=== PATIENT | male | born 1935 | race Caucasian/White ===

== ENCOUNTER → 2016-09-12 | Outpatient (CLI) | payer BC ==
[~2016-09-12] MED LIST: ASPEC81 PO; PRN10125 PO
[2016-09-12 12:47] LABS: ALT/SGPT 26 U/L (12-78); BLOOD UREA NITROGEN 17 mg/dl (7-18); BUN/CREATININE RATIO 19.3 (10-20); CALCIUM 8.7 mg/dl (8.5-10.1); CARBON DIOXIDE 26 mmol/L (21-32); CHLORIDE 109 mmol/L (98-107); CHOLESTEROL 186 mg/dl (0-200); CREATININE 0.87 mg/dl (0.60-1.40); GLUCOSE 101 mg/dl (70-99); POTASSIUM 4.3 mmol/L (3.5-5.1); SODIUM 141 mmol/L (136-145); TRIGLYCERIDES 91 mg/dl (0-150); VERY LOW DENSITY LIPOPROT CALC 18 mg/dl
[2016-09-12 12:50] LABS: ALB/GLOB RATIO 1.1 (0.9-2); ALKALINE PHOSPHATASE 63 U/L (45-117); AST/SGOT 21 U/L (15-37); CHOLESTEROL/HDL RATIO 5.3; HDL CHOLESTEROL 35 mg/dl; LDL CHOLESTEROL CALCULATED 133 mg/dl
== END | disposition home or self-care (01) ==
LOC: C.LABPVFM 07:20
PROVIDERS: ATTEND Family Medicine
DX: R73.9 Hyperglycemia, unspecified (principal)

== ENCOUNTER 2020-08-20 20:19 | Observation (INO) ==
[2020-08-20] MEDS ORDERED: SODIUM CHLORIDE 0.9% 1000ML 1,000 ML IV SCH (21:45)
[2020-08-20 22:13] LABS: INR 1.1 (0.9-1.1); Partial Thromboplastin Ratio 1.1; Partial Thromboplastin Time 29.1 Seconds (21.0-31.0); Prothrombin Time 11.1 Seconds (9.0-12.0)
[2020-08-20 22:16] LABS: Alanine Aminotransferase 44 U/L (12-78); Albumin Level 3.5 gm/dl (3.4-5.0); Aspartate Aminotransferase 55 U/L (15-37); BUN Creatinine Ratio 16.1 (10-20); Blood Urea Nitrogen 14 mg/dl (7-18); Calcium 8.5 mg/dl (8.5-10.1); Carbon Dioxide 26 mmol/L (21-32); Chloride 93 mmol/L (98-107); Creatinine Clr Calc Pharmacy 74.9 ml/min; Est GFR (African American) 92.5 ml/min; Est GFR (Non-African American) 79.8 ml/min; Glucose 111 mg/dl (70-99); Potassium 3.3 mmol/L (3.5-5.1); Sodium 127 mmol/L (136-145)
[2020-08-20 22:20] LABS: Albumin Globulin Ratio 0.9 (0.9-2); Alkaline Phosphatase 65 U/L (45-117); Bilirubin,Total 1.4 mg/dl (0.2-1); Globulin 3.9 gm/dl (2.5-4.0); Total Protein 7.4 gm/dl (6.4-8.2); Troponin I < 0.015 ng/ml (0-0.045)
[2020-08-20 22:39] LABS: Hematocrit (blood only) 44.4 % (42-52); Immature Granulocytes # (auto) 0.01 K/uL (0.00-0.02); Immature Granulocytes % (auto) 0.4 %; Lymphocytes # (auto) 0.39 K/uL (1.2-3.4); Lymphocytes % (auto) 15.3 %; Mean Corpuscular Hemoglobin 31.4 pg (25-34); Mean Corpuscular Volume 87.1 fL (80-100); Mean Platelet Volume 10.5 fL (7.4-10.4); Monocytes # (auto) 0.27 K/uL (0.11-0.59); Monocytes % (auto) 10.6 %; Neutrophils # (auto) 1.88 K/uL (1.4-6.5); Neutrophils % (auto) 73.7 %; Platelet Count 63 K/uL (130-400); Platelet Estimate Decreased (Normal); RDW Coefficient of Variation 13.6 % (11.5-14.5); RDW Standard Deviation 43.3 fL (36.4-46.3); White Blood Count 2.55 K/uL (4.8-10.8)
[2020-08-20 22:41] LABS: Procalcitonin 0.12 ng/ml (0-0.5)
[2020-08-20 22:53] LABS: Lyme Ab IgG w/WB Rflx Negative (Negative); Lyme Ab IgM w/WB Rflx Negative (Negative)
--- NOTE | 2020-08-20 23:01 | Emergency Department Note ---
History of Present Illness General Chief complaint: Illness Stated complaint: SICK SINCE THURSDAY, NAUSEA, HEADACHES, TICK BITE Time Seen by Provider: 08/20/20 21:19 Source: patient Mode of arrival: ambulatory Limitations: no limitations History of Present Illness Provider complaint: Weakness, poor appetite, fevers and chills Onset (ago): day(s) 4 Associated symptoms: + fever/chills, + headaches, + loss of appetite, + malaise and + nausea/vomiting Treatments prior to arrival: none This is an 84-year-old male presents emergency department with multiple complaints that began on Thursday. Patient states he began having subjective fevers and chills, loss of appetite, nausea, and fatigue. Patient states to alleviate the nausea he self-induced vomiting on several occasions. Patient states secondary to that he did have some mild upper abdominal pain however that has since resolved. Patient states he was mildly constipated, denies any diarrhea. He denies any blood in his emesis or stool. Patient did not check his temperature at home. Patient states he feels increasingly weak and has no appetite. Patient denies any prior similar events. Son at bedside states he noticed that his father appeared slightly short of breath and much weaker than usual. [place] Son is concerned for possible tickborne illness. Patient denies any prior history of Lyme. No recent change in medications and no known sick contact. Pt seen during a time of high acuity and national emergency pandemic while wearing PPE. Home Medications Medication Instructions Recorded Confirmed Type aspirin 325 mg PO QAM 08/20/20 08/20/20 History cholecalciferol (vitamin D3) 1,000 units PO QAM 08/20/20 08/20/20 History naproxen sodium [Aleve] 220 mg PO Q12H PRN 08/20/20 08/20/20 History tamsulosin 0.4 mg PO QAM 08/20/20 08/20/20 History Allergies Allergy/AdvReac Type Severity Reaction Status Date / Time meperidine Allergy Verified 08/20/20 22:03 Past Med/Surg History Medical History (Updated 08/22/20 @ 02:16 by aMrely Epstein DO) Cerumen impaction Urine incontinence Surgical History History of back surgery History of hernia surgery Family History Other Cancer Denies family history of Ovarian cancer Prostate cancer Diabetes Coronary heart disease Dyslipidemia Myocardial infarction Breast cancer Colorectal cancer Social History Smoking Status: Never smoker Second Hand Exposure: No; Hx Alcohol Use: No Hx Substance Use: No Preferred Language: Malawian Communication Ability: Effective 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 and A total of 10 systems reviewed and were otherwise negative Physical Exam Vital Signs Vital Signs - 24 hr 08/21/20 03:00 Pulse Rate 74 Respiratory Rate 22 Blood Pressure 149/90 H Blood Pressure Mean 109 Pulse Oximetry 96 GENERAL: alert, well appearing, well nourished, no distress, non-toxic EYE EXAM: normal conjunctiva, PERRL and EOM's grossly intact OROPHARYNX: no exudate, no erythema, lips, buccal mucosa, and tongue normal and mucous membranes are moist NECK: supple, no nuchal rigidity, no adenopathy, non-tender LUNGS: Clear to auscultation. Normal chest wall mechanics, no w/r/r HEART: no murmurs, S1 normal and S2 normal ABDOMEN: abdomen soft, non-tender, normo-active bowel sounds, no masses, no rebound or guarding. BACK: Back is symmetrical on inspection and there is no deformity, no midline tenderness, no CVA tenderness. SKIN: no rashes and no bruising UPPER EXTREMITIES: upper extremities are grossly normal. FROM, nml pulses b/l. LOWER EXTREMITIES: No pitting edema. FROM, nml pulses b/l. NEURO EXAM: Normal sensorium, cranial nerves II-XII grossly intact, normal speech, no gross weakness of arms, no gross weakness of legs. Gross sensation intact. Course Administered Medications Aspirin (Aspirin 325 Mg Ectab) [facility] Stop: 09/20/20 08:59 Last Admin: 08/21/20 08:11 Dose: 325 mg Documented by: [id number] Enoxaparin Sodium (Enoxaparin Inj 40 Mg/0.4 Ml Syr) 40 [facility]Q [facility] Stop: 09/20/20 08:59 Last Admin: 08/21/20 08:12 Dose: 40 mg Documented by: [id number] Guaifenesin (Guaifenesin 600 Mg Tabcr) 600 mg PO Q12 [facility] Stop: 09/20/20 11:14 Last Admin: 08/21/20 20:06 Dose: 600 mg Documented by: [id number] Admin: 08/21/20 12:34 Dose: 600 mg Documented by: [id number] Sodium Chloride (Nss 1000ml) 1,000 mls @ 80 mls/hr IV .[id number] [facility] Stop: 09/20/20 08:59 Last Admin: 08/21/20 20:18 Dose: 80 mls/hr Documented by: [id number] Infusion: 08/21/20 20:18 Dose: 80 mls/hr Documented by: [id number] Admin: 08/21/20 10:00 Dose: 80 mls/hr Documented by: [id number] Tamsulosin HCl (Tamsulosin Hcl 0.4 Mg Cap) 0.4 mg PO [facility] Stop: 09/20/20 08:59 Last Admin: 08/21/20 08:11 Dose: 0.4 mg Documented by: [id number] Discontinued Medications Doxycycline Hyclate (Doxycycline Hyclate 100 Mg Cap) 100 mg PO NOW [facility] Stop: 08/21/20 13:26 Last Admin: 08/21/20 13:53 Dose: 100 mg Documented by: [id number] Sodium Chloride (Nss 1000ml) 1,000 mls @ 999 mls/hr IV .[id number] [facility] Stop: 08/20/20 22:45 Last Infusion: 08/20/20 23:02 Dose: 0 mls/hr Documented by: [id number] Admin: 08/20/20 21:57 Dose: 999 mls/hr Documented by: [id number] Sodium Chloride (Nss 1000ml) 1,000 mls @ 250 mls/hr IV .Q4H [facility] Stop: 09/19/20 23:14 Last Infusion: 08/21/20 05:53 Dose: 0 mls/hr Documented by: [id number] Infusion: 08/21/20 05:44 Dose: 0 mls/hr Documented by: [id number] Admin: 08/21/20 05:30 Dose: 250 mls/hr Documented by: [id number] Infusion: 08/21/20 03:33 Dose: 0 mls/hr Documented by: [id number] Admin: 08/20/20 23:31 Dose: 250 mls/hr Documented by: [id number] Famotidine 20 mg/ Syringe 5 mls @ 2.5 mls/min IV ONE STA Stop: 08/21/20 04:54 Last Admin: 08/21/20 05:26 Dose: 2.5 mls/min Documented by: [id number] Ioversol (Optiray 320 100ml) 100 ml IV ONCE ONE Stop: 08/21/20 01:05 Last Admin: 08/21/20 01:04 Dose: 92 ml Documented by: [id number] Ioversol (Optiray 320 100ml) 55 ml IV ONCE ONE Stop: 08/21/20 09:45 Last Admin: 08/21/20 09:44 Dose: 55 ml Documented by: [id number] Metoclopramide HCl (Metoclopramide Hcl Inj 5 Mg/Ml 2 Ml Vial) 5 mg IV ONE ONE Stop: 08/21/20 06:57 Last Admin: 08/21/20 08:26 Dose: 5 mg Documented by: [id number] Ondansetron HCl (Ondansetron Inj 2 Mg/Ml 2 Ml Vial) 4 mg IV NOW STA Stop: 08/20/20 23:21 Last Admin: 08/20/20 23:31 Dose: 4 mg Documented by: [id number] Pneumococcal Polyvalent Vaccine (Pneumococcal Polysaccharide Vaccine 25mcg/0.5ml Vial/Syr) 25 mcg IM .ONCE ONE Stop: 08/21/20 18:01 Last Admin: 08/21/20 20:11 Dose: 25 mcg Documented by: [id number] Medical Decision Making Differential Diagnosis Differential diagnosis: Etiologies such as viral syndrome, otitis, pharyngitis, pneumonia, influenza, meningitis, urinary tract infection, sepsis, bacteremia, as well as others were entertained. Medical Records Attestation: I reviewed the patient's medical records. Home Medications Current Medication List: was personally reviewed by me Laboratory Data Attestation: I reviewed the patient's lab results. Result diagrams: 08/21/20 12:10 08/21/20 12:10 Lab Results 08/20/20 08/20/20 08/20/20 Range/Units 21:41 21:41 21:41 WBC 2.55 L (4.8-10.8) K/uL RBC 5.10 (4.7-6.1) M/uL Hgb 16.0 (14.0-18.0) g/dL Hct 44.4 (42-52) % MCV 87.1 (80-100) fL MCH 31.4 (25-34) pg MCHC 36.0 (32-36) g/dL RDW Std Deviation 43.3 (36.4-46.3) fL RDW Coeff of Dolly 13.6 (11.5-14.5) % Plt Count 63 L (130-400) K/uL MPV 10.5 H (7.4-10.4) fL Immature Gran % (Auto) 0.4 % Neut % (Auto) 73.7 % Lymph % (Auto) 15.3 % [place] % (Auto) 10.6 % Eos % (Auto) 0.0 % Baso % (Auto) 0.0 % Neut # (Auto) 1.88 (1.4-6.5) K/uL Lymph # (Auto) 0.39 L (1.2-3.4) K/uL [place] # (Auto) 0.27 (0.11-0.59) K/uL Eos # (Auto) 0.00 (0-0.5) K/uL Baso # (Auto) 0.00 (0-0.2) K/uL Immature Gran # (Auto) 0.01 (0.00-0.02) K/uL Platelet Estimate Decreased L (Normal) PT 11.1 (9.0-12.0) Seconds INR 1.1 (0.9-1.1) APTT 29.1 (21.0-31.0) Seconds PTT Ratio 1.1 Sodium 127 L (136-145) mmol/L Potassium 3.3 L (3.5-5.1) mmol/L Chloride 93 L (98-107) mmol/L Carbon Dioxide 26 (21-32) mmol/L Anion Gap 8.0 (3-11) BUN 14 (7-18) mg/dl Creatinine 0.84 (0.6-1.4) mg/dl Est Cr Clr Drug Dosing 74.9 ml/min Est GFR ( Amer) 92.5 ml/min Est GFR (Non-Af Amer) 79.8 ml/min BUN/Creatinine Ratio 16.1 (10-20) Glucose 111 H (70-99) mg/dl Osmolality (280-300) mOsm/kg Lactate (0.4-2.0) mmol/L Calcium 8.5 (8.5-10.1) mg/dl Magnesium 2.0 (1.8-2.4) mg/dl Total Bilirubin 1.4 H (0.2-1) mg/dl AST 55 H (15-37) U/L ALT 44 (12-78) U/L Alkaline Phosphatase 65 (45-117) U/L Troponin I < 0.015 (0-0.045) ng/ml Total Protein 7.4 (6.4-8.2) gm/dl Albumin 3.5 (3.4-5.0) gm/dl Globulin 3.9 (2.5-4.0) gm/dl Albumin/Globulin Ratio 0.9 (0.9-2) Procalcitonin (0-0.5) ng/ml Anaplasma Smear See Comment Lyme Disease IgG Ab (Negative) Lyme Disease IgM Ab (Negative) COVID-19 Eval Order SARS-CoV-2 (PCR) (Negative) 08/20/20 08/20/20 08/20/20 Range/Units 21:41 21:41 21:41 WBC (4.8-10.8) K/uL RBC (4.7-6.1) M/uL Hgb (14.0-18.0) g/dL Hct (42-52) % MCV (80-100) fL MCH (25-34) pg MCHC (32-36) g/dL RDW Std Deviation (36.4-46.3) fL RDW Coeff of Dolly (11.5-14.5) % Plt Count (130-400) K/uL MPV (7.4-10.4) fL Immature Gran % (Auto) % Neut % (Auto) % Lymph % (Auto) % [place] % (Auto) % Eos % (Auto) % Baso % (Auto) % Neut # (Auto) (1.4-6.5) K/uL Lymph # (Auto) (1.2-3.4) K/uL [place] # (Auto) (0.11-0.59) K/uL Eos # (Auto) (0-0.5) K/uL Baso # (Auto) (0-0.2) K/uL Immature Gran # (Auto) (0.00-0.02) K/uL Platelet Estimate (Normal) PT (9.0-12.0) Seconds INR (0.9-1.1) APTT (21.0-31.0) Seconds PTT Ratio Sodium (136-145) mmol/L Potassium (3.5-5.1) mmol/L Chloride (98-107) mmol/L Carbon Dioxide (21-32) mmol/L Anion Gap (3-11) BUN (7-18) mg/dl Creatinine (0.6-1.4) mg/dl Est Cr Clr Drug Dosing ml/min Est GFR ( Amer) ml/min Est GFR (Non-Af Amer) ml/min BUN/Creatinine Ratio (10-20) Glucose (70-99) mg/dl Osmolality 265 L (280-300) mOsm/kg Lactate 1.3 (0.4-2.0) mmol/L Calcium (8.5-10.1) mg/dl Magnesium (1.8-2.4) mg/dl Total Bilirubin (0.2-1) mg/dl AST (15-37) U/L ALT (12-78) U/L Alkaline Phosphatase (45-117) U/L Troponin I (0-0.045) ng/ml Total Protein (6.4-8.2) gm/dl Albumin (3.4-5.0) gm/dl Globulin (2.5-4.0) gm/dl Albumin/Globulin Ratio (0.9-2) Procalcitonin 0.12 (0-0.5) ng/ml Anaplasma Smear Lyme Disease IgG Ab Negative (Negative) Lyme Disease IgM Ab Negative (Negative) COVID-19 Eval Order SARS-CoV-2 (PCR) (Negative) 08/20/20 08/20/20 Range/Units 21:52 21:52 WBC (4.8-10.8) K/uL RBC (4.7-6.1) M/uL Hgb (14.0-18.0) g/dL Hct (42-52) % MCV (80-100) fL MCH (25-34) pg MCHC (32-36) g/dL RDW Std Deviation (36.4-46.3) fL RDW Coeff of Dolly (11.5-14.5) % Plt Count (130-400) K/uL MPV (7.4-10.4) fL Immature Gran % (Auto) % Neut % (Auto) % Lymph % (Auto) % [place] % (Auto) % Eos % (Auto) % Baso % (Auto) % Neut # (Auto) (1.4-6.5) K/uL Lymph # (Auto) (1.2-3.4) K/uL [place] # (Auto) (0.11-0.59) K/uL Eos # (Auto) (0-0.5) K/uL Baso # (Auto) (0-0.2) K/uL Immature Gran # (Auto) (0.00-0.02) K/uL Platelet Estimate (Normal) PT (9.0-12.0) Seconds INR (0.9-1.1) APTT (21.0-31.0) Seconds PTT Ratio Sodium (136-145) mmol/L Potassium (3.5-5.1) mmol/L Chloride (98-107) mmol/L Carbon Dioxide (21-32) mmol/L Anion Gap (3-11) BUN (7-18) mg/dl Creatinine (0.6-1.4) mg/dl Est Cr Clr Drug Dosing ml/min Est GFR ( Amer) ml/min Est GFR (Non-Af Amer) ml/min BUN/Creatinine Ratio (10-20) Glucose (70-99) mg/dl Osmolality (280-300) mOsm/kg Lactate (0.4-2.0) mmol/L Calcium (8.5-10.1) mg/dl Magnesium (1.8-2.4) mg/dl Total Bilirubin (0.2-1) mg/dl AST (15-37) U/L ALT (12-78) U/L Alkaline Phosphatase (45-117) U/L Troponin I (0-0.045) ng/ml Total Protein (6.4-8.2) gm/dl Albumin (3.4-5.0) gm/dl Globulin (2.5-4.0) gm/dl Albumin/Globulin Ratio (0.9-2) Procalcitonin (0-0.5) ng/ml Anaplasma Smear Lyme Disease IgG Ab (Negative) Lyme Disease IgM Ab (Negative) COVID-19 Eval Order Covid19 at [facility] SARS-CoV-2 (PCR) NEGATIVE (Negative) Imaging Data My Impression: X-ray: I interpreted the following studies. Chest: A single view study of the chest was reviewed and was negative for cardiomegaly, focal infiltrate, effusion, pulmonary edema, or wide mediastinum. Radiologist's Impression: CT HEAD: No acute intracranial hemorrhage, edema or mass. Mild periventricular white matter chronic microvascular ischemic changes. No extra-axial fluid collection. No calvarial fracture. Orbits, paranasal sinuses and mastoids are unremarkable. Radiologist: Gary Lema MD CT abdomen and pelvis with contrast: Haziness and small nodes in the mesentery that may be from mesenteric panniculitis. There is a broader differential including neoplastic entities. Cholelithiasis. Nonobstructing left renal stone. Large heterogenous prostate. Colonic diverticula without diverticulitis. Small hiatal hernia. Abdominal mesh. Mild pelvic adenopathy. Small amount of fluid in the peritoneal cavity. Trace pleural effusions. Radiologist: Carie Khan MD ECG Data Attestation: I personally reviewed and interpreted this ECG as follows: Rate (beats per minute): 81 Rhythm: + normal sinus ECG Intervals/blocks: + Normal QRS and + Normal QT ECG [place]: + Left axis deviation ECG ST segments: + Nonspecific ST abnormalities ECG Findings: + PACs and + PVCs MDM Narrative This is an 84-year-old male who presents with the son at bedside due to multiple worsening symptoms over the last 4 days. Patient with concern for myalgias, weakness, fevers, and poor p.o. intake. Son concern for dehydration as well as unclear etiology of other symptoms as patient lives by himself. A sepsis work- up was initiated on the patient, IV fluids were started. Patient found to have leukopenia and thrombocytopenia and given [place], additional tickborne labs were sent. Patient's Lyme was negative and anaplasmosis smear negative also. PCR was added as was ehrlichiosis. On initia l recheck patient was subsequent nausea and vomiting, CT of the abdomen pelvis was added as a precaution. Patient was rechecked multiple times and had remained hemodynamically stable. Patient found to have mild hyponatremia and hypokalemia, possibly from poor p.o. intake and dehydration over the last several days. No other obvious source of infection was noted. Due to poor appearance, concern for persistent symptoms, and unclear etiology, case discussed with hospitalist for additional evaluation and management. Patient and son were made aware of all results, verbalized understanding were in agreement with plan. Patient was given IV fluids cautiously due to prior cardiac history as relayed by son. No recent follow-up with cardiology, no echo for comparison. Patient remained hemodynamically stable while in the emergency room. An order was placed for continuous cardiac monitoring. The monitor shows a rate of _60_ with _normal sinus_ rhythm. Impression & Plan Generalized weakness, Hyponatremia, Fever, Myalgia, Leukopenia, Thrombocytopenia, Hypokalemia, Dehydration Discharge Plan Visit Data Chief Complaint: Illness Stated Complaint: SICK SINCE THURSDAY, NAUSEA, HEADACHES, TICK BITE ED Provider: Marely Epstein Discharge Problem: Generalized weakness, Hyponatremia, Fever, Myalgia, Leukopenia, Thrombocytopenia, Hypokalemia, Dehydration Patient Disposition: Admitted As Inpatient Discharge Instructions Interventions: ED Discharge Assessment Last Done: 08/21/20 04:05 Discharge Problem: Fever Qualifiers: Fever type: unspecified Qualified Code(s): R50.9 - Fever, unspecified Leukopenia Qualifiers: Leukopenia type: unspecified Qualified Code(s): D72.819 - Decreased white blood cell count, unspecified
[2020-08-20] MEDS ORDERED: ONDANSETRON INJ 2 MG/ML 2 ML VIAL IV STA (23:20)
[2020-08-20] MEDS: SODIUM CHLORIDE 0.9% 1000ML 1,000 ML IV SCH (23:31)
[2020-08-21] MEDS ORDERED: OPTIRAY 320 100ml IV ONE ×2 (01:04→09:44)
[2020-08-21 01:34] LABS: Appearance Urine Clear (Clear); Bacteria Urine Automated Negative (Negative); Bilirubin Urine Negative (Negative); Blood Urine Negative (Negative); Cast Urine Automated 0 /lpf (0-5); Color Urine Yellow; Epithelial Cell Urine Auto 0-5 /lpf (0-5); Glucose Urine UA Negative (Negative); Ketones Urine Trace (Negative); Leukocyte Esterase Urine Negative (Negative); Nitrite Urine Negative (Negative); Protein Urine 1+ (Negative); RBC Urine Automated 0-4 /hpf (0-4); Specific Gravity Urine 1.019 (1.000-1.030); Urobilinogen Urine Negative (Negative)
--- NOTE | 2020-08-21 04:12 | History & Physical Report ---
Date of Service August 21, 2020 Assessment & Plan (1) Malaise: Mr. Carrillo is an 84 yo male who presented after 3 days of progressive fevers/chills, weakness, nausea and headache. 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 Anaplasma DNA and ehrlichia DNA pending. Consideration could be given to starting doxycycline empirically, as patient endorsed a recent tick bite (within last 10 days) and is experiencing constitutional symptoms prior to the generation of antibodies (2) Hyponatremia: - Na level low at 127, serum osms 265 - hypotonic hyponatremia - urine osms ordered - clinical volume status appears to be hyper - will await CXR before ordering lasix; trace pleural effusions noted on abdominal CT - echo ordered to assess ventricular function - trend BMP (3) Flatulence: - abdomen distended on exam - cause for this is uncertain: possibility secondary to viral process? - famotidine ordered (4) CAD (coronary artery disease): - continue home high dose aspirin (5) BPH (benign prostatic hyperplasia): - continue home flomax DVT ppx: Lovenox Dispo: Med/Surg w tele Diet: Heart healthy Code: DNR/DNI History of Present Illness Primary Care Provider: Aram Rivas DO Mr. Carrillo is an 84 yo gentleman with a PMHx of CAD who presented for evaluation of a constellation of symptoms which have progressed since onset. Three days ago, he developed subjective fevers/chills, general malaise, headache, nausea and loss of appetite. He has not been coughing, no sore throat, runny nose, ear ache; no diarrhea, has not noticed any rashes. What has become most bothersome is a phenomenon of gaseous distention of his belly, accompanied by belching and vomiting/coughing up clear liquid. He does not follow with a doctor on a routine basis. [place] area - he has had several tick bites so far this spring. Most recent was ~ 1 week or 10 days ago. No etoh or tobacco use. In the ED, he was afebrile, with a normal HR and BP. He was saturating 94% on RA. CBC was remarkable for low WBC and platelets. Procal not elevated. UA benign. Lyme negative, Anaplasma smear negative. Anaplasma and Erlichia DNA ordered. Blood cultures drawn. Na low at 127, K low at 3.3. Cr normal at 0.84. AST elevated to 55. Tbili elevated to 1.4. Trop undetectable. EKG showing NSR with PVCs and PACs. CXR ordered. Head CT showing no acute process. 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 He was given 1 liter of NSS and a dose of zofran. Allergies Allergy/AdvReac Type Severity Reaction Status Date / Time meperidine Allergy Verified 08/20/20 22:03 Home Medications Medication Instructions Recorded Confirmed Type aspirin 325 mg PO QAM 08/20/20 08/20/20 History cholecalciferol (vitamin D3) 1,000 units PO QAM 08/20/20 08/20/20 History naproxen sodium [Aleve] 220 mg PO Q12H PRN 08/20/20 08/20/20 History tamsulosin 0.4 mg PO QAM 08/20/20 08/20/20 History Past Med/Surg History Medical History (Updated 08/21/20 @ 05:01 by Mikayla Coffman MD) Cerumen impaction Urine incontinence Surgical History History of back surgery History of hernia surgery Family History Other Cancer Denies family history of Ovarian cancer Prostate cancer Diabetes Coronary heart disease Dyslipidemia Myocardial infarction Breast cancer Colorectal cancer Social History Smoking Status: Never smoker Second Hand Exposure: No; Hx Alcohol Use: No Hx Substance Use: No Preferred Language: Martiniquais Communication Ability: Effective 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 Beliefs That Will Affect Care: None marital status: / Current Living Situation: Alone Current Living Situation Comment: Lives with dog current occupational status: retired Other Information That Helps Us Care for You: No Feels Safe at Home: Yes Safety Concerns: Feels Safe At This Time caffeine: Yes (coffee) Dental Care, Regularly: Yes Physical Activity Frequency: Daily Seatbelt Use: never Sunscreen Use: No Assistive Devices: None Review of Systems Constitutional: + fever, + chills, + weakness and + anorexia Gastrointestinal: + bloating and + nausea Physical Exam Constitutional: WD/WN, vitals as above + ill appearing and cooperative Eyes: + anicteric sclerae ENMT: external ear and nose normal, oropharynx normal Neck: normal visual inspection and trachea midline Respiratory: normal respiratory effort, lungs clear to auscultation Cardiovascular: Rate/Rhythm: regular rate; + abnormal rhythm Heart Sounds: normal S1 and normal S2 Extremities: + pedal edema (trace ) Gastrointestinal (Abdomen): Inspection/Auscultation: + abdomen distended and normal bowel sounds Percussion/Palpation: abdomen soft and + tympanic to percussion; abdomen nontender Skin: no rashes, warm and dry Neurologic: moves all extremities Results & Data Results & Data ([facility]) Vital Signs (Past 12 Hours) Vital Signs Temp Pulse Pulse Resp BP Pulse Ox 08/21/20 03:46 69 20 147/78 H 93 08/21/20 03:30 69 20 148/86 H 92 08/21/20 03:00 74 22 149/90 H 96 08/21/20 01:00 19 94 08/21/20 00:30 95 08/21/20 00:00 73 22 151/77 H 96 08/20/20 23:45 86 20 140/74 96 08/20/20 23:31 78 24 151/105 H 92 08/20/20 23:30 95 H 22 93 08/20/20 23:15 81 24 93 08/20/20 23:00 87 22 95 08/20/20 22:45 80 20 141/76 H 96 08/20/20 22:30 76 19 138/72 94 08/20/20 22:19 80 21 96 08/20/20 22:00 78 19 97 08/20/20 21:58 93 H 95 H 20 96 08/20/20 21:49 76 19 94 08/20/20 21:30 78 23 145/69 H 95 08/20/20 20:22 37 C 84 18 147/88 H 94 Supervising Physician Co-Signing Physician Notes Attending addendum: I have physically seen this patient, have supervised the medical residents activities, and agree with the H&P unless as otherwise noted. Assessment and Plan: Mesenteric panniculitis/viral syndrome- Work-up negative for tickborne disease, Lyme test and anaplasmosis smear both negative, with Anaplasma DNA and ehrlichiosis DNA pending Hyponatremia- Sodium level 127 upon admission, serum osmolality 265, urine osmolality pending Further management pending results of urine osmolality Complete echocardiogram to assess ejection fraction Serial BMP and magnesium levels CAD- Continue high-dose aspirin BPH- Continue tamsulosin Would have to consider subclinical prostatitis as cause of fevers, chills and generalized weakness no other source determined Remaining orders and notations as noted Resident Activity Tracking Resident Involvement: Resident Care Provided Care Provided: Adult Hospital Medicine
[2020-08-21] MEDS ORDERED: ONDANSETRON INJ 2 MG/ML 2 ML VIAL IV PRN (04:48)
[2020-08-21] MEDS ORDERED: ACETAMINOPHEN 325 MG TAB PO PRN (04:48)
[2020-08-21] MEDS ORDERED: FAMOTIDINE 20 MG in SYRINGE 3 ML IV STA (04:53)
[2020-08-21] MEDS: SODIUM CHLORIDE 0.9% 1000ML 1,000 ML IV SCH ×3 (05:30→20:18)
[2020-08-21] MEDS ORDERED: METOCLOPRAMIDE HCL INJ 5 MG/ML 2 ML VIAL IV ONE (06:56)
--- NOTE | 2020-08-21 06:56 | CT Scan Report ---
CT head/brain wo con CLINICAL HISTORY: Acute change in mental status COMPARISON STUDY: No previous studies for comparison. TECHNIQUE: Axial CT of the brain is performed from the vertex to the skull base. IV contrast was not administered for this examination. A dose lowering technique was utilized adhering to the principles of ALARA. CT DOSE: 786.26 mGy.cm FINDINGS: No intra or extra-axial mass lesions are visualized. There is no CT evidence of acute cortical infarc tion. There is no evidence of midline shift. There is no acute hemorrhage. No calvarial fractures ar e visualized. There are patchy white matter hypodensities likely on a small vessel basis. There is no evidence of pathologic ventricular dilatation. There is no evidence of acute sinusitis IMPRESSION: No acute intracranial findings ACT 112: Negative or not required by law. Electronically signed by: Stiven Mckeon M.D. 08/21/2020 6:55 AM
--- NOTE | 2020-08-21 08:04 | CT Scan Report ---
CT abd pelvis IV con only CLINICAL HISTORY: Nausea, vomiting. PAIN COMPARISON STUDY: July 2006 TECHNIQUE: The patient was scanned in a dynamic helical fashion during intravenous administration of 92 cc of Optiray 320 A dose lowering technique was utilized adhering to the principles of ALARA. CT DOSE: 909.83 mGy.cm FINDINGS: Lower chest: There is respiratory motion artifact. There are trace bilateral pleural effusions. The h eart is enlarged. Liver: There are tiny hepatic hypodensities. These are too small to characterize but likely represent tiny hepatic cysts or biliary hamartomas. There is an elongated right lobe of the liver. There is tr anna perihepatic fluid. Gallbladder: Cholelithiasis. No gallbladder wall thickening or pericholecystic infiltration Spleen: Mildly enlarged measuring 13.7 cm Pancreas: Unremarkable. Adrenal glands: There is minor nodular thickening of the adrenal glands similar to the prior study Kidneys: There is slight enlargement in an indeterminate 10 mm exophytic right renal mass, complex cy st versus solid renal neoplasm. There is a 2.5 mm left renal calculus. There is interval decrease in the size of a right renal cyst which currently measures 12 mm and appears minimally complex. Bowel: There are no transition zones indicate bowel obstruction. There is colonic diverticulosis. The re is no evidence of acute diverticulitis. The appendix is not visualized with certainty. There are n o findings to indicate acute appendicitis. Peritoneum: There is infiltration of the central mesentery with a nonspecific 34 x 16 mm nodular focu s within the right central mesentery. This could be inflammatory or neoplastic. There is no free air. There is trace perihepatic fluid. 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 Adenopathy: There are borderline enlarged pelvic lymph nodes. Pelvic viscera: There is marked prostatomegaly. The prostate measures 9 cm. Skeletal structures: There is a T12 vertebral body hemangioma. There is an anterior abdominal wall so ft tissue nodule with partial rim calcification. This is of doubtful acute clinical significance. Thi s measures 26 mm. IMPRESSION: 1. No evidence of bowel obstruction. No evidence of free air 2. Diverticulosis. No evidence of acute diverticulitis. No evidence of acute appendicitis. 3. Marked prostatomegaly 4. Borderline enlarged pelvic lymph nodes 5. Eugenia mesentery with a 34 x 16 mm mesenteric nodular focus. Diagnostic considerations include mese nteric radiculitis versus neoplasm. 6. Cholelithiasis 7. Small bilateral pleural effusions 8. Trace perihepatic fluid 9. Left-sided fat-containing spigelian hernia 10. Splenomegaly 11. Nonobstructing left renal calculus ACT 112: Negative or not required by law. Electronically signed by: Stiven Mckeon M.D. 08/21/2020 8:02 AM
[2020-08-21] MEDS: TAMSULOSIN HCL 0.4 MG CAP PO SCH (08:11)
[2020-08-21] MEDS: ASPIRIN 325 MG ECTAB PO SCH (08:11)
[2020-08-21] MEDS: ENOXAPARIN INJ 40 MG/0.4 ML SYR SQ SCH (08:12)
--- NOTE | 2020-08-21 08:16 | XRay Report ---
SINGLE VIEW CHEST CLINICAL HISTORY: Sepsis. FINDINGS: An AP, portable, upright chest radiograph is compared to study dated 08/25/2006. The heart i s enlarged noting atherosclerotic calcification of the thoracic aorta. The pulmonary vasculature is n oncongested. There is significant fullness of the zamzam bilaterally. Chronic interstitial thickening i s similar to previous. Scarring/atelectasis is noted at the lung bases. No airspace consolidation or large pleural effusion is identified. No pneumothorax is seen. The skeletal structures are osteopenic . The bony thorax is grossly intact. IMPRESSION: 1. Cardiomegaly without radiographic evidence of congestive failure. 2. No airspace consolidation or large pleural effusion is identified. 3. There is significant fullness of the zamzam bilaterally. This is indeterminant and may represent lym phadenopathy. Correlation with a contrast-enhanced chest CT is recommended for further assessment. ACT 112: Negative or not required by law. Electronically signed by: Benjie Robertson M.D. 08/21/2020 8:14 AM
--- NOTE | 2020-08-21 09:59 | CT Scan Report ---
CT OF THE CHEST WITH IV CONTRAST CLINICAL HISTORY: Fatigue, malaise, abnormal chest x-ray with hilar enlargement COMPARISON STUDY: Chest x-ray dated 08/20/2020 TECHNIQUE: Following the IV administration of 55 mL of Optiray, CT of the thorax was performed from the thoracic inlet to the lung bases. Images are reviewed in the axial, sagittal, and coronal planes. IV contrast was administered without complication. A dose lowering technique was utilized adhering to the principles of ALARA. CT DOSE: 415.90 mGy.cm FINDINGS: Thyroid: Imaged portions of the thyroid gland are normal in appearance. Thoracic aorta: The thoracic aorta is normal in course and caliber, noting standard 3-vessel arch eleanor timo. No aneurysm or dissection is seen. Pulmonary vasculature: There is enlargement of the central pulmonary arteries suggestive of pulmonary nodule hypertension HEART: The heart is mildly enlarged. There are coronary artery calcifications. There is no significan t pericardial effusion. Lungs and pleural spaces: There are small bilateral pleural effusions. There is moderate respiratory motion artifact. There is no lobar consolidation. There are no suspicious pulmonary masses. Mediastinum: There is a minimally enlarged 12 mm right paratracheal lymph node. Bisi: There is no evidence of pathologic hilar adenopathy Axilla: There is known to pathologic axillary lymphadenopathy Upper abdomen: Partially visualized upper abdominal viscera is within normal limits. Skeletal structures: There is a T11 vertebral body hemangioma IMPRESSION: 1. Enlargement of the pulmonary arteries suggestive of pulmonary arterial hypertension 2. Minimally enlarged 12 mm right paratracheal lymph node 3. No suspicious pulmonary masses 4. Small bilateral pleural effusions 5. Motion compromised study. ACT 112: Negative or not required by law. Electronically signed by: Stiven Mckeon M.D. 08/21/2020 9:58 AM
[2020-08-21 12:34] LABS: Hematocrit (blood only) 39.2 % (42-52); Hemoglobin 13.8 g/dL (14.0-18.0); Mean Corpuscular Hemoglobin 31.2 pg (25-34); Mean Corpuscular Hgb Conc 35.2 g/dL (32-36); Mean Corpuscular Volume 88.5 fL (80-100); RDW Coefficient of Variation 13.7 % (11.5-14.5); RDW Standard Deviation 45.1 fL (36.4-46.3); Red Blood Count 4.43 M/uL (4.7-6.1)
[2020-08-21] MEDS: guaiFENesin 600 MG TABCR PO SCH ×2 (12:34→20:06)
[2020-08-21 12:54] LABS: Albumin Level 2.8 gm/dl (3.4-5.0); BUN Creatinine Ratio 19.1 (10-20); Calcium 7.7 mg/dl (8.5-10.1); Est GFR (African American) 105.5 ml/min; Est GFR (Non-African American) 91.1 ml/min; Potassium 3.5 mmol/L (3.5-5.1)
[2020-08-21 12:56] LABS: Mean Platelet Volume 11.1 fL (7.4-10.4); Platelet Count 60 K/uL (130-400)
[2020-08-21 13:07] LABS: Albumin Globulin Ratio 0.9 (0.9-2); Globulin 3.1 gm/dl (2.5-4.0); Total Protein 5.9 gm/dl (6.4-8.2)
[2020-08-21 13:16] LABS: ALC (manual) 0.71 K/uL (1.2-3.4); Lymphocytes # (manual) 0.35 K/uL (1.2-3.4); Lymphocytes % (manual) 16.8 %; Monocytes # (manual) 0.09 K/uL (0.11-0.59); Monocytes % (manual) 4.4 %; Reactive Lymphocytes # (manual) 0.35 K/uL; Reactive Lymphocytes % (manual) 16.8 %
[2020-08-21] MEDS ORDERED: DOXYCYCLINE HYCLATE 100 MG CAP PO STA (13:25)
--- NOTE | 2020-08-21 14:20 | XCELERA ---
[id number]
--- NOTE | 2020-08-21 15:15 | Electrocardiogram Report ---
Test Reason : Blood Pressure : / mmHG Vent. Rate : 081 BPM Atrial Rate : 081 BPM P-R Int : 168 ms QRS Dur : 096 ms QT Int : 386 ms P-R-T Axes : 000 -45 010 degrees QTc Int : 448 ms Sinus rhythm with occasional Premature ventricular complexes and Premature atrial complexes Left axis deviation Abnormal ECG When compared with ECG of 25-AUG-2006 22:43, Premature ventricular complexes are now Present Premature atrial complexes are now Present Confirmed by Miguel Ulloa ([id number]) on 08/21/2020 3:15:30 PM Referred By: REFERRED SELF Confirmed By:Miguel Ulloa
[2020-08-21] MEDS ORDERED: PNEUMOCOCCAL Polysaccharide Vaccine 25mcg/0.5mL vial/Syr IM ONE (18:00)
--- NOTE | 2020-08-21 20:56 | Billing Data ---
Date of Service August 21, 2020 Coding Level of Care Code 80262 Initial Inpt Care Lvl 2
--- NOTE | 2020-08-21 22:11 | History & Physical Bridge Note ---
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
[2020-08-22] MEDS: guaiFENesin 600 MG TABCR PO SCH (07:51)
[2020-08-22] MEDS: ASPIRIN 325 MG ECTAB PO SCH (07:51)
[2020-08-22] MEDS: TAMSULOSIN HCL 0.4 MG CAP PO SCH (07:51)
[2020-08-22] MEDS: ENOXAPARIN INJ 40 MG/0.4 ML SYR SQ SCH (07:52)
[2020-08-22 08:29] LABS: Hematocrit (blood only) 39.7 % (42-52); Hemoglobin 13.8 g/dL (14.0-18.0); Mean Corpuscular Hemoglobin 30.9 pg (25-34); Mean Corpuscular Hgb Conc 34.8 g/dL (32-36); Mean Corpuscular Volume 88.8 fL (80-100); RDW Coefficient of Variation 14.1 % (11.5-14.5); RDW Standard Deviation 45.7 fL (36.4-46.3); Red Blood Count 4.47 M/uL (4.7-6.1); White Blood Count 2.86 K/uL (4.8-10.8)
[2020-08-22 08:35] LABS: Mean Platelet Volume 10.4 fL (7.4-10.4); Platelet Count 58 K/uL (130-400)
[2020-08-22 09:05] LABS: BUN Creatinine Ratio 20.4 (10-20); Calcium 7.9 mg/dl (8.5-10.1); Creatinine Clr Calc Pharmacy 94.2 ml/min; Est GFR (African American) 100.9 ml/min; Est GFR (Non-African American) 87.1 ml/min; Potassium 3.2 mmol/L (3.5-5.1)
[2020-08-22] MEDS ORDERED: DOXYCYCLINE HYCLATE 100 MG CAP PO STA (09:15)
[2020-08-22 09:21] LABS: ALC (manual) 0.84 K/uL (1.2-3.4); ANC (manual) 1.79 K/uL (1.4-6.5); Anisocytosis Present; Lymphocytes % (manual) 10.4 %; Myelocytes # (manual) 0.03 K/uL (0-0); Myelocytes % (manual) 0.9 %; Neutrophils # (manual) 1.79 K/uL (1.4-6.5); Neutrophils % (manual) 62.6 %; Reactive Lymphocytes # (manual) 0.55 K/uL; Reactive Lymphocytes % (manual) 19.1 %
--- NOTE | 2020-08-22 09:23 | Discharge Summary ---
Date of Service August 22, 2020 Admission HPI Per Admitting Provider Mr. Carrillo is an 84 yo gentleman with a PMHx of CAD who presented for evaluation of a constellation of symptoms which have progressed since onset. Three days ago, he developed subjective fevers/chills, general malaise, headache, nausea and loss of appetite. He has not been coughing, no sore throat, runny nose, ear ache; no diarrhea, has not noticed any rashes. What has become most bothersome is a phenomenon of gaseous distention of his belly, accompanied by belching and vomiting/coughing up clear liquid. He does not follow with a doctor on a routine basis. [place] - he has had several tick bites so far this spring. Most recent was ~ 1 week or 10 days ago. No etoh or tobacco use. In the ED, he was afebrile, with a normal HR and BP. He was saturating 94% on RA. CBC was remarkable for low WBC and platelets. Procal not elevated. UA benign. Lyme negative, Anaplasma smear negative. Anaplasma and Erlichia DNA ordered. Blood cultures drawn. Na low at 127, K low at 3.3. Cr normal at 0.84. AST elevated to 55. Tbili elevated to 1.4. Trop undetectable. EKG showing NSR with PVCs and PACs. CXR ordered. Head CT showing no acute process. 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 He was given 1 liter of NSS and a dose of zofran. 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 Discharge Exam Constitutional WD/WN, vitals as above Respiratory normal respiratory effort, lungs clear to auscultation Cardiovascular RRR, no murmur, no edema Gastrointestinal (Abdomen) normal bowel sounds, soft, nontender, no hepatosplenomegaly Musculoskeletal no cyanosis or clubbing, extremities motor strength 5/5 Skin no rashes, warm and dry Neurologic patellar DTR's 2+ bilat, sensation intact and PERRL, EOMI, accommodation nl, no face palsy, no dysarthria Psychiatric A+Ox3, euthymic affect Lymphatic no cervical or axillary lymphadenopathy Discharge Data Allergies Allergy/AdvReac Type Severity Reaction Status Date / Time meperidine Allergy Verified 08/20/20 22:03 Consultations 08/21/20 02:26 ED Decision to Admit Stat Ordered Studies 08/20/20 21:38 CT head/brain wo con Stat 08/20/20 23:42 CT abd pelvis IV con only Urgent 08/21/20 08:49 CT chest diagnostic w con Urgent Hospital Course (1) Fever: suspect possible anaplasmosis lots of tick exposure, [place] Lyme was negative smear was negative for anaplasmosis but the PCR was sent out constellation of fever, myalgia, leukopenia, thrombocytopenia would be suspicious for anaplasmosis started on Doxycycline, will continue for 7 days on discharge if anaplasmosis PCR is negative then can call him and stop, could be due to non- specific viral infection check labs on Thursday, follow up with PCP next week (2) Thrombocytopenia: low at 58k but relatively stable, was 60k yesterday check CBC on Thursday suspect either anaplasmosis or viral infection, thrombocytopenia should be self limiting (3) Leukopenia: see above WBC is 2k today repeat CBC on Thursday (4) Myalgia: resolved, suspect due to anaplasmosis or viral infection (5) Malaise: resolved, eating and drinking well, ambulating well (6) Hyponatremia: due to poor oral intake, resolved with NSS eating and drinking much better (7) Flatulence: (8) CAD (coronary artery disease): (9) BPH (benign prostatic hyperplasia): Total Time Total Time Spent Total Time Spent (In Minutes): 32 Total Time Includes: Examination of the Patient, Discharge Planning and Medication Reconciliation Discharge Plan Discharge Items Patient Disposition: Home - Self-Care Reason For Visit: ILLNESS Discharge Diagnosis: Possible anaplasmosis Thrombocytopenia (low platelets) Condition on Discharge: Good Goals: check labs on Thursday follow up with PCP next we Activity: Resume your previous activity Driving/Machine Use: No limitations Weightbearing: Full weightbearing Non-emergency contact: Primary Care Provider Call non-emergency contact if: you have any medication questions and your symptoms worsen Follow-up/Referrals: Aram Rivas DO [Primary Care Provider] - (one week) Diet: Regular Ambulatory Orders: Complete Blood Count no Diff (Routine) Timeframe: 2 Days Location: Determined by Patient Ordered By: Smith Day Attending Provider Instructions: Medications: - DOXYCYCLINE: 100mg twice a day, next dose is this evening, take for 7 days for possible anaplasmosis Fever, muscle aches coupled with low platelets, low white blood cells and tick exposure makes me suspicious for anaplasmosis Lyme screen was negative sent out for anaplasmosis PCR, will take a few days to come back treatment is simple, Doxycycline 100mg twice a day for 7 days please get labs on Thursday please follow up with PCP next week Pending Studies at Discharge: Yes Studies:: anaplasmosis PCR erlichiosis PCR Stand-Alone Forms: My [facility], Smoking Cessation Medications and DC Order Prescriptions: New doxycycline hyclate 100 mg capsule 100 mg PO BID 7 Days Qty: 14 RF: 0 Continued aspirin 325 mg Tablet 325 mg PO QAM RF: 0 naproxen sodium [Aleve] 220 mg Tablet 220 mg PO Q12H PRN (Reason: Pain) RF: 0 tamsulosin 0.4 mg capsule 0.4 mg PO QAM RF: 0 cholecalciferol (vitamin D3) 1,000 unit capsule 1,000 units PO QAM RF: 0 Discharge Orders: Discharge Order (Routine); Ordered 08/22/20 Ordered By: Smith Bethea Admission Data Admit Date/Time: 08/21/20 03:20 Attending Provider: Smith Bethea Admit Provider: Mikayla Coffman Primary Care Provider: Aram Rivas Other Providers: Vicente Solis Coding Level of Care Code D/C Day Management >30 mins Diagnoses Fever R50.9 Fever type: unspecified Thrombocytopenia D69.6 Leukopenia D72.819 Leukopenia type: unspecified Myalgia M79.10 Malaise R53.81 Hyponatremia E87.1 Flatulence R14.3 CAD (coronary artery disease) I25.10 BPH (benign prostatic hyperplasia) N40.0
[2020-08-24 14:06] LABS: Ehrlichia chaff DNA Bld Not Detected (Not Detected)
== END 2020-08-22 10:29 | disposition home or self-care (01) ==
LOC: ED 20:19 → 2E 08-21 03:20 → INTOOBSV 08-21 03:20 → SUATTDRO 08-21 03:20 → 2E 08-21 04:05

== ENCOUNTER 2022-10-01 22:15 | Inpatient (IN) ==
[2022-10-01] MEDS ORDERED: ALBUT/IPRATROP 3MG/0.5MG NEB 3 ML VIAL NEB STA ×2 (22:53→23:08)
[2022-10-01 22:59] LABS: Base Excess VBG 2.2 mEq/L; HCO3 VBG 27 mmol/L; Oxygen Saturation VBG 90.6 %; PCO2 VBG 43 mmHg (38-50); PO2 VBG 58 mmHg; pH VBG 7.41 (7.36-7.41)
[2022-10-01 23:05] LABS: Basophils # (auto) 0.04 K/uL (0-0.2); Basophils % (auto) 0.5 %; Eosinophils # (auto) 0.16 K/uL (0-0.50); Eosinophils % (auto) 2.2 %; Hematocrit (blood only) 45.6 % (42.0-52.0); Hemoglobin 15.3 g/dl (14.0-18.0); Immature Granulocytes # (auto) 0.02 K/uL (0.01-0.20); Immature Granulocytes % (auto) 0.3 %; Lymphocytes # (auto) 1.14 K/uL (1.2-3.4); Lymphocytes % (auto) 15.6 %; Mean Corpuscular Hemoglobin 29.9 pg (25.0-34.0); Mean Corpuscular Hgb Conc 33.6 g/dL (32.0-36.0); Mean Corpuscular Volume 89.1 fL (80.0-100.0); Mean Platelet Volume 10.2 fL (9.4-12.4); Monocytes # (auto) 0.63 K/uL (0.11-0.59); Monocytes % (auto) 8.6 %; Neutrophils # (auto) 5.33 K/uL (1.40-6.50); Neutrophils % (auto) 72.8 %; Platelet Count 168 K/uL (130-400); RDW Coefficient of Variation 14.2 % (11.5-14.5); RDW Standard Deviation 46.3 fL (36.4-46.3); Red Blood Count 5.12 M/uL (4.70-6.10); White Blood Count 7.32 K/ul (4.8-10.8)
[2022-10-01] MEDS ORDERED: dilTIAZem HCl 5 MG/ML 5 ML VIAL IV STA (23:07)
[2022-10-01] MEDS ORDERED: methylPREDNISolone 125 MG/2 ML VIAL IV STA (23:09)
--- NOTE | 2022-10-01 23:19 | Emergency Department Note ---
Impression & Plan Acute exacerbation of chronic obstructive pulmonary disease, Mediastinal mass, Bilateral pleural effusion ED Provider Note CHIEF COMPLAINT: Shortness of breath, abdominal distention HISTORY OF PRESENT ILLNESS: This 86-year-old male patient with past medical history of CAD status post [place], elevated glucose, BPH, hypertension hypokalemia, thrombocytopenia presents to the emergency department with complaints of shortness of breath over the last 2 days. He states over the last several days he has noticed some increased abdominal distention. He has been taking Gas-X which allows him to belch. He has had a bowel movement, but it was small. He has not had any vomiting. His son states he has been trying to get him to seek medical attention for the last several days but he refused. He has had no chest pain, fevers, productive cough, pain in the abdomen or blood in the stools. REVIEW OF SYSTEMS: A review of systems was performed with positives and pertinent negatives listed in the history of present illness. 10 systems were reviewed and are otherwise negative. ALLERGIES: see below MEDICATIONS: see below PMH: see below SOCIAL HISTORY: see below DDx: Cardiac ischemia, pulmonary embolism, pneumothorax, pneumonia, cardiac arrhythmia, metabolic abnormality, electrolyte abnormality, bowel obstruction, aspiration, biliary etiology as well as other pathologies. PHYSICAL EXAM: Vital signs reviewed. General: Chronically ill-appearing 86-year-old male, increased work of breathing HEENT: No scleral icterus, PERRLA, neck supple. Atraumatic. Cardiovascular: Tachycardic, irregular Pulmonary: Coarse breath sounds bilaterally, increased work of breathing, tachypneic. Abdomen: Soft, distended, positive tympany, nontender positive bowel sounds. Musculoskeletal: Atraumatic, no peripheral edema. Neurologic: Patient awake alert and oriented x 3, speech is clear Skin: Warm, dry, no rash EMERGENCY DEPARTMENT COURSE/MDM: This patient was evaluated and appeared to be in no significant distress. External medical records were reviewed. Patient had an increased work of breathing and was on a DuoNeb treatment at the time of my evaluation. He was given 60 mg of IV Solu-Medrol. Chest x-ray reveals bilateral pleural effusions and a right mediastinal consolidation. CT scan was ordered and reveals no evidence of PE however there is a right mediastinal mass. Please see final read below. Patient was given 40 mg of IV Lasix for the bilateral pleural effusions. He was feeling improved from a respiratory standpoint after the DuoNeb treatment and steroids. He was on a nasal cannula oxygen resting comfortably. Patient also received IV Cardizem 20 mg for rapid atrial fibrillation. This did improve his heart rate significantly. A second dose was administered for better rate control. Patient was informed of the findings of both the rapid atrial fibrillation and the likely malignant mass in the chest. He agreed with the plan for admission. The hospitalist service was contacted and agreed to evaluate the patient for definitive care. MONITORING: An order for cardiac monitoring was placed and the patient is noted to be in an atrial fibrillation at 110 beats per minute. RADIOLOGY: Chest x-ray to my interpretation reveals consolidation in the right mediastinum. Bilateral pleural effusions. Otherwise defer to radiology. KUB to my interpretation reveals no evidence of obstruction or free air. Otherwise defer to radiology Chest CT to my review reveals a large right consolidation/density. No obvious large central PE. Otherwise defer to radiology's read below. EKG: To my interpretation reveals an atrial fibrillation with RVR at 118 bpm. QTc is 456. Normal ST segments, when compared to previous dated August 20, 2020, atrial fibrillation is new. DISPOSITION: Admission I have personally spent 40 minutes of critical care time in the direct management of this patient. This was a life/limb threatening event. This 40 minutes is in excess of all separately billable procedures. Past Med/Surg History Medical History (Updated 10/02/22 @ 07:19 by Hayde Pittman MD) Anaplasmosis Cerumen impaction Dehydration Fever Flatulence Generalized weakness Hyponatremia Malaise Myalgia Urine incontinence Surgical History History of back surgery History of hernia surgery Family History Other Cancer Denies family history of Ovarian cancer Prostate cancer Diabetes Coronary heart disease Dyslipidemia Myocardial infarction Breast cancer Colorectal cancer Social History (Updated 10/28/21 @ 10:34 by Violette Sherman LPN) Smoking Status: Former smoker Second Hand Exposure: No; Do You Dip or Chew Tobacco: No; Tobacco Cessation Education Requested by Patient: No Hx Alcohol Use: No Hx Substance Use: No Preferred Language: Estonian Communication Ability: Effective Visual Impairment: No Limitations Hearing Ability: Hard of Hearing 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 Beliefs That Will Affect Care: None marital status: / Current Living Situation: Alone Current Living Situation Comment: Lives with dog current occupational status: retired How many Children do You have: 2 Other Information That Helps Us Care for You: No Feels Safe at Home: Yes Safety Concerns: Feels Safe At This Time Childhood Exposure to Second-Hand Smoke: No Diet: regular caffeine: Yes (coffee) during the past year weight has: remained stable Dental Care, Regularly: Yes Physical Activity Frequency: Daily Seatbelt Use: always Sunscreen Use: No Do you think of yourself as: straight/heterosexual Gender Identity: Male Assistive Devices: Glasses Allergies Allergies Allergy/AdvReac Type Severity Reaction Status Date / Time meperidine Allergy Unknown CAN'T Verified 10/01/22 23:09 REMEMBER Home Meds Home Medications Medication Instructions Recorded Confirmed aspirin 325 mg tablet 325 mg PO DIRECTED PRN Pain 08/20/20 10/01/22 cholecalciferol (vitamin D3) 25 1,000 units PO QAM 08/20/20 10/01/22 mcg (1,000 unit) capsule naproxen sodium 220 mg tablet 220 mg PO Q12H PRN Pain 08/20/20 10/01/22 (Aleve) saw palmetto 500 mg capsule 0 mg PO DAILY 10/01/22 10/01/22 Previous Rx's Medication Instructions Recorded tamsulosin 0.4 mg capsule 0.4 mg PO QAM #90 caps 08/18/22 Results & Data (ED) Vital Signs Vital Signs - 24 hr 10/01/22 22:20 10/01/22 22:30 10/01/22 22:55 Temperature 37 C Temperature Source Temporal Artery Scan Pulse Rate 103 H 116 H Pulse Rate [Apical] 110 H Pulse Rate from SpO2 Sensor Pulse Rhythm Regular Pulse Strength Normal Respiratory Rate 20 27 H Respiratory Effort / Characteristics Non-Labored Spontaneous Labored Respiratory Depth Normal Respiratory Pattern Regular Blood Pressure Blood Pressure [Right Arm] 141/96 H Blood Pressure Mean Blood Pressure Mean [Right Arm] 111 Blood Pressure Position Sitting Blood Pressure Position [Right Arm] Sitting Pulse Oximetry 93 94 Oxygen Delivery Method Room Air Room Air Oxygen Flow Rate Sepsis Recent Fever Within 48 Hours No Sepsis New/Unexplained Change in Mental Status N/A Sepsis Action Taken by Nursing No Action Required 10/01/22 22:55 10/01/22 23:09 10/02/22 00:16 Temperature Temperature Source Pulse Rate 110 H Pulse Rate [Apical] Pulse Rate from SpO2 Sensor Pulse Rhythm Pulse Strength Respiratory Rate 27 H Respiratory Effort / Characteristics Respiratory Depth Respiratory Pattern Blood Pressure Blood Pressure [Right Arm] Blood Pressure Mean Blood Pressure Mean [Right Arm] Blood Pressure Position Blood Pressure Position [Right Arm] Pulse Oximetry 94 93 90 Oxygen Delivery Method Room Air Room Air Nasal Cannula Oxygen Flow Rate 0 1 Sepsis Recent Fever Within 48 Hours Sepsis New/Unexplained Change in Mental Status Sepsis Action Taken by Nursing 10/01/22 23:24 10/01/22 23:30 10/01/22 23:30 Temperature Temperature Source Pulse Rate 119 H 107 H Pulse Rate [Apical] Pulse Rate from SpO2 Sensor 109 H 110 H Pulse Rhythm Pulse Strength Respiratory Rate 33 H 25 H Respiratory Effort / Characteristics Respiratory Depth Respiratory Pattern Blood Pressure 147/107 H 141/106 H Blood Pressure [Right Arm] Blood Pressure Mean 113 109 Blood Pressure Mean [Right Arm] Blood Pressure Position Blood Pressure Position [Right Arm] Pulse Oximetry 96 91 Oxygen Delivery Method Room Air Oxygen Flow Rate Sepsis Recent Fever Within 48 Hours Sepsis New/Unexplained Change in Mental Status Sepsis Action Taken by Nursing 10/01/22 23:45 10/02/22 00:00 10/02/22 00:16 Temperature Temperature Source Pulse Rate 80 95 H 96 H Pulse Rate [Apical] Pulse Rate from SpO2 Sensor 83 87 93 H Pulse Rhythm Pulse Strength Respiratory Rate 23 17 23 Respiratory Effort / Characteristics Respiratory Depth Respiratory Pattern Blood Pressure 114/83 115/84 123/88 Blood Pressure [Right Arm] Blood Pressure Mean 92 88 102 Blood Pressure Mean [Right Arm] Blood Pressure Position Blood Pressure Position [Right Arm] Pulse Oximetry 91 91 Oxygen Delivery Method Room Air Nasal Cannula Oxygen Flow Rate 1 Sepsis Recent Fever Within 48 Hours Sepsis New/Unexplained Change in Mental Status Sepsis Action Taken by Nursing 10/02/22 00:30 10/01/22 23:30 10/02/22 02:24 Temperature Temperature Source Pulse Rate 105 H Pulse Rate [Apical] Pulse Rate from SpO2 Sensor 111 H Pulse Rhythm Pulse Strength Respiratory Rate 26 H Respiratory Effort / Characteristics Labored Respiratory Depth Respiratory Pattern Tachypnea Blood Pressure 119/83 Blood Pressure [Right Arm] Blood Pressure Mean 104 Blood Pressure Mean [Right Arm] Blood Pressure Position Blood Pressure Position [Right Arm] Pulse Oximetry 93 94 Oxygen Delivery Method Nasal Cannula Room Air Nasal Cannula Oxygen Flow Rate 1 1 Sepsis Recent Fever Within 48 Hours Sepsis New/Unexplained Change in Mental Status Sepsis Action Taken by Nursing 10/02/22 01:00 10/02/22 01:06 10/02/22 01:30 Temperature Temperature Source Pulse Rate 117 H 103 H 95 H Pulse Rate [Apical] Pulse Rate from SpO2 Sensor 118 H 95 H 83 Pulse Rhythm Pulse Strength Respiratory Rate 22 29 H 21 Respiratory Effort / Characteristics Respiratory Depth Respiratory Pattern Blood Pressure 158/128 H 133/93 138/88 Blood Pressure [Right Arm] Blood Pressure Mean 129 106 97 Blood Pressure Mean [Right Arm] Blood Pressure Position Blood Pressure Position [Right Arm] Pulse Oximetry 92 Oxygen Delivery Method Nasal Cannula Oxygen Flow Rate 1 Sepsis Recent Fever Within 48 Hours Sepsis New/Unexplained Change in Mental Status Sepsis Action Taken by Nursing 10/02/22 02:01 10/02/22 02:15 10/02/22 01:17 Temperature Temperature Source Pulse Rate 76 84 Pulse Rate [Apical] Pulse Rate from SpO2 Sensor 74 Pulse Rhythm Pulse Strength Respiratory Rate 18 Respiratory Effort / Characteristics Respiratory Depth Respiratory Pattern Blood Pressure 103/66 102/68 Blood Pressure [Right Arm] Blood Pressure Mean 83 83 Blood Pressure Mean [Right Arm] Blood Pressure Position Blood Pressure Position [Right Arm] Pulse Oximetry 92 Oxygen Delivery Method Nasal Cannula Oxygen Flow Rate 1 Sepsis Recent Fever Within 48 Hours Sepsis New/Unexplained Change in Mental Status Sepsis Action Taken by Nursing 10/02/22 02:30 10/02/22 03:02 10/02/22 03:30 Temperature Temperature Source Pulse Rate 69 Pulse Rate [Apical] Pulse Rate from SpO2 Sensor 71 105 H Pulse Rhythm Pulse Strength Respiratory Rate 18 Respiratory Effort / Characteristics Respiratory Depth Respiratory Pattern Blood Pressure 113/72 153/92 H 128/90 Blood Pressure [Right Arm] Blood Pressure Mean 87 97 107 Blood Pressure Mean [Right Arm] Blood Pressure Position Blood Pressure Position [Right Arm] Pulse Oximetry 92 92 Oxygen Delivery Method Nasal Cannula Nasal Cannula Oxygen Flow Rate 1 1 Sepsis Recent Fever Within 48 Hours Sepsis New/Unexplained Change in Mental Status Sepsis Action Taken by Long Term Medications Current Medication List: was personally reviewed by me Laboratory Data Attestation: I reviewed the patient's lab results. 10/01/22 22:35 10/01/22 22:35 Lab Results 10/01/22 10/01/22 10/01/22 Range/Units 22:35 22:35 22:35 WBC 7.32 (4.8-10.8) K/ul RBC 5.12 (4.70-6.10) M/uL Hgb 15.3 (14.0-18.0) g/dl Hct 45.6 (42.0-52.0) % MCV 89.1 (80.0-100.0) fL MCH 29.9 (25.0-34.0) pg MCHC 33.6 (32.0-36.0) g/dL RDW Std Deviation 46.3 (36.4-46.3) fL RDW Coeff of Dolly 14.2 (11.5-14.5) % Plt Count 168 (130-400) K/uL MPV 10.2 (9.4-12.4) fL Immature Gran % (Auto) 0.3 % Neut % (Auto) 72.8 % Lymph % (Auto) 15.6 % Cass % (Auto) 8.6 % Eos % (Auto) 2.2 % Baso % (Auto) 0.5 % Neut # (Auto) 5.33 (1.40-6.50) K/uL Lymph # (Auto) 1.14 L (1.2-3.4) K/uL Cass # (Auto) 0.63 H (0.11-0.59) K/uL Eos # (Auto) 0.16 (0-0.50) K/uL Baso # (Auto) 0.04 (0-0.2) K/uL Immature Gran # (Auto) 0.02 (0.01-0.20) K/uL PT 11.9 (9.0-12.0) Seconds INR 1.1 (0.9-1.1) APTT 28.3 (21.0-31.0) Seconds PTT Ratio 1.0 D-Dimer 1280 H* (0-500) ug/L FEU VBG pH (7.36-7.41) VBG pCO2 (38-50) mmHg VBG pO2 mmHg VBG HCO3 mmol/L VBG O2 Saturation % VBG Base Excess mEq/L Sodium 132 L (136-145) mmol/L Potassium 4.4 (3.5-5.1) mmol/L Chloride 100 (98-107) mmol/L Carbon Dioxide 26 (21-32) mmol/L Anion Gap 6 (3-11) BUN 15 (6-23) mg/dl Creatinine 0.76 (0.6-1.4) mg/dl Est Cr Clr Drug Dosing Not Reportable Est GFR ( Amer) 95.1 ml/min Est GFR (Non-Af Amer) 82.0 ml/min BUN/Creatinine Ratio 19.7 (10-20) Glucose 109 H (70-99(Fasting)) mg/dl Calcium 9.2 (8.6-10.3) mg/dl Magnesium 2.0 (1.7-2.4) mg/dl Total Bilirubin 0.6 (0.2-1.0) mg/dl AST 30 (13-39) U/L ALT 20 (7-52) U/L Alkaline Phosphatase 69 (34-104) U/L Troponin I High Sens 12.6 (0-20) pg/ml B-Natriuretic Peptide (0-100) pg/ml Total Protein 7.6 (6.0-8.3) gm/dl Albumin 4.1 (3.4-5.0) gm/dl Globulin 3.5 (2.5-4.0) gm/dl Albumin/Globulin Ratio 1.2 (0.9-2) Lipase 34 (11-82) U/L Adenovirus (PCR) (NotDetected) B. pertussis DNA (PCR) (NotDetected) B.parapertussis DNA PCR (NotDetected) C. pneumoniae DNA (PCR) (NotDetected) Coronavirus OC43 (PCR) (NotDetected) Coronavirus HKU1 (PCR) (NotDetected) Coronavirus 229E (PCR) (NotDetected) SARS-CoV-2 (PCR) (NotDetected) Coronavirus NL63 (PCR) (NotDetected) Human Metapneumovir PCR (NotDetected) Influenza Type A (PCR) (NotDetected) Influenza Type B (PCR) (NotDetected) M. pneumoniae (PCR) (NotDetected) Parainfluenza 1 (PCR) (NotDetected) Parainfluenza 2 (PCR) (NotDetected) Parainfluenza 3 (PCR) (NotDetected) Parainfluenza 4 (PCR) (NotDetected) RSV (PCR) (NotDetected) Entero/Rhino (PCR) (NotDetected) 10/01/22 10/01/22 10/01/22 Range/Units 22:35 22:35 23:34 WBC (4.8-10.8) K/ul RBC (4.70-6.10) M/uL Hgb (14.0-18.0) g/dl Hct (42.0-52.0) % MCV (80.0-100.0) fL MCH (25.0-34.0) pg MCHC (32.0-36.0) g/dL RDW Std Deviation (36.4-46.3) fL RDW Coeff of Dolly (11.5-14.5) % Plt Count (130-400) K/uL MPV (9.4-12.4) fL Immature Gran % (Auto) % Neut % (Auto) % Lymph % (Auto) % Cass % (Auto) % Eos % (Auto) % Baso % (Auto) % Neut # (Auto) (1.40-6.50) K/uL Lymph # (Auto) (1.2-3.4) K/uL Cass # (Auto) (0.11-0.59) K/uL Eos # (Auto) (0-0.50) K/uL Baso # (Auto) (0-0.2) K/uL Immature Gran # (Auto) (0.01-0.20) K/uL PT (9.0-12.0) Seconds INR (0.9-1.1) APTT (21.0-31.0) Seconds PTT Ratio D-Dimer (0-500) ug/L FEU VBG pH 7.41 (7.36-7.41) VBG pCO2 43 (38-50) mmHg VBG pO2 58 mmHg VBG HCO3 27 mmol/L VBG O2 Saturation 90.6 % VBG Base Excess 2.2 mEq/L Sodium (136-145) mmol/L Potassium (3.5-5.1) mmol/L Chloride (98-107) mmol/L Carbon Dioxide (21-32) mmol/L Anion Gap (3-11) BUN (6-23) mg/dl Creatinine (0.6-1.4) mg/dl Est Cr Clr Drug Dosing Est GFR ( Amer) ml/min Est GFR (Non-Af Amer) ml/min BUN/Creatinine Ratio (10-20) Glucose (70-99(Fasting)) mg/dl Calcium (8.6-10.3) mg/dl Magnesium (1.7-2.4) mg/dl Total Bilirubin (0.2-1.0) mg/dl AST (13-39) U/L ALT (7-52) U/L Alkaline Phosphatase (34-104) U/L Troponin I High Sens (0-20) pg/ml B-Natriuretic Peptide 288 H (0-100) pg/ml Total Protein (6.0-8.3) gm/dl Albumin (3.4-5.0) gm/dl Globulin (2.5-4.0) gm/dl Albumin/Globulin Ratio (0.9-2) Lipase (11-82) U/L Adenovirus (PCR) Not Detected (NotDetected) B. pertussis DNA (PCR) Not Detected (NotDetected) B.parapertussis DNA PCR Not Detected (NotDetected) C. pneumoniae DNA (PCR) Not Detected (NotDetected) Coronavirus OC43 (PCR) Not Detected (NotDetected) Coronavirus HKU1 (PCR) Not Detected (NotDetected) Coronavirus 229E (PCR) Not Detected (NotDetected) SARS-CoV-2 (PCR) Not Detected (NotDetected) Coronavirus NL63 (PCR) Not Detected (NotDetected) Human Metapneumovir PCR Not Detected (NotDetected) Influenza Type A (PCR) Not Detected (NotDetected) Influenza Type B (PCR) Not Detected (NotDetected) M. pneumoniae (PCR) Not Detected (NotDetected) Parainfluenza 1 (PCR) Not Detected (NotDetected) Parainfluenza 2 (PCR) Not Detected (NotDetected) Parainfluenza 3 (PCR) Not Detected (NotDetected) Parainfluenza 4 (PCR) Not Detected (NotDetected) RSV (PCR) Not Detected (NotDetected) Entero/Rhino (PCR) Not Detected (NotDetected) Administered Medications Albuterol (Albut/Ipratrop 3mg/0.5mg Neb 3 Ml Vial) 3 ml NEB Q4R NEETU; Protocol Stop: 11/01/22 06:59 Last Admin: 10/02/22 07:05 Dose: 3 ml Documented By: [id number] Discontinued Medications Albuterol (Albut/Ipratrop 3mg/0.5mg Neb 3 Ml Vial) 3 ml NEB NOW STA; Protocol Stop: 10/01/22 22:54 Last Admin: 10/01/22 22:58 Dose: 3 ml Documented By: ERNESTINE Albuterol (Albut/Ipratrop 3mg/0.5mg Neb 3 Ml Vial) 3 ml NEB NOW STA; Protocol Stop: 10/01/22 23:09 Last Admin: 10/01/22 23:28 Dose: Not Given Documented By: KADIE Diltiazem HCl (Diltiazem Hcl 5 Mg/Ml 5 Ml Vial) 20 mg IV NOW STA Stop: 10/01/22 23:08 Last Admin: 10/01/22 23:26 Dose: 20 mg Documented By: KADIE Co-signed By: ERNESTINE Diltiazem HCl (Diltiazem Hcl 5 Mg/Ml 5 Ml Vial) 20 mg IV NOW STA Stop: 10/02/22 01:42 Last Admin: 10/02/22 01:51 Dose: 20 mg Documented By: KADIE Co-signed By: CLAUDIA Furosemide (Furosemide 40 Mg/4 Ml Vial) 40 mg IV ONE STA Stop: 10/01/22 23:44 Last Admin: 10/02/22 00:16 Dose: 40 mg Documented By: KADIE Sodium Chloride (Nss 1000ml) 1,000 mls @ 125 mls/hr IV .Q8H NEETU Stop: 11/01/22 05:29 Last Admin: 10/02/22 06:43 Dose: Not Given Documented By: DANICA Ioversol (Ioversol 350 Mg 125ml Prefilled Syringe) 118 ml IV ONCE ONE Stop: 10/02/22 00:44 Last Admin: 10/02/22 00:44 Dose: 118 ml Documented By: ADA Methylprednisolone (Methylprednisolone 125 Mg/2 Ml Vial) 60 mg IV NOW STA Stop: 10/01/22 23:10 Last Admin: 10/01/22 23:25 Dose: 60 mg Documented By: KADIE Imaging Data Radiologist's Impression: Chest CTA 10/01/22 23:42 Exam(s): CTA CHEST IV Amt: 118ML OPTIRAY 350 EXAM: CT Angiography Chest With Intravenous Contrast CLINICAL HISTORY: Reason for exam: PE. TECHNIQUE: Axial computed tomographic angiography images of the chest with intravenous contrast. CTDI is 26.19 mGy and DLP is 937.23 mGy-cm. Automated exposure control was utilized for the study. A dose lowering technique was utilized adhering to the principles of ALARA. MIP reconstructed images were created and reviewed. COMPARISON: No relevant prior studies available. FINDINGS: Pulmonary arteries: Unremarkable. No CT evidence of pulmonary embolism. Aorta: No acute findings. No thoracic aortic aneurysm. Lungs: Unremarkable. No mass. No consolidation. Pleural space: Moderate right and small left pleural effusions. No pneumothorax. Heart: Unremarkable. No cardiomegaly. No significant pericardial effusion. No evidence of RV dysfunction. Mediastinum: Infiltrative subcarinal mass extending into the right infrahilar region measuring at least 9 cm x 5.5 cm consistent with malignancy until proven otherwise. The mass attenuates the right lower lobe bronchi. There is mediastinal lymphadenopathy present but it is difficult to separate from the underlying middle mediastinal mass. Bones/joints: No acute fracture. No dislocation. Soft tissues: Unremarkable. Lymph nodes: Unremarkable. No enlarged lymph nodes. Gallbladder and bile ducts: Small layering gallstones. Kidneys and ureters: 1.1 cm hemorrhagic cyst arising off the upper pole of the right kidney. IMPRESSION: 1. No CT evidence of pulmonary embolism. 2. Infiltrative subcarinal mass extending into the right infrahilar region measuring at least 9 cm x 5.5 cm consistent with malignancy until proven otherwise. The mass attenuates the right lower lobe bronchi. 3. Moderate right and small left pleural effusions. 4. Mediastinal lymphadenopathy difficult to separate from the middle mediastinal mass. 5. Cholelithiasis. Electronically signed by: Andrzej Vazquez M.D. 10/02/22 01:31 AM Discharge Plan Visit Data Chief Complaint: Respiratory Problems Stated Complaint: TROUBLE BREATHING,HEAD PAIN,EYE AIN ED Provider: Hayde Pittman Discharge Problem: Acute exacerbation of chronic obstructive pulmonary disease, Mediastinal mass, Bilateral pleural effusion Patient Disposition: Admitted As Inpatient Discharge Instructions Interventions: ED Discharge Assessment Last Done: 10/02/22 05:15
[2022-10-01 23:24] LABS: Alanine Aminotransferase 20 U/L (7-52); Albumin Globulin Ratio 1.2 (0.9-2); Albumin Level 4.1 gm/dl (3.4-5.0); Alkaline Phosphatase 69 U/L (34-104); Anion Gap 6 (3-11); Aspartate Aminotransferase 30 U/L (13-39); BUN Creatinine Ratio 19.7 (10-20); Bilirubin,Total 0.6 mg/dl (0.2-1.0); Blood Urea Nitrogen 15 mg/dl (6-23); Calcium 9.2 mg/dl (8.6-10.3); Carbon Dioxide 26 mmol/L (21-32); Chloride 100 mmol/L (98-107); Est GFR (African American) 95.1 ml/min; Globulin 3.5 gm/dl (2.5-4.0); Glucose 109 mg/dl (70-99(Fasting)); Lipase 34 U/L (11-82); Potassium 4.4 mmol/L (3.5-5.1); Sodium 132 mmol/L (136-145); Total Protein 7.6 gm/dl (6.0-8.3)
[2022-10-01 23:28] LABS: Troponin I High Sensitivity 12.6 pg/ml (0-20)
[2022-10-01 23:36] LABS: INR 1.1 (0.9-1.1); Partial Thromboplastin Time 28.3 Seconds (21.0-31.0); Prothrombin Time 11.9 Seconds (9.0-12.0)
[2022-10-01] MEDS ORDERED: FUROSEMIDE 40 MG/4 ML VIAL IV STA (23:43)
[2022-10-01 23:48] LABS: D Dimer 1280 ug/L FEU (0-500)
[2022-10-02 00:27] LABS: Adenovirus PCR Not Detected (NotDetected); Bordetella parapertussis PCR Not Detected (NotDetected); Bordetella pertussis PCR Not Detected (NotDetected); Chlamydia pneumoniae PCR Not Detected (NotDetected); Coronavirus 229E PCR Not Detected (NotDetected); Coronavirus CoV-2 (COVID19)PCR Not Detected (NotDetected); Coronavirus HKU1 PCR Not Detected (NotDetected); Coronavirus NL63 PCR Not Detected (NotDetected); Coronavirus OC43PCR Not Detected (NotDetected); Human Metapneumovirus PCR Not Detected (NotDetected); Influenza A PCR Not Detected (NotDetected); Influenza B PCR Not Detected (NotDetected); Mycoplasma pneumoniae PCR Not Detected (NotDetected); Parainfluenza Virus 1 PCR Not Detected (NotDetected); Parainfluenza Virus 2 PCR Not Detected (NotDetected); Parainfluenza Virus 3 PCR Not Detected (NotDetected); Parainfluenza Virus 4 PCR Not Detected (NotDetected); Respiratory Syncytial VirusPCR Not Detected (NotDetected); Rhinovirus/Enterovirus PCR Not Detected (NotDetected)
[2022-10-02] MEDS ORDERED: IOVERSOL 350 MG 125mL Prefilled Syringe IV ONE (00:43)
--- NOTE | 2022-10-02 01:32 | CT Scan Report ---
Exam(s): CTA CHEST IV Amt: 118ML OPTIRAY 350 EXAM: CT Angiography Chest With Intravenous Contrast CLINICAL HISTORY: Reason for exam: PE. TECHNIQUE: Axial computed tomographic angiography images of the chest with intravenous contrast. CTDI is 26.19 mGy and DLP is 937.23 mGy-cm. Automated exposure control was utilized for the study. A dose lowering technique was utilized adhering to the principles of ALARA. MIP reconstructed images were created and reviewed. COMPARISON: No relevant prior studies available. FINDINGS: Pulmonary arteries: Unremarkable. No CT evidence of pulmonary embolism. Aorta: No acute findings. No thoracic aortic aneurysm. Lungs: Unremarkable. No mass. No consolidation. Pleural space: Moderate right and small left pleural effusions. No pneumothorax. Heart: Unremarkable. No cardiomegaly. No significant pericardial effusion. No evidence of RV dysfunction. Mediastinum: Infiltrative subcarinal mass extending into the right infrahilar region measuring at least 9 cm x 5.5 cm consistent with malignancy until proven otherwise. The mass attenuates the right lower lobe bronchi. There is mediastinal lymphadenopathy present but it is difficult to separate from the underlying middle mediastinal mass. Bones/joints: No acute fracture. No dislocation. Soft tissues: Unremarkable. Lymph nodes: Unremarkable. No enlarged lymph nodes. Gallbladder and bile ducts: Small layering gallstones. Kidneys and ureters: 1.1 cm hemorrhagic cyst arising off the upper pole of the right kidney. IMPRESSION: 1. No CT evidence of pulmonary embolism. 2. Infiltrative subcarinal mass extending into the right infrahilar region measuring at least 9 cm x 5.5 cm consistent with malignancy until proven otherwise. The mass attenuates the right lower lobe bronchi. 3. Moderate right and small left pleural effusions. 4. Mediastinal lymphadenopathy difficult to separate from the middle mediastinal mass. 5. Cholelithiasis. Electronically signed by: Andrzej Vazquez M.D. 10/02/22 01:31 AM
[2022-10-02] MEDS ORDERED: dilTIAZem HCl 5 MG/ML 5 ML VIAL IV STA (01:41)
--- NOTE | 2022-10-02 02:09 | History & Physical Report ---
Date of Service October 02, 2022 Assessment & Plan (1) New onset a-fib: Plan: 86 yo male with PMHx CAD, s/p LA, and BPH presents with shortness of breath. #Shortness of breath -presented with 2 weeks worsening sob. Ddx afib, CHF, lung mass, COPD. Did meet SIRS criteria (HR, RR) however does not appear septic. UA neg. CXR without consolidation. No leukocytosis. -blood cx pending -otherwise plan as below #Abdominal distention -past 2 weeks alongside the sob. Unclear etiology. ?constipation. He does have a h/o massive hernia repair, question failure of mesh. Previous CT A/P in 2020 also with questionable mesenteric nodular focus which was never evaluated for malignancy. -CT A/P ordered; will retrieve in the afternoon since pt recently had contrast from CTA chest #New onset afib #Acute CHF -on arrival patient found to be in afib on EKG with HR in 110s. He does endorse episodes of elevated HR over the past few years so unclear when this started. Possible causing sob and acute CHF. Trop wnl. BNP 200s. -CTA chest with bilateral pleural effusions -Received diltiazem 20mg IV x2 and lasix in ED. -Upon being seen at bedside, HR <90. Rate appears controlled. 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 -will defer anticoagulation for now in anticipation of possible lung biopsy. -echo ordered #?COPD in exacerbation -former cigar smoker. His shortness of breath appears acute. -CXR per my read with hyperinflation and some flattening of diaphragm. Suspicious for COPD however never diagnosed. -received duoneb and methylprednisone 60mg IV in ED. -ordered duoneb q4h -defer to day team for continued steroids #Lung Mass -incidental finding -CTA chest: infiltrative subcarinal mass extending into the right infrahilar region measuring at least 9 cm x 5.5 cm consistent with malignancy until proven otherwise. This is new compared to CT chest in 2020. -pulmonology consulted for possible bronchoscopy w/ biopsy. Deferred anticoagulation as above for now. NPO. -of note, CT A/P in 2020 with a mesenteric nodular focus and enlarged pelvic lymph nodes. Unclear if this was ever evaluated for malignancy. Question possible mets to lung. Repeat CT A/P pending. #CAD #s/p LA -per PCP note, pt refuses to follow with cardiology. -he only takes ASA prn when he feels chest tightness which has been occurring over the past couple of weeks. -unclear if DIANELYS/ARB, statin, BB have been discussed in the past. #BPH -cont. tamsulosin DVT ppx: SCDs; no chemical d/t possible bronchoscopy for lung biopsy FEN/GI: NPO Code Status: DNR/DNI Dispo: med tele (2) BPH (benign prostatic hyperplasia): (3) CAD (coronary artery disease): (4) History of LA (myocardial infarction): (5) Abdominal distention: (6) Shortness of breath: (7) Mass of lung: History of Present Illness Chief Complaint: shortness of breath Primary Care Provider: Aram Rivas, DO 86 yo male with PMHx CAD, s/p LA, and BPH presents with shortness of breath. 2 weeks ago patient started experiencing progressively worsening nonexertional sob and abdominal distention. Last night he also had a sharp migrating headache wh ich prompted him to come to the ED. Denies fever, chest pain, fatigue, vision changes, N/V/D, constipation, dysuria, extremity numbness/weakness. The headache did resolve with tylenol at home. The sob is exacerbated when laying flat. He has tried Gas-x for his bloating which did help a bit. Patient is very active in the herr at home. He is a former cigar smoker ~40-50 years ago. He does not the over the past years he has felt moments of a fast HR but this occurs typically when he is active. Allergies Allergy/AdvReac Type Severity Reaction Status Date / Time meperidine Allergy Unknown CAN'T Verified 10/01/22 23:09 REMEMBER Home Medications Medication Instructions Recorded Confirmed Type aspirin 325 mg tablet 325 mg PO DIRECTED PRN Pain 08/20/20 10/01/22 History cholecalciferol (vitamin D3) 25 1,000 units PO QAM 08/20/20 10/01/22 History mcg (1,000 unit) capsule naproxen sodium 220 mg tablet 220 mg PO Q12H PRN Pain 08/20/20 10/01/22 History (Aleve) tamsulosin 0.4 mg capsule 0.4 mg PO QAM #90 caps 08/18/22 10/01/22 Rx saw palmetto 500 mg capsule 0 mg PO DAILY 10/01/22 10/01/22 History Past Med/Surg History Medical History (Updated 10/02/22 @ 07:19 by Hayde Pittman MD) Anaplasmosis Cerumen impaction Dehydration Fever Flatulence Generalized weakness Hyponatremia Malaise Myalgia Urine incontinence Surgical History History of back surgery History of hernia surgery Family History Other Cancer Denies family history of Ovarian cancer Prostate cancer Diabetes Coronary heart disease Dyslipidemia Myocardial infarction Breast cancer Colorectal cancer Social History (Updated 10/28/21 @ 10:34 by Violette Sherman LPN) Smoking Status: Former smoker Second Hand Exposure: No; Do You Dip or Chew Tobacco: No; Tobacco Cessation Education Requested by Patient: No Hx Alcohol Use: No Hx Substance Use: No Preferred Language: Divehi Communication Ability: Effective Visual Impairment: No Limitations Hearing Ability: Hard of Hearing Tip Bander Required: No Beliefs That Will Affect Care: None marital status: / Current Living Situation: Alone Current Living Situation Comment: Lives with dog current occupational status: retired How many Children do You have: 2 Other Information That Helps Us Care for You: No Feels Safe at Home: Yes Safety Concerns: Feels Safe At This Time Childhood Exposure to Second-Hand Smoke: No Diet: regular caffeine: Yes (coffee) during the past year weight has: remained stable Dental Care, Regularly: Yes Physical Activity Frequency: Daily Seatbelt Use: always Sunscreen Use: No Do you think of yourself as: straight/heterosexual Gender Identity: Male Assistive Devices: Glasses Review of Systems Review of Systems: All systems reviewed & are unremarkable except as noted in HPI & below Physical Exam Physical Exam: Constitutional: in no acute distress, pleasant and normal affect, intact memory. AOX3. Vitals as above. HEENT: No scleral injection or discharge.Moist mucous membranes. Neck: Supple without lymphadenopathy or thyromegaly. Trachea midline. Lungs: +wheezes and rales R>L. Cardiac: Irregularly irregular rhythm. Normal HR. +systolic murmur on tricuspid valve. 1+ lower extremity edema bilaterally. 1+ distal peripheral pulses. Abdomen: Bowel sounds present. Soft. Distended. Tender LLQ.No guarding. Difficult to asses for hepatosplenomegaly given distention. MSK: No cyanosis or clubbing. Extremities motor strength 5/5. Skin: No abnormal rashes, warm, dry. Neurologic: no focal deficits Results & Data Results & Data Vital Signs (Past 12 Hours) Vital Signs Temp Pulse Pulse Resp BP BP Pulse Ox 10/01/22 23:30 10/02/22 00:30 105 H 26 H 119/83 93 10/02/22 00:16 96 H 23 123/88 91 10/02/22 00:00 95 H 17 115/84 10/01/22 23:45 80 23 114/83 91 10/01/22 23:30 107 H 25 H 91 10/01/22 23:30 141/106 H 10/01/22 23:24 119 H 33 H 147/107 H 96 10/02/22 00:16 90 10/01/22 23:09 93 10/01/22 22:55 110 H 27 H 94 10/01/22 22:55 110 H 27 H 141/96 H 94 10/01/22 22:30 116 H 10/01/22 22:20 37 C 103 H 20 93 O2 Del Method O2 Flow Rate 10/01/22 23:30 Room Air 10/02/22 00:30 Nasal Cannula 1 10/02/22 00:16 Nasal Cannula 1 10/02/22 00:00 10/01/22 23:45 Room Air 10/01/22 23:30 10/01/22 23:30 10/01/22 23:24 Room Air 10/02/22 00:16 Nasal Cannula 1 10/01/22 23:09 Room Air 0 10/01/22 22:55 Room Air 10/01/22 22:55 Room Air 10/01/22 22:30 10/01/22 22:20 Room Air Laboratory Results Laboratory Results WBC 7.32 K/ul (4.8-10.8) 10/01/22 22:35 RBC 5.12 M/uL (4.70-6.10) 10/01/22 22:35 Hgb 15.3 g/dl (14.0-18.0) 10/01/22 22:35 Hct 45.6 % (42.0-52.0) 10/01/22 22: MCV 89.1 fL (80.0-100.0) 10/01/22 22: MCH 29.9 pg (25.0-34.0) 10/01/22: MCHC 33.6 g/dL (32.0-36.0) 10/01/22: RDW Std Deviation 46.3 fL (36.4-46.3) 10/01/22: RDW Coeff of Dolly 14.2 % (11.5-14.5) 10/01/22: Plt Count 168 K/uL (130-400) 10/01/22: MPV 10.2 fL (9.4-12.4) 10/01/22: Immature Gran % (Auto) 0.3 % 10/01/22: Neut % (Auto) 72.8 % 10/01/22 22: Lymph % (Auto) 15.6 % 10/01/22 22:35 [place] % (Auto) 8.6 % 10/01/22 22:35 Eos % (Auto) 2.2 % 10/01/22 22: Baso % (Auto) 0.5 % 10/01/22: Neut # (Auto) 5.33 K/uL (1.40-6.50) 10/01/22 22: Lymph # (Auto) 1.14 K/uL (1.2-3.4) L 10/01/22: [place] # (Auto) 0.63 K/uL (0.11-0.59) H 10/01/22 22:35 Eos # (Auto) 0.16 K/uL (0-0.50) 10/01/22 22: Baso # (Auto) 0.04 K/uL (0-0.2) 10/01/22: Immature Gran # (Auto) 0.02 K/uL (0.01-0.20) 10/01/22 22: PT 11.9 Seconds (9.0-12.0) 10/01/22 22: INR 1.1 (0.9-1.1) 10/01/22 22: APTT 28.3 Seconds (21.0-31.0) 10/01/22 22:35 PTT Ratio 1.0 10/01/22 22:35 D-Dimer 1280 ug/L FEU (0-500) H* 10/01/22 22:35 VBG pH 7.41 (7.36-7.41) 10/01/22 22:35 VBG pCO2 43 mmHg (38-50) 10/01/22 22:35 VBG pO2 58 mmHg 10/01/22 22:35 VBG HCO3 27 mmol/L 10/01/22 22:35 VBG O2 Saturation 90.6 % 10/01/22 22:35 VBG Base Excess 2.2 mEq/L 10/01/22 22:35 Sodium 132 mmol/L (136-145) L 10/01/22 22:35 Potassium 4.4 mmol/L (3.5-5.1) 10/01/22 22:35 Chloride 100 mmol/L (98-107) 10/01/22 22:35 Carbon Dioxide 26 mmol/L (21-32) 10/01/22 22:35 Anion Gap 6 (3-11) 10/01/22 22:35 BUN 15 mg/dl (6-23) 10/01/22 22:35 Creatinine 0.76 mg/dl (0.6-1.4) 10/01/22 22:35 Est Cr Clr Drug Dosing Not Reportable 10/01/22 22:35 Est GFR ( Amer) 95.1 ml/min 10/01/22 22:35 Est GFR (Non-Af Amer) 82.0 ml/min 10/01/22 22:35 BUN/Creatinine Ratio 19.7 (10-20) 10/01/22 22:35 Glucose 109 mg/dl (70-99(Fasting)) H 10/01/22 22:35 Calcium 9.2 mg/dl (8.6-10.3) 10/01/22 22:35 Magnesium 2.0 mg/dl (1.7-2.4) 10/01/22 22:35 Total Bilirubin 0.6 mg/dl (0.2-1.0) 10/01/22 22:35 AST 30 U/L (13-39) 10/01/22 22:35 ALT 20 U/L (7-52) 10/01/22 22:35 Alkaline Phosphatase 69 U/L (34-104) 10/01/22 22:35 Troponin I High Sens 12.6 pg/ml (0-20) 10/01/22 22:35 B-Natriuretic Peptide 288 pg/ml (0-100) H 10/01/22 22:35 Total Protein 7.6 gm/dl (6.0-8.3) 10/01/22 22:35 Albumin 4.1 gm/dl (3.4-5.0) 10/01/22 22:35 Globulin 3.5 gm/dl (2.5-4.0) 10/01/22 22:35 Albumin/Globulin Ratio 1.2 (0.9-2) 10/01/22 22:35 Lipase 34 U/L (11-82) 10/01/22 22:35 Adenovirus (PCR) Not Detected (NotDetected) 10/01/22 23:34 B. pertussis DNA (PCR) Not Detected (NotDetected) 10/01/22 23:34 B.parapertussis DNA PCR Not Detected (NotDetected) 10/01/22 23:34 C. pneumoniae DNA (PCR) Not Detected (NotDetected) 10/01/22 23:34 Coronavirus OC43 (PCR) Not Detected (NotDetected) 10/01/22 23:34 Coronavirus HKU1 (PCR) Not Detected (NotDetected) 10/01/22 23:34 Coronavirus 229E (PCR) Not Detected (NotDetected) 10/01/22 23:34 SARS-CoV-2 (PCR) Not Detected (NotDetected) 10/01/22 23:34 Coronavirus NL63 (PCR) Not Detected (NotDetected) 10/01/22 23:34 Human Metapneumovir PCR Not Detected (NotDetected) 10/01/22 23:34 Influenza Type A (PCR) Not Detected (NotDetected) 10/01/22 23:34 Influenza Type B (PCR) Not Detected (NotDetected) 10/01/22 23:34 M. pneumoniae (PCR) Not Detected (NotDetected) 10/01/22 23:34 Parainfluenza 1 (PCR) Not Detected (NotDetected) 10/01/22 23:34 Parainfluenza 2 (PCR) Not Detected (NotDetected) 10/01/22 23:34 Parainfluenza 3 (PCR) Not Detected (NotDetected) 10/01/22 23:34 Parainfluenza 4 (PCR) Not Detected (NotDetected) 10/01/22 23:34 RSV (PCR) Not Detected (NotDetected) 10/01/22 23:34 Entero/Rhino (PCR) Not Detected (NotDetected) 10/01/22 23:34 Impressions Chest CTA 10/01/22 23:42 Exam(s): CTA CHEST IV Amt: 118ML OPTIRAY 350 EXAM: CT Angiography Chest With Intravenous Contrast CLINICAL HISTORY: Reason for exam: PE. TECHNIQUE: Axial computed tomographic angiography images of the chest with intravenous contrast. CTDI is 26.19 mGy and DLP is 937.23 mGy-cm. Automated exposure control was utilized for the study. A dose lowering technique was utilized adhering to the principles of ALARA. MIP reconstructed images were created and reviewed. COMPARISON: No relevant prior studies available. FINDINGS: Pulmonary arteries: Unremarkable. No CT evidence of pulmonary embolism. Aorta: No acute findings. No thoracic aortic aneurysm. Lungs: Unremarkable. No mass. No consolidation. Pleural space: Moderate right and small left pleural effusions. No pneumothorax. Heart: Unremarkable. No cardiomegaly. No significant pericardial effusion. No evidence of RV dysfunction. Mediastinum: Infiltrative subcarinal mass extending into the right infrahilar region measuring at least 9 cm x 5.5 cm consistent with malignancy until proven otherwise. The mass attenuates the right lower lobe bronchi. There is mediastinal lymphadenopathy present but it is difficult to separate from the underlying middle mediastinal mass. Bones/joints: No acute fracture. No dislocation. Soft tissues: Unremarkable. Lymph nodes: Unremarkable. No enlarged lymph nodes. Gallbladder and bile ducts: Small layering gallstones. Kidneys and ureters: 1.1 cm hemorrhagic cyst arising off the upper pole of the right kidney. IMPRESSION: 1. No CT evidence of pulmonary embolism. 2. Infiltrative subcarinal mass extending into the right infrahilar region measuring at least 9 cm x 5.5 cm consistent with malignancy until proven otherwise. The mass attenuates the right lower lobe bronchi. 3. Moderate right and small left pleural effusions. 4. Mediastinal lymphadenopathy difficult to separate from the middle mediastinal mass. 5. Cholelithiasis. Electronically signed by: Andrzej Vazquez M.D. 10/02/22 01:31 AM Supervising Physician Co-Signing Physician Notes Attending addendum: I have physically seen this patient, have supervised the medical residents activities, and agree with the H&P unless as otherwise noted. Assessment and Plan: New onset atrial fibrillation/CH/CAD F/hypertension/history of LA/pleural effusions bilaterally- Received diltiazem 20 mg IV x2 from the ED, with heart rate improved in the 80s- 90s and improved blood pressure control Has had institution of beta-blockers discussed with cardiology in the past, and will leave that decision up to cardiology. He is presently rate controlled Holding anticoagulation until determination of possible biopsy for lung mass Follow response to furosemide 40 mg IV given in ED to determine if further needed Lung mass/COPD exacerbation/bilateral pleural effusions- Received Solu-Medrol 60 mg IV and DuoNeb while in ED. Duonebs every 4 hours while awake and every 2 hours when necessary. Methylprednisolone 40 mg IV every 8 hours Lung mass noted is 9 cm x 5.5 cm. Holding anticoagulation for atrial fibrillation until determine if biopsy will be done this admission Abdominal distention- History of questionable manic mesenteric nodule on previous imaging Order CT abdomen pelvis Remaining orders and notations as noted Resident Activity Tracking Resident Involvement: Resident Care Provided Care Provided: Adult Hospital Medicine
[2022-10-02] MEDS ORDERED: SODIUM CHLORIDE 0.9% 1000ML 1,000 ML IV SCH (05:30)
[2022-10-02] MEDS ORDERED: ONDANSETRON 4 MG OD TAB PO PRN (05:30)
[2022-10-02] MEDS ORDERED: ACETAMINOPHEN 325 MG TAB PO PRN (05:30)
[2022-10-02] MEDS: ALBUT/IPRATROP 3MG/0.5MG NEB 3 ML VIAL NEB SCH ×5 (07:05→23:12)
--- NOTE | 2022-10-02 07:26 | XRay Report ---
KUB HISTORY: Acute generalized abdominal pain with distention distended, belching COMPARISON: CT 08/21/2020 FINDINGS: Nonobstructive bowel gas pattern. Ventral abdominal wall herniorrhaphy. Gaseous distention of the stomach. Mild to moderate colonic fecal retention. Limited study secondary to artifact overlyi ng the film. No renal calculi. No ureteral calculi. No pneumoperitoneum or pneumatosis. Lumbar levos coliosis. No fracture. IMPRESSION: 1. Limited exam as above with nonobstructive bowel gas pattern. 2. Mild gaseous distention of the stomach. ACT 112: Negative or not required by law. The above report was generated using voice recognition software. It may contain grammatical, syntax o r spelling errors. Electronically signed by: Santhosh Loya M.D. 10/02/2022 7:24 AM
--- NOTE | 2022-10-02 07:28 | XRay Report ---
XR chest 1V portable CLINICAL HISTORY: Chest pain, nonspecific COMPARISON STUDY: Chest radiograph August 20, 2020. Chest CT August 21, 2020. FINDINGS: Moderate cardiomegaly is noted. There is no pneumothorax. There are suspected small bilater al pleural effusions. Interstitial thickening is present suggestive of pulmonary edema. There are bib asilar opacities. Patient is rotated. IMPRESSION: 1. Cardiomegaly with interstitial pulmonary edema. 2. Small bilateral pleural effusions with associated bibasilar opacities. ACT 112: Negative or not required by law. Electronically signed by: Dakota Krause M.D. 10/02/2022 7:26 AM
--- NOTE | 2022-10-02 08:02 | Hospitalist Progress Note ---
Date of Service October 02, 2022 Assessment & Plan (1) New onset a-fib: Plan: 86 yo male with PMHx CAD, s/p TX, and BPH presents with shortness of breath. 1) Shortness of breath: Presented with 2 weeks worsening sob. Ddx afib, CHF, lung mass, COPD. Did meet SIRS criteria (HR, RR) however does not appear septic. UA neg. CXR without consolidation. No leukocytosis. CTA chest with bilateral pleural effusions and large middle mediastinal mass. Shortness of breath and inspiratory wheeze most likely due to bronchial compression from mass. * RIGHT-sided lung mass - Large 9 x 5.5 cm infiltrative subcarinal mass extend ing into the infrahilar region. This mass is new compared to CT chest in 2020. of note, CT A/P in 2020 with a mesenteric nodular focus and enlarged pelvic lymph nodes. Unclear if this was ever evaluated for malignancy. Question possible mets to lung. -Repeat CT A/P pending. -Pulmonary consulted. Per pulm, SOB and effusions are most likely due to mass - Endobronchial ultrasound with tissue biopsy performed today 10/02: Primary diagnosis of malignancy. Patient was in A-fib RVR prior to the start of the procedure with heart rate in the 120s to 130s. At the end of the procedure his heart rate was in the 140s. His systolic blood pressure was in the 120s. Patient given 5 mg of metoprolol. -Do not start any blood thinner for at least 6 hours post-procedure (plan to initiate 40mg Lovenox tomorrow AM). Per pulm, given the narrowing of the RBI there is a possibility that the right lower lobe will collapse with even little bit of clot. - Recommend patient follow with pulm outpatient clinic -- appointment 1pm , 10/09 - Brain MRI scheduled for tomorrow morning to evaluate for possible metastatic spread. - Recommend outpatient PET scan - Consider inpatient medical oncology and radiation oncology consultations. * ?COPD in exacerbation: Patient has remote (40-50 years) history of cigar smoking. His shortness of breath appears acute. Has never been diagnosed with COPD. -received duoneb and methylprednisone 60mg IV in ED. -Per pulm, inhalers may provide some benefit, worth trialing post-biopsy * ?CHF: patient has not been diagnosed with CHF before, but given recent chest tightness + pulmonary edema consider echo * Pneumonia: On admission patient met 2/4 SIRS criteria. However clinical concern for infection is low at this time given normal white count, normal temperature, and strong likelihood of other cause of pulmonary edema. - Blood cx pending 2) Abdominal distention: Past 2 weeks alongside the sob. Unclear etiology. ?constipation. He does have a h/o massive hernia repair, question failure of mesh. Previous CT A/P in 2020 also with questionable mesenteric nodular focus which was never evaluated for malignancy. Patient reports normal bowel movements but large amounts of gas. Took gas-X at home with little relief. -CT A/P ordered, showed no mets, an unobstructed small hernia, a known kidney lesion that has not grown significantly since last CT, and moderate gas and stool burden -Miralax PRN 3) New onset afib: n arrival patient found to be in afib on EKG with HR in 110s. He does endorse episodes of elevated HR/feeling "missed beats" over the past few years so unclear when this started. Possible causing sob and acute CHF. Trop wnl. BNP 200s. -Received diltiazem 20mg IV x2 and lasix in ED. -Defer anticoagulation until after lung biopsy -- see above -Titrate up metoprolol for rate control -TSH pending -echo pending 4) Lung Mass: see above 5) CAD s/p TX: per PCP note, pt refuses to follow with cardiology. He only takes ASA prn when he feels chest tightness which has been occurring over the past couple of weeks. Unclear if DIANELYS/ARB, statin, BB have been discussed in the past. -Plan to discuss options for management in more detail with patient. BPH -cont. tamsulosin DVT ppx: SCDs; no chemical d/t possible bronchoscopy for lung biopsy FEN/GI: NPO Code Status: DNR/DNI Dispo: med tele (2) BPH (benign prostatic hyperplasia): (3) CAD (coronary artery disease): (4) History of [place] (myocardial infarction): (5) Abdominal distention: (6) Shortness of breath: (7) Mass of lung: Admission and Anticipated Discharge Date Admission Date: October 02, 2022 Supervising Physician Co-Signing Physician Notes I personally examined the patient and verified all ceballos points of history and exam, discussed case, and agree with decision making with Dr Murrieta feeling okay. Still bloated abdomen, breathing not bad. Discussed with pulmonary PA, input appreciated. Vitals noted, in general he is awake and alert pleasant no distress. HEENT normocephalic atraumatic mucous membranes moist. Breathing unlabored no accessory muscle use, abdomen distended. CT chest abdomen pelvis reports as well as films reviewed, labs noted as well. Mediastinal masspending biopsy new A-fib, echo/TSH, rate control, anticoagulation once its clear he will need no further procedures constipationMiraLAX DVT prophylaxis if unable to start full anticoagulation tomorrow, will at least start DVT prophylaxis dose Lovenox Subjective Patient sitting in bed, in no acute distress. Patient expresses having very little interest in medical interventions in general, however he is amenable to the planned bronchoscopy/biopsy and feels comfortable with it. Review of Systems Review of Systems: All systems reviewed & are unremarkable except as noted in HPI & below Physical Exam Physical Exam: GENERAL -Sitting on edge of bed, in no acute distress. SKIN - No obvious rashes or lesions. LUNGS - Chest wall rise equal. Slight inspiratory wheeze on auscultation CARDIAC - RRR with S1/S2. No murmur, rubs, or gallops. ABDOMEN - Protuberant abdomen, unclear if distension vs body habitus. BS normoactive all four quadrants. No tenderness, palpable masses, or ascites noted. EXTREMITIES - Nail clubbing not present. No peripheral cyanosis. Moderate edema present ankles and below. +3/5 radial palpated throughout. PSYCH - A&Ox3 Results & Data Results & Data Vital Signs (Past 12 Hours) Vital Signs Temp Pulse Pulse Pulse Resp BP BP 10/02/22 07:34 36.4 C L 87 16 132/78 10/02/22 07:05 99 H 20 10/02/22 05:30 10/02/22 05:30 36.7 C 84 24 129/67 10/02/22 04:30 126/96 10/02/22 03:30 128/90 10/02/22 03:02 153/92 H 10/02/22 02:30 69 18 113/72 10/02/22 04:44 89 20 126/96 10/02/22 01:17 84 10/02/22 02:15 102/68 10/02/22 02:01 76 18 103/66 08/03/23 01:30 95 H 21 138/88 10/02/22 01:06 103 H 29 H 133/93 10/02/22 01:00 117 H 22 158/128 H 10/02/22 02:24 10/01/22 23:30 10/02/22 00:30 105 H 26 H 119/83 10/02/22 00:16 96 H 23 123/88 10/02/22 00:00 95 H 17 115/84 10/01/22 23:45 80 23 114/83 10/01/22 23:30 107 H 25 H 10/01/22 23:30 141/106 H 10/01/22 23:24 119 H 33 H 147/107 H 10/02/22 00:16 10/01/22 23:09 10/01/22 22:55 110 H 27 H 10/01/22 22:55 110 H 27 H 141/96 H 10/01/22 22:30 116 H 10/01/22 22:20 37 C 103 H 20 Pulse Ox O2 Del Method O2 Flow Rate FiO2 10/02/22 07:34 92 Room Air 10/02/22 07:05 90 Room Air 21 10/02/22 05:30 Room Air 10/02/22 05:30 92 Room Air 10/02/22 04:30 93 Nasal Cannula 1 10/02/22 03:30 10/02/22 03:02 92 Nasal Cannula 1 10/02/22 02:30 92 Nasal Cannula 1 10/02/22 04:44 94 Nasal Cannula 1 10/02/22 01:17 10/02/22 02:15 10/02/22 02:01 92 Nasal Cannula 1 10/02/22 01:30 92 Nasal Cannula 1 10/02/22 01:06 10/02/22 01:00 10/02/22 02:24 94 Nasal Cannula 1 10/01/22 23:30 Room Air 10/02/22 00:30 93 Nasal Cannula 1 10/02/22 00:16 91 Nasal Cannula 1 10/02/22 00:00 10/01/22 23:45 91 Room Air 10/01/22 23:30 91 10/01/22 23:30 10/01/22 23:24 96 Room Air 10/02/22 00:16 90 Nasal Cannula 1 10/01/22 23:09 93 Room Air 0 10/01/22 22:55 94 Room Air 10/01/22 22:55 94 Room Air 10/01/22 22:30 10/01/22 22:20 93 Room Air Resident Activity Tracking Resident Involvement: Resident Care Provided Care Provided: Adult Hospital Medicine
[2022-10-02] MEDS: TAMSULOSIN HCL 0.4 MG CAP PO SCH (08:24)
--- NOTE | 2022-10-02 08:53 | Pulmonary Consultation ---
Date of Consultation October 02, 2022 Assessment & Plan (1) Mass of lung: (2) Bilateral pleural effusion: (3) Shortness of breath: Plan IMPRESSION: 86-year-old male who was admitted with new findings of large RIGHT- sided 9 x 5.5 cm infiltrative subcarinal mass and associated shortness of breath. RECOMMENDATIONS: 1. RIGHT-sided lung mass - Concerning findings of large 9 x 5.5 cm infiltrative subcarinal mass extending into the infrahilar region. Had extensive conversation with the patient at bedside. While he is uncertain if he would wish to undergo aggressive treatment measures if this were to represent a malignancy, he would be interested in tissue diagnosis and treatment options moving forward. We did discuss the cost, risk, benefits, and alternatives of performing endobronchial ultrasound with tissue biopsy. He agrees with moving forward sooner rather than later. I do feel that this is in the patient's best interest. He remains n.p.o. at this time. He has had no anticoagulation to this point. This was communicated with pulmonary team and the patient will be scheduled for bronchoscopy at noon today with interrogation of the chest for diagnosis and hopeful staging. Moving forward, the patient can certainly follow with our outpatient clinic. Would recommend MRI of the patient's brain with and without contrast while inpatient to evaluate for possible metastatic spread. Additionally, patient will wear an outpatient PET scan as well. Consideration for medical oncology and radiation oncology consultations while inpatient as well. Otherwise, after tissue diagnosis, we will be happy to follow with the patient in the outpatient setting moving forward. 2. Bilateral pleural effusion - Likely secondary to #1. Thankfully, the patient is without respiratory distress or hypoxia. Would defer thoracentesis at this time, but would continue to monitor signs of effusion moving forward if the patient's symptoms were to worsen and require thoracentesis versus Pleurx placement in the future, however there is question of whether the patient will be interested in aggressive management moving forward. Again, these are decisions that could be made in the outpatient setting. 3. Shortness of breath - Multifactorial in the 86-year-old male with poor f unctional status at baseline and general deconditioning, new chest mass, and likely degree of subdiaphragmatic compression from abdominal bloating. Agree with CT of the abdomen pelvis to evaluate for other possible locations of lesions as well as any other abdominal pathology. Thankfully, patient not requiring supplemental oxygen at this time. 4. Inspiratory wheeze - Patient without significant smoking history. Patient is not significantly bronchospastic, but does note a small inspiratory wheeze. Question if this is more related to the patient's bronchial narrowing in the setting of chest mass. Certainly a trial of LABA/LAMA may be adventitious moving forward. Will consider after patient undergoes bronchoscopic evaluation. Thank you for allowing us to participate in the care of this patient. We will continue to follow along while patient remains inpatient. Supervising Physician Co-Signing Physician Notes Patient seen and examined. 86 year old male with multiple medical issues admitted on 10/01/2022 with complaints of dyspnea and generalized weakness. Intake CT significant for large subcarinal mass with bilateral pleural effusions / significant medistinal lymphadenopathy, pulmonology consulted for possible biopsy. Patient denies known hx of malignancy but is willing to undergo diagnostic workup for malignancy. Planning for EBUS today in OR. Plan: [place] biipsy results, currently on room air, may benefit from nocturnal CPAP given extrinsic compressions of his distal airways by the large subcarinal mass. History of Present Illness Reason for Consultation: Pulmonary Mass Requesting Physician: Dr. Brown Attending Physician: Harry Kim DO History of Present Illness Patient is an 86-year-old male with significant past medical history of coronary artery disease, hyperlipidemia, BPH, neuropathy, lower extremity varicosities, and prior [place] who presented to the emergency department with complaints of shortness of breath. The patient reports that he was experiencing some dyspepsia and abdominal bloating which was limiting his breathing and resulting in worsening shortness of breath. He was taking Gas-X [id number] which did seem to help alleviate some of the symptoms with belching, but his symptoms of shortness of breath persisted which prompted visit to the emergency department. During evaluation, the patient was noted to have a positive D-dimer and underwent CTA of the chest which demonstrated a large, 9 x 5.5 cm subcarinal mass with bilateral pleural effusions and mediastinal lymphadenopathy which is obscured secondary to size of mass. Patient reports a remote smoking history for a few years while in the in the 60s. Otherwise, he is a lifelong non-smoker. He denies any prior history of malignancies or family history of lung cancers. No prior history of diseases otherwise. Patient reports no unintentional weight loss. He denies any night sweats or other beta symptoms. Allergies Allergy/AdvReac Type Severity Reaction Status Date / Time meperidine Allergy Unknown CAN'T Verified 10/01/22 23:09 REMEMBER Home Medications Medication Instructions Recorded Confirmed Type aspirin 325 mg tablet 325 mg PO DIRECTED PRN Pain 08/20/20 10/01/22 History cholecalciferol (vitamin D3) 25 1,000 units PO QAM 08/20/20 10/01/22 History mcg (1,000 unit) capsule naproxen sodium 220 mg tablet 220 mg PO Q12H PRN Pain 08/20/20 10/01/22 History (Aleve) tamsulosin 0.4 mg capsule 0.4 mg PO QAM #90 caps 08/18/22 10/01/22 Rx saw palmetto 500 mg capsule 0 mg PO DAILY 10/01/22 10/01/22 History Patient History Medical History (Updated 10/02/22 @ 07:19 by Hayde Pittman MD) Anaplasmosis Cerumen impaction Dehydration Fever Flatulence Generalized weakness Hyponatremia Malaise Myalgia Urine incontinence Surgical History History of back surgery History of hernia surgery Family History Other Cancer Denies family history of Ovarian cancer Prostate cancer Diabetes Coronary heart disease Dyslipidemia Myocardial infarction Breast cancer Colorectal cancer Social History (Updated 10/28/21 @ 10:34 by Violette Sherman LPN) Smoking Status: Former smoker Second Hand Exposure: No; Do You Dip or Chew Tobacco: No; Tobacco Cessation Education Requested by Patient: No Hx Alcohol Use: No Hx Substance Use: No Preferred Language: Swazi Communication Ability: Effective Visual Impairment: No Limitations Hearing Ability: Hard of Hearing Crystalizer Required: No Beliefs That Will Affect Care: None marital status: / Current Living Situation: Alone Current Living Situation Comment: Lives with dog current occupational status: retired How many Children do You have: 2 Other Information That Helps Us Care for You: No Feels Safe at Home: Yes Safety Concerns: Feels Safe At This Time Childhood Exposure to Second-Hand Smoke: No Diet: regular caffeine: Yes (coffee) during the past year weight has: remained stable Dental Care, Regularly: Yes Physical Activity Frequency: Daily Seatbelt Use: always Sunscreen Use: No Do you think of yourself as: straight/heterosexual Gender Identity: Male Assistive Devices: Glasses Review of Systems Review of Systems: A complete 10 point review of systems was reviewed with the patient with p ertinent positives and negatives as per history of present illness. All else were negative. Physical Exam Physical Exam: VITAL SIGNS - Vital signs and nursing notes were reviewed. GENERAL - 86-year-old male appearing his stated age who is in no acute distress. Communicates well with provider and answers questions appropriately. SKIN - Without rashes or lesions. NOSE - Midline and without cyanosis. MOUTH/OROPHARYNX - Without perioral cyanosis. NECK - Neck with FROM. LUNGS - Chest wall evaluation demonstrates normal chest wall A:P diameter. Auscultation reveals slight inspiratory wheeze to the RIGHT sided lung field. CARDIAC - RRR with S1/S2. No murmur, rubs, or gallops appreciated. ABDOMEN - Abdominal inspection demonstrates a protuberant abdomen. BS normoactive all four quadrants. No tenderness, palpable masses, or ascites noted. EXTREMITIES - Nail clubbing not present. No peripheral cyanosis. No pretibial edema present. +3/5 radial palpated throughout. PSYCH - A&Ox3 and cooperates fully with examiner. Pt is very pleasant and interacts well with examiner. Results & Data Results & Data Vital Signs (Past 12 Hours) Vital Signs Temp Pulse Pulse Pulse Resp BP BP 10/02/22 07:34 36.4 C L 87 16 132/78 10/02/22 07:05 99 H 20 10/02/22 05:30 10/02/22 05:30 36.7 C 84 24 129/67 10/02/22 04:30 126/96 10/02/22 03:30 128/90 10/02/22 03:02 153/92 H 10/02/22 02:30 69 18 113/72 10/02/22 04:44 89 20 126/96 10/02/22 01:17 84 10/02/22 02:15 102/68 10/02/22 02:01 76 18 103/66 10/02/22 01:30 95 H 21 138/88 10/02/22 01:06 103 H 29 H 133/93 10/02/22 01:00 117 H 22 158/128 H 10/02/22 02:24 10/01/22 23:30 10/02/22 00:30 105 H 26 H 119/83 10/02/22 00:16 96 H 23 123/88 10/02/22 00:00 95 H 17 115/84 10/01/22 23:45 80 23 114/83 10/01/22 23:30 107 H 25 H 10/01/22 23:30 141/106 H 10/01/22 23:24 119 H 33 H 147/107 H 10/02/22 00:16 10/01/22 23:09 10/01/22 22:55 110 H 27 H 10/01/22 22:55 110 H 27 H 141/96 H 10/01/22 22:30 116 H 10/01/22 22:20 37 C 103 H 20 Pulse Ox O2 Del Method O2 Flow Rate FiO2 10/02/22 07:34 92 Room Air 10/02/22 07:05 90 Room Air 21 10/02/22 05:30 Room Air 10/02/22 05:30 92 Room Air 10/02/22 04:30 93 Nasal Cannula 1 10/02/22 03:30 10/02/22 03:02 92 Nasal Cannula 1 10/02/22 02:30 92 Nasal Cannula 1 10/02/22 04:44 94 Nasal Cannula 1 10/02/22 01:17 10/02/22 02:15 10/02/22 02:01 92 Nasal Cannula 1 10/02/22 01:30 92 Nasal Cannula 1 10/02/22 01:06 10/02/22 01:00 10/02/22 02:24 94 Nasal Cannula 1 10/01/22 23:30 Room Air 10/02/22 00:30 93 Nasal Cannula 1 10/02/22 00:16 91 Nasal Cannula 1 10/02/22 00:00 10/01/22 23:45 91 Room Air 10/01/22 23:30 91 10/01/22 23:30 10/01/22 23:24 96 Room Air 10/02/22 00:16 90 Nasal Cannula 1 10/01/22 23:09 93 Room Air 0 10/01/22 22:55 94 Room Air 10/01/22 22:55 94 Room Air 10/01/22 22:30 10/01/22 22:20 93 Room Air PG Care Time/CCT Total # of Minutes Spent Total Time Spent with Patient: Total time spent is greater than 50% in coordination of care (as documented) at patient's floor/unit and/or counseling patient: Coding Level of Care Code 93527 INT INP/OBS CARE 3/75MIN Diagnoses Mass of lung R91.8 Bilateral pleural effusion J90 Shortness of breath R06.02
[2022-10-02] MEDS ORDERED: MIDAZOLAM HCL 5 MG/ML 1 ML VIAL ONE (11:32)
[2022-10-02] MEDS ORDERED: fentaNYL citrate PF 100 MCG/2 ML VIAL ONE (11:32)
--- NOTE | 2022-10-02 12:13 | History & Physical Bridge Note ---
Date of Service October 02, 2022 History & Physical Bridge Note I have examined the patient, reviewed the History & Physical and in the interval since the performance of the History & Physical I have noted the following changes of clinical significance: no changes noted Patient with significant mediastinal LAD and RBI narrowing. For EBUS now. Risk and benefit of the procedure explained to the patient. Consent signed, witnessed and put in the chart.
--- NOTE | 2022-10-02 12:13 | Pre Anesthesia Assessment ---
Date of Service October 02, 2022 Pre Sedation Assessment Vital Signs Temp Pulse Pulse Pulse Resp BP BP 10/02/22 11:32 113 H 18 109/78 10/02/22 11:21 36.6 C 120 H 20 148/81 H 10/02/22 07:34 36.4 C L 87 16 132/78 10/02/22 07:05 99 H 20 10/02/22 05:30 10/02/22 05:30 36.7 C 84 24 129/67 10/02/22 04:30 126/96 10/02/22 03:30 128/90 10/02/22 03:02 153/92 H 10/02/22 02:30 69 18 113/72 10/02/22 04:44 89 20 126/96 10/02/22 01:17 84 10/02/22 02:15 102/68 10/02/22 02:01 76 18 103/66 10/02/22 01:30 95 H 21 138/88 10/02/22 01:06 103 H 29 H 133/93 10/02/22 01:00 117 H 22 158/128 H 10/02/22 02:24 10/01/22 23:30 10/02/22 00:30 105 H 26 H 119/83 10/02/22 00:16 96 H 23 123/88 10/02/22 00:00 95 H 17 115/84 10/01/22 23:45 80 23 114/83 10/01/22 23:30 107 H 25 H 10/01/22 23:30 141/106 H 10/01/22 23:24 119 H 33 H 147/107 H 10/02/22 00:16 10/01/22 23:09 10/01/22 22:55 110 H 27 H 10/01/22 22:55 110 H 27 H 141/96 H 10/01/22 22:30 116 H 10/01/22 22:20 37 C 103 H 20 Pulse Ox O2 Del Method O2 Flow Rate FiO2 10/02/22 11:32 97 Room Air 10/02/22 11:21 92 Room Air 10/02/22 07:34 92 Room Air 10/02/22 07:05 90 Room Air 21 10/02/22 05:30 Room Air 10/02/22 05:30 92 Room Air 10/02/22 04:30 93 Nasal Cannula 1 10/02/22 03:30 10/02/22 03:02 92 Nasal Cannula 1 10/02/22 02:30 92 Nasal Cannula 1 10/02/22 04:44 94 Nasal Cannula 1 10/02/22 01:17 10/02/22 02:15 10/02/22 02:01 92 Nasal Cannula 1 10/02/22 01:30 92 Nasal Cannula 1 10/02/22 01:06 10/02/22 01:00 10/02/22 02:24 94 Nasal Cannula 1 10/01/22 23:30 Room Air 10/02/22 00:30 93 Nasal Cannula 1 10/02/22 00:16 91 Nasal Cannula 1 10/02/22 00:00 10/01/22 23:45 91 Room Air 10/01/22 23:30 91 10/01/22 23:30 10/01/22 23:24 96 Room Air 10/02/22 00:16 90 Nasal Cannula 1 10/01/22 23:09 93 Room Air 0 10/01/22 22:55 94 Room Air 10/01/22 22:55 94 Room Air 10/01/22 22:30 10/01/22 22:20 93 Room Air Pre-Sedation Airway Assessment Smoking Status: Former smoker Hx Sleep Apnea: No Short, Thick Neck: No Thyromental Distance: > or= 3.5 Finger Breadths Oral Cavity: + Chipped Teeth Mallampati Class: II ASA: ASA2 NPO Status Date of Last Intake of Fluids: 10/01/22 Time of Last Intake of Fluids: 22:00 Date of Last Intake of Solid Food: 10/01/22 Time of Last Intake of Solid Foods: 22:00 Procedure Planning Contraindications for Sedation: none Current Medications Reviewed: Yes Notes The planned sedation has been discussed with the patient. Informed Consent was obtained. I have identified the patient, determined the appropriateness of sedation and have assessed the patient immediately prior to the procedure. All medicine(s) and interventions are by my order.
[2022-10-02] MEDS ORDERED: METOPROLOL TARTRATE 1 MG/ML VIAL IV ONE (12:18)
[2022-10-02] MEDS ORDERED: METOPROLOL TARTRATE 1 MG/ML VIAL IV PRN (12:19)
--- NOTE | 2022-10-02 12:52 | Post Anesthesia Assessment ---
Date of Service October 02, 2022 Post Sedation Assessment Vital Signs Temp Pulse Pulse Pulse Resp BP BP 10/02/22 12:43 124 H 18 111/88 10/02/22 12:40 140 H 16 99/69 L 10/02/22 12:35 138 H 16 115/59 L 10/02/22 12:30 118 H 16 122/79 10/02/22 12:25 124 H 18 126/82 10/02/22 12:20 120 H 18 122/78 10/02/22 11:32 113 H 18 109/78 10/02/22 11:21 36.6 C 120 H 20 148/81 H 10/02/22 07:34 36.4 C L 87 16 132/78 10/02/22 07:05 99 H 20 10/02/22 05:30 10/02/22 05:30 36.7 C 84 24 129/67 10/02/22 04:30 126/96 10/02/22 03:30 128/90 10/02/22 03:02 153/92 H 10/02/22 02:30 69 18 113/72 10/02/22 04:44 89 20 126/96 10/02/22 01:17 84 10/02/22 02:15 102/68 10/02/22 02:01 76 18 103/66 10/02/22 01:30 95 H 21 138/88 10/02/22 01:06 103 H 29 H 133/93 10/02/22 01:00 117 H 22 158/128 H 10/02/22 02:24 10/01/22 23:30 10/02/22 00:30 105 H 26 H 119/83 10/02/22 00:16 96 H 23 123/88 10/02/22 00:00 95 H 17 115/84 10/01/22 23:45 80 23 114/83 10/01/22 23:30 107 H 25 H 10/01/22 23:30 141/106 H 10/01/22 23:24 119 H 33 H 147/107 H 10/02/22 00:16 10/01/22 23:09 10/01/22 22:55 110 H 27 H 10/01/22 22:55 110 H 27 H 141/96 H 10/01/22 22:30 116 H 10/01/22 22:20 37 C 103 H 20 Pulse Ox O2 Del Method O2 Flow Rate FiO2 10/02/22 12:43 94 Nasal Cannula 4 10/02/22 12:40 93 Oxymask 12 10/02/22 12:35 93 Oxymask 12 10/02/22 12:30 93 Oxymask 12 10/02/22 12:25 92 Oxymask 12 10/02/22 12:20 94 Oxymask 12 10/02/22 11:32 97 Room Air 10/02/22 11:21 92 Room Air 10/02/22 07:34 92 Room Air 10/02/22 07:05 90 Room Air 21 10/02/22 05:30 Room Air 10/02/22 05:30 92 Room Air 10/02/22 04:30 93 Nasal Cannula 1 10/02/22 03:30 10/02/22 03:02 92 Nasal Cannula 1 10/02/22 02:30 92 Nasal Cannula 1 10/02/22 04:44 94 Nasal Cannula 1 10/02/22 01:17 10/02/22 02:15 10/02/22 02:01 92 Nasal Cannula 1 10/02/22 01:30 92 Nasal Cannula 1 10/02/22 01:06 10/02/22 01:00 10/02/22 02:24 94 Nasal Cannula 1 10/01/22 23:30 Room Air 10/02/22 00:30 93 Nasal Cannula 1 10/02/22 00:16 91 Nasal Cannula 1 10/02/22 00:00 10/01/22 23:45 91 Room Air 10/01/22 23:30 91 10/01/22 23:30 10/01/22 23:24 96 Room Air 10/02/22 00:16 90 Nasal Cannula 1 10/01/22 23:09 93 Room Air 0 10/01/22 22:55 94 Room Air 10/01/22 22:55 94 Room Air 10/01/22 22:30 10/01/22 22:20 93 Room Air Recovery Score Activity: Moves 4 extremities Respiration: Deep Breath/Cough Circulation: +/-20% PreAnes Value Consciousness: Arouseable (by name) Oxygen Saturation: O2 needed for >90% Post Anesthesia Score: 8 Discharge Sedation Level of Care: Fast Track Phase II Post Sedation Plan On clinical assessment, the patient appears to have tolerated the sedation without complications. Patient is recovering as anticipated. Patient will continue to be monitored by nursing and may be discharged when sedation discharge criteria are met per below protocol. Upon Completions of procedure up to 15 minutes continue every 5 minute vital signs and the P.A.R. score; then discharge to a Phase I or Fast Track to Phase II per the following guidelines: * Discharge Patient to appropriate Phase II area if PAR is 8 or greater or return to pre- procedure baseline. The post - procedure orders will be as directed. * If PAR score is less than 8 or not return to pre-procedure baseline then patient will follow Phase I monitoring till PAR is reached for Phase II. The Phase I may be done in procedure room or may call to secure a Phase I area. * If naloxone or flumazenil are used for reversal, hold in Phase I for continued monitoring from when last reversal dose was given for a minimum of 60 minutes or longer pending the nurse and/or physician discretion of patient condition before discharge to Phase II. Please call the Sedation Physician to re-evaluate and complete post-note for discharge to Phase II area. Do NOT discharge from procedure sedation or Phase 1 until post- sedation evaluation note is complete by procedure /sedation MD Sedation Discharge Instructions to be given to the patient at discharge to home.
--- NOTE | 2022-10-02 13:02 | Procedure Note ---
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 INDICATION: Rule out malignancy PROCEDURE: After obtaining an informed consent, the patient was brought to the Bronchoscopy Suite. The patient had appropriate oxygen, blood pressure, heart rate, and respiratory rate monitoring applied and monitored continuously throughout the procedure. Supplemental oxygen via nasal cannula as per nursing records was applied to the nasopharynx with adequate saturations achieved. Topical anesthesia with nebulized 1% lidocaine was achieved. Subsequent to this, the patient was premedicated with 4 mg of midazolam and 100 mcg of fentanyl. Sedation start 12:15 PM, procedure and 12:40 PM Upper Airway: The oropharynx and larynx were well visualized and showed normal mucosa. There was normal vocal cord motion without masses or lesions. Additional topical anesthesia with 1% lidocaine was applied to the trachea and amari. The trachea appeared tortuous.The bronchoscope was then advanced through the amari, which was widened. The scope was then advanced into the right main stem and each segment, subsegement in the right upper lobe, right middle lobe and right lower lobe were visualized. The secondary amari on the right side was widened. There was narrowing of the RBI going into the right lower lobe. There was minimal amount of clear secretion which was suctioned out. The bronchoscope was subsequently withdrawn and advanced into the left mainstem. Again, each segment and subsegment was well visualized. Secondary amari on the left side was also widened, there was also narrowing of the left lower lobe. There was minimal amount of clear secretion which was suctioned out. Flexible bronchoscope was withdrawn and EBUS was introduced. Station 7:- 8 passes with limited was seeps were made. All adequate. Primary diagnosis of malignancy EBUS was withdrawn and flexible bronchoscope was reintroduced Minimal bleeding was appreciated which stopped on its own. The bronchoscope was then withdrawn to the mainstem. The area was suctioned clear. The bronchoscope was then withdrawn. The patient tolerated the procedure well without evidence of desaturation or complications. TBNA will be sent for micro and cytology Recommendations: Follow-up micro, cytology Follow-up chest x-ray Please make note patient was in A-fib RVR prior to the start of the procedure w ith heart rate in the 120s to 130s. At the end of the procedure his heart rate was in the 140s. His systolic blood pressure was in the 120s. I gave him 5 mg of metoprolol. Patient will likely need IV diltiazem to control his heart rate. Would recommend not to start any blood thinner for at least 6 hours. Given the narrowing of the RBI there is a possibility that the right lower lobe will colla pse with even little bit of clot. Please note the above document was generated using voice recognition software. It may contain grammatical, syntax or spelling errors.Any formal questions or concerns about the content, text or information contained within the body of this dictation should be directly addressed to the provider for clarification. [facility] [place] Codes (Charges) Pulmonary/Thoracic Procedure 1: Pulmonary and Thoracic: 22363 Dx bronchoscopy/wash Procedure 2: Pulmonary and Thoracic: 24572 Bronchoscopy, w/EBUS 1 or 2 mediastinal Sedation/Anesthesia Procedure 1: Sedation/Anesthesia: 05303 Mod Sedation by the same physician;Init15 Min Child Age 5 & Up Procedure 2: Sedation/Anesthesia: 69670 Mod Sedation by the same physician; Ea [id number] Minutes
--- NOTE | 2022-10-02 13:21 | XRay Report ---
SINGLE VIEW CHEST CLINICAL HISTORY: Status post bronchoscopy. FINDINGS: An AP, portable, upright chest radiograph is compared to study dated 10/01/2022 and correlate d with chest CT performed earlier the same day 10/02/2022. The heart is enlarged noting atherosclerotic calcification of the thoracic aorta. There is pulmonary vascular congestion. Mediastinal widening is consistent with bulky confluent adenopathy/soft tissue when correlated with today's chest CT. There are small pleural effusions with dependent consolidation. No pneumothorax is seen. The skeletal struc tures are osteopenic. The bony thorax is grossly intact. IMPRESSION: 1. No pneumothorax is identified post procedure. 2. Cardiomegaly with evidence of congestive failure. 3. Small pleural effusions with dependent consolidation. 4. Mediastinal widening is consistent with abnormal soft tissue/lymphadenopathy when correlated with the earlier chest CT. ACT 112: Negative or not required by law. Electronically signed by: Benjie Robertson M.D. 10/02/2022 1:18 PM
[2022-10-02] MEDS ORDERED: OPTIRAY 320 100ml IV ONE (13:32)
--- NOTE | 2022-10-02 14:08 | CT Scan Report ---
CT SCAN OF THE ABDOMEN AND PELVIS WITH IV CONTRAST CLINICAL HISTORY: Abdominal distention. COMPARISON STUDY: Abdominal CT dated 08/21/2020 and 08/26/2006. Chest CT dated 10/02/2022. TECHNIQUE: Following the IV administration of 94 cc of Optiray 320, CT scan of the abdomen and pelvi s is performed from the lung bases to the proximal femora. Images are reviewed in the axial, sagittal , and coronal planes. IV contrast was administered without complication. A dose lowering technique wa s utilized adhering to the principles of ALARA. CT DOSE: 1368.42 mGy.cm FINDINGS: Lung bases: The heart is enlarged and without pericardial effusion. The coronary arteries are densely calcified. There are small pleural effusions and dependent consolidation. Infiltrative mediastinal m ass is partially visualized. There is bilateral hilar extension. Liver: The contrast-enhanced liver is normal in size, contour, and attenuation. There is no intrahepa tic biliary ductal dilatation. The hepatic veins and portal veins are patent. Gallbladder: There are calcified gallstones without CT evidence of acute cholecystitis. Spleen: The spleen is mildly enlarged measuring 13.4 cm in length. Pancreas: Unremarkable. Adrenal glands: Unremarkable. Kidneys: The contrast enhanced kidneys are normal in size and without hydronephrosis. The kidneys enh ance and excrete symmetrically. A 12 mm complex lesion arising from the posterior right kidney is see n image #145. This appears to enhance and has modestly increased in size dating back to 2006 Abdominal vasculature: The abdominal aorta is normal in course and caliber noting moderate atheroscle rotic calcification. Bowel: There is moderate colonic diverticulosis without CT evidence of acute diverticulitis. No bowel obstruction is seen. A hernia in the left lateral abdominal wall on image #225 contains a nonobstruc renée segment of the descending colon. There is mild to moderate colonic fecal retention. The appendix is well-visualized and normal. Peritoneum: No intraperitoneal free air is seen. There is trace perihepatic ascites. Diffuse haziness and nodularity throughout the mesentery has been present dating back to 2006. There is evidence of p revious ventral hernia repair. Lymphadenopathy: A 2.3 x 1.8 cm retroperitoneal node or implant is seen just above the aortic bifurca tion image #203. A mildly enlarged right iliac chain node on image #260 measures 1.6 x 1.1 cm. No add itional pathologically enlarged lymph nodes are identified in the abdomen or pelvis. There is no ingu inal lymphadenopathy. Pelvic viscera: The prostate gland is markedly enlarged and heterogeneous noting median lobe hypertro phy. The prostate measures up to 8.8 cm in transverse diameter. The bladder is distended and filled w ith excreted IV contrast. The bladder wall is thickened/trabeculated indicating chronic outlet obstru ction. There is a fat-containing right groin hernia with evidence of previous right inguinal herniorr haphy. Skeletal structures: The skeletal structures are heterogeneously osteopenic. There is moderate to adv anced lumbosacral spondylosis. Degenerative sclerosis is noted in the pubic symphysis. A large igor ioma seen in the lower thoracic spine. No lytic or blastic lesions are seen. IMPRESSION: 1. A large infiltrative mediastinal mass lesion is partially visualized. This was better assessed on today's chest CT. 2. Diffuse haziness and mild nodularity throughout the mesentery is indeterminant and has been presen t dating back to 2006. This could represent a chronic mesenteritis. An underlying lymphoproliferative process would be impossible to exclude. 3. There are mildly enlarged lower retroperitoneal and right iliac chain lymph nodes. These are patho logically indeterminant. 4. Marked prostatomegaly with evidence of chronic bladder outlet obstruction. 5. A 1.2 cm complex lesion arises from the posterior right kidney. This likely shows postcontrast enh ancement and may represent a small renal neoplasm. This has only modestly increase in size dating ze k to 2006 suggesting a nonaggressive lesion. 6. Cholelithiasis. 7. Cardiomegaly and small pleural effusions. 8. A hernia in the left lateral abdominal wall contains a nonobstructed segment of the descending col on. 9. Additional findings as above. ACT 112: Negative or not required by law. Electronically signed by: Benjie Robertson M.D. 10/02/2022 2:06 PM
--- NOTE | 2022-10-02 15:33 | Communication Note ---
Date of Service: October 02, 2022 Rounded on the patient at 1430. Clinically appears well. Son is at bedside and provided update. Pathology pending at this point. Order placed for MRI of the brain for staging (would like this to be completed prior to discharge). Patient will need an outpatient PET/CT ordered as well. We will be happy to see the patient in the pulmonary clinic next week (10/09 @1300) per discussion with outpatient staff. Case management will need to formally arrange this appointment time and confirm with pulmonary staff. Please contact me directly for any further questions regarding continued care.
--- NOTE | 2022-10-02 17:02 | XCELERA ---
[id number]
[2022-10-02] MEDS ORDERED: METOPROLOL TARTRATE 25 MG TAB PO SCH (17:15)
--- NOTE | 2022-10-02 18:23 | Billing Data ---
Date of Service October 02, 2022 Coding Level of Care Code 84501 SUB INP/OBS CARE
[2022-10-02] MEDS ORDERED: ENOXAPARIN INJ 40 MG/0.4 ML SYR SQ SCH (20:00)
--- NOTE | 2022-10-03 01:03 | Billing Data ---
Date of Service October 03, 2022 Coding Level of Care Code 93819 INT INP/OBS CARE
[2022-10-03] MEDS: ALBUT/IPRATROP 3MG/0.5MG NEB 3 ML VIAL NEB SCH ×3 (02:51→11:19)
[2022-10-03] MEDS ORDERED: GADOBUTROL 65ML VIAL IV ONE (07:38)
--- NOTE | 2022-10-03 08:15 | Magnetic Resonance Report ---
MR brain wo/w con HISTORY: 86 years-old Male eval metastatic disease follow-up study in a patient with history of lung cancer. COMPARISON: Head CT 08/20/2020 TECHNIQUE: Multiplanar multisequence MRI of the brain was obtained both with and without the use of I V contrast. FINDINGS: No restricted diffusion. There is motion degraded. Midline structures appear unremarkable. Degenerati ve changes of the imaged cervical spine. Partially empty sella. No acute intracranial hemorrhage, mid line shift, abnormal extra-axial collection, hydrocephalus or intra-axial mass. Involutional changes with mild T2/FLAIR hyperintense foci throughout the white matter. No abnormal enhancement. Cerebral venous sinuses and major arterial flow voids appear patent. The skull, orbits and soft tissu es are unremarkable. IMPRESSION: 1. Motion degraded exam. No acute intracranial abnormality. 2. No abnormal enhancement to suggest metastatic disease. 3. Involutional changes with chronic microvascular ischemic disease. ACT 112: Negative or not required by law. The above report was generated using voice recognition software. It may contain grammatical, syntax o r spelling errors. Electronically signed by: Santhosh Loya M.D. 10/03/2022 8:14 AM
[2022-10-03 08:38] LABS: BUN Creatinine Ratio 25.2 (10-20); Chol HDL Ratio 4.3 (0-5); Creatinine Clr Calc Pharmacy 58.7 ml/min; Est GFR (African American) 75.3 ml/min; Potassium 4.2 mmol/L (3.5-5.1)
[2022-10-03 08:42] LABS: Estimated Average Glucose 123 mg/dl; Hemoglobin A1C 5.9 % (4.5-5.6)
[2022-10-03] MEDS: TAMSULOSIN HCL 0.4 MG CAP PO SCH (08:42)
[2022-10-03] MEDS ORDERED: ENOXAPARIN INJ 40 MG/0.4 ML SYR SQ SCH (09:00)
[2022-10-03] MEDS ORDERED: METOPROLOL SUCC 25MG EXT REL TAB PO SCH (09:00)
--- NOTE | 2022-10-03 16:38 | Discharge Summary ---
Date of Service October 03, 2022 Admission HPI Per Admitting Provider 86 yo male with PMHx CAD, s/p PA, and BPH presents with shortness of breath. 2 weeks ago patient started experiencing progressively worsening nonexertional sob and abdominal distention. Last night he also had a sharp migrating headache which prompted him to come to the ED. Denies fever, chest pain, fatigue, vision changes, N/V/D, constipation, dysuria, extremity numbness/weakness. The headache did resolve with tylenol at home. The sob is exacerbated when laying flat. He has tried Gas-x for his bloating which did help a bit. Patient is very active in the [employer] at home. He is a former cigar smoker ~40-50 years ago. He does not the over the past years he has felt moments of a fast HR but this occurs typically when he is active. Admission Exam (Per Admitting) Constitutional Constitutional: in no acute distress, pleasant and normal affect, intact memory. AOX3. Vitals as above. HEENT: No scleral injection or discharge.Moist mucous membranes. Neck: Supple without lymphadenopathy or thyromegaly. Trachea midline. Lungs: +wheezes and rales R>L. Cardiac: Irregularly irregular rhythm. Normal HR. +systolic murmur on tricuspid valve. 1+ lower extremity edema bilaterally. 1+ distal peripheral pulses. Abdomen: Bowel sounds present. Soft. Distended. Tender LLQ.No guarding. Difficult to asses for hepatosplenomegaly given distention. MSK: No cyanosis or clubbing. Extremities motor strength 5/5. Skin: No abnormal rashes, warm, dry. Neurologic: no focal deficits Discharge Data Consultations 10/02/22 01:57 ED Decision to Admit Stat 10/02/22 05:30 Consult Pulmonology Routine Procedures Performed Operation Date: 10/02/22 12:00 Actual Procedures p Endobronchial Ultrasound (EBUS)(Not Applicable) - Lashawn Sainz MD, [facility] Hospital Course (1) New onset a-fib: 86 yo male with PMHx CAD, s/p PA, and BPH presented with shortness of breath. 1) Shortness of breath: Presented with 2 weeks worsening sob. Ddx afib, CHF, lung mass, COPD. Did meet SIRS criteria (HR, RR) however does not appear septic. UA neg. CXR without consolidation. No leukocytosis. CTA chest with bilateral p leural effusions and large middle mediastinal mass. Shortness of breath and inspiratory wheeze most likely due to bronchial compression from mass. * RIGHT-sided lung mass - Large 9 x 5.5 cm infiltrative subcarinal mass extending into the infrahilar region. This mass is new compared to CT chest in 2020. of note, CT A/P in 2020 with a mesenteric nodular focus and enlarged pe lvic lymph nodes. Unclear if this was ever evaluated for malignancy. Question possible mets to lung. -Repeat CT A/P -- reassuring for mets, see below for details. - Brain MRI performed 10/03 -- reassuring, no evidence of mets to brain. -Pulmonary was consulted. Per pulm, SOB and effusions present on admission are most likely secondary to mass - Endobronchial ultrasound with tissue biopsy was performed 10/02: Primary diagnosis of malignancy. Patient was in A-fib RVR prior to the start of the procedure with heart rate in the 120s to 130s. At the end of the procedure his heart rate was in the 140s. His systolic blood pressure was in the 120s. Patient given 5 mg of metoprolol. -Per pulm, given the narrowing of the RBI there is a high concern that the right lower lobe will collapse with even a small PE. - Recommend patient follow with pulm outpatient clinic -- appointment scheduled for 1pm , 10/09 - Recommend outpatient PET scan -- patient britney is working to schedule -Biopsy results pending * ?COPD in exacerbation: Clinical suspicion for COPD is high, may be contributing to his SOB. Patient received duoneb and methylprednisone 60mg IV in ED, and was started on inhalers while inpatient. Per pulm, inhalers worth trialing outpatient, as may provide some benefit. -Patient discharged with maintenance anti-muscarinic inhaler & albuterol rescue inhaler -Recommend reassessing patient in approx 1 month to evaluate benefit, can choose to continue, d/c, or perform PFTs at that time * ?CHF: patient has not been diagnosed with CHF before, but given recent chest tightness + pulmonary edema raised concerns -Echo was performed 10/02 -- this was reassuring, showed good cardiac function and no abnormal wall motion. * Pneumonia: On admission patient met 2/4 SIRS criteria. However clinical concern for infection was low given normal white count, normal temperature, and strong likelihood of other cause of pulmonary edema. - Blood cultures showed no growth in 24hrs 2) Abdominal distention, secondary to constipation: Past 2 weeks alongside the sob. Patient reports normal bowel movements but large amounts of gas. Took gas-X at home with little relief. -CT A/P ordered, showed no mets, an unobstructed small hernia, a known kidney lesion that has not grown significantly since last CT, known mesenteric nodularities, and moderate gas and stool burden -Recommended patient continue miralax daily. 3) New onset afib: n arrival patient found to be in afib on EKG with HR in 110s. He does endorse episodes of elevated HR/feeling "missed beats" over the past few years so unclear when this started. Troponin was within normal limits on admission, and BNP was in the 200s. -Received diltiazem 20mg IV x2 and lasix in ED. -TSH was .5 -Echo 10/02, see above -Metoprolol for rate control was titrated up while inpatient, patient responded well. Discharged on 25mg long-acting metoprolol. -Eliquis 5mg BID was started for anticoagulation -Patient counseled about risks of stroke with afib (2) BPH (benign prostatic hyperplasia): (3) CAD (coronary artery disease): (4) History of PA (myocardial infarction): (5) Abdominal distention: (6) Shortness of breath: (7) Mass of lung: Supervising Physician Co-Signing Physician Notes I personally examined the patient and verified all ceballos points of history and exam, discussed case, and agree with decision making with Dr Murrieta feeling ok wants to go home. extensively explained dx's and plans, oil well fishing tool technician present - he was OK w me explaining things in front of oil well fishing tool technician - therefore pt was able to have another set of ears to process things. Vitals noted, in general he is awake and alert pleasant no distress. HEENT normocephalic atraumatic mucous membranes moist. Breathing unlabored no accessory muscle use, abdomen distended. CT chest abdomen pelvis reports as well as films reviewed, labs noted as well. Mediastinal masspending biopsy, pulm f/u next week, PET ordered new A-fib, echo/TSH, rate control w metoprolol (dizziness discussed), anticoagulation with eliquis constipationMiraLAX possible COPD - spiriva, albuterol prn, outpt f/u Resident Activity Tracking Resident Involvement: Resident Care Provided Care Provided: Adult Hospital Medicine
--- NOTE | 2022-10-03 17:56 | Billing Data ---
Date of Service October 03, 2022 Coding Level of Care Code 42140 IN/OBS DISCH 30 MIN/LESS
--- NOTE | 2022-10-03 20:11 | Electrocardiogram Report ---
Test Reason : Blood Pressure : / mmHG Vent. Rate : 118 BPM Atrial Rate : 000 BPM P-R Int : 000 ms QRS Dur : 092 ms QT Int : 326 ms P-R-T Axes : 000 -08 017 degrees QTc Int : 456 ms Atrial fibrillation with rapid ventricular response with premature ventricular or aberrantly conducte d complexes Abnormal ECG When compared with ECG of 20-AUG-2020 21:56, Atrial fibrillation has replaced Sinus rhythm Confirmed by Jimi Blankenship ([id number]) on 10/03/2022 8:11:18 PM Referred By: REFERRED SELF Confirmed By:Jimi Blankenship
--- NOTE | 2022-10-09 07:13 | Coding Query ---
PATHOLOGY To promote full compliance with coding requirements relating to patient care, physician participation is requested in all cases of pharmacognosy teacher uncertainty. Please assist us with the question(s) below: Please review the Pathology report and please document any relevant diagnosis(es) below: Diagnosis(es): 1) high-grade B cell lymphoma Thank you GURDEEP Ornelas [facility]
== END 2022-10-03 14:16 | disposition home or self-care (01) | DRG 824 ==
LOC: ED 22:15 → 2N 10-02 03:40 → SUATTDRO 10-02 03:40 → 2N 10-02 05:15

== ENCOUNTER 2022-10-09 13:48 | Inpatient (IN) ==
[2022-10-09] MEDS ORDERED: ALBUT/IPRATROP 3MG/0.5MG NEB 3 ML VIAL NEB STA (14:39)
--- NOTE | 2022-10-09 14:53 | History & Physical Report ---
Date of Service October 09, 2022 Assessment & Plan (1) High grade B-cell lymphoma: Plan: High Grade B Cell Lymphoma - Audible wheezing likely secondary to airway compression - Plan for admission for initiation of chemotherapy - Started allopurinol 300mg daily for prevention of tumor lysis syndrome - Oncology consulted - supplemental oxygen with an O2 goal >90 - limited improvement with home inhalers; hold further for now. Remote smoking history and no prior PFTs Afib with RVR - continue metoprolol - hold Eliquis; start on heparin drip pending PICC/Port placement - continue to monitor on tele BPH - continue tamsulosin Diet: NPO, speech eval Dispo: PCU Code: Full VTE Prophylaxis; Heparin (2) Mediastinal mass: (3) Bilateral pleural effusion: (4) Abdominal distention: (5) CAD (coronary artery disease): (6) Hyperlipidemia: (7) A-fib: History of Present Illness Primary Care Provider: Aram Rivas, 86 year old male with a past medical history of CAD, HLD, BPH, neuropathy. He was recently admitted on 10/02 abdominal bloating/distension and found to have a large 9 x 5.5 cm subcarinal mass. At that time he underwent bronchoscopy and sampling, reports suggestion of high-grade B cell lymphoma. His son and daughter were both in the room with him. He just found out about the diagnosis today, so has not made any decision in regards to how aggressively he would like to treat this. Initially when he was discharge a week ago, he was feeling pretty good. Was able to get up and was even able to mow the lawn. Over the past couple of days he has gotten progressively more dyspneic, especially with exertion. He has also had increased abdominal distension. He was seen in the OP pulmonology office today and refereed to the ED admission for initiation of chemotherapy. ED Course Significant For: CXR: Small B/L pleural effusions EKG: Afib with RVR Allergies Allergy/AdvReac Type Severity Reaction Status Date / Time meperidine Allergy Unknown CAN'T Verified 10/09/22 14:51 REMEMBER Home Medications Medication Instructions Recorded Confirmed Type aspirin 325 mg tablet 325 mg PO DIRECTED PRN Pain 08/20/20 10/09/22 History cholecalciferol (vitamin D3) 25 1,000 units PO QAM 08/20/20 10/09/22 History mcg (1,000 unit) capsule naproxen sodium 220 mg tablet 220 mg PO Q12H PRN Pain 08/20/20 10/09/22 History (Aleve) tamsulosin 0.4 mg capsule 0.4 mg PO QAM #90 caps 08/18/22 10/09/22 Rx albuterol sulfate 90 mcg/actuation 2 inh inhalation Q6H PRN shortness 10/03/22 10/09/22 Rx aerosol inhaler of breath or wheezing #8.5 grams apixaban 5 mg tablet (Eliquis) 5 mg PO BID #60 tabs 10/03/22 10/09/22 Rx metoprolol succinate 25 mg 25 mg PO QAM 30 days #30 tabs 10/03/22 10/09/22 Rx tablet,extended release 24 hr tiotropium bromide 2.5 2 inh inhalation DAILY #4 grams 10/03/22 10/09/22 Rx mcg/actuation mist for inhalation (Spiriva Respimat) saw palmetto 500 mg capsule 500 mg PO DAILY 10/06/22 10/09/22 History Past Med/Surg History Medical History (Updated 10/09/22 @ 15:31 by Leslie Cornejo DO) Anaplasmosis Cerumen impaction Dehydration Fever Flatulence Generalized weakness Hyponatremia Malaise Myalgia New onset a-fib Urine incontinence Surgical History History of back surgery History of hernia surgery Family History Other Cancer Denies family history of Ovarian cancer Prostate cancer Diabetes Coronary heart disease Dyslipidemia Myocardial infarction Breast cancer Colorectal cancer Social History Smoking Status: Former smoker Tobacco Type: Cigarettes Age Started Using Tobacco: 14; Age Quit Using Tobacco: 24; packs per day: 0.25; Second Hand Exposure: No; Do You Dip or Chew Tobacco: No; Hx Alcohol Use: No Hx Substance Use: No Preferred Language: Northern Irish Communication Ability: Effective Visual Impairment: No Limitations Hearing Ability: Hard of Hearing Forming Roll Operator Required: No Beliefs That Will Affect Care: None marital status: / Current Living Situation: Alone Current Living Situation Comment: Lives with dog current occupational status: retired How many Children do You have: 2 Feels Safe at Home: Yes Childhood Exposure to Second-Hand Smoke: No Diet: regular caffeine: Yes (coffee) during the past year weight has: remained stable Dental Care, Regularly: Yes Physical Activity Frequency: Daily Seatbelt Use: always Sunscreen Use: No Do you think of yourself as: straight/heterosexual Gender Identity: Male Assistive Devices: None Review of Systems Review of Systems: As per above Physical Exam Physical Exam: Constitutional: well-appearing, no acute distress HEENT: NCAT, no conjunctival injection CV: regular rhythm, no murmur appreciated, extremities well-perfused, no LE edema Resp: increased work of breathing, audible wheezing, diffuse wheezing in all lung harris GI: soft, nondistended, nontender, BS normoactive MSK: no gross deformities appreciated Skin: warm, dry, no rash appreciated Neuro: alert, oriented, no focal neurologic deficit appreciated Results & Data Results & Data Vital Signs (Past 12 Hours) Vital Signs Temp Pulse Resp BP Pulse Ox O2 Del Method 10/09/22 14:23 104 H 24 140/78 94 10/09/22 14:22 101 H 10/09/22 14:24 94 Room Air 10/09/22 14:04 36.5 C 105 H 26 H 130/72 95 Room Air Supervising Physician Co-Signing Physician Notes Patient seen and examined, chart reviewed, case discussed with Leslie Cornejo, and I agree with the assessment and plan as above except as otherwise noted Labs and images reviewed 83yo M PMHx CAD, HLD, BPH, B-cell lymphoma recently diagnosed with BCL and large RIGHT subcarinal mass biopsied with pathology this morning positive for high- grade B cell lymphoma. He is referred by Pulm and Oncology for initiation of chemotherapy at high risk of tumor lysis syndrome. Pt endorses easy exertional dyspnea. CXR whows R subcarinal mass/medistinal mass with airway compression. Bilateral pleural effusions are present. In room patient is with diffuse expiratory wheezing improved after nebulizer, still has expiratory wheezes with upper midline slight inspiratory wheeze. Stomach is distended, nontender High Grade B-Cell Lymphoma: Per Heme/Onc anticipate chemo initiation as inpatient following PICC vs Port pending onc evaluation. Allopurinol 300mg daily. high TLS risk. Onc following. BMP/Ca/Ph/Mg/Uric Acid trended Dyspnea: Pt with wheezing and no hx of COPD does have remote tobacco use and wheezing was improved slightly with albuterol but not spiriva. Mass w/ airway compression as noted. Does have a fixed midline wheeze on expiration, slight on inspiration. discussed with heme-onc, will start steroids early for swelling/airway protection. This can start tumor lysis syndrome, will make sure allopurinol is given 300 mg in advance. Methylpred 125mg x1, then can transition to prednisone tomorrow Afib: Will transition to heparin gtt temporarily while pending eval for port placement. Start low dose no bolus @ next dosing time (9pm). Continue MTP. Resident Activity Tracking Resident Involvement: Resident Care Provided Care Provided: Adult Hospital Medicine
[2022-10-09 14:54] LABS: Basophils # (auto) 0.04 K/uL (0-0.2); Basophils % (auto) 0.5 %; Eosinophils # (auto) 0.12 K/uL (0-0.50); Eosinophils % (auto) 1.6 %; Hematocrit (blood only) 44.7 % (42.0-52.0); Hemoglobin 14.6 g/dl (14.0-18.0); Immature Granulocytes # (auto) 0.03 K/uL (0.01-0.20); Immature Granulocytes % (auto) 0.4 %; Lymphocytes # (auto) 1.01 K/uL (1.2-3.4); Lymphocytes % (auto) 13.5 %; Mean Corpuscular Hemoglobin 29.8 pg (25.0-34.0); Mean Corpuscular Hgb Conc 32.7 g/dL (32.0-36.0); Mean Corpuscular Volume 91.2 fL (80.0-100.0); Mean Platelet Volume 10.4 fL (9.4-12.4); Monocytes # (auto) 0.64 K/uL (0.11-0.59); Monocytes % (auto) 8.5 %; Neutrophils # (auto) 5.66 K/uL (1.40-6.50); Neutrophils % (auto) 75.5 %; Platelet Count 167 K/uL (130-400); RDW Coefficient of Variation 14.4 % (11.5-14.5); RDW Standard Deviation 48.3 fL (36.4-46.3)
--- NOTE | 2022-10-09 14:57 | Emergency Department Note ---
History of Present Illness General Chief complaint: Shortness of Breath/Dyspnea Stated complaint: DOC REF,SOB, Time Seen by Provider: 10/09/22 14:16 History of Present Illness Provider complaint: Shortness of breath referred by physician 86-year-old male presents emergency department for difficulty breathing. Patient was referred here by his pulmonology team Ugo and the [facility] pulmonology team. Patient has a history of advanced B-cell lymphoma and has been having increased difficulty breathing. Patient is on Eliquis. Patient has been having wheezing has airway narrowing. Ugo spoke with oncology Dr. Love who stated to admit the patient to begin chemotherapy. Home Medications Medication Instructions Recorded Confirmed Type aspirin 325 mg tablet 325 mg PO DIRECTED PRN Pain 08/20/20 10/09/22 History cholecalciferol (vitamin D3) 25 1,000 units PO QAM 08/20/20 10/09/22 History mcg (1,000 unit) capsule naproxen sodium 220 mg tablet 220 mg PO Q12H PRN Pain 08/20/20 10/09/22 History (Aleve) tamsulosin 0.4 mg capsule 0.4 mg PO QAM #90 caps 08/18/22 10/09/22 Rx albuterol sulfate 90 mcg/actuation 2 inh inhalation Q6H PRN shortness 10/03/22 10/09/22 Rx aerosol inhaler of breath or wheezing #8.5 grams apixaban 5 mg tablet (Eliquis) 5 mg PO BID #60 tabs 10/03/22 10/09/22 Rx metoprolol succinate 25 mg 25 mg PO QAM 30 days #30 tabs 10/03/22 10/09/22 Rx tablet,extended release 24 hr tiotropium bromide 2.5 2 inh inhalation DAILY #4 grams 10/03/22 10/09/22 Rx mcg/actuation mist for inhalation (Spiriva Respimat) saw palmetto 500 mg capsule 500 mg PO DAILY 10/06/22 10/09/22 History Allergies Allergy/AdvReac Type Severity Reaction Status Date / Time meperidine Allergy Unknown CAN'T Verified 10/09/22 14:51 REMEMBER Past Med/Surg History Medical History (Updated 10/09/22 @ 20:59 by Mariano Robert MD) Anaplasmosis Cerumen impaction Dehydration Fever Flatulence Generalized weakness Hyponatremia Malaise Myalgia New onset a-fib Urine incontinence Surgical History History of back surgery History of hernia surgery Family History Other Cancer Denies family history of Ovarian cancer Prostate cancer Diabetes Coronary heart disease Dyslipidemia Myocardial infarction Breast cancer Colorectal cancer Social History Smoking Status: Former smoker Tobacco Type: Cigarettes Age Started Using Tobacco: 14; Age Quit Using Tobacco: 24; packs per day: 0.25; Second Hand Exposure: No; Do You Dip or Chew Tobacco: No; Hx Alcohol Use: No Hx Substance Use: No Preferred Language: Estonian Communication Ability: Effective Visual Impairment: No Limitations Hearing Ability: Hard of Hearing Coal Shooter Required: No Beliefs That Will Affect Care: None marital status: / Current Living Situation: Alone Current Living Situation Comment: Lives with dog current occupational status: retired How many Children do You have: 2 Feels Safe at Home: Yes Childhood Exposure to Second-Hand Smoke: No Diet: regular caffeine: Yes (coffee) during the past year weight has: remained stable Dental Care, Regularly: Yes Physical Activity Frequency: Daily Seatbelt Use: always Sunscreen Use: No Do you think of yourself as: straight/heterosexual Gender Identity: Male Assistive Devices: None Physical Exam Vital Signs Vital Signs - 24 hr 10/09/22 14:04 10/09/22 14:04 10/09/22 14:24 Temperature 36.5 C Temperature Source Temporal Artery Scan Pulse Rate 105 H Pulse Rate from SpO2 Sensor Respiratory Rate 26 H Respiratory Effort / Characteristics Spontaneous Non-Labored Spontaneous Respiratory Depth Normal Blood Pressure 130/72 Blood Pressure Mean 91 Pulse Oximetry 95 94 Oxygen Delivery Method Room Air Room Air Sepsis Recent Fever Within 48 Hours No Sepsis New/Unexplained Change in Mental Status No Sepsis Action Taken by Nursing No Action Required 10/09/22 14:22 10/09/22 14:23 10/09/22 15:05 Temperature Temperature Source Pulse Rate 101 H 104 H 114 H Pulse Rate from SpO2 Sensor 93 H Respiratory Rate 24 25 H Respiratory Effort / Characteristics Respiratory Depth Blood Pressure 140/78 136/91 Blood Pressure Mean 98 106 Pulse Oximetry 94 93 Oxygen Delivery Method Room Air Sepsis Recent Fever Within 48 Hours Sepsis New/Unexplained Change in Mental Status Sepsis Action Taken by Nursing 10/09/22 15:32 Temperature Temperature Source Pulse Rate 105 H Pulse Rate from SpO2 Sensor Respiratory Rate 27 H Respiratory Effort / Characteristics Respiratory Depth Blood Pressure 109/69 Blood Pressure Mean 82 Pulse Oximetry 91 Oxygen Delivery Method Room Air Sepsis Recent Fever Within 48 Hours Sepsis New/Unexplained Change in Mental Status Sepsis Action Taken by Nursing Physical Exam CV: Normal rate, regular rhythm, normal heart sounds and intact distal pulses. There is no peripheral edema. Palpable radial pulses bue. PULM/CHEST: Expiratory wheezes bilaterally Course Course 1416: The patient was evaluated in room C3. A complete history and physical exam was performed Administered Medications Discontinued Medications Albuterol (Albut/Ipratrop 3mg/0.5mg Neb 3 Ml Vial) 3 ml NEB NOW STA; Protocol Stop: 10/09/22 14:40 Last Admin: 10/09/22 15:02 Dose: 3 ml Documented By: CLEOPATRA Allopurinol (Allopurinol 300 Mg Tab) 300 mg PO ONE STA Stop: 10/09/22 17:17 Last Admin: 10/09/22 17:36 Dose: 300 mg Documented By: CLEOPATRA Allopurinol (Allopurinol 300 Mg Tab) 300 mg PO Q24H [facility] Stop: 11/08/22 19:14 Last Admin: 10/09/22 19:52 Dose: Not Given Documented By: Parenteral Electrolytes (Plasma-Lyte A Ph 7.4) 500 mls @ 999 mls/hr IV .Q31M STA Stop: 10/09/22 17:46 Last Infusion: 10/09/22 18:15 Dose: 0 mls/hr Documented By: Admin: 10/09/22 17:36 Dose: 999 mls/hr Documented By: CLEOPATRA Methylprednisolone (Methylprednisolone 125 Mg/2 Ml Vial) 125 mg IV TODAY@1830 S Stop: 10/09/22 20:00 Last Admin: 10/09/22 18:36 Dose: 125 mg Documented By: CLEOPATRA Medical Decision Making Laboratory Data Attestation: I reviewed the patient's lab results. 10/09/22 14:28 10/09/22 14:28 Lab Results 10/09/22 10/09/22 10/09/22 Range/Units 14:28 14:28 14:28 WBC 7.50 (4.8-10.8) K/ul RBC 4.90 (4.70-6.10) M/uL Hgb 14.6 (14.0-18.0) g/dl Hct 44.7 (42.0-52.0) % MCV 91.2 (80.0-100.0) fL MCH 29.8 (25.0-34.0) pg MCHC 32.7 (32.0-36.0) g/dL RDW Std Deviation 48.3 H (36.4-46.3) fL RDW Coeff of Dolly 14.4 (11.5-14.5) % Plt Count 167 (130-400) K/uL MPV 10.4 (9.4-12.4) fL Immature Gran % (Auto) 0.4 % Neut % (Auto) 75.5 % Lymph % (Auto) 13.5 % Vermilion % (Auto) 8.5 % Eos % (Auto) 1.6 % Baso % (Auto) 0.5 % Neut # (Auto) 5.66 (1.40-6.50) K/uL Lymph # (Auto) 1.01 L (1.2-3.4) K/uL Vermilion # (Auto) 0.64 H (0.11-0.59) K/uL Eos # (Auto) 0.12 (0-0.50) K/uL Baso # (Auto) 0.04 (0-0.2) K/uL Immature Gran # (Auto) 0.03 (0.01-0.20) K/uL PT 11.8 (9.0-12.0) Seconds INR 1.1 (0.9-1.1) APTT 26.2 (21.0-31.0) Seconds PTT Ratio 0.9 Sodium 131 L (136-145) mmol/L Potassium 4.5 (3.5-5.1) mmol/L Chloride 98 (98-107) mmol/L Carbon Dioxide 28 (21-32) mmol/L Anion Gap 5 (3-11) BUN 16 (6-23) mg/dl Creatinine 0.70 (0.6-1.4) mg/dl Est Cr Clr Drug Dosing 86.7 ml/min Est GFR ( Amer) 98.3 ml/min Est GFR (Non-Af Amer) 84.9 ml/min BUN/Creatinine Ratio 22.9 H (10-20) Glucose 93 (70-99(Fasting)) mg/dl Uric Acid 3.6 (2.6-7.2) mg/dl Calcium 9.0 (8.6-10.3) mg/dl Phosphorus 3.4 (2.5-4.9) mg/dl Magnesium 1.9 (1.7-2.4) mg/dl Total Bilirubin 0.7 (0.2-1.0) mg/dl AST 30 (13-39) U/L ALT 23 (7-52) U/L Alkaline Phosphatase 63 (34-104) U/L Lactate Dehydrogenase 275 H (86-244) U/L Troponin I High Sens 10.8 (0-20) pg/ml Total Protein 7.1 (6.0-8.3) gm/dl Albumin 3.8 (3.4-5.0) gm/dl Globulin 3.3 (2.5-4.0) gm/dl Albumin/Globulin Ratio 1.2 (0.9-2) Imaging Data Attestation: I personally reviewed and interpreted this imaging study as follows: My Impression: No significant change from the chest x-ray done on October 02, 2022. Radiologist's Impression: Chest X-Ray 10/09/22 14:04 XR chest 1V portable HISTORY: Shortness of breath. Chest pain, nonspecific COMPARISON: Chest 10/02/2022. FINDINGS: No pneumothorax. The cardiac silhouette remains enlarged. Stable left midlung zone linear densities favoring subsegmental atelectasis or scarring. Small bilateral pleural effusions and bibasilar opacities persist. There are old, healed bilateral anterior rib fractures again noted. There is mild central pulmonary vascular congestion without overt edema. No new focal lung consolidations identified. IMPRESSION: 1. Cardiomegaly with mild congestive change. This has slightly improved. 2. Small bilateral pleural effusions and bibasilar densities persist. ACT 112: Negative or not required by law. Electronically signed by: Km Villanueva M.D. 10/09/2022 3:34 PM ECG Data Attestation: I personally reviewed and interpreted this ECG as follows: Indication: + SOB/dyspnea Rate (beats per minute): 109 Rhythm: + atrial fibrillation ECG Intervals/blocks: + Normal QRS and + Normal QT-c ECG ST segments: + Normal ST segments MDM Narrative Cardiac monitoring: An order was placed for continuous cardiac monitoring. The monitor shows a rate of 100 with atrial fibrilation rhythm interpreted by me Patient to be admitted to the [facility] medical team for initiation of chemotherapy. Dr. Modi team aware Impression & Plan Dyspnea Discharge Plan Visit Data Chief Complaint: Shortness of Breath/Dyspnea Stated Complaint: DOC REF,SOB, ED Provider: Mariano Robert Discharge Problem: Dyspnea Patient Disposition: Admitted As Inpatient Discharge Instructions Interventions: ED Discharge Assessment Last Done: 10/09/22 18:48
[2022-10-09 15:14] LABS: Albumin Globulin Ratio 1.2 (0.9-2); Albumin Level 3.8 gm/dl (3.4-5.0); BUN Creatinine Ratio 22.9 (10-20); Bilirubin,Total 0.7 mg/dl (0.2-1.0); Creatinine Clr Calc Pharmacy 86.7 ml/min; Est GFR (African American) 98.3 ml/min; Est GFR (Non-African American) 84.9 ml/min; Globulin 3.3 gm/dl (2.5-4.0); Potassium 4.5 mmol/L (3.5-5.1); Total Protein 7.1 gm/dl (6.0-8.3)
[2022-10-09 15:19] LABS: Troponin I High Sensitivity 10.8 pg/ml (0-20)
--- NOTE | 2022-10-09 15:36 | XRay Report ---
XR chest 1V portable HISTORY: Shortness of breath. Chest pain, nonspecific COMPARISON: Chest 10/02/2022. FINDINGS: No pneumothorax. The cardiac silhouette remains enlarged. Stable left midlung zone linear d ensities favoring subsegmental atelectasis or scarring. Small bilateral pleural effusions and bibasil ar opacities persist. There are old, healed bilateral anterior rib fractures again noted. There is mi ld central pulmonary vascular congestion without overt edema. No new focal lung consolidations identi fied. IMPRESSION: 1. Cardiomegaly with mild congestive change. This has slightly improved. 2. Small bilateral pleural effusions and bibasilar densities persist. ACT 112: Negative or not required by law. Electronically signed by: Km Villanueva M.D. 10/09/2022 3:34 PM
[2022-10-09 15:54] LABS: Magnesium 1.9 mg/dl (1.7-2.4); Phosphorus 3.4 mg/dl (2.5-4.9); Uric Acid 3.6 mg/dl (2.6-7.2)
[2022-10-09 16:01] LABS: INR 1.1 (0.9-1.1); Partial Thromboplastin Ratio 0.9; Partial Thromboplastin Time 26.2 Seconds (21.0-31.0); Prothrombin Time 11.8 Seconds (9.0-12.0)
[2022-10-09] MEDS ORDERED: HEPARIN SODIUM/DEXTROSE 25,000 UNITS/500 ML BAG IV SCH ×3 (16:45→21:00)
--- NOTE | 2022-10-09 17:06 | Electrocardiogram Report ---
Test Reason : Blood Pressure : / mmHG Vent. Rate : 109 BPM Atrial Rate : 000 BPM P-R Int : 000 ms QRS Dur : 086 ms QT Int : 334 ms P-R-T Axes : 000 014 032 degrees QTc Int : 449 ms Atrial fibrillation with rapid ventricular response with premature ventricular or aberrantly conducte d complexes Abnormal ECG When compared with ECG of 01-OCT-2022 22:29, No significant change was found Confirmed by Kushal Ott ([id number]) on 10/09/2022 5:06:05 PM Referred By: Donnie Arizmendi Confirmed By:Joey Ott
[2022-10-09] MEDS ORDERED: PLASMA-LYTE A 500 ML IV STA (17:16)
[2022-10-09] MEDS ORDERED: allopurinoL 300 MG TAB PO STA (17:16)
--- NOTE | 2022-10-09 17:32 | Oncology Consultation ---
Date of Consultation October 09, 2022 Assessment & Plan (1) High grade B-cell lymphoma: (2) Mediastinal mass: Plan Patient recently diagnosed with high-grade B cell lymphoma either secondary to diffuse large B cell or follicular lymphoma. Although would ideally like to wait for molecular/FISH studies as well as staging studies with PET/CT and bone marrow biopsy before starting treatment, he presents with significant symptoms for which he requires inpatient chemotherapy as soon as possible. I discussed treatment options with patient and his kids today including chemotherapy with mini CHOP given advanced age. Discussed potential side effects of treatment with them including but not limited to nausea, vomiting, myelosuppression, increased risk of infection, potential need for PRBC/platelet transfusion, diarrhea, constipation, worsening neuropathy. Following our discussion, indicated that he would like to go ahead with treatment and informed consent was obtained. -Recommend starting mini CHOP which will consist of cyclophosphamide for 100 mg/m IV day 1, doxorubicin 25 mg/m IV day 1, vincristine 1 mg IV on day 1, prednisone 100 mg p.o. daily on days 1-5. Plan to treat every 3 weeks for total of 6 cycles of Treatment. Will give G-CSF with filgrastim 480 mcg daily x 3 days about 24 hours after chemotherapy administration -He will need PICC line prior to chemotherapy administration. Plan to obtain Mediport after cycle 1 of treatment -Recommend checking baseline labs including CBC, CMP, uric acid level, magnesium, phosphorus. Also obtain hepatitis panel in anticipation of starting rituximab with cycle 2 of treatment outpatient -Start allopurinol 300 mg p.o. daily for TLS prophylaxis -Arrange for bone marrow biopsy on Thursday -Plan to obtain outpatient PET/CT on discharge from hospital Thank you for this consult. Hematology continue following patient while in the hospital. Feel free to call if you have any further questions History of Present Illness Reason for Consultation: High-grade B-cell lymphoma History of Present Illness Pleasant 86-year-old gentleman recently diagnosed with high-grade B-cell lymphoma, germinal center type, double expresser likely diffuse large B cell versus high-grade follicular lymphoma B-cell origin with FISH/molecular studies pending. Had presented to [facility] earlier this month with complaints of abdominal distention for which CT chest, abdomen and pelvis was obtained on 10/02/2022 which revealed large infiltrative mediastinal mass measuring at least 9 x 5.5 cm, diffuse haziness and mild nodularity throughout the mesentery possibly related to chronic mesenteritis, mildly enlarged lower retroperitoneal and right iliac chain lymph nodes, marked prostatomegaly, 1.2 cm complex lesion within the posterior right kidney. FNA performed on 10/02/[address] Linton revealed high- grade B-cell lymphoma, germinal center type, double expresser with differential diagnosis being diffuse large B-cell lymphoma or high-grade follicular lymphoma B-cell origin. He presented to the ED today on advice of pulmonology due to worsening dyspnea and abdominal distention Allergies Allergy/AdvReac Type Severity Reaction Status Date / Time meperidine Allergy Unknown CAN'T Verified 10/09/22 14:51 REMEMBER Home Medications Medication Instructions Recorded Confirmed Type aspirin 325 mg tablet 325 mg PO DIRECTED PRN Pain 08/20/20 10/09/22 History cholecalciferol (vitamin D3) 25 1,000 units PO QAM 08/20/20 10/09/22 History mcg (1,000 unit) capsule naproxen sodium 220 mg tablet 220 mg PO Q12H PRN Pain 08/20/20 10/09/22 History (Aleve) tamsulosin 0.4 mg capsule 0.4 mg PO QAM #90 caps 08/18/22 10/09/22 Rx albuterol sulfate 90 mcg/actuation 2 inh inhalation Q6H PRN shortness 10/03/22 10/09/22 Rx aerosol inhaler of breath or wheezing #8.5 grams apixaban 5 mg tablet (Eliquis) 5 mg PO BID #60 tabs 10/03/22 10/09/22 Rx metoprolol succinate 25 mg 25 mg PO QAM 30 days #30 tabs 10/03/22 10/09/22 Rx tablet,extended release 24 hr tiotropium bromide 2.5 2 inh inhalation DAILY #4 grams 10/03/22 10/09/22 Rx mcg/actuation mist for inhalation (Spiriva Respimat) saw palmetto 500 mg capsule 500 mg PO DAILY 10/06/22 10/09/22 History Patient History Medical History (Updated 10/09/22 @ 15:31 by Leslie Cornejo DO) Anaplasmosis Cerumen impaction Dehydration Fever Flatulence Generalized weakness Hyponatremia Malaise Myalgia New onset a-fib Urine incontinence Surgical History History of back surgery History of hernia surgery Family History Other Cancer Denies family history of Ovarian cancer Prostate cancer Diabetes Coronary heart disease Dyslipidemia Myocardial infarction Breast cancer Colorectal cancer Social History Smoking Status: Former smoker Tobacco Type: Cigarettes Age Started Using Tobacco: 14; Age Quit Using Tobacco: 24; packs per day: 0.25; Second Hand Exposure: No; Do You Dip or Chew Tobacco: No; Hx Alcohol Use: No Hx Substance Use: No Preferred Language: Mongolian Communication Ability: Effective Visual Impairment: No Limitations Hearing Ability: Hard of Hearing 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 Beliefs That Will Affect Care: None marital status: / Current Living Situation: Alone Current Living Situation Comment: Lives with dog current occupational status: retired How many Children do You have: 2 Feels Safe at Home: Yes Childhood Exposure to Second-Hand Smoke: No Diet: regular caffeine: Yes (coffee) during the past year weight has: remained stable Dental Care, Regularly: Yes Physical Activity Frequency: Daily Seatbelt Use: always Sunscreen Use: No Do you think of yourself as: straight/heterosexual Gender Identity: Male Assistive Devices: None Results & Data Vital Signs (Past 12 Hours) Vital Signs Temp Pulse Resp BP Pulse Ox O2 Del Method 10/09/22 17:00 106 H 20 136/97 91 Room Air 10/09/22 16:31 127 H 21 116/78 90 Room Air 10/09/22 16:00 103 H 21 117/95 90 Room Air 10/09/22 15:32 105 H 27 H 109/69 91 Room Air 10/09/22 15:05 114 H 25 H 136/91 93 Room Air 10/09/22 14:23 104 H 24 140/78 94 10/09/22 14:22 101 H 10/09/22 14:24 94 Room Air 10/09/22 14:04 36.5 C 105 H 26 H 130/72 95 Room Air
[2022-10-09] MEDS ORDERED: methylPREDNISolone 125 MG/2 ML VIAL IV SCH (18:30)
[2022-10-09] MEDS ORDERED: methylPREDNISolone 125 MG in SYRINGE 0 ML IV SCH (18:30)
[2022-10-09] MEDS ORDERED: allopurinoL 300 MG TAB PO SCH (19:15)
[2022-10-09] MEDS ORDERED: Heparin IV Adult Wt-Based Low-Dose *NO* Bolus Protocol IV ONE (21:00)
[2022-10-10 03:55] LABS: Basophils # (auto) 0.01 K/uL (0-0.2); Basophils % (auto) 0.2 %; Eosinophils # (auto) 0.01 K/uL (0-0.50); Eosinophils % (auto) 0.2 %; Hemoglobin 14.7 g/dl (14.0-18.0); Immature Granulocytes # (auto) 0.03 K/uL (0.01-0.20); Immature Granulocytes % (auto) 0.6 %; Lymphocytes # (auto) 0.46 K/uL (1.2-3.4); Lymphocytes % (auto) 9.9 %; Mean Corpuscular Hemoglobin 30.1 pg (25.0-34.0); Mean Corpuscular Hgb Conc 32.7 g/dL (32.0-36.0); Mean Platelet Volume 10.2 fL (9.4-12.4); Monocytes # (auto) 0.07 K/uL (0.11-0.59); Monocytes % (auto) 1.5 %; Neutrophils # (auto) 4.08 K/uL (1.40-6.50); Neutrophils % (auto) 87.6 %; Platelet Count 162 K/uL (130-400); RDW Coefficient of Variation 14.5 % (11.5-14.5); RDW Standard Deviation 49.2 fL (36.4-46.3); Red Blood Count 4.89 M/uL (4.70-6.10); White Blood Count 4.66 K/ul (4.8-10.8)
[2022-10-10 03:57] LABS: Albumin Globulin Ratio 1.3 (0.9-2); Albumin Level 3.8 gm/dl (3.4-5.0); BUN Creatinine Ratio 22.5 (10-20); Bilirubin,Total 0.7 mg/dl (0.2-1.0); Calcium 8.8 mg/dl (8.6-10.3); Creatinine Clr Calc Pharmacy 86.7 ml/min; Est GFR (African American) 97.8 ml/min; Est GFR (Non-African American) 84.4 ml/min; Phosphorus 3.5 mg/dl (2.5-4.9); Potassium 4.6 mmol/L (3.5-5.1); Total Protein 6.8 gm/dl (6.0-8.3); Uric Acid 3.4 mg/dl (2.6-7.2)
[2022-10-10 04:23] LABS: Partial Thromboplastin Ratio 1.3; Partial Thromboplastin Time 36.5 Seconds (21.0-31.0)
--- NOTE | 2022-10-10 07:35 | Hospitalist Progress Note ---
Date of Service October 10, 2022 Assessment & Plan (1) High grade B-cell lymphoma: Plan: - Admitted for induction chemotherapy: Cyclophosphamide 100mg/m IV day 1, doxorubicin 25mg/m IV day 1, vincristine 1mg IV day 1, prednisone 100mg p.o. daily days 1-5. Plan to treat q3 weeks for total of 6 cycles. G-CSF with filgrastim 480mcg daily x 3 days 24 hours after chemo administration - Allopurinol 300mg daily for TLS ppx, follow TLS labs with daily uric acid, CBC, CMP - Oncology to follow while admitted, case discussed with Dr. Fuentes (2) Mediastinal mass: Plan: - Audible wheezing likely secondary to airway compression - Supplemental oxygen with an O2 goal >90, two step if needed on discharge to determine oxygen needs for home - Continue home inhalers (3) Bilateral pleural effusion: Plan: Small, bilateral, present on admission Supplemental O2 as above (4) A-fib: Plan: - Continue metoprolol, BP 120s systolic, HRs in low 100s continue to monitor - Resume Eliquis post-PICC - Tele for cardiac monitoring (5) CAD (coronary artery disease): Plan: - Continue metoprolol (6) BPH (benign prostatic hyperplasia): Plan: - Continue tamsulosin Plan Diet: Heart Healthy diet Dispo: PCU Code: Full VTE Prophylaxis: Eliquis Admission and Anticipated Discharge Date Admission Date: October 09, 2022 Subjective No acute events overnight. Patient reports some increase in bloating in the recent past, denies diarrhea, denies abdominal pain. Also denies chest pain and trouble breathing. Currently is on 2 L nasal cannula maintaining oxygen levels in the 90s. Physical Exam Constitutional: WD/WN, vitals as above Respiratory: intermittent wheeze noted, from upper airway Cardiovascular: RRR, no murmur, no edema Gastrointestinal (Abdomen): normal bowel sounds, soft, nontender, no hepatosplenomegaly Skin: no rashes, warm and dry Psychiatric: A+Ox3, euthymic affect Results & Data Results & Data Vital Signs (Past 12 Hours) Vital Signs Temp Pulse Pulse Resp BP Pulse Ox O2 Del Method 10/10/22 07:15 106 H 10/10/22 07:15 Nasal Cannula 10/10/22 03:15 36.4 C L 94 H 22 107/73 93 Nasal Cannula 10/09/22 23:47 103 H 22 108/71 92 Nasal Cannula 10/09/22 21:27 36.4 C L 120 H 16 134/97 91 Room Air O2 Flow Rate 10/10/22 07:15 10/10/22 07:15 2 10/10/22 03:15 2 10/09/22 23:47 2 10/09/22 21:27 PG Care Time/CCT Total # of Minutes Spent Total Time Spent with Patient: Total time spent is greater than 50% in coordination of care (as documented) at patient's floor/unit and/or counseling patient: Coding Level of Care Code 27895 SUB INP/OBS CARE 3/50MIN Diagnoses High grade B-cell lymphoma C85.10 Mediastinal mass J98.59 Bilateral pleural effusion J90 A-fib I48.91 CAD (coronary artery disease) I25.10 BPH (benign prostatic hyperplasia) N40.0
[2022-10-10] MEDS ORDERED: ALBUTEROL HFA 8 GM INHALER INH PRN (07:40)
[2022-10-10] MEDS ORDERED: ONDANSETRON INJ 2 MG/ML 2 ML VIAL IV PRN (07:41)
[2022-10-10] MEDS ORDERED: ACETAMINOPHEN 325 MG TAB PO PRN (07:41)
[2022-10-10] MEDS ORDERED: POLYETHYLENE (MIRALAX) 17 GM PACK PO PRN (07:41)
[2022-10-10] MEDS: CHOLECALCIFEROL 1,000 UNITS 25 MCG TAB PO SCH (09:31)
[2022-10-10] MEDS: TAMSULOSIN HCL 0.4 MG CAP PO SCH (09:32)
[2022-10-10] MEDS: METOPROLOL SUCC 25MG EXT REL TAB PO SCH (09:32)
[2022-10-10] MEDS: allopurinoL 300 MG TAB PO SCH (09:32)
[2022-10-10] MEDS: UMECLIDINIUM BROMIDE 62.5MCG/BLISTER 7 PUFFS/INHALER INH SCH (09:32)
--- NOTE | 2022-10-10 10:53 | XRay Report ---
XR chest 1V portable CLINICAL HISTORY: Check PICC line placement TECHNIQUE: Single frontal radiograph of the chest was obtained. Comparison: Comparison is made to chest radiograph 10/09/2021 FINDINGS: PICC catheter is seen with the tip in the distal SVC. Cardiomegaly is noted. Previously noted right b asilar opacities are less evident on today's exam. No evidence of pleural effusion or pneumothorax. IMPRESSION: Satisfactory placement of PICC line. ACT 112: Negative or not required by law. Electronically signed by: Smith Hays M.D. 10/10/2022 10:52 AM
[2022-10-10] MEDS ORDERED: FOSAPREPITANT DIMEGLUMINE 150 MG in SODIUM CHLORIDE 0.9% 145 ML IV SCH (13:00)
[2022-10-10] MEDS ORDERED: PALONOSETRON 0.25 MG in SYRINGE 0 ML IV SCH (13:00)
[2022-10-10] MEDS ORDERED: dexAMETHasone 12 MG in DEXTROSE 5% 25 ML IV SCH (13:00)
[2022-10-10] MEDS: APIXABAN 5 MG TABLET PO SCH ×2 (13:08→23:11)
[2022-10-10] MEDS ORDERED: DOXORUBICIN HCL IV ONE (13:15)
[2022-10-10] MEDS ORDERED: vinCRIStine SULFATE 1 MG in SODIUM CHLORIDE 0.9% 50 ML IV SCH (13:30)
[2022-10-10] MEDS ORDERED: SODIUM CHLORIDE 0.9% IV SCH (13:45)
[2022-10-10] MEDS ORDERED: CYCLOPHOSPHAMIDE IV SCH (13:45)
[2022-10-11 06:52] LABS: Hematocrit (blood only) 39.8 % (42.0-52.0); Hemoglobin 13.2 g/dl (14.0-18.0); Mean Corpuscular Hemoglobin 30.3 pg (25.0-34.0); Mean Corpuscular Hgb Conc 33.2 g/dL (32.0-36.0); Mean Corpuscular Volume 91.3 fL (80.0-100.0); Mean Platelet Volume 10.2 fL (9.4-12.4); Platelet Count 149 K/uL (130-400); RDW Coefficient of Variation 14.4 % (11.5-14.5); RDW Standard Deviation 47.8 fL (36.4-46.3); Red Blood Count 4.36 M/uL (4.70-6.10); White Blood Count 11.36 K/ul (4.8-10.8)
[2022-10-11 07:08] LABS: Albumin Globulin Ratio 1.2 (0.9-2); Albumin Level 3.3 gm/dl (3.4-5.0); BUN Creatinine Ratio 29.9 (10-20); Bilirubin,Total 0.5 mg/dl (0.2-1.0); Calcium 8.5 mg/dl (8.6-10.3); Creatinine Clr Calc Pharmacy 91.8 ml/min; Est GFR (African American) 100.1 ml/min; Est GFR (Non-African American) 86.4 ml/min; Globulin 2.7 gm/dl (2.5-4.0); Magnesium 2.1 mg/dl (1.7-2.4); Phosphorus 3.5 mg/dl (2.5-4.9); Potassium 4.6 mmol/L (3.5-5.1); Uric Acid 3.1 mg/dl (2.6-7.2)
[2022-10-11 07:19] LABS: Basophils # (auto) 0.01 K/uL (0-0.2); Basophils % (auto) 0.1 %; Immature Granulocytes # (auto) 0.07 K/uL (0.01-0.20); Immature Granulocytes % (auto) 0.6 %; Lymphocytes # (auto) 0.57 K/uL (1.2-3.4); Monocytes # (auto) 0.29 K/uL (0.11-0.59); Monocytes % (auto) 2.6 %; Neutrophils # (auto) 10.42 K/uL (1.40-6.50); Neutrophils % (auto) 91.7 %
--- NOTE | 2022-10-11 08:25 | Hospitalist Progress Note ---
Date of Service October 11, 2022 Assessment & Plan (1) High grade B-cell lymphoma: Plan: - Admitted for induction chemotherapy: Cyclophosphamide 100mg/m IV day 1, doxorubicin 25mg/m IV day 1, vincristine 1mg IV day 1, prednisone 100mg p.o. daily days 1-5. Plan to treat q3 weeks for total of 6 cycles. G-CSF with filgrastim 480mcg daily x 3 days 24 hours after chemo administration - Allopurinol 300mg daily for TLS ppx, follow TLS labs with daily uric acid, CBC, CMP; labs reviewed 10/11 and noted to be normal - Oncology to follow while admitted, case discussed with Dr. Fuentes, possibly can go home tomorrow if symptoms and cell lines remain stable (2) Mediastinal mass: Plan: - Audible wheezing likely secondary to airway compression - Supplemental oxygen with an O2 goal >90, two step may be needed on discharge to determine oxygen needs for home - Continue home inhalers (3) Bilateral pleural effusion: Plan: Small, bilateral, present on admission Supplemental O2 as above (4) A-fib: Plan: - Continue metoprolol, BP 100-120s systolic, HRs in 80-100s, continue to monitor - Resume Eliquis post-PICC - Tele for cardiac monitoring (5) CAD (coronary artery disease): Plan: - Continue metoprolol (6) BPH (benign prostatic hyperplasia): Plan: - Continue tamsulosin (7) Bloating: Plan: -Abdominal bloating, ongoing -10/02 CTAP notes possible chronic mesenteritis vs. lymphoproliferative process of mesentery, left lateral abdominal wall non-obstructed hernia, 1.2cm RIGHT kidney lesion (possible small renal neoplasm), mild to moderate colonic fecal retention, trace perihepatic ascites, mildly enlarged spleen -All above findings could be contributory to abdominal bloating -PRN simethicone, Miralax, consider repeat imaging if symptoms worsening but feeling a bit better today and anticipates feeling better with ambulation -Follow up with Gastroenterology outpatient Plan Diet: Heart Healthy diet Dispo: PCU Code: Full VTE Prophylaxis: Eliquis Admission and Anticipated Discharge Date Admission Date: October 09, 2022 Subjective No acute overnight events. Some abdominal bloating in the recent past, walking around and burping helps. Feels his breathing is better today. No chest pain or abdominal pain. Physical Exam Constitutional: WD/WN, vitals as above Respiratory: intermittent wheeze noted Cardiovascular: RRR, no murmur, no edema Gastrointestinal (Abdomen): normal bowel sounds, soft, nontender, no hepatosplenomegaly Skin: no rashes, warm and dry Psychiatric: A+Ox3, euthymic affect Results & Data Results & Data Vital Signs (Past 12 Hours) Vital Signs Temp Pulse Pulse Resp BP Pulse Ox O2 Del Method 10/11/22 07:18 36.5 C 91 H 24 104/78 91 Nasal Cannula 10/11/22 07:00 90 10/10/22 23:54 90 10/11/22 03:37 36.4 C L 101 H 18 124/83 91 Room Air, Nasal Cannula 10/10/22 23:13 36.3 C L 87 18 93/57 L 94 Room Air O2 Flow Rate 10/11/22 07:18 2.0 10/11/22 07:00 10/10/22 23:54 10/11/22 03:37 2 10/10/22 23:13 PG Care Time/CCT Total # of Minutes Spent Total Time Spent with Patient: Total time spent is greater than 50% in coordination of care (as documented) at patient's floor/unit and/or counseling patient: Coding Level of Care Code 82587 SUB INP/OBS CARE 3/50MIN Diagnoses High grade B-cell lymphoma C85.10 Mediastinal mass J98.59 Bilateral pleural effusion J90 A-fib I48.91 CAD (coronary artery disease) I25.10 BPH (benign prostatic hyperplasia) N40.0 Bloating R14.0
[2022-10-11] MEDS: CHOLECALCIFEROL 1,000 UNITS 25 MCG TAB PO SCH (08:26)
[2022-10-11] MEDS: TAMSULOSIN HCL 0.4 MG CAP PO SCH (08:27)
[2022-10-11] MEDS: METOPROLOL SUCC 25MG EXT REL TAB PO SCH (08:27)
[2022-10-11] MEDS: allopurinoL 300 MG TAB PO SCH (08:27)
[2022-10-11] MEDS: UMECLIDINIUM BROMIDE 62.5MCG/BLISTER 7 PUFFS/INHALER INH SCH (08:32)
--- NOTE | 2022-10-11 08:39 | Hematology/Oncology Prog Note ---
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 He will continue with prednisone 100 mg p.o. daily x total of 5 days as part of lymphoma treatment. -He has mild leukocytosis today likely due to prednisone. He will receive Neupogen 480 mcg today and continue for total of 3 days (may discontinue after day 2 if he has persistent leukocytosis) -Continue with allopurinol 300 mg p.o. daily Admission and Anticipated Discharge Date Admission Date: October 09, 2022 Subjective Received mini CHOP chemotherapy yesterday. Treatment has so far been well- tolerated. Remains on 2 L/min supplemental O2. States that abdominal distention seems to be improving. Results & Data Vital Signs (Past 12 Hours) Vital Signs Temp Pulse Pulse Resp BP Pulse Ox O2 Del Method 10/11/22 08:00 Nasal Cannula 10/11/22 07:18 36.5 C 91 H 24 104/78 91 Nasal Cannula 10/11/22 07:00 90 10/10/22 23:54 90 10/11/22 03:37 36.4 C L 101 H 18 124/83 91 Room Air, Nasal Cannula 10/10/22 23:13 36.3 C L 87 18 93/57 L 94 Room Air O2 Flow Rate 10/11/22 08:00 2 10/11/22 07:18 2.0 10/11/22 07:00 10/10/22 23:54 10/11/22 03:37 2 10/10/22 23:13
[2022-10-11 11:12] LABS: HBSAG NON-REACTIVE (NON-REACTIVE); Hepatitis A Antibody IgM NON-REACTIVE (NON-REACTIVE); Hepatitis B Core Antibody IgM NON-REACTIVE (NON-REACTIVE)
[2022-10-11] MEDS: APIXABAN 5 MG TABLET PO SCH ×2 (11:28→23:40)
[2022-10-11] MEDS ORDERED: FILGRASTIM 480 MCG/1.6 ML VIAL SQ SCH (15:00)
[2022-10-12 07:46] LABS: Hematocrit (blood only) 45.4 % (42.0-52.0); Hemoglobin 14.8 g/dl (14.0-18.0); Mean Corpuscular Hemoglobin 30.3 pg (25.0-34.0); Mean Corpuscular Hgb Conc 32.6 g/dL (32.0-36.0); Mean Platelet Volume 10.2 fL (9.4-12.4); Platelet Count 166 K/uL (130-400); RDW Coefficient of Variation 14.6 % (11.5-14.5); RDW Standard Deviation 49.3 fL (36.4-46.3); Red Blood Count 4.88 M/uL (4.70-6.10); White Blood Count 38.14 K/ul (4.8-10.8)
[2022-10-12 08:02] LABS: Albumin Globulin Ratio 1.2 (0.9-2); Albumin Level 3.7 gm/dl (3.4-5.0); BUN Creatinine Ratio 30.8 (10-20); Bilirubin,Total 0.9 mg/dl (0.2-1.0); Calcium 9.1 mg/dl (8.6-10.3); Creatinine Clr Calc Pharmacy 78.8 ml/min; Est GFR (African American) 94.1 ml/min; Est GFR (Non-African American) 81.2 ml/min; Globulin 3.1 gm/dl (2.5-4.0); Magnesium 2.1 mg/dl (1.7-2.4); Phosphorus 3.2 mg/dl (2.5-4.9); Potassium 4.3 mmol/L (3.5-5.1); Total Protein 6.8 gm/dl (6.0-8.3); Uric Acid 3.4 mg/dl (2.6-7.2)
[2022-10-12 08:04] LABS: Basophils % (auto) 0.3 %; Eosinophils # (auto) 0.01 K/uL (0-0.50); Immature Granulocytes # (auto) 1.94 K/uL (0.01-0.20); Immature Granulocytes % (auto) 5.1 %; Lymphocytes # (auto) 0.81 K/uL (1.2-3.4); Lymphocytes % (auto) 2.1 %; Monocytes # (auto) 1.71 K/uL (0.11-0.59); Monocytes % (auto) 4.5 %; Neutrophils # (auto) 33.57 K/uL (1.40-6.50)
[2022-10-12] MEDS: SIMETHICONE 80 MG CHEW PO PRN ×2 (08:06→13:28)
[2022-10-12] MEDS: UMECLIDINIUM BROMIDE 62.5MCG/BLISTER 7 PUFFS/INHALER INH SCH (08:08)
[2022-10-12] MEDS: METOPROLOL SUCC 25MG EXT REL TAB PO SCH (08:09)
[2022-10-12] MEDS: TAMSULOSIN HCL 0.4 MG CAP PO SCH (08:09)
[2022-10-12] MEDS: allopurinoL 300 MG TAB PO SCH (08:09)
[2022-10-12] MEDS: CHOLECALCIFEROL 1,000 UNITS 25 MCG TAB PO SCH (08:09)
--- NOTE | 2022-10-12 11:26 | Hospitalist Progress Note ---
Date of Service October 12, 2022 Assessment & Plan (1) High grade B-cell lymphoma: Plan: - Admitted for induction chemotherapy: Cyclophosphamide 100mg/m IV day 1, doxorubicin 25mg/m IV day 1, vincristine 1mg IV day 1, prednisone 100mg p.o. daily days 1-5. Plan to treat q3 weeks for total of 6 cycles. - Filgastim discontinued today at Heme recommendation - Allopurinol 300mg daily for TLS ppx, follow TLS labs with daily uric acid, CBC, CMP; labs reviewed 10/12 and noted to be normal/expected for chemo treatment, no evidence of TLS - Oncology to follow while admitted, case discussed with Dr. Fuentes, can possibly arrange for bone marrow biopsy by IR tomorrow, can go home after that (2) Mediastinal mass: Plan: - Audible wheezing has improved greatly - Supplemental oxygen with an O2 goal >90, two step did not indicate need for home supplemental O2 - Continue home inhalers (3) Bilateral pleural effusion: Plan: Small, bilateral, present on admission Supplemental O2 as above (4) A-fib: Plan: - Continue metoprolol, BP 100-120s systolic, HRs in 80-100s, continue to monitor - Hold Eliquis for possible bone marrow biopsy tomorrow - Tele for cardiac monitoring (5) CAD (coronary artery disease): Plan: - Continue metoprolol (6) BPH (benign prostatic hyperplasia): Plan: - Continue tamsulosin (7) Bloating: Plan: -Abdominal bloating, ongoing -10/02 CTAP notes possible chronic mesenteritis vs. lymphoproliferative process of mesentery, left lateral abdominal wall non-obstructed hernia, 1.2cm RIGHT kidney lesion (possible small renal neoplasm), mild to moderate colonic fecal retention, trace perihepatic ascites, mildly enlarged spleen -All above findings could be contributory to abdominal bloating -PRN simethicone, Miralax, walking all helping with symptoms -Follow up with Gastroenterology outpatient Plan Diet: Heart Healthy diet Dispo: PCU Code: Full VTE Prophylaxis: holding for suspected procedure tomorrow Admission and Anticipated Discharge Date Admission Date: October 09, 2022 Subjective No acute events overnight, some complaints of bloating, relieved with simethico ne and walking around the unit. Feels that his breathing and wheezing are better than when he came to the hospital. Physical Exam Constitutional: WD/WN, vitals as above Respiratory: normal respiratory effort, lungs clear to auscultation Cardiovascular: RRR, no murmur, no edema Gastrointestinal (Abdomen): normal bowel sounds, soft, nontender, no hepatosplenomegaly Skin: no rashes, warm and dry Psychiatric: A+Ox3, euthymic affect Results & Data Results & Data Vital Signs (Past 12 Hours) Vital Signs Temp Pulse Pulse Pulse Pulse Resp Resp 10/12/22 08:00 10/12/22 08:36 121 H 98 H 92 H 20 10/12/22 07:15 36.4 C L 97 H 22 10/12/22 03:29 36.3 C L 78 18 10/11/22 23:40 36.5 C 86 18 Resp Resp BP Pulse Ox Pulse Ox Pulse Ox Pulse Ox 10/12/22 08:00 10/12/22 08:36 18 16 93 91 92 10/12/22 07:15 131/88 91 10/12/22 03:29 97/64 L 93 10/11/22 23:40 121/86 95 O2 Del Method 10/12/22 08:00 Room Air 10/12/22 08:36 10/12/22 07:15 Room Air 10/12/22 03:29 Room Air 10/11/22 23:40 Room Air PG Care Time/CCT Total # of Minutes Spent Total Time Spent with Patient: Total time spent is greater than 50% in coordination of care (as documented) at patient's floor/unit and/or counseling patient: Coding Level of Care Code 71139 SUB INP/OBS CARE 3/50MIN Diagnoses High grade B-cell lymphoma C85.10 Mediastinal mass J98.59 Bilateral pleural effusion J90 A-fib I48.91 CAD (coronary artery disease) I25.10 BPH (benign prostatic hyperplasia) N40.0 Bloating R14.0
[2022-10-12] MEDS: predniSONE 50 MG TAB PO SCH (13:28)
[2022-10-13 07:22] LABS: Hematocrit (blood only) 43.1 % (42.0-52.0); Hemoglobin 14.1 g/dl (14.0-18.0); Mean Corpuscular Hemoglobin 30.2 pg (25.0-34.0); Mean Corpuscular Hgb Conc 32.7 g/dL (32.0-36.0); Mean Corpuscular Volume 92.3 fL (80.0-100.0); Platelet Count 167 K/uL (130-400); RDW Coefficient of Variation 14.5 % (11.5-14.5); RDW Standard Deviation 48.4 fL (36.4-46.3); Red Blood Count 4.67 M/uL (4.70-6.10); White Blood Count 28.71 K/ul (4.8-10.8)
[2022-10-13 07:41] LABS: Albumin Globulin Ratio 1.3 (0.9-2); Albumin Level 3.6 gm/dl (3.4-5.0); Bilirubin,Total 0.9 mg/dl (0.2-1.0); Calcium 9.1 mg/dl (8.6-10.3); Creatinine Clr Calc Pharmacy 103.1 ml/min; Est GFR (African American) 104.8 ml/min; Est GFR (Non-African American) 90.4 ml/min; Globulin 2.8 gm/dl (2.5-4.0); Magnesium 2.2 mg/dl (1.7-2.4); Phosphorus 3.2 mg/dl (2.5-4.9); Potassium 4.6 mmol/L (3.5-5.1); Total Protein 6.4 gm/dl (6.0-8.3)
[2022-10-13 07:43] LABS: Basophils # (auto) 0.06 K/uL (0-0.2); Basophils % (auto) 0.2 %; Immature Granulocytes # (auto) 1.43 K/uL (0.01-0.20); Lymphocytes # (auto) 0.89 K/uL (1.2-3.4); Lymphocytes % (auto) 3.1 %; Monocytes # (auto) 0.82 K/uL (0.11-0.59); Monocytes % (auto) 2.9 %; Neutrophils # (auto) 25.51 K/uL (1.40-6.50); Neutrophils % (auto) 88.8 %
[2022-10-13] MEDS ORDERED: fentaNYL citrate PF 100 MCG/2 ML VIAL ONE (08:11)
[2022-10-13] MEDS ORDERED: ACETAMINOPHEN 1000 MG/100 ML IV IV ONE (08:11)
--- NOTE | 2022-10-13 08:28 | Discharge Summary ---
Discharge Summary Date of Service October 13, 2022 Admission HPI Per Admitting Provider 86 year old male with a past medical history of CAD, HLD, BPH, neuropathy. He was recently admitted on 10/02 abdominal bloating/distension and found to have a large 9 x 5.5 cm subcarinal mass. At that time he underwent bronchoscopy and sampling, reports suggestion of high-grade B cell lymphoma. His son and daughter were both in the room with him. He just found out about the diagnosis today, so has not made any decision in regards to how aggressively he would like to treat this. Initially when he was discharge a week ago, he was feeling pretty good. Was able to get up and was even able to mow the lawn. Over the past couple of days he has gotten progressively more dyspneic, especially with exertion. He has also had increased abdominal distension. He was seen in the OP pulmonology office today and refereed to the ED admission for initiation of chemotherapy. ED Course Significant For: CXR: Small B/L pleural effusions EKG: Afib with RVR Admission Exam Per Admitting Provider Constitutional: well-appearing, no acute distress HEENT: NCAT, no conjunctival injection CV: regular rhythm, no murmur appreciated, extremities well-perfused, no LE edema Resp: increased work of breathing, audible wheezing, diffuse wheezing in all lung harris GI: soft, nondistended, nontender, BS normoactive MSK: no gross deformities appreciated Skin: warm, dry, no rash appreciated Neuro: alert, oriented, no focal neurologic deficit appreciated Principal Dx & Hospital Course #1 = Principal Diagnosis (1) High grade B-cell lymphoma: - Admitted for induction chemotherapy: Cyclophosphamide 100mg/m IV day 1, doxorubicin 25mg/m IV day 1, vincristine 1mg IV day 1, prednisone 100mg p.o. daily days 1-5. Plan to treat q3 weeks for total of 6 cycles. - Allopurinol 300mg daily for TLS ppx while admitted; TLS labs reviewed 10/13 and noted to be normal/expected for chemo treatment, no evidence of TLS - S/p bone marrow biopsy 10/13, follow up with Dr. Fuentes (2) Mediastinal mass: - Audible wheezing has improved greatly - Supplemental oxygen with an O2 goal >90, two step did not indicate need for home supplemental O2 - Continue home inhalers (3) Bilateral pleural effusion: - Small, bilateral, present on admission - Supplemental O2 as above (4) A-fib: - Continue metoprolol, BP 100-120s systolic, HRs in 80-100s, continue to monitor - Hold Eliquis for possible bone marrow biopsy tomorrow - Tele for cardiac monitoring (5) CAD (coronary artery disease): - Continue metoprolol (6) BPH (benign prostatic hyperplasia): - Continue tamsulosin (7) Bloating: -Abdominal bloating, ongoing -10/02 CTAP notes possible chronic mesenteritis vs. lymphoproliferative process of mesentery, left lateral abdominal wall non-obstructed hernia, 1.2cm RIGHT kidney lesion (possible small renal neoplasm), mild to moderate colonic fecal retention, trace perihepatic ascites, mildly enlarged spleen -All above findings could be contributory to abdominal bloating -PRN simethicone, Miralax, walking all helping with symptoms -Follow up with Gastroenterology outpatient Plan Discharge home today Discharge Exam Constitutional WD/WN, vitals as above Respiratory no increased WOB or wheezing Gastrointestinal (Abdomen) belly soft, mild distention Psychiatric A+Ox3, euthymic affect Updated Medication List Medication Instructions Recorded Confirmed Type aspirin 325 mg tablet 325 mg PO DIRECTED PRN Pain 08/20/20 10/09/22 History cholecalciferol (vitamin D3) 25 1,000 units PO QAM 08/20/20 10/09/22 History mcg (1,000 unit) capsule naproxen sodium 220 mg tablet 220 mg PO Q12H PRN Pain 08/20/20 10/09/22 History (Aleve) tamsulosin 0.4 mg capsule 0.4 mg PO QAM #90 caps 08/18/22 10/09/22 Rx albuterol sulfate 90 mcg/actuation 2 inh inhalation Q6H PRN shortness 10/03/22 10/09/22 Rx aerosol inhaler of breath or wheezing #8.5 grams apixaban 5 mg tablet (Eliquis) 5 mg PO BID #60 tabs 10/03/22 10/09/22 Rx metoprolol succinate 25 mg 25 mg PO QAM 30 days #30 tabs 10/03/22 10/09/22 Rx tablet,extended release 24 hr tiotropium bromide 2.5 2 inh inhalation DAILY #4 grams 10/03/22 10/09/22 Rx mcg/actuation mist for inhalation (Spiriva Respimat) saw bam 500 mg capsule 500 mg PO DAILY 10/06/22 10/09/22 History prednisone 50 mg tablet 100 mg PO DAILY 2 days #4 tabs 10/13/22 Rx simethicone 80 mg chewable tablet 80 mg PO Q6H PRN #0 tabs 10/13/22 Rx (Gas Relief (simethicone)) Hospital Stay Data Consultations 10/09/22 14:39 ED Decision to Admit Stat 10/09/22 19:15 Consult Oncology Routine Diagnostic Imagining Performed 10/12/22 11:26 IR bone marrow bx & asp Routine Discharge Instructions Given to Patient (Per Discharging Provider) You are admitted to the hospital for induction chemotherapy, as well as laboratory and heart monitoring while receiving this treatment. You tolerated this treatment well, your breathing improved, and your lab work remained stable. Before you were discharged, you had a bone marrow biopsy in order to further evaluate the cancer cells, which will be evaluated by your oncologist once the results come back. You should maintain close contact and follow-up with Dr. Fuentes, to keep a close eye on your blood counts and any other laboratory markers she may choose to check. For your abdominal bloating, we suspect that this is likely due to your cancer, as you have some residual inflammation of your liver, spleen, and gut on imaging. You can take Gas-X and medications for constipation or diarrhea as necessary for your symptoms. It is also important that you walk around as you have been in order to get the gas out. I have attached to your discharge paperwork the information for a local [facility]el padder, you can call their office for a follow-up appointment regarding your gas and bloating. If you have any concerns with regard to your medications or symptoms, please contact your family doctor or your oncologist. If you are urgently concerned for your medical safety, seek urgent evaluation at the emergency room. A prescription for prednisone 100 mg daily for 2 days, starting 10/14/2022, was sent to [facility]. This is a postchemotherapy treatment recommended by your oncologist. Total Time Total Time Spent Total Time Spent (In Minutes): 35 min Coding Level of Care Code 06475 INP/OBS DISCH >30 MIN Diagnoses High grade B-cell lymphoma C85.10 Mediastinal mass J98.59 Bilateral pleural effusion J90 A-fib I48.91 CAD (coronary artery disease) I25.10 BPH (benign prostatic hyperplasia) N40.0 Bloating R14.0
[2022-10-13] MEDS ORDERED: HEPARIN 100 UNIT/ML 5ML FLUSH ONE (08:49)
[2022-10-13] MEDS: predniSONE 50 MG TAB PO SCH (09:22)
[2022-10-13] MEDS: TAMSULOSIN HCL 0.4 MG CAP PO SCH (09:22)
[2022-10-13] MEDS: METOPROLOL SUCC 25MG EXT REL TAB PO SCH (09:22)
[2022-10-13] MEDS: CHOLECALCIFEROL 1,000 UNITS 25 MCG TAB PO SCH (09:22)
[2022-10-13] MEDS: UMECLIDINIUM BROMIDE 62.5MCG/BLISTER 7 PUFFS/INHALER INH SCH (09:22)
[2022-10-13] MEDS: allopurinoL 300 MG TAB PO SCH (09:22)
[2022-10-13 11:03] LABS: Bone Marrow Smear SLHOLD
--- NOTE | 2022-10-13 16:07 | CT Scan Report ---
CT-guided bone marrow biopsy INDICATION: Lymphoma PROCEDURE: Procedure and risks were explained. Informed consent was obtained. A final timeout was com pleted. The patient was placed prone on the CT exam table. The left gluteal region was prepped and dr aped in sterile fashion. 1% buffered lidocaine was utilized for skin anesthesia. The patient received 1 g Tylenol IV. Utilizing CT guidance, an 11-gauge bone biopsy needle was advanced into the left iliac bone. Multiple aspirates and one bone core was obtained and given to the lab. The needle was removed and band aid a pplied. The patient tolerated the procedure well. Vital signs will be monitored postprocedure. IMPRESSION: Bone marrow biopsy as above. Performed, dictated, and signed by Kvng Gongora PA-C; to be co-signed by Dr. Smith Hays. Electronically signed by: Smith Hays M.D. 10/14/2022 10:27 AM
== END 2022-10-13 13:00 | disposition home or self-care (01) | DRG 846 ==
LOC: ED 13:48 → 2E 15:37 → SUATTDRO 15:37 → 2E 18:48

== ENCOUNTER 2023-01-26 10:30 | Inpatient (IN) ==
--- NOTE | 2023-01-26 11:26 | Emergency Department Note ---
History of Present Illness General Chief Complaint: Shortness of Breath/Dyspnea Stated Complaint: SOB Time Seen by Provider: 01/26/23 11:05 History of Present Illness Provider Complaint: shortness of breath Onset (ago): week(s) (1) Consistency/Duration: + progressively worsening Exacerbated By: + exertion Known history of: congestive heart failure Associated symptoms: + chest congestion; no chest pain, no fever, no cough, no wheezing, no sputum production, no orthopnea, no hemoptysis or no abdominal pain HPI Narrative: Patient also reports he feels like his abdomen is filled with fluid, he reports no abdominal pain. No fevers no nausea or vomiting. Related Data Home oxygen amount: none Home Medications Medication Instructions Recorded Confirmed Type aspirin 325 mg tablet 325 mg PO UD PRN Pain 08/20/20 01/26/23 History cholecalciferol (vitamin D3) 25 1,000 units PO QAM 08/20/20 01/26/23 History mcg (1,000 unit) capsule naproxen sodium 220 mg tablet 220 mg PO Q12H PRN Pain 08/20/20 01/26/23 History (Aleve) tamsulosin 0.4 mg capsule 0.4 mg PO QAM #90 caps 08/18/22 01/26/23 Rx albuterol sulfate 90 mcg/actuation 2 inh inhalation Q6H PRN shortness 10/03/22 01/26/23 Rx aerosol inhaler of breath or wheezing #8.5 grams apixaban 5 mg tablet (Eliquis) 5 mg PO BID #60 tabs 10/03/22 01/26/23 Rx tiotropium bromide 2.5 2 inh inhalation DAILY #4 grams 10/03/22 01/26/23 Rx mcg/actuation mist for inhalation (Spiriva Respimat) saw palmetto 500 mg capsule 500 mg PO DAILY 10/06/22 01/26/23 History simethicone 80 mg chewable tablet 80 mg PO Q6H PRN gas/bloating 10/17/2201/26 History (Gas Relief (simethicone)) allopurinol 300 mg tablet 300 mg PO DAILY 11/06/22 01/26/23 History ondansetron 8 mg disintegrating 8 mg PO Q8H 11/06/22 01/26/23 History tablet prednisone 20 mg tablet See Rx Instructions .Route .COMPLEX 11/06/22 01/26/23 History prochlorperazine maleate 10 mg 10 mg PO Q6H PRN Nausea 11/06/22 01/26/23 History tablet furosemide 40 mg tablet 40 mg PO BID PRN edema #60 tabs 11/14/22 01/26/23 Rx finasteride 5 mg tablet 5 mg PO DAILY #90 tabs 11/26/22 01/26/23 Rx Allergies Allergy/AdvReac Type Severity Reaction Status Date / Time meperidine Allergy Unknown CAN'T Verified 01/05/23 12:46 REMEMBER Past Med/Surg History Medical History Poor historian Non compliance w medication regimen "doesn't use his inhalers" Bilateral pleural effusion 09/2022-per record Mediastinal mass 09/2022-per record Coronary artery disease per record Hyperlipidemia High grade B-cell lymphoma per record-"pt was unsure what type he has"; recent admit to [facility] 10/09/22 for start of chemo Hx of myocardial infarction "many years ago">had stress test but "doesn't know many other details" Dyspnea has inhalers-"but doesn't use them often">mainly early in the morning he has difficulty until he gets up and around Shortness of breath History of HI (myocardial infarction) New onset a-fib currently on eliquis; f/u [facility] cardio? Myalgia Generalized weakness Flatulence occasionally Malaise BPH (benign prostatic hyperplasia) Urine incontinence Surgical History Port-A-Cath in place (10/21/22) Port Placement with Fluoroscopy(Right) - Donte Paredes DO History of back surgery History of hernia surgery Family History Other Cancer Denies family history of Ovarian cancer Prostate cancer Diabetes Coronary heart disease Dyslipidemia Myocardial infarction Breast cancer Colorectal cancer Social History Smoking Status: Former smoker Tobacco Type: Cigarettes Age Started Using Tobacco: 14; Age Quit Using Tobacco: 24; packs per day: 0.25; Second Hand Exposure: No; Do You Dip or Chew Tobacco: No; Hx Alcohol Use: No (hx-only when I was in the [employer]) Hx Substance Use: No Preferred Language: Ghanaian Communication Ability: Effective Visual Impairment: No Limitations Hearing Ability: Hard of Hearing 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 Beliefs That Will Affect Care: None marital status: / Current Living Situation: Alone Current Living Situation Comment: Lives with dog current occupational status: retired How many Children do You have: 2 Feels Safe at Home: Yes Childhood Exposure to Second-Hand Smoke: No Diet: regular caffeine: Yes (coffee) during the past year weight has: remained stable Dental Care, Regularly: Yes Physical Activity Frequency: Daily Seatbelt Use: always Sunscreen Use: No Do you think of yourself as: straight/heterosexual Gender Identity: Male Assistive Devices: Cane and Glasses Physical Exam Vital Signs: Vital Signs - 24 hr 01/26/23 10:57 01/26/23 11:00 01/26/23 11:14 Temperature 36.6 C Temperature Source Oral Pulse Rate 108 H 119 H Pulse Rate from Sp O2 Sensor 119 H Pulse Rhythm Respiratory Rate 20 19 Respiratory Effort / Characteristics Non-Labored Non-Labored Sponta neous Respiratory Depth Normal Normal Respiratory Patter n Regular Blood Pressure 123/85 Blood Pressure Rhonda n 97 Pulse Oximetry 92 94 Oxygen Delivery Me thod Room Air Oxygen Flow Rate Sepsis Recent Feve r Within 48 Hours No Sepsis New/Unexpla ined Change in Men alicia Status N/A Sepsis Action Take n by Nursing No Action Required 01/26/23 11:16 01/26/23 11:16 01/26/23 11:17 Temperature Temperature Source Pulse Rate 112 H 112 H Pulse Rate from Sp O2 Sensor 116 H Pulse Rhythm Respiratory Rate 18 Respiratory Effort / Characteristics Respiratory Depth Respiratory Patter n Blood Pressure 127/103 H Blood Pressure Rhonda n 109 Pulse Oximetry 93 Oxygen Delivery Me thod Oxygen Flow Rate Sepsis Recent Feve r Within 48 Hours Sepsis New/Unexpla ined Change in Men alicia Status Sepsis Action Take n by Nursing 01/26/23 11:20 01/26/23 11:22 01/26/23 11:30 Temperature Temperature Source Pulse Rate 104 H 106 H Pulse Rate from Sp O2 Sensor 98 H 114 H Pulse Rhythm Respiratory Rate 20 40 H Respiratory Effort / Characteristics Respiratory Depth Respiratory Patter n Blood Pressure Blood Pressure Rhonda n Pulse Oximetry 92 92 93 Oxygen Delivery Me thod Room Air Oxygen Flow Rate 0 Sepsis Recent Feve r Within 48 Hours Sepsis New/Unexpla ined Change in Men alicia Status Sepsis Action Take n by Nursing 01/26/23 11:30 01/26/23 11:40 01/26/23 11:43 Temperature Temperature Source Pulse Rate 108 H 122 H Pulse Rate from Sp O2 Sensor 104 H Pulse Rhythm Irregular Respiratory Rate 22 24 Respiratory Effort / Characteristics Respiratory Depth Respiratory Patter n Blood Pressure 136/99 Blood Pressure Rhonda n 104 Pulse Oximetry 92 91 Oxygen Delivery Me thod Room Air Oxygen Flow Rate Sepsis Recent Feve r Within 48 Hours Sepsis New/Unexpla ined Change in Men alicia Status Sepsis Action Take n by Nursing 01/26/23 11:45 01/26/23 11:45 01/26/23 11:50 Temperature Temperature Source Pulse Rate 110 H 118 H Pulse Rate from Sp O2 Sensor 104 H 99 H Pulse Rhythm Respiratory Rate 24 21 Respiratory Effort / Characteristics Respiratory Depth Respiratory Patter n Blood Pressure 140/107 H Blood Pressure Rhonda n 117 Pulse Oximetry 93 91 Oxygen Delivery Me thod Room Air Oxygen Flow Rate Sepsis Recent Feve r Within 48 Hours Sepsis New/Unexpla ined Change in Men alicia Status Sepsis Action Take n by Nursing 01/26/23 12:10 01/26/23 12:15 01/26/23 12:15 Temperature Temperature Source Pulse Rate 134 H 135 H Pulse Rate from Sp O2 Sensor 118 H Pulse Rhythm Respiratory Rate 39 H 31 H Respiratory Effort / Characteristics Respiratory Depth Respiratory Patter n Blood Pressure 140/87 Blood Pressure Rhonda n 110 Pulse Oximetry 88 L Oxygen Delivery Me thod Room Air Oxygen Flow Rate Sepsis Recent Feve r Within 48 Hours Sepsis New/Unexpla ined Change in Men alicia Status Sepsis Action Take n by Nursing 01/26/23 12:20 01/26/23 12:30 01/26/23 12:30 Temperature Temperature Source Pulse Rate 113 H 116 H Pulse Rate from Sp O2 Sensor 117 H 105 H Pulse Rhythm Respiratory Rate 29 H 18 Respiratory Effort / Characteristics Respiratory Depth Respiratory Patter n Blood Pressure 131/101 H Blood Pressure Rhonda n 110 Pulse Oximetry 97 98 Oxygen Delivery Me thod Nasal Cannula Oxygen Flow Rate 2 Sepsis Recent Feve r Within 48 Hours Sepsis New/Unexpla ined Change in Men alicia Status Sepsis Action Take n by Nursing 01/26/23 12:40 01/26/23 12:46 01/26/23 12:46 Temperature Temperature Source Pulse Rate 128 H 141 H Pulse Rate from Sp O2 Sensor 152 H 135 H Pulse Rhythm Respiratory Rate 25 H 27 H Respiratory Effort / Characteristics Respiratory Depth Respiratory Patter n Blood Pressure 139/117 H Blood Pressure Rhonda n 132 Pulse Oximetry 93 95 Oxygen Delivery Me thod Oxygen Flow Rate Sepsis Recent Feve r Within 48 Hours Sepsis New/Unexpla ined Change in Men alicia Status Sepsis Action Take n by Nursing 01/26/23 12:50 01/26/23 13:00 01/26/23 13:01 Temperature Temperature Source Pulse Rate 131 H 119 H Pulse Rate from Sp O2 Sensor 131 H 101 H Pulse Rhythm Respiratory Rate 19 16 Respiratory Effort / Characteristics Respiratory Depth Respiratory Patter n Blood Pressure 128/95 Blood Pressure Rhonda n 127 Pulse Oximetry 93 98 Oxygen Delivery Me thod Oxygen Flow Rate Sepsis Recent Feve r Within 48 Hours Sepsis New/Unexpla ined Change in Men alicia Status Sepsis Action Take n by Nursing 01/26/23 13:01 01/26/23 13:10 01/26/23 13:15 Temperature Temperature Source Pulse Rate 116 H 103 H Pulse Rate from Sp O2 Sensor 110 H 95 H Pulse Rhythm Respiratory Rate 24 16 Respiratory Effort / Characteristics Respiratory Depth Respiratory Patter n Blood Pressure 132/109 H Blood Pressure Rhonda n 115 Pulse Oximetry 98 99 Oxygen Delivery Me thod Oxygen Flow Rate Sepsis Recent Feve r Within 48 Hours Sepsis New/Unexpla ined Change in Men alicia Status Sepsis Action Take n by Nursing 01/26/23 13:15 01/26/23 13:20 01/26/23 13:30 Temperature Temperature Source Pulse Rate 119 H Pulse Rate from Sp O2 Sensor 117 H 135 H 129 H Pulse Rhythm Respiratory Rate 18 Respiratory Effort / Characteristics Respiratory Depth Respiratory Patter n Blood Pressure Blood Pressure Rhonda n Pulse Oximetry 99 96 98 Oxygen Delivery Me thod Oxygen Flow Rate Sepsis Recent Feve r Within 48 Hours Sepsis New/Unexpla ined Change in Men alicia Status Sepsis Action Take n by Nursing 01/26/23 13:30 01/26/23 13:40 01/26/23 13:45 Temperature Temperature Source Pulse Rate 117 H 108 H Pulse Rate from Sp O2 Sensor 107 H 101 H Pulse Rhythm Respiratory Rate 23 20 Respiratory Effort / Characteristics Respiratory Depth Respiratory Patter n Blood Pressure 143/99 H Blood Pressure Rhonda n 104 Pulse Oximetry 95 98 Oxygen Delivery Me thod Oxygen Flow Rate Sepsis Recent Feve r Within 48 Hours Sepsis New/Unexpla ined Change in Men alicia Status Sepsis Action Take n by Nursing 01/26/23 13:45 01/26/23 13:50 01/26/23 14:00 Temperature Temperature Source Pulse Rate 103 H 128 H Pulse Rate from Sp O2 Sensor 112 H 125 H Pulse Rhythm Respiratory Rate 15 13 Respiratory Effort / Characteristics Respiratory Depth Respiratory Patter n Blood Pressure 132/96 Blood Pressure Rhonda n 120 Pulse Oximetry 98 99 Oxygen Delivery Me thod Oxygen Flow Rate Sepsis Recent Feve r Within 48 Hours Sepsis New/Unexpla ined Change in Men alicia Status Sepsis Action Take n by Nursing 01/26/23 14:00 01/26/23 14:10 01/26/23 14:16 Temperature Temperature Source Pulse Rate 119 H Pulse Rate from Sp O2 Sensor 109 H Pulse Rhythm Respiratory Rate 14 Respiratory Effort / Characteristics Respiratory Depth Respiratory Patter n Blood Pressure 139/99 139/110 H Blood Pressure Rhonda n 104 129 Pulse Oximetry 99 Oxygen Delivery Me thod Oxygen Flow Rate Sepsis Recent Feve r Within 48 Hours Sepsis New/Unexpla ined Change in Men alicia Status Sepsis Action Take n by Nursing 01/26/23 14:16 01/26/23 14:20 01/26/23 14:30 Temperature Temperature Source Pulse Rate 110 H 118 H 123 H Pulse Rate from Sp O2 Sensor 121 H 153 H 105 H Pulse Rhythm Respiratory Rate 20 16 15 Respiratory Effort / Characteristics Respiratory Depth Respiratory Patter n Blood Pressure Blood Pressure Rhonda n Pulse Oximetry 99 96 98 Oxygen Delivery Me thod Oxygen Flow Rate Sepsis Recent Feve r Within 48 Hours Sepsis New/Unexpla ined Change in Men alicia Status Sepsis Action Take n by Nursing 01/26/23 14:31 01/26/23 14:31 01/26/23 14:40 Temperature Temperature Source Pulse Rate 109 H 115 H Pulse Rate from Sp O2 Sensor 129 H 98 H Pulse Rhythm Respiratory Rate 26 H 17 Respiratory Effort / Characteristics Respiratory Depth Respiratory Patter n Blood Pressure 127/91 Blood Pressure Rhonda n 93 Pulse Oximetry 98 99 Oxygen Delivery Me thod Oxygen Flow Rate Sepsis Recent Feve r Within 48 Hours Sepsis New/Unexpla ined Change in Men alicia Status Sepsis Action Take n by Nursing 01/26/23 14:45 01/26/23 14:45 01/26/23 14:50 Temperature Temperature Source Pulse Rate 117 H 115 H Pulse Rate from Sp O2 Sensor 114 H 106 H Pulse Rhythm Respiratory Rate 19 15 Respiratory Effort / Characteristics Respiratory Depth Respiratory Patter n Blood Pressure 123/94 Blood Pressure Rhonda n 113 Pulse Oximetry 98 98 Oxygen Delivery Me thod Oxygen Flow Rate Sepsis Recent Feve r Within 48 Hours Sepsis New/Unexpla ined Change in Men alicia Status Sepsis Action Take n by Nursing 01/26/23 15:00 01/26/23 15:01 01/26/23 15:01 Temperature Temperature Source Pulse Rate 121 H Pulse Rate from Sp O2 Sensor 116 H Pulse Rhythm Respiratory Rate 24 Respiratory Effort / Characteristics Respiratory Depth Respiratory Patter n Blood Pressure 136/91 136/91 Blood Pressure Rhonda n 113 113 Pulse Oximetry 96 Oxygen Delivery Me thod Oxygen Flow Rate Sepsis Recent Feve r Within 48 Hours Sepsis New/Unexpla ined Change in Men alicia Status Sepsis Action Take n by Nursing 01/26/23 15:01 01/26/23 15:09 01/26/23 15:10 Temperature Temperature Source Pulse Rate 121 H 125 H 126 H Pulse Rate from Sp O2 Sensor 108 H 118 H Pulse Rhythm Respiratory Rate 21 29 H Respiratory Effort / Characteristics Respiratory Depth Respiratory Patter n Blood Pressure Blood Pressure Rhonda n Pulse Oximetry 93 96 Oxygen Delivery Me thod Oxygen Flow Rate Sepsis Recent Feve r Within 48 Hours Sepsis New/Unexpla ined Change in Men alicia Status Sepsis Action Take n by Nursing 01/26/23 15:15 01/26/23 15:15 01/26/23 15:20 Temperature Temperature Source Pulse Rate 134 H 113 H Pulse Rate from Sp O2 Sensor 156 H 123 H Pulse Rhythm Respiratory Rate 16 25 H Respiratory Effort / Characteristics Respiratory Depth Respiratory Patter n Blood Pressure 127/102 H Blood Pressure Rhonda n 119 Pulse Oximetry 90 94 Oxygen Delivery Me thod Oxygen Flow Rate Sepsis Recent Feve r Within 48 Hours Sepsis New/Unexpla ined Change in Men alicia Status Sepsis Action Take n by Nursing Physical Exam: Physical Exam GENERAL: He is oriented to person, place, and time. He appears well-developed and well-nourished. HENT: Exam performed. - Head: Normocephalic and atraumatic. - Right Ear: External ear normal. No mastoid erythema - Left Ear: External ear normal. No mastoid erythema - Mouth/Throat: The oropharynx is clear and moist. No trismus in the jaw. No dental abscesses or uvula swelling. No oropharyngeal exudate or tonsillar abscesses. EYES: Conjunctivae and EOM are normal. Pupils are equal, round, and reactive to light. Right eye exhibits no discharge. Left eye exhibits no discharge. No scleral icterus. NECK: Normal range of motion. Neck supple. No JVD present. CV: Normal rate, irregular rhythm, normal heart sounds and intact distal pulses. 3+ pitting edema of the bilateral lower extremities. Palpable radial pulses bue. PULM/CHEST: Effort normal and breath sounds normal. No respiratory distress. No stridor. He has no wheezes. He has no rales. ABD: The abdomen is soft. No fluid wave. There is no tenderness. There is no rebound, no guarding MUSC/SKEL: Normal range of motion. There is no tenderness or deformity. LYMPH: No cervical adenopathy. NEURO: He is alert and oriented to person, place, and time. He has normal strength. No cranial nerve deficit or sensory deficit. Coordination and gait normal. GCS eye subscore is 4. GCS verbal subscore is 5. GCS motor subscore is 6. Cerebellar tests wnl. Course Course 1105: The patient was evaluated in room B7. A complete history and physical exam was performed Cardiac monitoring: An order was placed for continuous cardiac monitoring. The monitor shows a rate of 90-110 with atrial fibrilation rhythm interpreted by me External medical records reviewed. Patient had blood work done today which showed a sodium of 125. Creatinine was within normal limits. Will obtain CTA of the chest rule out PE. Bedside ultrasound was performed which showed a scant amount of ascites with no drainable fluid collections. There is no fluid wave. 1240: Nursing informed me that the patient's oxygen saturations dipped down to 87% on room air after CT scan with ambulation. Supplemental oxygen via nasal cannula was placed on the patient which improved the patient's oxygen saturation. 1400: Vital signs stable on supplemental oxygen via nasal cannula. Labs showed a BNP of 603 troponin 44.4. VBG within normal limits. Imaging shows a large right-sided pleural effusion no pulmonary embolus. [facility]. Administered Medications Discontinued Medications Furosemide (Furosemide 40 Mg/4 Ml Vial) 40 mg IV ONE ONE Stop: 01/26/23 15:30 Last Admin: 01/26/23 15:40 Dose: 40 mg Documented By: TIERNEY Ceftriaxone Sodium 2,000 mg/ (Dextrose) 50 mls @ 100 mls/hr IV ONE ONE; Protocol Stop: 01/26/23 16:29 Last Admin: 01/26/23 16:34 Dose: 100 mls/hr Documented By: TIERNEY Ioversol (Optiray 320 500ml) 116 ml IV ONCE ONE Stop: 01/26/23 12:10 Last Admin: 01/26/23 12:10 Dose: 116 ml Documented By: JAMAL Medical Decision Making Laboratory Data Attestation: I reviewed the patient's lab results. Lab Results 01/26/23 01/26/23 01/26/23 Range/Units 11:44 12:17 13:39 PT 12.7 H (9.0-12.0) Seconds INR 1.2 H (0.9-1.1) APTT 29.9 (21.0-31.0) Seconds PTT Ratio 1.1 VBG pH 7.38 (7.36-7.41) VBG pCO2 53 H (38-50) mmHg VBG pO2 39 mmHg VBG HCO3 31 mmol/L VBG O2 Saturation 61.7 % VBG Base Excess 4.9 mEq/L Magnesium 1.7 (1.7-2.4) mg/dl Troponin I High Sens 44.4 H (0-20) pg/ml B-Natriuretic Peptide 603 H (0-100) pg/ml Urine Color Dark Yellow Urine Appearance Turbid A (Clear) Urine pH 6.0 (4.5-7.5) Ur Specific [place] > 1.045 H (1.000-1.030) Urine Protein 2+ H (Negative) Urine Glucose (UA) Negative (Negative) Urine Ketones Negative (Negative) Urine Blood 3+ H (Negative) Urine Nitrite Positive A (Negative) Urine Bilirubin Negative (Negative) Urine Urobilinogen Negative (Negative) Ur Leukocyte Esterase 3+ H (Negative) Urine WBC (Auto) >30 H (0-5) /hpf Urine RBC (Auto) 0-4 (0-4) /hpf U Hyaline Cast (Auto) 0 (0-5) /lpf U Epithel Cells (Auto) 0-5 (0-5) /lpf Urine Bacteria (Auto) 2+ H (Negative) Urine Yeast Not Reportable Urine Osmolality (500-800) mOsm/kg Ur Random Sodium mmol/L Ur Random Potassium mmol/L Adenovirus (PCR) Not Detected (NotDetected) B. pertussis DNA (PCR) Not Detected (NotDetected) B.parapertussis DNA PCR Not Detected (NotDetected) C. pneumoniae DNA (PCR) Not Detected (NotDetected) Coronavirus OC43 (PCR) Not Detected (NotDetected) Coronavirus HKU1 (PCR) Not Detected (NotDetected) Coronavirus 229E (PCR) Not Detected (NotDetected) SARS-CoV-2 (PCR) Not Detected (NotDetected) Coronavirus NL63 (PCR) Not Detected (NotDetected) Human Metapneumovir PCR Not Detected (NotDetected) Influenza Type A (PCR) Not Detected (NotDetected) Influenza Type B (PCR) Not Detected (NotDetected) M. pneumoniae (PCR) Not Detected (NotDetected) Parainfluenza 1 (PCR) Not Detected (NotDetected) Parainfluenza 2 (PCR) Not Detected (NotDetected) Parainfluenza 3 (PCR) Not Detected (NotDetected) Parainfluenza 4 (PCR) Not Detected (NotDetected) RSV (PCR) Not Detected (NotDetected) Entero/Rhino (PCR) Not Detected (NotDetected) 01/26/23 Range/Units 14:52 PT (9.0-12.0) Seconds INR (0.9-1.1) APTT (21.0-31.0) Seconds PTT Ratio VBG pH (7.36-7.41) VBG pCO2 (38-50) mmHg VBG pO2 mmHg VBG HCO3 mmol/L VBG O2 Saturation % VBG Base Excess mEq/L Magnesium (1.7-2.4) mg/dl Troponin I High Sens (0-20) pg/ml B-Natriuretic Peptide (0-100) pg/ml Urine Color Urine Appearance (Clear) Urine pH (4.5-7.5) Ur Specific [place] (1.000-1.030) Urine Protein (Negative) Urine Glucose (UA) (Negative) Urine Ketones (Negative) Urine Blood (Negative) Urine Nitrite (Negative) Urine Bilirubin (Negative) Urine Urobilinogen (Negative) Ur Leukocyte Esterase (Negative) Urine WBC (Auto) (0-5) /hpf Urine RBC (Auto) (0-4) /hpf U Hyaline Cast (Auto) (0-5) /lpf U Epithel Cells (Auto) (0-5) /lpf Urine Bacteria (Auto) (Negative) Urine Yeast Urine Osmolality 567 (500-800) mOsm/kg Ur Random Sodium 17 mmol/L Ur Random Potassium 35.9 mmol/L Adenovirus (PCR) (NotDetected) B. pertussis DNA (PCR) (NotDetected) B.parapertussis DNA PCR (NotDetected) C. pneumoniae DNA (PCR) (NotDetected) Coronavirus OC43 (PCR) (NotDetected) Coronavirus HKU1 (PCR) (NotDetected) Coronavirus 229E (PCR) (NotDetected) SARS-CoV-2 (PCR) (NotDetected) Coronavirus NL63 (PCR) (NotDetected) Human Metapneumovir PCR (NotDetected) Influenza Type A (PCR) (NotDetected) Influenza Type B (PCR) (NotDetected) M. pneumoniae (PCR) (NotDetected) Parainfluenza 1 (PCR) (NotDetected) Parainfluenza 2 (PCR) (NotDetected) Parainfluenza 3 (PCR) (NotDetected) Parainfluenza 4 (PCR) (NotDetected) RSV (PCR) (NotDetected) Entero/Rhino (PCR) (NotDetected) Imaging Data Attestation: I personally reviewed and interpreted this imaging study as follows: My Impression: Chest x-ray: Large right-sided pleural effusion Radiologist's Impression: Chest CTA 01/26/23 11:21 CT ANGIOGRAPHY OF THE CHEST, PULMONARY EMBOLUS PROTOCOL CLINICAL HISTORY: Shortness of breath. Evaluate for pulmonary embolus. B-cell lymphoma. COMPARISON STUDY: Chest CT October 02, 2022. Chest radiograph performed earlier today. TECHNIQUE: Following IV administration of 116 mL of Optiray, helical axial images of the chest were obtained utilizing the pulmonary embolus protocol. Maximal intensity projections and sagittal and coronal reformats were viewed on an independent 3D workstation. IV contrast was administered without complication. Automated exposure control was utilized for the study. A dose lowering technique was utilized adhering to the principles of ALARA. CT DOSE: 749.48 mGy.cm FINDINGS: No pulmonary emboli are identified however the segmental and subsegmental pulmonary arteries are suboptimally assessed due to suboptimal vascular opacification, particularly within the lower lobes. There is no central pulmonary embolus. Mild cardiomegaly is noted. No pericardial effusion. There is no pneumothorax. A large right pleural effusion has significantly increased in size since CT of October 02, 2022. Multiple pleural implants within the right hemithorax have developed since prior CT. These measure up to 4.6 x 2.4 cm. Mediastinal and right hilar lymphadenopathy has improved since CT of October 02, 2022. A subcarinal lymph node measures 5.8 x 4.4 cm. It previously measured approximately 7 x 6.9 cm. There is a small left pleural effusion. No suspicious lesions within the bony thorax are noted. Small amount of upper abdominal ascites is incidentally noted. IMPRESSION: 1. No pulmonary emboli identified although exam significantly compromised by suboptimal vascular opacification, as described above. 2. Significant increase in size of a large right pleural effusion with interval development of numerous right pleural implants since prior chest CT. This suggests lymphomatous pleural involvement. Small left pleural effusion. 3. Improvement in mediastinal and right hilar lymphadenopathy since prior CT. 4. Small amount of upper abdominal ascites. ACT 112: Negative or not required by law. Electronically signed by: Dakota Krause M.D. 01/26/2023 1:52 PM Chest X-Ray 01/26/23 11:21 SINGLE VIEW CHEST CLINICAL HISTORY: Dyspnea. FINDINGS: An AP, portable, upright chest radiograph is compared to study dated 10/21/2022 and correlated with chest CT dated 10/02/2022. A right internal jugular central venous infusion port is unchanged in position. The heart is enlarged noting atherosclerotic calcification of the thoracic aorta. There is pulmonary vascular congestion. There are moderate to large right and small left pleural effusions with bilateral consolidation No pneumothorax is seen. The skeletal structures are osteopenic. The bony thorax is grossly intact. IMPRESSION: 1. Cardiomegaly with pulmonary vascular congestion. 2. Right larger than left pleural effusions with bibasilar consolidation. ACT 112: Negative or not required by law. Electronically signed by: Benjie Robertson M.D. 01/26/2023 1:03 PM ECG Data Attestation: I personally reviewed and interpreted this ECG as follows: Interpretation: Atrial fibrillation with a rate of 119. QRS and QTc intervals within normal limits. No ST elevation or ST depression. PVCs present. MDM Narrative 1105: The patient was evaluated in room B7. A complete history and physical exam was performed Cardiac monitoring: An order was placed for continuous cardiac monitoring. The monitor shows a rate of 90-110 with atrial fibrilation rhythm interpreted by me External medical records reviewed. Patient had blood work done today which showed a sodium of 125. Creatinine was within normal limits. Will obtain CTA of the chest rule out PE. Bedside ultrasound was performed which showed a scant amount of ascites with no drainable fluid collections. There is no fluid wave. 1240: Nursing informed me that the patient's oxygen saturations dipped down to 87% on room air after CT scan with ambulation. Supplemental oxygen via nasal cannula was placed on the patient which improved the patient's oxygen saturation. 1400: Vital signs stable on supplemental oxygen via nasal cannula. Labs showed a BNP of 603 troponin 44.4. VBG within normal limits. Imaging shows a large right-sided pleural effusion no pulmonary embolus. [facility] Impression & Plan Hypoxia, Pleural effusion Critical Care Time Critical Care Time: Yes Total Critical Care Time: 60 I have personally spent greater than 60 minutes of critical care time in the direct management of this patient. This includes bedside care, interpretation of diagnostic studies, and testing, discussion with consultants, patient, and fa sandhya members, and other required patient management activities. This 60 minutes is in excess of all separately billable procedures. Discharge Plan Visit Data Chief Complaint: Shortness of Breath/Dyspnea Stated Complaint: SOB ED Provider: Mariano Robert Discharge Problem: Hypoxia, Pleural effusion Patient Disposition: Admitted As Inpatient Discharge Instructions Interventions: ED Discharge Assessment Last Done: 01/26/23 16:29
[2023-01-26 12:03] LABS: Base Excess VBG 4.9 mEq/L; HCO3 VBG 31 mmol/L; Oxygen Saturation VBG 61.7 %; PCO2 VBG 53 mmHg (38-50); PO2 VBG 39 mmHg; pH VBG 7.38 (7.36-7.41)
[2023-01-26] MEDS ORDERED: OPTIRAY 320 500ml IV ONE (12:09)
[2023-01-26 12:27] LABS: Magnesium 1.7 mg/dl (1.7-2.4)
[2023-01-26 12:33] LABS: Troponin I High Sensitivity 44.4 pg/ml (0-20)
--- NOTE | 2023-01-26 13:05 | XRay Report ---
SINGLE VIEW CHEST CLINICAL HISTORY: Dyspnea. FINDINGS: An AP, portable, upright chest radiograph is compared to study dated 10/21/2022 and correlat ed with chest CT dated 10/02/2022. A right internal jugular central venous infusion port is unchanged i n position. The heart is enlarged noting atherosclerotic calcification of the thoracic aorta. There i s pulmonary vascular congestion. There are moderate to large right and small left pleural effusions w ith bilateral consolidation No pneumothorax is seen. The skeletal structures are osteopenic. The bon y thorax is grossly intact. IMPRESSION: 1. Cardiomegaly with pulmonary vascular congestion. 2. Right larger than left pleural effusions with bibasilar consolidation. ACT 112: Negative or not required by law. Electronically signed by: Benjie Robertson M.D. 01/26/2023 1:03 PM
--- NOTE | 2023-01-26 13:54 | CT Scan Report ---
CT ANGIOGRAPHY OF THE CHEST, PULMONARY EMBOLUS PROTOCOL CLINICAL HISTORY: Shortness of breath. Evaluate for pulmonary embolus. B-cell lymphoma. COMPARISON STUDY: Chest CT October 02, 2022. Chest radiograph performed earlier today. TECHNIQUE: Following IV administration of 116 mL of Optiray, helical axial images of the chest were o btained utilizing the pulmonary embolus protocol. Maximal intensity projections and sagittal and cor onal reformats were viewed on an independent 3D workstation. IV contrast was administered without co mplication. Automated exposure control was utilized for the study. A dose lowering technique was ut ilized adhering to the principles of ALARA. CT DOSE: 749.48 mGy.cm FINDINGS: No pulmonary emboli are identified however the segmental and subsegmental pulmonary arteri es are suboptimally assessed due to suboptimal vascular opacification, particularly within the lower lobes. There is no central pulmonary embolus. Mild cardiomegaly is noted. No pericardial effusion. Th ere is no pneumothorax. A large right pleural effusion has significantly increased in size since CT o f October 02, 2022. 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 These measure up to 4.6 x 2.4 cm. Mediastinal and right hilar lymphadenopathy has improved since CT of October 02, 2022. A subcarinal lymph node measures 5.8 x 4.4 cm. It previously measured approximate ly 7 x 6.9 cm. There is a small left pleural effusion. No suspicious lesions within the bony thorax a re noted. Small amount of upper abdominal ascites is incidentally noted. IMPRESSION: 1. No pulmonary emboli identified although exam significantly compromised by suboptimal vascular opac ification, as described above. 2. Significant increase in size of a large right pleural effusion with interval development of hari us right pleural implants since prior chest CT. This suggests lymphomatous pleural involvement. Small left pleural effusion. 3. Improvement in mediastinal and right hilar lymphadenopathy since prior CT. 4. Small amount of upper abdominal ascites. ACT 112: Negative or not required by law. Electronically signed by: Dakota Krause M.D. 01/26/2023 1:52 PM
[2023-01-26 14:05] LABS: Adenovirus PCR Not Detected (NotDetected); Bordetella parapertussis PCR Not Detected (NotDetected); Bordetella pertussis PCR Not Detected (NotDetected); Chlamydia pneumoniae PCR Not Detected (NotDetected); Coronavirus 229E PCR Not Detected (NotDetected); Coronavirus CoV-2 (COVID19)PCR Not Detected (NotDetected); Coronavirus HKU1 PCR Not Detected (NotDetected); Coronavirus NL63 PCR Not Detected (NotDetected); Coronavirus OC43PCR Not Detected (NotDetected); Human Metapneumovirus PCR Not Detected (NotDetected); Influenza A PCR Not Detected (NotDetected); Influenza B PCR Not Detected (NotDetected); Mycoplasma pneumoniae PCR Not Detected (NotDetected); Parainfluenza Virus 1 PCR Not Detected (NotDetected); Parainfluenza Virus 2 PCR Not Detected (NotDetected); Parainfluenza Virus 3 PCR Not Detected (NotDetected); Parainfluenza Virus 4 PCR Not Detected (NotDetected); Respiratory Syncytial VirusPCR Not Detected (NotDetected); Rhinovirus/Enterovirus PCR Not Detected (NotDetected)
--- NOTE | 2023-01-26 14:43 | History & Physical Report ---
Date of Service January 26, 2023 Assessment & Plan (1) Pleural effusion, right: Plan: -Admit to PCU on tele and cont pulse oximetry -HS is currently in the 110's-140's but is asymptomatic, hemodynamically stable, and stable on 2L NC -At this time the etiology of the patient's large right pleural effusions appears more associated with exudative/malignant source than CHF as it is mainly one sided and the patient shows numerous right pleural implants since prior stewart st CT -He does appear significantly volume overloaded on exam with an elevated BNP in the 600's, only previous BNP was in the 200's. Cannot rule out cardiac involvement at this time -Patient has been off Eliquis for months due to miscommunication, will hold for now with likely thoracentesis in the near future -Pulmonology consult placed, they will see shortly, appreciate their help -Will give 40 mg IV lasix on admission as he is significantly volume overloaded with possible CHF exacerbation contributing to current Afib-RVR -Incentive spirometry, flutter therapy, prn O2 to keep SpO2 at or above 94% -Will use prn Xopenex for wheezing instead of albuterol for now with afib RVR -Hold chemical DVT PPX for now, will start BL JOSE's -NPO until evaluated by Pulmonology -AM CBC, CMP, Mag, PT/INR (2) Acute respiratory failure with hypoxia: Plan: -Currently stable on 2L NC -Likely due to his large right pleural effusion -No leukocytosis, procal negative, no consolidations on CXR or CTA of the chest -CTA of the chest was negative for large PE but study was listed as sub-optimal -Suspicion for PE is lower at this time as he has another cause of his hypoxia at this time, has been hemodynamically stable, and has been without chest discomfort -Will obtain BL venous dopplers of the LE's for evaluation of DVT's as he has not been taking his Eliquis -Will continue to monitor for improvement with treatment of large right pleural effusion (3) Atrial fibrillation with RVR: Plan: -Patient presented with HR in the 130's and in afib -HR has ranged from 110'-140's, patient has been without chest discomfort, light headedness, or dizziness -Likely due to demand from volume overload and hypoxia -Will give 40 mg IV lasix on admission, continue to monitor on tele -Will need to discuss restarting Eliquis later during his admission as he stopped it in September permanently when he misunderstood being told to temporarily held for possible bone marrow biopsy and mediport placement -If no significant improvement after diuresis will add beta blocking agents (4) Hyponatremia: Plan: -Sodium noted to be 126 in the ED -Likely multifactorial including poor oral intake, diuretic use, 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, and possible renal etiology with UTI -Patient is significantly volume overloaded on exam but is without acute confusion/is not symptomatic -Did not receive IV fluids in the ED -Will obtain Serum/Urine Osmolality, urine sodium/potassium, and TSH -Will give 40 mg IV lasix on admission for volume overload -Will monitor q4h BMP for now (5) Elevated troponin: Plan: -Initial high sen trop elevated at 44 -Patient denies chest pain/discomfort and is without acute ST segment or T-wave changes -Likely due to demand with large right pleural effusion, hypoxia, and afib RVR -Will follow 2 hour repeat high sen trop and trend q6h overnight -Continue current treatment of hypoxia, pleural effusion, and afib RVR -Follow TTE ordered on admission (6) CAD (coronary artery disease): Plan: -Patient states that her only takes aspirin "as needed", not taking consistently -Would consider restarting daily on discharge based on decision to continue Eliquis (7) UTI (urinary tract infection): Plan: -Patient did not express urinary symptoms but UA is very consistent with acute UTI and is without significant epithelial cells -No previous hx of resistant organisms -Will start Ceftriaxone (8) Thrombocytopenia: Plan: -Noted to be 100 today, was 103 on 01/23 -Likely due to current chemotherapy as LFT's are WNL -No signs of bleeding -Monitor daily CBC for now, Heme/onc consult placed (9) High grade B-cell lymphoma: Plan: -Follows with Dr. Fuentes, was due for last chemotherapy treatment today but did not receive as he was sent to the ED from the Clinic -Will consult Oncology to follow and help with determination for continued chemotherapy treatment (10) Leg swelling: Plan: -Appears more consistent with venous stasis and volume overload -Follow venous dopplers for DVT's History of Present Illness Chief Complaint: SOB, increased abdominal distention Primary Care Provider: Aram Rivas DO Vivek is an 87 year old male with a past medical history of high grade B- cell lymphoma currently following with aric Cleemnt (On Eliquis), CAD, HFpEF, HLD, BPH, and neuropathy who presented to the [facility] ED on 01/26 with complaints of progressive SOB and abdominal distention. He was initially stable in the ED but did drop to 88% on RA and was noted to be tachycardic with HR in the 130's. Labs were significant for WBC WNL, stable Hgb, platelets of 100, lymphocyte count of 0.69, Neutrophil count of 7.00, VBG pH WNL with pCO2 of 53, corrected sodium of 126, chloride of 89, total bili of 1.8 with other LFT's WNL, LDH of 384, initial high sen trop of 44, BNP of 603 (up from 288 as of 09/2022), and negative full respiratory biofire. Chest xray was read as "1. Cardiomegaly with pulmonary vascular congestion. 2. Right larger than left pleural effusions with bibasilar consolidation.". CTA of the chest was read as "1. No pulmonary emboli identified although exam significantly compromised by suboptimal vascular opacification, as described above. 2. Significant increase in size of a large right pleural effusion with interval development of numerous right pleural implants since prior chest CT. This suggests lymphomatous pleural involvement. Small left pleural effusion. 3. Improvement in mediastinal and right hilar lymphadenopathy since prior CT. 4. Small amount of upper abdominal ascites.". At the time of the exam the patient was lying in bed on his right side in no acute distress; currently stable on 2L NC. History was obtained from the patient and his daughter who was at bedside. He states that he has been experiencing significant SOB over the past week. He states this may over been occurring over a longer period of time but is unsure. he has had very poor oral intake over the past week due to having little to no appetite. When discussing medications he appears to be confused regarding dosing and non-compliant. He states that someone told him to stop taking his Eliquis months ago but could not remember who or why. His previous prescription for lasix was 40 mg PO BID, he was taking it once daily or every other day over the past few months per his daughter. When asked why he states, "I didn't think I needed it". He currently denies fever, chills, chest pain, cough, palpitations, nausea, vomiting, abd pain, dysuria, hematuria, melena, diarrhea, and recent trauma. We discussed code status, the patient made it clear that he wishes to be a DNR/DNI, his daughter was in agreement with his choice. Please refer to Dr. Stephenson's attestation for any changes to the treatment plan Allergies Allergy/AdvReac Type Severity Reaction Status Date / Time meperidine Allergy Unknown CAN'T Verified 01/05/23 12:46 REMEMBER Home Medications Medication Instructions Recorded Confirmed Type aspirin 325 mg tablet 325 mg PO UD PRN Pain 08/20/20 01/26/23 History cholecalciferol (vitamin D3) 25 1,000 units PO QAM 08/20/20 01/26/23 History mcg (1,000 unit) capsule naproxen sodium 220 mg tablet 220 mg PO Q12H PRN Pain 08/20/20 01/26/23 History (Aleve) tamsulosin 0.4 mg capsule 0.4 mg PO QAM #90 caps 08/18/22 01/26/23 Rx albuterol sulfate 90 mcg/actuation 2 inh inhalation Q6H PRN shortness 10/03/22 01/26/23 Rx aerosol inhaler of breath or wheezing #8.5 grams apixaban 5 mg tablet (Eliquis) 5 mg PO BID #60 tabs 10/03/22 01/26/23 Rx tiotropium bromide 2.5 2 inh inhalation DAILY #4 grams 10/03/22 01/26/23 Rx mcg/actuation mist for inhalation (Spiriva Respimat) saw palmetto 500 mg capsule 500 mg PO DAILY 10/06/22 01/26/23 History simethicone 80 mg chewable tablet 80 mg PO Q6H PRN gas/bloating 10/17/22 01/26/23 History (Gas Relief (simethicone)) allopurinol 300 mg tablet 300 mg PO DAILY 11/06/22 01/26/23 History ondansetron 8 mg disintegrating 8 mg PO Q8H 11/06/22 01/26/23 History tablet prednisone 20 mg tablet See Rx Instructions .Route .COMPLEX 11/06/22 01/26/23 History prochlorperazine maleate 10 mg 10 mg PO Q6H PRN Nausea 11/06/22 01/26/23 History tablet furosemide 40 mg tablet 40 mg PO BID PRN edema #60 tabs 11/14/22 01/26/23 Rx finasteride 5 mg tablet 5 mg PO DAILY #90 tabs 11/26/22 01/26/23 Rx Past Med/Surg History Medical History Poor historian Non compliance w medication regimen "doesn't use his inhalers" Bilateral pleural effusion 09/2022-per record Mediastinal mass 09/2022-per record Coronary artery disease per record Hyperlipidemia High grade B-cell lymphoma per record-"pt was unsure what type he has"; recent admit to [facility] 10/09/22 for start of chemo Hx of myocardial infarction "many years ago">had stress test but "doesn't know many other details" Dyspnea has inhalers-"but doesn't use them often">mainly early in the morning he has difficulty until he gets up and around Shortness of breath History of IN (myocardial infarction) New onset a-fib currently on eliquis; f/u [facility] cardio? Myalgia Generalized weakness Flatulence occasionally Malaise BPH (benign prostatic hyperplasia) Urine incontinence Surgical History Port-A-Cath in place (10/21/22) Port Placement with Fluoroscopy(Right) - Donte Paredes DO History of back surgery History of hernia surgery Family History Other Cancer Denies family history of Ovarian cancer Prostate cancer Diabetes Coronary heart disease Dyslipidemia Myocardial infarction Breast cancer Colorectal cancer Social History Smoking Status: Former smoker Tobacco Type: Cigarettes Age Started Using Tobacco: 14; Age Quit Using Tobacco: 24; packs per day: 0.25; Second Hand Exposure: No; Do You Dip or Chew Tobacco: No; Hx Alcohol Use: No (hx-only when I was in the [employer]) Hx Substance Use: No Preferred Language: Japanese Communication Ability: Effective Visual Impairment: No Limitations Hearing Ability: Hard of Hearing Student Life Vice President Required: No Beliefs That Will Affect Care: None marital status: / Current Living Situation: Alone Current Living Situation Comment: Lives with dog current occupational status: retired How many Children do You have: 2 Feels Safe at Home: Yes Childhood Exposure to Second-Hand Smoke: No Diet: regular caffeine: Yes (coffee) during the past year weight has: remained stable Dental Care, Regularly: Yes Physical Activity Frequency: Daily Seatbelt Use: always Sunscreen Use: No Do you think of yourself as: straight/heterosexual Gender Identity: Male Assistive Devices: Cane and Glasses Physical Exam Physical Exam: Physical Exam: General: In no acute distress, stated age, chronically ill-appearing but non- toxic HEENT: Normocephalic, atraumatic, no scleral icterus, pupils around round, symmetrical, and reactive to light, moist mucus membranes, trachea midline, no thyromegaly Chest/Pulm: No respiratory distress, symmetrical chest expansion, decreased breath sounds in the right lower and middle lobes, decreased breath sounds in the LLB, otherwise with mild expiratory wheezing Cardiac: irregular rate and rhythm, no murmurs noted Abdomen: Negative for ascites and bruising, normoactive bowel sounds, soft, non-tender to palpation throughout Musculoskeletal: Symmetrical and without signs of acute trauma, upper and lower extremities with full ROM, no atrophy, spasticity, or flaccidity Extremities: Radial, dorsalis pedis, and posterior tibial pulses are intact and symmetrical, 2+ pitting edema noted in the BL LE's Skin: Warm, dry, no rashes , lesions, or scars noted Neuro: Alert and oriented to person, place, month, year, and president, no focal defects, no tremors noted Psych: No acute distress, calm and cooperative during the exam Results & Data Results & Data Vital Signs (Past 12 Hours) Vital Signs Temp Pulse Resp BP Pulse Ox O2 Del Method O2 Flow Rate 01/26/23 13:50 103 H 15 98 01/26/23 13:45 132/96 01/26/23 13:45 108 H 20 98 01/26/23 13:40 117 H 23 95 01/26/23 13:30 143/99 H 01/26/23 13:30 98 01/26/23 13:20 96 01/26/23 13:15 119 H 18 99 01/26/23 13:15 132/109 H 01/26/23 13:10 103 H 16 99 01/26/23 13:01 116 H 24 98 01/26/23 13:01 128/95 01/26/23 13:00 119 H 16 98 01/26/23 12:50 131 H 19 93 01/26/23 12:46 139/117 H 01/26/23 12:46 141 H 27 H 95 01/26/23 12:40 128 H 25 H 93 01/26/23 12:30 131/101 H 01/26/23 12:30 116 H 18 98 01/26/23 12:20 113 H 29 H 97 Nasal Cannula 2 01/26/23 12:15 135 H 31 H 88 L Room Air 01/26/23 12:15 140/87 01/26/23 12:10 134 H 39 H 01/26/23 11:50 118 H 21 91 Room Air 01/26/23 11:45 140/107 H 01/26/23 11:45 110 H 24 93 01/26/23 11:43 122 H 24 91 Room Air 01/26/23 11:40 108 H 22 92 01/26/23 11:30 136/99 01/26/23 11:30 106 H 40 H 93 01/26/23 11:22 92 Room Air 0 01/26/23 11:20 104 H 20 92 01/26/23 11:17 112 H 01/26/23 11:16 127/103 H 01/26/23 11:16 112 H 18 93 01/26/23 11:14 119 H 19 94 01/26/23 11:00 Room Air 01/26/23 10:57 36.6 C 108 H 20 123/85 92 Laboratory Results Abnormal lab results 01/26/23 01/26/23 Range/Units 11:44 13:39 VBG pCO2 53 H (38-50) mmHg Troponin I High Sens 44.4 H (0-20) pg/ml B-Natriuretic Peptide 603 H (0-100) pg/ml Urine Appearance Turbid A (Clear) Ur Specific Lima > 1.045 H (1.000-1.030) Urine Protein 2+ H (Negative) Urine Blood 3+ H (Negative) Urine Nitrite Positive A (Negative) Ur Leukocyte Esterase 3+ H (Negative) Urine WBC (Auto) >30 H (0-5) /hpf Urine Bacteria (Auto) 2+ H (Negative) Diagnostic Findings Chest CTA 01/26/23 11:21 CT ANGIOGRAPHY OF THE CHEST, PULMONARY EMBOLUS PROTOCOL CLINICAL HISTORY: Shortness of breath. Evaluate for pulmonary embolus. B-cell lymphoma. COMPARISON STUDY: Chest CT October 02, 2022. Chest radiograph performed earlier today. TECHNIQUE: Following IV administration of 116 mL of Optiray, helical axial images of the chest were obtained utilizing the pulmonary embolus protocol. Maximal intensity projections and sagittal and coronal reformats were viewed on an independent 3D workstation. IV contrast was administered without complication. Automated exposure control was utilized for the study. A dose lowering technique was utilized adhering to the principles of ALARA. CT DOSE: 749.48 mGy.cm FINDINGS: No pulmonary emboli are identified however the segmental and subsegmental pulmonary arteries are suboptimally assessed due to suboptimal vascular opacification, particularly within the lower lobes. There is no central pulmonary embolus. Mild cardiomegaly is noted. No pericardial effusion. There is no pneumothorax. A large right pleural effusion has significantly increased in size since CT of October 02, 2022. Multiple pleural implants within the right hemithorax have developed since prior CT. These measure up to 4.6 x 2.4 cm. Mediastinal and right hilar lymphadenopathy has improved since CT of October 02, 2022. A subcarinal lymph node measures 5.8 x 4.4 cm. It previously measured approximately 7 x 6.9 cm. There is a small left pleural effusion. No suspicious lesions within the bony thorax are noted. Small amount of upper abdominal ascites is incidentally noted. IMPRESSION: 1. No pulmonary emboli identified although exam significantly compromised by suboptimal vascular opacification, as described above. 2. Significant increase in size of a large right pleural effusion with interval development of numerous right pleural implants since prior chest CT. This suggests lymphomatous pleural involvement. Small left pleural effusion. 3. Improvement in mediastinal and right hilar lymphadenopathy since prior CT. 4. Small amount of upper abdominal ascites. ACT 112: Negative or not required by law. Electronically signed by: Dakota Krause M.D. 01/26/2023 1:52 PM Chest X-Ray 01/26/23 11:21 SINGLE VIEW CHEST CLINICAL HISTORY: Dyspnea. FINDINGS: An AP, portable, upright chest radiograph is compared to study dated 10/21/2022 and correlated with chest CT dated 10/02/2022. A right internal jugular central venous infusion port is unchanged in position. The heart is enlarged noting atherosclerotic calcification of the thoracic aorta. There is pulmonary vascular congestion. There are moderate to large right and small left pleural effusions with bilateral consolidation No pneumothorax is seen. The skeletal structures are osteopenic. The bony thorax is grossly intact. IMPRESSION: 1. Cardiomegaly with pulmonary vascular congestion. 2. Right larger than left pleural effusions with bibasilar consolidation. ACT 112: Negative or not required by law. Electronically signed by: Benjie Robertson M.D. 01/26/2023 1:03 PM ECG Additional Comments: Atrial fibrillation with rapid ventricular response with premature ventricular or aberrantly conducted complexes Cannot rule out Anterior infarct (cited on or before 26-JAN-2023) Abnormal ECG When compared with ECG of 09-OCT-2022 14:18, Questionable change in initial forces of Anterior leads Code Status & VTE Plan Code Status DNR/DNI VTE Prophylaxis Plan VTE Prophylaxis will be ordered: Yes Supervising Physician Co-Signing Physician Notes Patient seen and examined, chart reviewed, case discussed with Aden Pearson PA-C and I agree with the assessment and plan as above except as otherwise noted Labs and images reviewed 87-year-old male with past medical history of A-fib on Eliquis, CAD, heart failure preserved ejection fraction, BPH, neuropathy who presents with progressive shortness of breath, abdominal distention, and fatigue and is found to be hypoxic and tachycardic in the ER. He is in A-fib while in the ER, patient was previously on Eliquis however had stopped this has not happened. Procedurally. He clinically appears volume overloaded, BNP acutely elevated to 600s and is with large pleural effusions and edema. Patient has history of high-grade B-cell lymphoma and has a significant increase in his large right pleural effusion with pleural implants suggestive of malignant/exudative effusion. Patient has been treated with IV Lasix for suspected CHF and effusion with A-fib and new RVR. Continue lasix BID, follow I&Os. If nearing euvolemic and still remains in RVR then can add beta-esperanza rate control. Currently normotensive and tolerating diuresis. Pulmonology is consulted for suspected malignant effusion. CTA does not show evidence of PEs, Dopplers for DVT since patient has been off of his Eliquis are pending. Anticoagulation is held pending evaluation for Thoro, resume once no procedures anticipated. Suspect hyponatremia is hypervolemic, serum osmolality in addition to urine osmolality and sodium are pending to evaluate for potential underlying SIADH in the setting of malignancy. Agree with assessment and management as above. PG Care Time/CCT Total # of Minutes Spent Total Time Spent with Patient: Total time spent is greater than 50% in coordination of care (as documented) at patient's floor/unit and/or counseling patient: [place] [id number] INT INP/OBS CARE 3/75MIN Patient Type Established Medical Decision Making High Complexity Diagnoses Pleural effusion, right J90 Acute respiratory failure with hypoxia J96.01 Atrial fibrillation with RVR I48.91 Hyponatremia E87.1 Elevated troponin R79.89 CAD (coronary artery disease) I25.10 UTI (urinary tract infection) N39.0 Thrombocytopenia D69.6 High grade B-cell lymphoma C85.10 Leg swelling M79.89
[2023-01-26 14:57] LABS: Appearance Urine Turbid (Clear); Bacteria Urine Automated 2+ (Negative); Bilirubin Urine Negative (Negative); Blood Urine 3+ (Negative); Color Urine Dark Yellow; Glucose Urine UA Negative (Negative); Ketones Urine Negative (Negative); Leukocyte Esterase Urine 3+ (Negative); Nitrite Urine Positive (Negative); Protein Urine 2+ (Negative); RBC Urine Automated 0-4 /hpf (0-4); Specific Gravity Urine > 1.045 (1.000-1.030); Urobilinogen Urine Negative (Negative); WBC Urine Automated >30 /hpf (0-5)
[2023-01-26] MEDS ORDERED: FUROSEMIDE 40 MG/4 ML VIAL IV ONE (15:29)
[2023-01-26 15:34] LABS: Cast Urine Automated 0 /lpf (0-5); Epithelial Cell Urine Auto 0-5 /lpf (0-5)
[2023-01-26] MEDS ORDERED: cefTRIAXone SODIUM 2,000 MG in DEXTROSE 5 % MINI-B 50 ML IV ONE (16:00)
[2023-01-26] MEDS ORDERED: LEVALBUTEROL 1.25 MG/3 ML NEB NEB PRN (16:07)
[2023-01-26 16:13] LABS: Potassium Random Urine 35.9 mmol/L
[2023-01-26 16:28] LABS: INR 1.2 (0.9-1.1); Partial Thromboplastin Ratio 1.1; Partial Thromboplastin Time 29.9 Seconds (21.0-31.0); Prothrombin Time 12.7 Seconds (9.0-12.0)
[2023-01-26 16:30] LABS: Troponin I High Sensitivity 45.3 pg/ml (0-20)
[2023-01-26] MEDS ORDERED: SIMETHICONE 80 MG CHEW PO PRN (16:30)
[2023-01-26 16:39] LABS: Thyroid Stimulating Hormone 1.94 uIu/ml (0.300-4.500)
--- NOTE | 2023-01-26 17:26 | Pulmonary Consultation ---
Date of Consultation January 26, 2023 Assessment & Plan (1) Pleural effusion: (2) Acute respiratory failure with hypoxia: (3) Atrial fibrillation with RVR: (4) High grade B-cell lymphoma: Plan 87-year-old male past medical history of high-grade B-cell lymphoma presented to the hospital with shortness of breath. Pulmonary consulted for pleural effusion CTA chest 01/26/2023 personally reviewed: Patchy alveolar opacities appreciated in the right upper lobe as well as in the perifissural left lower lobe Large right-sided pleural effusion with compressive atelectasis of the right lower lobe, small left-sided pleural effusion Significant mediastinal lymphadenopathy especially station 7 2D echo 10/02/2022: EF 60-65%, mild concentric LVH, indeterminate diastolic dysfunction, mildly dilated RV with normal systolic function -- Acute hypoxic respiratory failure Likely secondary to bilateral pleural effusion,R>L Procalcitonin negative, TSH 1.9 BNP 603 -- Thrombocytopenia Platelet count 100 on 01/26/2023 -- Acute DVT Left lower extremity Plan: Continue with diuresis to keep the patient negative balance BiPAP nightly and as needed shortness of breath For thoracentesis later today Please note the above document was generated using voice recognition software. It may contain grammatical, syntax or spelling errors.Any formal questions or concerns about the content, text or information contained within the body of this dictation should be directly addressed to the provider for clarification. History of Present Illness Attending Physician: Billy Stephenson MD History of Present Illness 87-year-old male presented to the hospital with complaints of shortness of breath Past medical history:High-grade B-cell lymphoma, CD10 positive, HFpEF, coronary artery disease, A-fib, dyslipidemia, BPH Pulmonary consulted for pleural effusion At the time of examination patient daughter was in the room Patient was not in any respiratory distress. He was laying on his right side. Saturation was 96-97% on 3 L nasal cannula He complained of heaviness in the chest but denied any chest pain. No cough. Denies any nausea vomiting No fever or chills. No dizziness, no headache, no blurry vision. Patient is currently going chemotherapy. He was supposed to have his chemo session today but it was deferred because he was short of breath at the cancer center Allergies Allergy/AdvReac Type Severity Reaction Status Date / Time meperidine Allergy Unknown CAN'T Verified 01/05/23 12:46 REMEMBER Home Medications Medication Instructions Recorded Confirmed Type aspirin 325 mg tablet 325 mg PO UD PRN Pain 08/20/20 01/26/23 History cholecalciferol (vitamin D3) 25 1,000 units PO QAM 08/20/20 01/26/23 History mcg (1,000 unit) capsule naproxen sodium 220 mg tablet 220 mg PO Q12H PRN Pain 08/20/20 01/26/23 History (Aleve) tamsulosin 0.4 mg capsule 0.4 mg PO QAM #90 caps 08/18/22 01/26/23 Rx albuterol sulfate 90 mcg/actuation 2 inh inhalation Q6H PRN shortness 10/03/22 01/26/23 Rx aerosol inhaler of breath or wheezing #8.5 grams apixaban 5 mg tablet (Eliquis) 5 mg PO BID #60 tabs 10/03/22 01/26/23 Rx tiotropium bromide 2.5 2 inh inhalation DAILY #4 grams 10/03/22 01/26/23 Rx mcg/actuation mist for inhalation (Spiriva Respimat) saw palmetto 500 mg capsule 500 mg PO DAILY 10/06/22 01/26/23 History simethicone 80 mg chewable tablet 80 mg PO Q6H PRN gas/bloating 10/17/22 01/26/23 History (Gas Relief (simethicone)) allopurinol 300 mg tablet 300 mg PO DAILY 11/06/22 01/26/23 History ondansetron 8 mg disintegrating 8 mg PO Q8H 11/06/22 01/26/23 History tablet prednisone 20 mg tablet See Rx Instructions .Route .COMPLEX 11/06/22 01/26/23 History prochlorperazine maleate 10 mg 10 mg PO Q6H PRN Nausea 11/06/22 01/26/23 History tablet furosemide 40 mg tablet 40 mg PO BID PRN edema #60 tabs 11/14/22 01/26/23 Rx finasteride 5 mg tablet 5 mg PO DAILY #90 tabs 11/26/22 01/26/23 Rx Patient History Medical History Poor historian Non compliance w medication regimen "doesn't use his inhalers" Bilateral pleural effusion 09/2022-per record Mediastinal mass 09/2022-per record Coronary artery disease per record Hyperlipidemia High grade B-cell lymphoma per record-"pt was unsure what type he has"; recent admit to [facility] 10/09/22 for start of chemo Hx of myocardial infarction "many years ago">had stress test but "doesn't know many other details" Dyspnea has inhalers-"but doesn't use them often">mainly early in the morning he has difficulty until he gets up and around Shortness of breath History of MD (myocardial infarction) New onset a-fib currently on eliquis; f/u [facility] cardio? Myalgia Generalized weakness Flatulence occasionally Malaise BPH (benign prostatic hyperplasia) Urine incontinence Surgical History Port-A-Cath in place (10/21/22) Port Placement with Fluoroscopy(Right) - [facility], History of back surgery History of hernia surgery Family History Other Cancer Denies family history of Ovarian cancer Prostate cancer Diabetes Coronary heart disease Dyslipidemia Myocardial infarction Breast cancer Colorectal cancer Social History Smoking Status: Former smoker Tobacco Type: Cigarettes Age Started Using Tobacco: 14; Age Quit Using Tobacco: 24; packs per day: 0.25; Second Hand Exposure: No; Do You Dip or Chew Tobacco: No; Hx Alcohol Use: No Hx Substance Use: No Preferred Language: [place] Communication Ability: Effective Visual Impairment: No Limitations Hearing Ability: Hard of Hearing Cap Maker Required: No Beliefs That Will Affect Care: None marital status: / Current Living Situation: Alone Current Living Situation Comment: Lives with dog current occupational status: retired How many Children do You have: 2 Feels Safe at Home: Yes Childhood Exposure to Second-Hand Smoke: No Diet: regular caffeine: Yes (coffee) during the past year weight has: remained stable Dental Care, Regularly: Yes Physical Activity Frequency: Daily Seatbelt Use: always Sunscreen Use: No Do you think of yourself as: straight/heterosexual Gender Identity: Male Assistive Devices: None Review of Systems Review of Systems: All systems reviewed & are unremarkable except as noted in HPI & below Physical Exam Physical Exam: Constitutional: No acute distress HEENT: EOMI, PERRLA Respiratory system: Decreased air entry on the right side, no wheeze, no rhonchi, mild crackles bilateral lower lobes CVS: S1-S2 positive, no murmurs or gallops Abdomen: Soft, nontender, nondistended, positive bowel sounds x4 Extremities: +2 pulses bilaterally radialis/ dorsalis pedis, no cyanosis, 3 pitting edema bilateral lower extremity Neuro: Awake alert oriented x3 Psych: Normal mood and affect G/U: No Vergara Skin: no rashes, warm and dry Lymphatic: no cervical or axillary lymphadenopathy Results & Data Results & Data Vital Signs (Past 12 Hours) Vital Signs Temp Pulse Resp BP Pulse Ox O2 Del Method O2 Flow Rate 01/26/23 15:40 122 H 18 98 Nasal Cannula 3 01/26/23 15:31 125/84 01/26/23 15:31 157 H 26 H 95 01/26/23 15:30 152 H 18 97 01/26/23 15:20 113 H 25 H 94 01/26/23 15:15 134 H 16 90 01/26/23 15:15 127/102 H 01/26/23 15:10 126 H 29 H 96 01/26/23 15:09 125 H 01/26/23 15:01 121 H 21 93 01/26/23 15:01 136/91 01/26/23 15:01 136/91 01/26/23 15:00 121 H 24 96 01/26/23 14:50 115 H 15 98 01/26/23 14:45 117 H 19 98 01/26/23 14:45 123/94 01/26/23 14:40 115 H 17 99 01/26/23 14:31 109 H 26 H 98 01/26/23 14:31 127/91 01/26/23 14:30 123 H 15 98 01/26/23 14:20 118 H 16 96 01/26/23 14:16 110 H 20 99 01/26/23 14:16 139/110 H 01/26/23 14:10 119 H 14 99 01/26/23 14:00 139/99 01/26/23 14:00 128 H 13 99 01/26/23 13:50 103 H 15 98 01/26/23 13:45 132/96 01/26/23 13:45 108 H 20 98 01/26/23 13:40 117 H 23 95 01/26/23 13:30 143/99 H 01/26/23 13:30 98 01/26/23 13:20 96 01/26/23 13:15 119 H 18 99 01/26/23 13:15 132/109 H 01/26/23 13:10 103 H 16 99 01/26/23 13:01 116 H 24 98 01/26/23 13:01 128/95 01/26/23 13:00 119 H 16 98 01/26/23 12:50 131 H 19 93 01/26/23 12:46 139/117 H 01/26/23 12:46 141 H 27 H 95 01/26/23 12:40 128 H 25 H 93 01/26/23 12:30 131/101 H 01/26/23 12:30 116 H 18 98 01/26/23 12:20 113 H 29 H 97 Nasal Cannula 2 01/26/23 12:15 135 H 31 H 88 L Room Air 01/26/23 12:15 140/87 01/26/23 12:10 134 H 39 H 01/26/23 11:50 118 H 21 91 Room Air 01/26/23 11:45 140/107 H 01/26/23 11:45 110 H 24 93 01/26/23 11:43 122 H 24 91 Room Air 01/26/23 11:40 108 H 22 92 01/26/23 11:30 136/99 01/26/23 11:30 106 H 40 H 93 01/26/23 11:22 92 Room Air 0 01/26/23 11:20 104 H 20 92 01/26/23 11:17 112 H 01/26/23 11:16 127/103 H 01/26/23 11:16 112 H 18 93 01/26/23 11:14 119 H 19 94 01/26/23 11:00 Room Air 01/26/23 10:57 36.6 C 108 H 20 123/85 92 PG Care Time/CCT Total # of Minutes Spent Total Time Spent with Patient: Total time spent is greater than 50% in coordination of care (as documented) at patient's floor/unit and/or counseling patient: Coding Level of Care Code 41704 INT INP/OBS CARE 3/75MIN Diagnoses Pleural effusion J90 Acute respiratory failure with hypoxia J96.01 Atrial fibrillation with RVR I48.91 High grade B-cell lymphoma C85.10
--- NOTE | 2023-01-26 17:42 | Ultrasound Report ---
ULTRASOUND BILATERAL LOWER EXTREMITY VENOUS CLINICAL HISTORY: Lower extremity edema COMPARISON STUDY: No priors. TECHNIQUE: Real-time, grayscale, and color Doppler sonography of the deep veins of the right and left lower extremity was performed from the inguinal crease to the calf. Compression and augmentation wer e utilized. FINDINGS: Right lower extremity: There is no sonographic evidence of deep venous thrombosis in the right lower extremity. The common femoral, superficial femoral, and popliteal veins are patent and normally compr essible. The greater saphenous vein and the profunda femoris vein at the junction with the common fem oral vein are clear. The visualized calf veins are patent. Soft tissue edema is present in the right leg. A complex popliteal cyst measures 4.8 x 2.4 x 4.5 cm. Left lower extremity: There is deep venous thrombosis in the left calf within one of the posterior ti bial veins. The remaining visualized calf vessels are patent. The common femoral, superficial femoral , and popliteal veins are patent and normally compressible. The greater saphenous vein and the profun da femoris vein at the junction with the common femoral vein are clear. Soft tissue edema is present in the left leg. IMPRESSION: 1. There is deep venous thrombosis in the left calf within one of the posterior tibial veins. 2. There is no sonographic evidence of deep venous thrombosis in the right lower extremity. 3. Right-sided Kenny's cyst. ACT 112: Negative or not required by law. Electronically signed by: Benjie Robertson M.D. 01/26/2023 5:41 PM
[2023-01-26 19:09] LABS: BUN Creatinine Ratio 18.6 (10-20); Calcium 8.6 mg/dl (8.6-10.3); Creatinine Clr Calc Pharmacy 108.1 ml/min; Est GFR (African American) 104.8 ml/min; Est GFR (Non-African American) 90.4 ml/min; Potassium 3.7 mmol/L (3.5-5.1)
--- NOTE | 2023-01-26 19:25 | Procedure Note ---
Procedure Note Date of Service January 26, 2023 Note Procedure: Diagnostic therapeutic ultrasound-guided catheter thoracentesis Certified Teacher Assistant: Dr. Lashawn Sainz Indication: Right Pleural effusion Consent: Signed by patient and verified with timeout prior to procedure Anesthesia: 1% lidocaine without epinephrine local. Procedure: Consent was verified and timeout performed. Appropriate imaging studies were reviewed prior to the procedure. Patient was placed in a seated position and limited thoracic ultrasound was performed of the right chest. See separate imaging. Appropriate site above the diaphragm for thoracentesis was selected. The skin was prepped and draped in normal sterile fashion. Lidocaine was used for local analgesia. Fluid was aspirated via the finder needle. A small skin rod was made with the scalpel and the catheter over the needle apparatus was advanced over the rib into the pleural space. Using the syringe one-way valve system, a total of 2150 mL's of serous fluid was removed. Procedure was terminated due to patient's blood pressure trending down. The catheter was removed and observed to be intact. A sterile dressing was applied. Post procedure chest x-ray was ordered. Fluid was sent for labs, culture and cytology. Patient blood pressure at the initiation of the procedure was systolic 113, it went down to systolic 93 while the patient was totally asymptomatic. Patient was started bolus the end of the procedure funded mL NS. He was still not complaining of any issues with chest pain or dizziness. Recommend keeping the patient supine for at least an hour or so. Okay to start heparin without bolus 2 hours after the procedure Complications: None Blood loss: Less than 1 cc Coding CPT Codes Pulmonary/Thoracic - Pulmonary and Thoracic: 68796 Thoracentesis w imaging ([id number]) [facility] [place] Procedure Codes (Charges) Pulmonary/Thoracic Procedure 1: Pulmonary and Thoracic: 96095 Thoracentesis w imaging
--- NOTE | 2023-01-26 19:44 | Electrocardiogram Report ---
Test Reason : Blood Pressure : / mmHG Vent. Rate : 119 BPM Atrial Rate : 000 BPM P-R Int : 000 ms QRS Dur : 080 ms QT Int : 286 ms P-R-T Axes : 000 -18 -09 degrees QTc Int : 402 ms Atrial fibrillation with rapid ventricular response with premature ventricular or aberrantly conducte d complexes Abnormal ECG Confirmed by Kushal Ott ([id number]) on 01/26/2023 7:43:43 PM Referred By: REFERRED SELF Confirmed By:Joey Ott
[2023-01-26 19:51] LABS: Albumin Level 3.6 gm/dl (3.4-5.0); Bilirubin,Total 1.1 mg/dl (0.2-1.0); Total Protein 5.8 gm/dl (6.0-8.3)
[2023-01-26 20:15] LABS: Amylase Pleural Fluid 26 U/L
[2023-01-26] MEDS ORDERED: LIDOCAINE 5% 1 PATCH TD STA (20:15)
[2023-01-26 20:21] LABS: Glucose Pleural Fluid 111 mg/dl; LDH Pleural Fluid 410 U/L; Total Protein Pleural Fluid < 3.0 gm/dl
[2023-01-26 20:44] LABS: Appearance Pleural Fluid Clear; Color Pleural Fluid Yellow; Lymphocytes, Fluid 32 %; Mono,Macrophage,Mesothelial 32 %; Neutrophils, Fluid 36 %; RBC Pleural Fluid Auto 2000 /uL; Source Pleural Fluid Right Lung; WBC Pleural Fluid Auto 522 /uL
[2023-01-26] MEDS: ACETAMINOPHEN 325 MG TAB PO PRN (20:45)
[2023-01-26] MEDS ORDERED: FUROSEMIDE INJ 20 MG/2 ML VIAL IV SCH (21:00)
[2023-01-26] MEDS ORDERED: Heparin IV Adult Wt-Based Standard *NO* INITIAL Bolus Protocol IV SCH (21:00)
[2023-01-26] MEDS ORDERED: FUROSEMIDE INJ 20 MG/2 ML VIAL IV ONE (21:15)
[2023-01-26 21:26] LABS: BUN Creatinine Ratio 20.7 (10-20); Calcium 8.3 mg/dl (8.6-10.3); Est GFR (African American) 105.5 ml/min; Potassium 3.6 mmol/L (3.5-5.1)
[2023-01-26] MEDS: HEPARIN SODIUM/DEXTROSE 25,000 UNITS/500 ML BAG IV SCH (21:31)
[2023-01-26 21:33] LABS: Troponin I High Sensitivity 49.6 pg/ml (0-20)
[2023-01-27 03:55] LABS: Albumin Globulin Ratio 1.7 (0.9-2); Albumin Level 3.2 gm/dl (3.4-5.0); BUN Creatinine Ratio 19.7 (10-20); Calcium 8.3 mg/dl (8.6-10.3); Creatinine Clr Calc Pharmacy 104.6 ml/min; Est GFR (African American) 103.3 ml/min; Est GFR (Non-African American) 89.2 ml/min; Globulin 1.9 gm/dl (2.5-4.0); Magnesium 1.6 mg/dl (1.7-2.4); Potassium 3.4 mmol/L (3.5-5.1); Total Protein 5.1 gm/dl (6.0-8.3)
[2023-01-27 04:08] LABS: Basophils # (auto) 0.02 K/uL (0.00-0.20); Basophils % (auto) 0.2 %; Echinocytes 1+; Eosinophils # (auto) 0.02 K/uL (0.00-0.50); Eosinophils % (auto) 0.2 %; Hematocrit (blood only) 38.6 % (42.0-52.0); Hemoglobin 12.7 g/dl (14.0-18.0); Immature Granulocytes # (auto) 0.07 K/uL (0.01-0.20); Immature Granulocytes % (auto) 0.7 %; Lymphocytes # (auto) 0.52 K/uL (1.20-3.40); Lymphocytes % (auto) 5.3 %; Mean Corpuscular Hemoglobin 30.7 pg (25.0-34.0); Mean Corpuscular Hgb Conc 32.9 g/dL (32.0-36.0); Mean Corpuscular Volume 93.2 fL (80.0-100.0); Mean Platelet Volume 11.5 fL (9.4-12.4); Monocytes # (auto) 0.71 K/uL (0.11-0.59); Monocytes % (auto) 7.2 %; Neutrophils # (auto) 8.48 K/uL (1.40-6.50); Neutrophils % (auto) 86.4 %; Platelet Count 87 K/uL (130-400); Platelet Estimate Decreased (Normal); Polychromasia 1+; RDW Coefficient of Variation 19.5 % (11.5-14.5); RDW Standard Deviation 66.2 fL (36.4-46.3); Red Blood Count 4.14 M/uL (4.70-6.10); White Blood Count 9.82 K/ul (4.8-10.8)
[2023-01-27 04:19] LABS: INR 1.3 (0.9-1.1); Partial Thromboplastin Ratio 3.2; Prothrombin Time 13.7 Seconds (9.0-12.0)
[2023-01-27 04:45] LABS: Partial Thromboplastin Time 91.5 Seconds (21.0-31.0)
--- NOTE | 2023-01-27 07:15 | XRay Report ---
XR chest 1V portable CLINICAL HISTORY: s/p thoracentesis COMPARISON STUDY: Chest radiograph and chest CT performed earlier today. FINDINGS: The right pleural effusion has significantly decreased in size following thoracentesis. Jaun ency within the right lung base probably reflects aerated lung. However, a small right basilar pneumo thorax could appear similar. No right apical pneumothorax is present. Right internal jugular central line remains in place. Cardiomediastinal silhouette is stable. Right perihilar mass-like opacity keith esponds to adenopathy shown on CT. There is a trace left pleural effusion. IMPRESSION: Significant decrease in size of the right pleural effusion following thoracentesis. [place] ncy within the right lung base probably reflects aerated lung however a small right basilar pneumotho rax could appear similar. This can be assessed on follow-up chest radiographs. ACT 112: Negative or not required by law. Electronically signed by: Dakota Krause M.D. 01/27/2023 7:14 AM
[2023-01-27] MEDS: UMECLIDINIUM BROMIDE 62.5MCG/BLISTER 7 PUFFS/INHALER INH SCH (07:33)
[2023-01-27] MEDS: FUROSEMIDE 40 MG/4 ML VIAL IV SCH ×2 (07:34→16:31)
[2023-01-27] MEDS: TAMSULOSIN HCL 0.4 MG CAP PO SCH (07:34)
[2023-01-27] MEDS: allopurinoL 300 MG TAB PO SCH (07:34)
[2023-01-27] MEDS: CHOLECALCIFEROL 1,000 UNITS 25 MCG TAB PO SCH (07:34)
--- NOTE | 2023-01-27 07:38 | Pulmonology Progress Note ---
Date of Service January 27, 2023 Assessment & Plan (1) Pleural effusion: (2) Acute respiratory failure with hypoxia: (3) Atrial fibrillation with RVR: (4) High grade B-cell lymphoma: Plan 87-year-old male past medical history of high-grade B-cell lymphoma presented to the hospital with shortness of breath. Pulmonary consulted for pleural effusion CTA chest 01/26/2023 personally reviewed: Patchy alveolar opacities appreciated in the right upper lobe as well as in the perifissural left lower lobe Large right-sided pleural effusion with compressive atelectasis of the right lower lobe, small left-sided pleural effusion Significant mediastinal lymphadenopathy especially station 7 2D echo 10/02/2022: EF 60-65%, mild concentric LVH, indeterminate diastolic dysfunction, mildly dilated RV with normal systolic function -- Acute hypoxic respiratory failure Likely secondary to bilateral pleural effusion,R>L Procalcitonin negative, TSH 1.9 BNP 603 S/p right-sided thoracentesis 01/26/2023, 2.1 L of serous fluid removed, 32% lymphocytes, exudative as per LDH Pleural fluid: LDH 410, total protein less than 3, glucose 111, pH 7.46 Serum: LDH 421, total protein 5.8 -- Thrombocytopenia Platelet count 100 on 01/26/2023 -- Acute DVT Left lower extremity Plan: Follow-up chest x-ray from today Official reading of chest x-ray from last night says possible pneumo ex-vacuo. I do not see a clear pneumothorax Continue with diuresis Try to titrate off oxygen to keep O2 saturation between 90-92% Okay to resume Eliquis and DC heparin Please note the above document was generated using voice recognition software. It may contain grammatical, syntax or spelling errors.Any formal questions or concerns about the content, text or information contained within the body of this dictation should be directly addressed to the provider for clarification. Admission and Anticipated Discharge Date Admission Date: January 26, 2023 Subjective Patient seen and examined at bedside. No acute distress, overnight patient complained of headache and back pain. He did a pain patch to help with the pain. He was saturating 97% on 3 L nasal cannula. I went down to 1 L. He stated that his shortness of breath is significantly improved compared to yesterday Denies any nausea vomiting. Fair appetite Was asking to go home Review of Systems 2 Review of Systems: All systems reviewed & are unremarkable except as noted in Subjective Physical Exam 2 Physical Exam: Constitutional: No acute distress HEENT: EOMI, PERRLA Respiratory system: Decreased air entry bilaterally, no wheeze, no rhonchi, mild crackles bilateral lower lobes CVS: S1-S2 positive, no murmurs or gallops Abdomen: Soft, nontender, nondistended, positive bowel sounds x4 Extremities: +2 pulses bilaterally radialis/ dorsalis pedis, no cyanosis, +3 pitting edema bilateral lower extremity Neuro: Awake alert oriented x3 Psych: Normal mood and affect G/U: Positive Vergara Skin: no rashes, warm and dry Lymphatic: no cervical or axillary lymphadenopathy Results & Data Results & Data Vital Signs (Past 12 Hours) Vital Signs Pulse Pulse Resp BP BP Pulse Ox O2 Del Method 01/27/23 07:18 100 H 01/27/23 06:26 100 H 18 110/75 97 Nasal Cannula 01/27/23 06:24 Nasal Cannula 01/27/23 06:20 100 H 01/27/23 04:00 100 H 19 96 01/27/23 04:00 122/85 01/27/23 03:30 97 H 24 95 01/27/23 03:30 100/75 01/27/23 03:00 104 H 19 98 01/27/23 03:00 124/82 01/27/23 02:30 100/77 01/27/23 02:30 97 H 14 97 01/27/23 02:00 93 01/27/23 02:00 90/65 L 01/27/23 01:30 91 H 15 98 01/27/23 01:30 99/76 L 01/27/23 01:00 95/67 L 01/27/23 01:00 99 H 21 96 01/27/23 00:46 101 H 22 94 01/27/23 00:46 111/51 L 01/27/23 00:31 103/73 01/27/23 00:31 117 H 19 89 L 01/27/23 00:00 109/69 01/27/23 00:00 108 H 22 95 01/26/23 23:30 98/65 L 01/26/23 23:30 100 H 14 92 01/26/23 23:00 110/74 01/26/23 23:00 110 H 15 96 01/26/23 22:30 97/68 L 01/26/23 22:30 110 H 22 01/26/23 22:00 125/84 01/26/23 22:00 122 H 17 97 Nasal Cannula 01/26/23 21:47 128 H 20 138/98 98 Nasal Cannula 01/26/23 21:12 111 H 01/26/23 21:00 108 H 20 121/90 94 Nasal Cannula 01/26/23 20:47 100 H 20 104/84 95 Nasal Cannula 01/26/23 20:12 102 H 18 124/96 94 Nasal Cannula O2 Flow Rate 01/27/23 07:18 01/27/23 06:26 3 01/27/23 06:24 3 01/27/23 06:20 01/27/23 04:00 01/27/23 04:00 01/27/23 03:30 01/27/23 03:30 01/27/23 03:00 01/27/23 03:00 01/27/23 02:30 01/27/23 02:30 01/27/23 02:00 01/27/23 02:00 01/27/23 01:30 01/27/23 01:30 01/27/23 01:00 01/27/23 01:00 01/27/23 00:46 01/27/23 00:46 01/27/23 00:31 01/27/23 00:31 01/27/23 00:00 01/27/23 00:00 01/26/23 23:30 01/26/23 23:30 01/26/23 23:00 01/26/23 23:00 01/26/23 22:30 01/26/23 22:30 01/26/23 22:00 01/26/23 22:00 3 01/26/23 21:47 3 01/26/23 21:12 01/26/23 21:00 3 01/26/23 20:47 3 01/26/23 20:12 3 Laboratory Results 01/27/23 03:18 PG Care Time/CCT Total # of Minutes Spent Total Time Spent with Patient: Total time spent is greater than 50% in coordination of care (as documented) at patient's floor/unit and/or counseling patient: Coding Level of Care Code 24555 SUB INP/OBS CARE 2/35MIN Diagnoses Pleural effusion J90 Acute respiratory failure with hypoxia J96.01 Atrial fibrillation with RVR I48.91 High grade B-cell lymphoma C85.10
--- NOTE | 2023-01-27 08:19 | Oncology Consultation ---
Date of Consultation January 27, 2023 Assessment & Plan (1) Acute respiratory failure with hypoxia: (2) Pleural effusion: (3) High grade B-cell lymphoma: Plan - Although imaging shows improvement in mediastinal and hilar lymph nodes, he has what appears to be new pleural implants and possible malignant pleural effusion. Await results from cytology. If cytology confirms malignant effusion, would have to discuss supportive care/hospice versus second line of treatment with patient. He has very aggressive disease for which would have ideally referred him for CAR-T cell therapy or stem cell transplant but would unfortunately not be candidate for either of these given advanced age and multiple comorbidities. If cytology is negative for lymphoma, would have to discuss with radiation oncology to see if radiation treatment after 6 cycles of chemo would be a reasonable option in this elderly gentleman. Thank you for this consult. Oncology will follow peripherally while he is in the hospital and schedule him for follow-up with me upon discharge. Please feel free to call if you have any further questions History of Present Illness Reason for Consultation: Large right plureal effusion,failure of treatment? Attending Physician: Benito Foote MD History of Present Illness Very pleasant 87-year-old gentleman with high-grade B-cell lymphoma for which he is s/p 5 cycles of R-CHOP mini. He was scheduled to receive cycle 6 of treatment yesterday but presented to oncology clinic with complaints of shortness of breath for which he was advised to go to the ER. CTA chest on 01/26/2023 revealed no PE, significant increase in size of large right pleural effusion with interval development of numerous right pleural implants suggesting lymphomatous pleural involvement, improvement in mediastinal and right hilar lymphadenopathy and small amounts of upper abdominal ascites. He underwent right-sided thoracentesis yesterday with removal of 2.1 L of fluid. Cytology from effusion was pending at the time of today's visit. He states that he is feeling better with resolution of shortness of breath. Endorses fatigue but denies any other issues. Allergies Allergy/AdvReac Type Severity Reaction Status Date / Time meperidine Allergy Unknown CAN'T Verified 01/05/23 12:46 REMEMBER Home Medications Medication Instructions Recorded Confirmed Type aspirin 325 mg tablet 325 mg PO UD PRN Pain 08/20/20 01/26/23 History cholecalciferol (vitamin D3) 25 1,000 units PO QAM 08/20/20 01/26/23 History mcg (1,000 unit) capsule naproxen sodium 220 mg tablet 220 mg PO Q12H PRN Pain 08/20/20 01/26/23 History (Aleve) tamsulosin 0.4 mg capsule 0.4 mg PO QAM #90 caps 08/18/22 01/26/23 Rx albuterol sulfate 90 mcg/actuation 2 inh inhalation Q6H PRN shortness 10/03/22 01/26/23 Rx aerosol inhaler of breath or wheezing #8.5 grams apixaban 5 mg tablet (Eliquis) 5 mg PO BID #60 tabs 10/03/22 01/26/23 Rx tiotropium bromide 2.5 2 inh inhalation DAILY #4 grams 10/03/22 01/26/23 Rx mcg/actuation mist for inhalation (Spiriva Respimat) saw palmetto 500 mg capsule 500 mg PO DAILY 10/06/22 01/26/23 History simethicone 80 mg chewable tablet 80 mg PO Q6H PRN gas/bloating 10/17/22 01/26/23 History (Gas Relief (simethicone)) allopurinol 300 mg tablet 300 mg PO DAILY 11/06/22 01/26/23 History ondansetron 8 mg disintegrating 8 mg PO Q8H 11/06/22 01/26/23 History tablet prednisone 20 mg tablet See Rx Instructions .Route .COMPLEX 11/06/22 01/26/23 History prochlorperazine maleate 10 mg 10 mg PO Q6H PRN Nausea 11/06/22 01/26/23 History tablet furosemide 40 mg tablet 40 mg PO BID PRN edema #60 tabs 11/14/22 01/26/23 Rx finasteride 5 mg tablet 5 mg PO DAILY #90 tabs 11/26/22 01/26/23 Rx Patient History Medical History Poor historian Non compliance w medication regimen "doesn't use his inhalers" Bilateral pleural effusion 09/2022-per record Mediastinal mass 09/2022-per record Coronary artery disease per record Hyperlipidemia High grade B-cell lymphoma per record-"pt was unsure what type he has"; recent admit to [facility] 10/09/22 for start of chemo Hx of myocardial infarction "many years ago">had stress test but "doesn't know many other details" Dyspnea has inhalers-"but doesn't use them often">mainly early in the morning he has difficulty until he gets up and around Shortness of breath History of OR (myocardial infarction) New onset a-fib currently on eliquis; f/u [facility] cardio? Myalgia Generalized weakness Flatulence occasionally Malaise BPH (benign prostatic hyperplasia) Urine incontinence Surgical History Port-A-Cath in place (10/21/22) Port Placement with Fluoroscopy(Right) - Donte Paredes DO History of back surgery History of hernia surgery Family History Other Cancer Denies family history of Ovarian cancer Prostate cancer Diabetes Coronary heart disease Dyslipidemia Myocardial infarction Breast cancer Colorectal cancer Social History Smoking Status: Former smoker Tobacco Type: Cigarettes Age Started Using Tobacco: 14; Age Quit Using Tobacco: 24; packs per day: 0.25; Second Hand Exposure: No; Do You Dip or Chew Tobacco: No; Hx Alcohol Use: No Hx Substance Use: No Preferred Language: Occitan Communication Ability: Effective Visual Impairment: No Limitations Hearing Ability: Hard of Hearing Classification Clerk Required: No Beliefs That Will Affect Care: None marital status: / Current Living Situation: Alone Current Living Situation Comment: Lives with dog current occupational status: retired How many Children do You have: 2 Feels Safe at Home: Yes Childhood Exposure to Second-Hand Smoke: No Diet: regular caffeine: Yes (coffee) during the past year weight has: remained stable Dental Care, Regularly: Yes Physical Activity Frequency: Daily Seatbelt Use: always Sunscreen Use: No Do you think of yourself as: straight/heterosexual Gender Identity: Male Assistive Devices: Other Results & Data Vital Signs (Past 12 Hours) Vital Signs Pulse Pulse Resp BP BP Pulse Ox O2 Del Method 01/27/23 07:18 100 H 01/27/23 06:26 100 H 18 110/75 97 Nasal Cannula 01/27/23 06:24 Nasal Cannula 01/27/23 06:20 100 H 01/27/23 04:00 100 H 19 96 01/27/23 04:00 122/85 01/27/23 03:30 97 H 24 95 01/27/23 03:30 100/75 01/27/23 03:00 104 H 19 98 01/27/23 03:00 124/82 01/27/23 02:30 100/77 01/27/23 02:30 97 H 14 97 01/27/23 02:00 93 01/27/23 02:00 90/65 L 01/27/23 01:30 91 H 15 98 01/27/23 01:30 99/76 L 01/27/23 01:00 95/67 L 01/27/23 01:00 99 H 21 96 01/27/23 00:46 101 H 22 94 01/27/23 00:46 111/51 L 01/27/23 00:31 103/73 01/27/23 00:31 117 H 19 89 L 01/27/23 00:00 109/69 01/27/23 00:00 108 H 22 95 01/26/23 23:30 98/65 L 01/26/23 23:30 100 H 14 92 01/26/23 23:00 110/74 01/26/23 23:00 110 H 15 96 01/26/23 22:30 97/68 L 01/26/23 22:30 110 H 22 01/26/23 22:00 125/84 01/26/23 22:00 122 H 17 97 Nasal Cannula 01/26/23 21:47 128 H 20 138/98 98 Nasal Cannula 01/26/23 21:12 111 H 01/26/23 21:00 108 H 20 121/90 94 Nasal Cannula 01/26/23 20:47 100 H 20 104/84 95 Nasal Cannula O2 Flow Rate 01/27/23 07:18 01/27/23 06:26 3 01/27/23 06:24 3 01/27/23 06:20 01/27/23 04:00 01/27/23 04:00 01/27/23 03:30 01/27/23 03:30 01/27/23 03:00 01/27/23 03:00 01/27/23 02:30 01/27/23 02:30 01/27/23 02:00 01/27/23 02:00 01/27/23 01:30 01/27/23 01:30 01/27/23 01:00 01/27/23 01:00 01/27/23 00:46 01/27/23 00:46 01/27/23 00:31 01/27/23 00:31 01/27/23 00:00 01/27/23 00:00 01/26/23 23:30 01/26/23 23:30 01/26/23 23:00 01/26/23 23:00 01/26/23 22:30 01/26/23 22:30 01/26/23 22:00 01/26/23 22:00 3 01/26/23 21:47 3 01/26/23 21:12 01/26/23 21:00 3 01/26/23 20:47 3
[2023-01-27 09:17] LABS: BUN Creatinine Ratio 16.7 (10-20); Calcium 8.2 mg/dl (8.6-10.3); Creatinine Clr Calc Pharmacy 98.5 ml/min; Est GFR (Non-African American) 89.8 ml/min; Potassium 3.2 mmol/L (3.5-5.1)
[2023-01-27 09:22] LABS: Troponin I High Sensitivity 39.4 pg/ml (0-20)
--- NOTE | 2023-01-27 09:58 | XCELERA ---
[id number] \\[id number]
--- NOTE | 2023-01-27 10:49 | XRay Report ---
SINGLE VIEW CHEST CLINICAL HISTORY: Right pleural effusion status post thoracentesis. FINDINGS: An AP, portable, upright chest radiograph is compared to chest x-ray and chest CT dated . A right internal jugular central venous infusion port is unchanged in position. The heart is enlarged noting atherosclerotic calcification of the thoracic aorta. Pulmonary vascular congestion h as improved. A residual right pleural effusion with airspace opacities at the right mid to lower lung is similar to yesterday's postprocedural examination. No pneumothorax is clearly seen. Scarring/atel ectasis is noted at the left lung base and there is at least trace left pleural effusion. The skeleta l structures are osteopenic. The bony thorax is grossly intact. IMPRESSION: 1. Residual right pleural effusion with airspace opacities throughout the right mid to lower lung. 2. No definite pneumothorax is seen. 3. A small pleural effusion is seen on the left. ACT 112: Negative or not required by law. Electronically signed by: Benjie Robertson M.D. 01/27/2023 10:46 AM
[2023-01-27] MEDS: POTASSIUM CHLORIDE CRTAB 20 MEQ TABCR PO SCH ×2 (12:44→19:58)
[2023-01-27] MEDS: MAGNESIUM SULFATE / D5W 1 GM/100 ML BAG IV SCH ×2 (12:44→14:14)
[2023-01-27 13:08] LABS: BUN Creatinine Ratio 17.5 (10-20); Calcium 8.3 mg/dl (8.6-10.3); Creatinine Clr Calc Pharmacy 103.7 ml/min; Est GFR (African American) 106.3 ml/min; Est GFR (Non-African American) 91.7 ml/min; Potassium 3.3 mmol/L (3.5-5.1)
[2023-01-27 13:37] LABS: Partial Thromboplastin Ratio 4.2
[2023-01-27 13:45] LABS: Partial Thromboplastin Time 119.8 Seconds (21.0-31.0)
--- NOTE | 2023-01-27 13:55 | Electrocardiogram Report ---
Test Reason : Blood Pressure : / mmHG Vent. Rate : 088 BPM Atrial Rate : 000 BPM P-R Int : 000 ms QRS Dur : 094 ms QT Int : 404 ms P-R-T Axes : 000 000 018 degrees QTc Int : 488 ms Atrial fibrillation with premature ventricular or aberrantly conducted complexes Abnormal ECG When compared with ECG of 26-JAN-2023 11:11, No significant change was found Confirmed by Kushal Ott ([id number]) on 01/27/2023 1:55:22 PM Referred By: REFERRED SELF Confirmed By:Joey Ott
[2023-01-27] MEDS: HEPARIN SODIUM/DEXTROSE 25,000 UNITS/500 ML BAG IV SCH ×2 (14:29→18:14)
--- NOTE | 2023-01-27 15:13 | Hospitalist Progress Note ---
Date of Service January 27, 2023 Assessment & Plan (1) Pleural effusion, right: Plan: Appears to be a combination of acute diastolic CHF and non-Hodgkin's lymphoma. Thoracentesis completed January 26 with 2150 cc removed. Studies are pending. It appears to be exudative however. It does not appear to be an empyema. (2) Acute diastolic CHF (congestive heart failure): Plan: Lasix diuresis. Cardiac echo completed in September of this year reveals mild LVH with normal ejection fraction. Repeat cardiac echo report is pending. Continue parenteral Lasix diuresis. Serial chest x-ray (3) Acute respiratory failure with hypoxia: Plan: Supplemental oxygen via nasal cannula to maintain saturation greater than 90%. Wean off as tolerated. (4) UTI (urinary tract infection): Plan: Gram-negative rods isolated. Currently on Rocephin, day 2 (5) Atrial fibrillation with RVR: Plan: Heart rate control. Currently on heparin drip. He will be switched back to oral Eliquis possibly tomorrow, January 28. Telemetry. (6) Hyponatremia: Plan: Mild. Serial labs. Should improve with diuresis (7) Elevated troponin: Plan: No evidence of acute coronary syndrome. This appears to be supply/demand mismatch due to rapid atrial fibrillation. Cardiac echo report pending (8) UTI (urinary tract infection): Plan: Gram-negative's isolated. Continue Rocephin, day 2. Tailor antibiotics according to final identification and sensitivities (9) Thrombocytopenia: Plan: Mild. No active bleeding. Serial labs (10) High grade B-cell lymphoma: Plan: Oncology consultation with Dr. Fuentes pending. Currently receiving chemotherapy which she had on the day of admission. Right pleural effusion could be malignant (11) CAD (coronary artery disease): Plan: Stable. Continue current medical management (12) Left leg DVT: Plan: Currently on a heparin drip. This occurred while he was off his Eliquis. He will be put back on Eliquis possibly tomorrow, January 28. Plan OT and PT assessments will be obtained when appropriate. To be determined Admission and Anticipated Discharge Date Admission Date: January 26, 2023 Subjective Alert and oriented. Family is at the bedside. He underwent right thoracentesis yesterday, January 26, with 2 L of fluid removed. It has exudative qualities. Cultures pending. He probably has a component of diastolic congestive heart failure. He is also being treated for gram-negative UTI. He is currently on a heparin drip for the left lower extremity DVT. He was off the Eliquis for a while when this occurred so we cannot say this is an Eliquis failure. Parenteral magnesium replacement underway. Cardiac echo report is pending. Previous cardiac echo completed in September of this year reveals normal ejection fraction with mild LVH. Review of Systems 2 Review of Systems: Constitutional-no fever or chills ENT-no blurred vision, no double vision, no epistaxis, no sore throat Respiratory-no cough, no wheezing. Dyspnea on exertion Cardiac-no palpitations, no chest pain, no syncope GI-no nausea, vomiting, diarrhea, melena, hematochezia -no urinary retention, no urinary incontinence, no dysuria, no hematuria Musculoskeletal-no joint pain, no muscle tenderness Skin-no bruising, no rashes, no pruritus Neuro-generalized weakness Psych-no depression, no anxiety Physical Exam 2 Physical Exam: General-alert and oriented x3, no fevers, no chills HEENT-head atraumatic and normocephalic, pupils equal and reactive to light, extraocular muscles intact Neck-no lymphadenopathy or thyromegaly, trachea midline Chest-diminished breath sounds bilaterally with dullness at the right base. No wheezing. Cardiac-tachycardic irregular rate and rhythm. Normal S1 and S2 Abdomen-normal bowel sounds, nontender, no hepatosplenomegaly Extremities-1+ pitting edema bilateral lower extremities below the knees Neuro-cranial nerves II through XII intact, motor and sensory function within normal limits, strength symmetrical with generalized weakness, no focal deficits Psych-normal affect, normal mood Results & Data Results & Data Vital Signs (Past 12 Hours) Vital Signs Pulse Pulse Resp BP BP Pulse Ox O2 Del Method 01/27/23 11:15 102 H 14 100/64 92 Nasal Cannula 01/27/23 11:11 100 H 01/27/23 07:18 100 H 01/27/23 06:26 100 H 18 110/75 97 Nasal Cannula 01/27/23 06:24 Nasal Cannula 01/27/23 06:20 100 H 01/27/23 04:00 100 H 19 96 01/27/23 04:00 122/85 01/27/23 03:30 97 H 24 95 01/27/23 03:30 100/75 O2 Flow Rate 01/27/23 11:15 3 01/27/23 11:11 01/27/23 07:18 01/27/23 06:26 3 01/27/23 06:24 3 01/27/23 06:20 01/27/23 04:00 01/27/23 04:00 01/27/23 03:30 01/27/23 03:30 Laboratory Results 01/27/23 03:18 01/27/23 14:13 PG Care Time/CCT Total # of Minutes Spent Total Time Spent with Patient: Total time spent is greater than 50% in coordination of care (as documented) at patient's floor/unit and/or counseling patient: Coding Level of Care Code 11668 SUB INP/OBS CARE 3/50MIN Diagnoses Pleural effusion, right J90 Acute diastolic CHF (congestive heart failure) I50.31 Acute respiratory failure with hypoxia J96.01 UTI (urinary tract infection) N39.0 Atrial fibrillation with RVR I48.91 Hyponatremia E87.1 Elevated troponin R79.89 Thrombocytopenia D69.6 High grade B-cell lymphoma C85.10 CAD (coronary artery disease) I25.10 Left leg DVT I82.402
[2023-01-27 15:14] LABS: Partial Thromboplastin Ratio 4.2
[2023-01-27] MEDS ORDERED: cefTRIAXone SODIUM 2,000 MG in DEXTROSE 5 % MINI-B 50 ML IV SCH (16:00)
[2023-01-27] MEDS: cefTRIAXone SODIUM 2,000 MG in DEXTROSE 5 % MINI-B 50 ML IV SCH (16:31)
[2023-01-27] MEDS: POTASSIUM CHLORIDE / WTR 10 MEQ/100 ML PLCT IV SCH ×4 (16:43→19:57)
[2023-01-27] MEDS ORDERED: Nursing to Pharmacy Communication SCH (17:15)
[2023-01-27] MEDS ORDERED: HEPARIN SODIUM/DEXTROSE 25,000 UNITS/500 ML BAG IV SCH (18:00)
[2023-01-27] MEDS: APIXABAN 5 MG TABLET PO SCH (19:58)
[2023-01-27] MEDS ORDERED: HEPARIN 100 UNIT/ML 5ML FLUSH FLUSH PRN (23:35)
[2023-01-28 05:30] LABS: Albumin Globulin Ratio 1.5 (0.9-2); Albumin Level 3.1 gm/dl (3.4-5.0); BUN Creatinine Ratio 21.3 (10-20); Calcium 8.3 mg/dl (8.6-10.3); Creatinine Clr Calc Pharmacy 89.2 ml/min; Est GFR (African American) 103.3 ml/min; Est GFR (Non-African American) 89.2 ml/min; Globulin 2.1 gm/dl (2.5-4.0); Magnesium 1.9 mg/dl (1.7-2.4); Potassium 3.8 mmol/L (3.5-5.1); Total Protein 5.2 gm/dl (6.0-8.3)
[2023-01-28 05:50] LABS: INR 1.2 (0.9-1.1); Prothrombin Time 13.4 Seconds (9.0-12.0)
[2023-01-28 05:55] LABS: Hematocrit (blood only) 39.9 % (42.0-52.0); Hemoglobin 12.9 g/dl (14.0-18.0); Mean Corpuscular Hemoglobin 30.5 pg (25.0-34.0); Mean Corpuscular Hgb Conc 32.3 g/dL (32.0-36.0); Mean Corpuscular Volume 94.3 fL (80.0-100.0); Mean Platelet Volume 10.8 fL (9.4-12.4); Platelet Count 85 K/uL (130-400); RDW Coefficient of Variation 20.1 % (11.5-14.5); Red Blood Count 4.23 M/uL (4.70-6.10); White Blood Count 7.59 K/ul (4.8-10.8)
[2023-01-28 06:09] LABS: Anisocytosis Present; Basophils # (auto) 0.02 K/uL (0.00-0.20); Basophils % (auto) 0.3 %; Eosinophils # (auto) 0.02 K/uL (0.00-0.50); Eosinophils % (auto) 0.3 %; Immature Granulocytes # (auto) 0.05 K/uL (0.01-0.20); Immature Granulocytes % (auto) 0.7 %; Lymphocytes # (auto) 0.57 K/uL (1.20-3.40); Lymphocytes % (auto) 7.5 %; Monocytes # (auto) 0.86 K/uL (0.11-0.59); Monocytes % (auto) 11.3 %; Neutrophils # (auto) 6.07 K/uL (1.40-6.50); Neutrophils % (auto) 79.9 %
--- NOTE | 2023-01-28 07:24 | Pulmonology Progress Note ---
Date of Service January 28, 2023 Assessment & Plan (1) Pleural effusion: (2) Acute respiratory failure with hypoxia: (3) Atrial fibrillation with RVR: (4) High grade B-cell lymphoma: Plan 87-year-old male past medical history of high-grade B-cell lymphoma presented to the hospital with shortness of breath. Pulmonary consulted for pleural effusion CTA chest 01/26/2023 personally reviewed: Patchy alveolar opacities appreciated in the right upper lobe as well as in the perifissural left lower lobe Large right-sided pleural effusion with compressive atelectasis of the right lower lobe, small left-sided pleural effusion Significant mediastinal lymphadenopathy especially station 7 2D echo 10/02/2022: EF 60-65%, mild concentric LVH, indeterminate diastolic dysfunction, mildly dilated RV with normal systolic function -- Acute hypoxic respiratory failure Likely secondary to bilateral pleural effusion,R>L Procalcitonin negative, TSH 1.9 BNP 603 S/p right-sided thoracentesis 01/26/2023, 2.1 L of serous fluid removed, 32% lymphocytes, exudative as per LDH Pleural fluid: LDH 410, total protein less than 3, glucose 111, pH 7.46 Serum: LDH 421, total protein 5.8 -- Thrombocytopenia Platelet count 100 on 01/26/2023 -- Acute DVT Left lower extremity Plan: Chest x-ray from today did not show any significant change compared to yesterday. Bilateral small pleural effusion appreciated There is opacities on the right periphery likely pleural mets Continue with diuresis Try to titrate off oxygen to keep O2 saturation between 90-92% No further recommendation from pulmonary perspective, will sign off, please call directly with any questions Please note the above document was generated using voice recognition software. It may contain grammatical, syntax or spelling errors.Any formal questions or concerns about the content, text or information contained within the body of this dictation should be directly addressed to the provider for clarification. Admission and Anticipated Discharge Date Admission Date: January 26, 2023 Subjective Patient seen and examined at bedside. No acute distress, no adverse events overnight He says he is feeling much better. Shortness of breath is significantly improved Denies any chest pain No nausea vomiting Fair appetite Was asking when he can go home Review of Systems 2 Review of Systems: All systems reviewed & are unremarkable except as noted in Subjective Physical Exam 2 Physical Exam: Constitutional: No acute distress HEENT: EOMI, PERRLA Respiratory system: Decreased air entry bilaterally, no wheeze, no rhonchi, mild crackles bilateral lower lobes CVS: S1-S2 positive, no murmurs or gallops Abdomen: Soft, nontender, nondistended, positive bowel sounds x4 Extremities: +2 pulses bilaterally radialis/ dorsalis pedis, no cyanosis, +2 pitting edema bilateral lower extremity Neuro: Awake alert oriented x3 Psych: Normal mood and affect G/U: Positive Vergara Skin: no rashes, warm and dry Lymphatic: no cervical or axillary lymphadenopathy Results & Data Results & Data Vital Signs (Past 12 Hours) Vital Signs Temp Pulse Resp BP Pulse Ox O2 Del Method O2 Flow Rate 01/28/23 03:00 105 H 32 H 91 01/28/23 02:00 111 H 26 H 91 01/28/23 01:00 113 H 17 91 01/28/23 00:14 127 H 31 H 115/66 91 01/28/23 00:00 36.3 C L 01/27/23 22:55 113 H 01/27/23 21:00 121 H 30 H 93 01/27/23 20:00 103 H 91/59 L 95 01/27/23 20:00 Nasal Cannula 2 01/27/23 20:00 36.2 C L Nasal Cannula 2 Laboratory Results 01/28/23 04:48 01/28/23 04:48 PG Care Time/CCT Total # of Minutes Spent Total Time Spent with Patient: Total time spent is greater than 50% in coordination of care (as documented) at patient's floor/unit and/or counseling patient: Coding Level of Care Code 33337 SUB INP/OBS CARE 2/35MIN Diagnoses Pleural effusion J90 Acute respiratory failure with hypoxia J96.01 Atrial fibrillation with RVR I48.91 High grade B-cell lymphoma C85.10
[2023-01-28] MEDS: APIXABAN 5 MG TABLET PO SCH ×2 (07:38→20:23)
[2023-01-28] MEDS: POTASSIUM CHLORIDE CRTAB 20 MEQ TABCR PO SCH ×2 (07:39→20:22)
[2023-01-28] MEDS: allopurinoL 300 MG TAB PO SCH (07:39)
[2023-01-28] MEDS: UMECLIDINIUM BROMIDE 62.5MCG/BLISTER 7 PUFFS/INHALER INH SCH (07:39)
[2023-01-28] MEDS: FUROSEMIDE 40 MG/4 ML VIAL IV SCH ×2 (07:39→17:16)
[2023-01-28] MEDS: TAMSULOSIN HCL 0.4 MG CAP PO SCH (07:39)
[2023-01-28] MEDS: CHOLECALCIFEROL 1,000 UNITS 25 MCG TAB PO SCH (07:39)
--- NOTE | 2023-01-28 07:54 | XRay Report ---
XR chest 1V portable HISTORY: 87 years-old Male CHF acute shortness of breath COMPARISON: Chest radiograph 01/27/2023, CT chest 01/26/2023 TECHNIQUE: AP view of the chest FINDINGS: Right IJ Dkstbo-x-Ztiw catheter is stable. Cardiomegaly. No pneumothorax. Bony vascular congestion wi th interstitial coarsening. Bibasilar and right mid lung airspace opacities are redemonstrated along with layering bilateral pleural effusions. The bones appear grossly intact. IMPRESSION: 1. Cardiomegaly with suggestion of pulmonary edema. 2. Unchanged right greater than left pleural effusions with bilateral airspace opacities. 3. Right-sided pleural implants are again noted, better evaluated on the comparison CTA of the chest. ACT 112: Negative or not required by law. The above report was generated using voice recognition software. It may contain grammatical, syntax o r spelling errors. Electronically signed by: Santhosh Loya M.D. 01/28/2023 7:51 AM
--- NOTE | 2023-01-28 11:31 | Electrocardiogram Report ---
Test Reason : Blood Pressure : / mmHG Vent. Rate : 109 BPM Atrial Rate : 113 BPM P-R Int : 000 ms QRS Dur : 090 ms QT Int : 366 ms P-R-T Axes : 000 -06 039 degrees QTc Int : 492 ms Atrial fibrillation Low voltage QRS Nonspecific T wave abnormality Abnormal ECG Confirmed by Kushal Ott ([id number]) on 01/28/2023 11:31:28 AM Referred By: REFERRED SELF Confirmed By:Joey Ott
--- NOTE | 2023-01-28 16:48 | Hospitalist Progress Note ---
Date of Service January 28, 2023 Assessment & Plan (1) Pleural effusion, right: Plan: Appears to be a combination of acute diastolic CHF and possible malignant effusion from non-Hodgkin's lymphoma. Thoracentesis completed January 26 with 2150 cc removed. Pathology pending. No apparent empyema. (2) Acute diastolic CHF (congestive heart failure): Plan: Much improved with Lasix diuresis. Cardiac echo completed in September of this year reveals mild LVH with normal ejection fraction. Repeat cardiac echo report is similar. Continue parenteral Lasix diuresis. Serial chest x-ray (3) Acute respiratory failure with hypoxia: Plan: Oxygen has been weaned off. He is now on room air. (4) UTI (urinary tract infection): Plan: Serratia isolated. Rocephin has been switched to oral Cipro. (5) Atrial fibrillation with RVR: Plan: Heart rate control. Heparin drip has been switched back to Eliquis. Telemetry. (6) Hyponatremia: Plan: Mild. Serial labs. Should improve with diuresis (7) Elevated troponin: Plan: No evidence of acute coronary syndrome. This appears to be supply/demand mismatch due to rapid atrial fibrillation. Cardiac echo report reveals ejection fraction lower than previously at 40% with global hypokinesis. This may improve with resolution of CHF however. Repeat cardiac echo in 1 month recommended. (8) Thrombocytopenia: Plan: Mild. No active bleeding. Serial labs (9) High grade B-cell lymphoma: Plan: Oncology consultation with Dr. Fuentes pending. Currently receiving chemotherapy which she had on the day of admission. Right pleural effusion could have a malignant component (10) CAD (coronary artery disease): Plan: Stable. Continue current medical management (11) Left leg DVT: Plan: Treated initially with heparin drip. This occurred while he was off his Eliquis. He will be put back on Eliquis yesterday, January 27 Plan Hopeful discharge to home tomorrow, January 29 Admission and Anticipated Discharge Date Admission Date: January 26, 2023 Subjective Alert and oriented. Good spirits. He is anxious to go home. He is now on room air. Urine culture growing Serratia. Rocephin switched to oral Cipro Review of Systems 2 Review of Systems: Constitutional-no fever or chills ENT-no blurred vision, no double vision, no epistaxis, no sore throat Respiratory-no cough, no wheezing. Dyspnea on exertion Cardiac-no palpitations, no chest pain, no syncope GI-no nausea, vomiting, diarrhea, melena, hematochezia -no urinary retention, no urinary incontinence, no dysuria, no hematuria Musculoskeletal-no joint pain, no muscle tenderness Skin-no bruising, no rashes, no pruritus Neuro-generalized weakness Psych-no depression, no anxiety Physical Exam 2 Physical Exam: General-alert and oriented x3, no fevers, no chills HEENT-head atraumatic and normocephalic, pupils equal and reactive to light, extraocular muscles intact Neck-no lymphadenopathy or thyromegaly, trachea midline Chest-diminished breath sounds bilaterally with dullness at the right base. No wheezing. Cardiac-tachycardic irregular rate and rhythm. Normal S1 and S2 Abdomen-normal bowel sounds, nontender, no hepatosplenomegaly Extremities-1+ pitting edema bilateral lower extremities below the knees has nearly resolved Neuro-cranial nerves II through XII intact, motor and sensory function within normal limits, strength symmetrical with generalized weakness, no focal deficits Psych-normal affect, normal mood Results & Data Results & Data Vital Signs (Past 12 Hours) Vital Signs Temp Pulse Pulse Resp BP Pulse Ox O2 Del Method 01/28/23 15:37 36.4 C L 107 H 22 95/63 L 93 Room Air 01/28/23 15:35 Nasal Cannula 01/28/23 11:08 105 H 01/28/23 11:07 110 H 16 101/67 93 Room Air 01/28/23 08:05 Nasal Cannula 01/28/23 08:05 109 H 20 115/81 92 Nasal Cannula 01/28/23 08:00 105 H O2 Flow Rate 01/28/23 15:37 01/28/23 15:35 2 01/28/23 11:08 01/28/23 11:07 01/28/23 08:05 2 01/28/23 08:05 2 01/28/23 08:00 Laboratory Results 01/28/23 04:48 01/28/23 04:48 PG Care Time/CCT Total # of Minutes Spent Total Time Spent with Patient: Total time spent is greater than 50% in coordination of care (as documented) at patient's floor/unit and/or counseling patient: Coding Level of Care Code 44209 SUB INP/OBS CARE 3/50MIN Diagnoses Pleural effusion, right J90 Acute diastolic CHF (congestive heart failure) I50.31 Acute respiratory failure with hypoxia J96.01 UTI (urinary tract infection) N39.0 Atrial fibrillation with RVR I48.91 Hyponatremia E87.1 Elevated troponin R79.89 Thrombocytopenia D69.6 High grade B-cell lymphoma C85.10 CAD (coronary artery disease) I25.10 Left leg DVT I82.402
[2023-01-28] MEDS: cefTRIAXone SODIUM 2,000 MG in DEXTROSE 5 % MINI-B 50 ML IV SCH (19:19)
[2023-01-28] MEDS: CIPROFLOXACIN 500 MG TAB PO SCH (20:23)
[2023-01-28] MEDS: ACETAMINOPHEN 325 MG TAB PO PRN (22:28)
[2023-01-29] MEDS ORDERED: COUGH DROP (SUGAR FREE) LOZ 24 LOZ/1 BOX BUCCAL PRN (00:11)
[2023-01-29 04:14] LABS: Basophils # (auto) 0.05 K/uL (0.00-0.20); Basophils % (auto) 0.7 %; Eosinophils # (auto) 0.07 K/uL (0.00-0.50); Eosinophils % (auto) 0.9 %; Hematocrit (blood only) 36.6 % (42.0-52.0); Hemoglobin 11.8 g/dl (14.0-18.0); Immature Granulocytes # (auto) 0.05 K/uL (0.01-0.20); Immature Granulocytes % (auto) 0.7 %; Lymphocytes # (auto) 0.65 K/uL (1.20-3.40); Lymphocytes % (auto) 8.8 %; Mean Corpuscular Hemoglobin 30.8 pg (25.0-34.0); Mean Corpuscular Hgb Conc 32.2 g/dL (32.0-36.0); Mean Corpuscular Volume 95.6 fL (80.0-100.0); Monocytes # (auto) 0.86 K/uL (0.11-0.59); Monocytes % (auto) 11.6 %; Neutrophils # (auto) 5.73 K/uL (1.40-6.50); Neutrophils % (auto) 77.3 %; Platelet Count 87 K/uL (130-400); RDW Standard Deviation 69.8 fL (36.4-46.3); Red Blood Count 3.83 M/uL (4.70-6.10); White Blood Count 7.41 K/ul (4.8-10.8)
[2023-01-29 04:28] LABS: Calcium 8.2 mg/dl (8.6-10.3); Est GFR (African American) 101.3 ml/min; Est GFR (Non-African American) 87.4 ml/min; Potassium 3.7 mmol/L (3.5-5.1)
--- NOTE | 2023-01-29 07:21 | Pulmonology Progress Note ---
Date of Service January 29, 2023 Assessment & Plan (1) Pleural effusion: (2) Acute respiratory failure with hypoxia: (3) Atrial fibrillation with RVR: (4) High grade B-cell lymphoma: Plan 87-year-old male past medical history of high-grade B-cell lymphoma presented to the hospital with shortness of breath. Pulmonary consulted for pleural effusion CTA chest 01/26/2023 personally reviewed: Patchy alveolar opacities appreciated in the right upper lobe as well as in the perifissural left lower lobe Large right-sided pleural effusion with compressive atelectasis of the right lower lobe, small left-sided pleural effusion Significant mediastinal lymphadenopathy especially station 7 2D echo 10/02/2022: EF 60-65%, mild concentric LVH, indeterminate diastolic dysfunction, mildly dilated RV with normal systolic function -- Acute hypoxic respiratory failure Likely secondary to bilateral pleural effusion,R>L Procalcitonin negative, TSH 1.9 BNP 603 S/p right-sided thoracentesis 01/26/2023, 2.1 L of serous fluid removed, 32% lymphocytes, exudative as per LDH Cytology positive for B-cell lymphoma Pleural fluid: LDH 410, total protein less than 3, glucose 111, pH 7.46 Serum: LDH 421, total protein 5.8 -- Thrombocytopenia Platelet count 100 on 01/26/2023 -- Acute DVT Left lower extremity Plan: Cytology from the pleural fluid is positive for B-cell lymphoma Continue with diuresis Try to titrate off oxygen to keep O2 saturation between 90-92% No further recommendation from pulmonary perspective Will sign off, please call directly with any questions Please note the above document was generated using voice recognition software. It may contain grammatical, syntax or spelling errors.Any formal questions or concerns about the content, text or information contained within the body of this dictation should be directly addressed to the provider for clarification. Admission and Anticipated Discharge Date Admission Date: January 26, 2023 Subjective Patient seen and examined at bedside. No acute distress, no adverse events overnight He was saturating 93% on room air. Heart rate was in the 100s, maps in the high 60s. Denies any nausea vomiting No headache, no blurry vision Asking when he can go home Review of Systems 2 Review of Systems: All systems reviewed & are unremarkable except as noted in Subjective Physical Exam 2 Physical Exam: Constitutional: No acute distress HEENT: EOMI, PERRLA Respiratory system: Decreased air entry bilaterally, no wheeze, no rhonchi, mild crackles bilateral lower lobes CVS: S1-S2 positive, no murmurs or gallops Abdomen: Soft, nontender, nondistended, positive bowel sounds x4 Extremities: +2 pulses bilaterally radialis/ dorsalis pedis, no cyanosis, +2 pitting edema bilateral lower extremity Neuro: Awake alert oriented x3 Psych: Normal mood and affect G/U: Positive Vergara Skin: no rashes, warm and dry Lymphatic: no cervical or axillary lymphadenopathy Results & Data Results & Data Vital Signs (Past 12 Hours) Vital Signs Temp Pulse Pulse Resp BP BP Pulse Ox 01/29/23 04:00 36.6 C 01/29/23 04:00 101 H 24 107/81 90 01/29/23 00:00 36.6 C 98 H 17 95/56 L 93 01/28/23 22:00 01/28/23 20:00 O2 Del Method O2 Flow Rate 01/29/23 04:00 01/29/23 04:00 Room Air 01/29/23 00:00 Room Air 01/28/23 22:00 Room Air 01/28/23 20:00 Nasal Cannula 2 Laboratory Results 01/29/23 03:49 01/29/23 03:49 PG Care Time/CCT Total # of Minutes Spent Total Time Spent with Patient: Total time spent is greater than 50% in coordination of care (as documented) at patient's floor/unit and/or counseling patient: Coding Level of Care Code 71785 SUB INP/OBS CARE 2/35MIN Diagnoses Pleural effusion J90 Acute respiratory failure with hypoxia J96.01 Atrial fibrillation with RVR I48.91 High grade B-cell lymphoma C85.10
[2023-01-29] MEDS: CIPROFLOXACIN 500 MG TAB PO SCH ×2 (07:27→20:27)
[2023-01-29] MEDS: allopurinoL 300 MG TAB PO SCH (07:27)
[2023-01-29] MEDS: CHOLECALCIFEROL 1,000 UNITS 25 MCG TAB PO SCH (07:27)
[2023-01-29] MEDS: APIXABAN 5 MG TABLET PO SCH ×2 (07:27→20:27)
[2023-01-29] MEDS: UMECLIDINIUM BROMIDE 62.5MCG/BLISTER 7 PUFFS/INHALER INH SCH (07:27)
[2023-01-29] MEDS: TAMSULOSIN HCL 0.4 MG CAP PO SCH (07:27)
[2023-01-29] MEDS: POTASSIUM CHLORIDE CRTAB 20 MEQ TABCR PO SCH ×2 (07:27→20:27)
[2023-01-29] MEDS: FUROSEMIDE 40 MG/4 ML VIAL IV SCH ×2 (08:01→16:35)
--- NOTE | 2023-01-29 12:01 | Discharge Summary ---
Date of Service January 29, 2023 Admission HPI Per Admitting Provider Vivek is an 87 year old male with a past medical history of high grade B- cell lymphoma currently following with aric Clement (On Eliquis), CAD, HFpEF, HLD, BPH, and neuropathy who presented to the [facility] ED on 01/26 with complaints of progressive SOB and abdominal distention. He was initially stable in the ED but did drop to 88% on RA and was noted to be tachycardic with HR in the 130's. Labs were significant for WBC WNL, stable Hgb, platelets of 100, lymphocyte count of 0.69, Neutrophil count of 7.00, VBG pH WNL with pCO2 of 53, corrected sodium of 126, chloride of 89, total bili of 1.8 with other LFT's WNL, LDH of 384, initial high sen trop of 44, BNP of 603 (up from 288 as of 09/2022), and negative full respiratory biofire. Chest xray was read as "1. Cardiomegaly with pulmonary vascular congestion. 2. Right larger than left pleural effusions with bibasilar consolidation.". CTA of the chest was read as "1. No pulmonary emboli identified although exam significantly compromised by suboptimal vascular opacification, as described above. 2. Significant increase in size of a large right pleural effusion with interval development of numerous right pleural implants since prior chest CT. This suggests lymphomatous pleural involvement. Small left pleural effusion. 3. Improvement in mediastinal and right hilar lymphadenopathy since prior CT. 4. Small amount of upper abdominal ascites.". At the time of the exam the patient was lying in bed on his right side in no acute distress; currently stable on 2L NC. History was obtained from the patient and his daughter who was at bedside. He states that he has been experiencing significant SOB over the past week. He states this may over been occurring over a longer period of time but is unsure. he has had very poor oral intake over the past week due to having little to no appetite. When discussing medications he appears to be confused regarding dosing and non-compliant. He states that someone told him to stop taking his Eliquis months ago but could not remember who or why. His previous prescription for lasix was 40 mg PO BID, he was taking it once daily or every other day over the past few months per his daughter. When asked why he states, "I didn't think I needed it". He currently denies fever, chills, chest pain, cough, palpitations, nausea, vomiting, abd pain, dysuria, hematuria, melena, diarrhea, and recent trauma. We discussed code status, the patient made it clear that he wishes to be a DNR/DNI, his daughter was in agreement with his choice. Please refer to Dr. Stephenson's attestation for any changes to the treatment plan Principal Diagnosis Acute hypoxic respiratory failure, combined systolic and diastolic congestive heart failure, bilateral pleural effusions, combined malignant and CHF related right pleural effusion, Serratia UTI, left lower extremity DVT which occurred while off Eliquis Discharge Exam General-alert and oriented x3, no fevers, no chills HEENT-head atraumatic and normocephalic, pupils equal and reactive to light, extraocular muscles intact Neck-no lymphadenopathy or thyromegaly, trachea midline Chest-diminished breath sounds bilaterally with dullness at the right base. No wheezing. Cardiac-tachycardic irregular rate and rhythm. Normal S1 and S2 Abdomen-normal bowel sounds, nontender, no hepatosplenomegaly Extremities-1+ pitting edema bilateral lower extremities below the knees has nearly resolved Neuro-cranial nerves II through XII intact, motor and sensory function within n ormal limits, strength symmetrical with generalized weakness, no focal deficits Psych-normal affect, normal mood Discharge Data Allergies Allergy/AdvReac Type Severity Reaction Status Date / Time meperidine Allergy Unknown CAN'T Verified 01/05/23 12:46 REMEMBER Consultations 01/26/23 13:56 ED Decision to Admit Stat 01/26/23 15:25 Consult Pulmonology Routine 01/26/23 15:39 Consult Oncology Routine Ordered Studies 01/26/23 11:21 CT angio chest PE protocol Stat 01/26/23 16:21 US venous doppler LE BI Urgent 01/26/23 18:30 US point of care ultrasound Urgent Hospital Course (1) Pleural effusion, right: Appears to be a combination of acute diastolic CHF and malignant effusion from non-Hodgkin's lymphoma. Thoracentesis completed January 26 with 2150 cc removed. Pathology reveals lymphoma cells present. This will need further outpatient oncology attention. The patient is aware. No apparent empyema. (2) Acute diastolic CHF (congestive heart failure): Much improved with Lasix diuresis. Cardiac echo completed in September of this year reveals mild LVH with normal ejection fraction. Repeat cardiac echo report is similar. Treated while hospitalized with parenteral Lasix diuresis. Serial chest x-ray. He will take Lasix on a regular basis twice daily at the time of discharge (3) Acute respiratory failure with hypoxia: Oxygen has been weaned off. He is now on room air. (4) UTI (urinary tract infection): Serratia isolated. Rocephin has been switched to oral Cipro. (5) Atrial fibrillation with RVR: Heart rate control. Heparin drip has been switched back to Eliquis. Telemetry. (6) Hyponatremia: Mild. Serial labs. Should improve with diuresis (7) Elevated troponin: No evidence of acute coronary syndrome. This appears to be supply/demand mismatch due to rapid atrial fibrillation. Cardiac echo report reveals ejection fraction lower than previously at 40% with global hypokinesis. This may improve with resolution of CHF however. Repeat cardiac echo in 1 month recommended. (8) Thrombocytopenia: Mild. No active bleeding. Serial labs (9) High grade B-cell lymphoma: Oncology consultation with Dr. Fuentes pending. Currently receiving chemotherapy which she had on the day of admission. Right pleural effusion reveals lymphoma cells. This will be addressed by oncology as an outpatient. (10) CAD (coronary artery disease): Stable. Continue current medical management (11) Left leg DVT: Treated initially with heparin drip. This occurred while he was off his Eliquis. He was put back on Eliquis on January 27 Plan Home today, January 29. Follow-up with PCP, cardiology, oncology Total Time Total Time Spent Total Time Spent (In Minutes): 45 minutes Discharge Plan Discharge Items Patient Disposition: Home - Self-Care Reason For Visit: R PLEURAL EFFUSION, HYPOXIA, HYPONATREM, ELEV TROP Discharge Diagnosis: Acute hypoxic respiratory failure, combined systolic and diastolic CHF, bilateral pleural effusions right greater than left due to CHF and malignancy, Serratia UTI, left lower extremity DVT which occurred while off Eliquis Activity: Resume your previous activity Non-emergency contact: Primary Care Provider, [employer] Developer and Oncologist Call non-emergency contact if: you have any medication questions and your symptoms worsen Follow-up/Referrals: Aram Rivas DO [Primary Care Provider] - Diet: Regular and Heart Healthy Addtl Attending Provider Instructions: Take Cipro antibiotic for 5 more days. Take Lasix 40 mg twice daily on a regular basis. There are lymphoma cells in the fluid taken from the chest. Oncology will treat this as an outpatient Pending Studies at Discharge: No Stand-Alone Forms: My [facility], Smoking Cessation Medications and DC Order Prescriptions: New ciprofloxacin HCl 500 mg Tablet 500 mg PO BID Qty: 10 0RF potassium chloride 20 mEq Tablet,Er Particles/Crystals 20 meq PO DAILY Qty: 30 0RF furosemide [Lasix] 40 mg tablet 40 mg PO BID Qty: 60 0RF Continued tamsulosin 0.4 mg capsule 0.4 mg PO QAM Qty: 90 3RF Patient Comments: pt doesn't have this right now? finasteride 5 mg tablet 5 mg PO DAILY Qty: 90 3RF aspirin 325 mg Tablet 325 mg PO UD PRN (Reason: Pain) Patient Comments: none for quite awhile naproxen sodium [Aleve] 220 mg Tablet 220 mg PO Q12H PRN (Reason: Pain) cholecalciferol (vitamin D3) 1,000 unit capsule 1,000 units PO QAM Eliquis 5 mg tablet 5 mg PO BID Qty: 60 0RF Hold Instructions: Resume on 10/23/22. albuterol sulfate 90 mcg/actuation HFA aerosol inhaler 2 inh inhalation Q6H PRN (Reason: shortness of breath or wheezing) Qty: 8.5 0RF Spiriva Respimat 2.5 mcg/actuation mist 2 inh inhalation DAILY Qty: 4 1RF saw palmetto 500 mg capsule 500 mg PO DAILY Rx Instructions: PT UNSURE OF STRENGTH. give with food (meal/snack) simethicone [Gas Relief (simethicone)] 80 mg tablet,chewable 80 mg PO Q6H PRN (Reason: gas/bloating) prednisone 20 mg tablet See Rx Instructions .ROUTE .COMPLEX Rx Instructions: Take as prescribed. Take 80mg by mouth on days 1-5 of each 21 day cycle prochlorperazine maleate 10 mg tablet 10 mg PO Q6H PRN (Reason: Nausea) ondansetron 8 mg tablet,disintegrating 8 mg PO Q8H allopurinol 300 mg tablet 300 mg PO DAILY Changed furosemide 40 mg tablet 40 mg PO BID Qty: 60 5RF Discharge Orders: Discharge Order (Routine); Ordered 01/29/23 Ordered By: Benito Foote Admission Data Admit Date/Time: 01/26/23 15:24 Attending Provider: Benito Foote Admit Provider: Billy Stephenson Primary Care Provider: Aram Rivas Other Providers: Billy Stephenson; Lashawn Sainz; Charity Fuentes; [facility] Coding Level of Care Code 35906 INP/OBS DISCH >30 MIN Diagnoses Pleural effusion, right J90 Acute diastolic CHF (congestive heart failure) I50.31 Acute respiratory failure with hypoxia J96.01 UTI (urinary tract infection) N39.0 Atrial fibrillation with RVR I48.91 Hyponatremia E87.1 Elevated troponin R79.89 Thrombocytopenia D69.6 High grade B-cell lymphoma C85.10 CAD (coronary artery disease) I25.10 Left leg DVT I82.402
--- NOTE | 2023-01-29 12:51 | Hospitalist Progress Note ---
Date of Service January 29, 2023 Assessment & Plan (1) Pleural effusion, right: Plan: Appears to be a combination of acute diastolic CHF and malignant effusion from non-Hodgkin's lymphoma. Thoracentesis completed January 26 with 2150 cc removed. Pathology reveals lymphoma cells present. This will need further outpatient oncology attention. The patient is aware. No apparent empyema. (2) Acute diastolic CHF (congestive heart failure): Plan: Much improved with Lasix diuresis. Cardiac echo completed in September of this year reveals mild LVH with normal ejection fraction. Repeat cardiac echo report is similar. Treated while hospitalized with parenteral Lasix diuresis. Serial chest x-ray. He will take Lasix on a regular basis twice daily at the time of discharge (3) Acute respiratory failure with hypoxia: Plan: Oxygen has been weaned off. He is now on room air. (4) UTI (urinary tract infection): Plan: Serratia isolated. Rocephin will eventually be switched to oral Cipro. (5) Atrial fibrillation with RVR: Plan: Heart rate control. Heparin drip has been switched back to Eliquis. Telemetry. (6) Hyponatremia: Plan: Mild. Serial labs. Should improve with diuresis (7) Elevated troponin: Plan: No evidence of acute coronary syndrome. This appears to be supply/demand mismatch due to rapid atrial fibrillation. Cardiac echo report reveals ejection fraction lower than previously at 40% with global hypokinesis. This may improve with resolution of CHF however. Repeat cardiac echo in 1 month recommended. (8) Thrombocytopenia: Plan: Mild. No active bleeding. Serial labs (9) High grade B-cell lymphoma: Plan: Oncology consultation with Dr. Fuentes pending. Currently receiving chemotherapy which she had on the day of admission. Right pleural effusion reveals lymphoma cells. This will be addressed by oncology as an outpatient. (10) CAD (coronary artery disease): Plan: Stable. Continue current medical management (11) Left leg DVT: Plan: Treated initially with heparin drip. This occurred while he was off his Eliquis. He was put back on Eliquis on January 27 Plan IPR placement when arrangements are finalized. Admission and Anticipated Discharge Date Admission Date: January 26, 2023 Subjective Discharge to home is canceled. Apparently he will be going to inpatient rehab. We discussed the pathology findings on the right thoracentesis fluid. Unfortunately there are lymphoma cells present. This will be addressed by oncology on an outpatient basis. He is now on room air and stable. He is currently on intravenous Rocephin for the Serratia UTI. Review of Systems 2 Review of Systems: Constitutional-no fever or chills ENT-no blurred vision, no double vision, no epistaxis, no sore throat Respiratory-no cough, no wheezing. Dyspnea on exertion Cardiac-no palpitations, no chest pain, no syncope GI-no nausea, vomiting, diarrhea, melena, hematochezia -no urinary retention, no urinary incontinence, no dysuria, no hematuria Musculoskeletal-no joint pain, no muscle tenderness Skin-no bruising, no rashes, no pruritus Neuro-generalized weakness Psych-no depression, no anxiety Physical Exam 2 Physical Exam: General-alert and oriented x3, no fevers, no chills HEENT-head atraumatic and normocephalic, pupils equal and reactive to light, extraocular muscles intact Neck-no lymphadenopathy or thyromegaly, trachea midline Chest-diminished breath sounds bilaterally with dullness at the right base. No wheezing. Cardiac-tachycardic irregular rate and rhythm. Normal S1 and S2 Abdomen-normal bowel sounds, nontender, no hepatosplenomegaly Extremities-1+ pitting edema bilateral lower extremities below the knees has nearly resolved Neuro-cranial nerves II through XII intact, motor and sensory function within normal limits, strength symmetrical with generalized weakness, no focal deficits Psych-normal affect, normal mood Results & Data Results & Data Vital Signs (Past 12 Hours) Vital Signs Temp Pulse Pulse Resp BP BP Pulse Ox 01/29/23 08:39 01/29/23 08:37 98 H 01/29/23 08:03 36.8 C 115 H 20 106/60 93 01/29/23 04:00 36.6 C 01/29/23 04:00 101 H 24 107/81 90 O2 Del Method 01/29/23 08:39 Room Air 01/29/23 08:37 01/29/23 08:03 Room Air 01/29/23 04:00 01/29/23 04:00 Room Air Laboratory Results 01/29/23 03:49 01/29/23 03:49 PG Care Time/CCT Total # of Minutes Spent Total Time Spent with Patient: Total time spent is greater than 50% in coordination of care (as documented) at patient's floor/unit and/or counseling patient: Coding Level of Care Code 10066 SUB INP/OBS CARE 350MIN Diagnoses Pleural effusion, right J90 Acute diastolic CHF (congestive heart failure) I50.31 Acute respiratory failure with hypoxia J96.01 UTI (urinary tract infection) N39.0 Atrial fibrillation with RVR I48.91 Hyponatremia E87.1 Elevated troponin R79.89 Thrombocytopenia D69.6 High grade B-cell lymphoma C85.10 CAD (coronary artery disease) I25.10 Left leg DVT I82.402
--- NOTE | 2023-01-29 16:55 | Hematology/Oncology Prog Note ---
Date of Service January 29, 2023 Assessment & Plan (1) High grade B-cell lymphoma: (2) Bilateral pleural effusion: Plan -Follow-up with co outpatient to discuss second line treatment options for high- grade B-cell lymphoma in this elderly frail gentleman. Options for treatment would include supportive care/hospice or systemic treatment options such as rituximab/Revlimid or cytarabine/rituximab or aydee/toshia/rituxan -Consider outpatient/inpatient palliative care evaluation Admission and Anticipated Discharge Date Admission Date: January 26, 2023 Subjective Cytology from pleural effusion confirmed high-grade B-cell lymphoma Results & Data Vital Signs (Past 12 Hours) Vital Signs Temp Pulse Pulse Resp BP Pulse Ox Pulse Ox 01/29/23 16:36 36.8 C 133 H 20 120/66 93 01/29/23 16:00 129 H 01/29/23 13:00 93 01/29/23 12:00 36.6 C 119 H 18 98/58 L 93 01/29/23 08:39 01/29/23 08:37 98 H 01/29/23 08:03 36.8 C 115 H 20 106/60 93 O2 Del Method O2 Del Method 01/29/23 16:36 Room Air 01/29/23 16:00 01/29/23 13:00 Room Air 01/29/23 12:00 Room Air 01/29/23 08:39 Room Air 01/29/23 08:37 01/29/23 08:03 Room Air
[2023-01-29] MEDS: METOPROLOL TARTRATE 25 MG TAB PO SCH (18:01)
[2023-01-29] MEDS ORDERED: METOPROLOL TARTRATE 1 MG/ML VIAL IV PRN (18:17)
[2023-01-29] MEDS: ACETAMINOPHEN 325 MG TAB PO PRN (20:27)
[2023-01-29] MEDS ORDERED: METOPROLOL SUCC 25MG EXT REL TAB PO SCH (21:00)
[2023-01-30 04:20] LABS: Basophils # (auto) 0.05 K/uL (0.00-0.20); Basophils % (auto) 0.7 %; Eosinophils % (auto) 1.3 %; Hematocrit (blood only) 36.1 % (42.0-52.0); Hemoglobin 11.9 g/dl (14.0-18.0); Immature Granulocytes # (auto) 0.05 K/uL (0.01-0.20); Immature Granulocytes % (auto) 0.7 %; Lymphocytes # (auto) 0.85 K/uL (1.20-3.40); Lymphocytes % (auto) 11.3 %; Mean Corpuscular Hemoglobin 30.9 pg (25.0-34.0); Mean Corpuscular Volume 93.8 fL (80.0-100.0); Mean Platelet Volume 11.4 fL (9.4-12.4); Monocytes # (auto) 1.02 K/uL (0.11-0.59); Monocytes % (auto) 13.6 %; Neutrophils # (auto) 5.45 K/uL (1.40-6.50); Neutrophils % (auto) 72.4 %; Platelet Count 90 K/uL (130-400); RDW Coefficient of Variation 19.9 % (11.5-14.5); Red Blood Count 3.85 M/uL (4.70-6.10); White Blood Count 7.52 K/ul (4.8-10.8)
[2023-01-30 04:37] LABS: BUN Creatinine Ratio 29.7 (10-20); Calcium 8.2 mg/dl (8.6-10.3); Est GFR (African American) 101.3 ml/min; Est GFR (Non-African American) 87.4 ml/min; Potassium 3.7 mmol/L (3.5-5.1)
[2023-01-30] MEDS: allopurinoL 300 MG TAB PO SCH (08:45)
[2023-01-30] MEDS: METOPROLOL TARTRATE 25 MG TAB PO SCH (08:45)
[2023-01-30] MEDS: CHOLECALCIFEROL 1,000 UNITS 25 MCG TAB PO SCH (08:45)
[2023-01-30] MEDS: APIXABAN 5 MG TABLET PO SCH (08:45)
[2023-01-30] MEDS: CIPROFLOXACIN 500 MG TAB PO SCH (08:45)
[2023-01-30] MEDS: POTASSIUM CHLORIDE CRTAB 20 MEQ TABCR PO SCH (08:46)
[2023-01-30] MEDS: UMECLIDINIUM BROMIDE 62.5MCG/BLISTER 7 PUFFS/INHALER INH SCH (08:46)
[2023-01-30] MEDS ORDERED: METOPROLOL TARTRATE 25 MG TAB PO STA (11:17)
--- NOTE | 2023-01-30 15:19 | Discharge Summary ---
Date of Service January 30, 2023 Admission HPI Per Admitting Provider Vivek is an 87 year old male with a past medical history of high grade B- cell lymphoma currently following with aric Clement (On Eliquis), CAD, HFpEF, HLD, BPH, and neuropathy who presented to the [facility] ED on 01/26 with complaints of progressive SOB and abdominal distention. He was initially stable in the ED but did drop to 88% on RA and was noted to be tachycardic with HR in the 130's. Labs were significant for WBC WNL, stable Hgb, platelets of 100, lymphocyte count of 0.69, Neutrophil count of 7.00, VBG pH WNL with pCO2 of 53, corrected sodium of 126, chloride of 89, total bili of 1.8 with other LFT's WNL, LDH of 384, initial high sen trop of 44, BNP of 603 (up from 288 as of 09/2022), and negative full respiratory biofire. Chest xray was read as "1. Cardiomegaly with pulmonary vascular congestion. 2. Right larger than left pleural effusions with bibasilar consolidation.". CTA of the chest was read as "1. No pulmonary emboli identified although exam significantly compromised by suboptimal vascular opacification, as described above. 2. Significant increase in size of a large right pleural effusion with interval development of numerous right pleural implants since prior chest CT. This suggests lymphomatous pleural involvement. Small left pleural effusion. 3. Improvement in mediastinal and right hilar lymphadenopathy since prior CT. 4. Small amount of upper abdominal ascites.". At the time of the exam the patient was lying in bed on his right side in no acute distress; currently stable on 2L NC. History was obtained from the patient and his daughter who was at bedside. He states that he has been experiencing significant SOB over the past week. He states this may over been occurring over a longer period of time but is unsure. he has had very poor oral intake over the past week due to having little to no appetite. When discussing medications he appears to be confused regarding dosing and non-compliant. He states that someone told him to stop taking his Eliquis months ago but could not remember who or why. His previous prescription for lasix was 40 mg PO BID, he was taking it once daily or every other day over the past few months per his daughter. When asked why he states, "I didn't think I needed it". He currently denies fever, chills, chest pain, cough, palpitations, nausea, vomiting, abd pain, dysuria, hematuria, melena, diarrhea, and recent trauma. We discussed code status, the patient made it clear that he wishes to be a DNR/DNI, his daughter was in agreement with his choice. Please refer to Dr. Stephenson's attestation for any changes to the treatment plan Principal Diagnosis Acute hypoxic respiratory failure, malignant right pleural effusion, acute combined systolic and diastolic CHF, left lower extremity DVT, Serratia UTI Discharge Exam General-alert and oriented x3, no fevers, no chills HEENT-head atraumatic and normocephalic, pupils equal and reactive to light, extraocular muscles intact Neck-no lymphadenopathy or thyromegaly, trachea midline Chest-diminished breath sounds bilaterally with dullness at the right base. No wheezing. Cardiac-tachycardic irregular rate and rhythm. Normal S1 and S2 Abdomen-normal bowel sounds, nontender, no hepatosplenomegaly Extremities-1+ pitting edema bilateral lower extremities below the knees has nearly resolved Neuro-cranial nerves II through XII intact, motor and sensory function within normal limits, strength symmetrical with generalized weakness, no focal deficits Psych-normal affect, normal mood Discharge Data Allergies Allergy/AdvReac Type Severity Reaction Status Date / Time meperidine Allergy Unknown CAN'T Verified 01/05/23 12:46 REMEMBER Consultations 01/26/23 13:56 ED Decision to Admit Stat 01/26/23 15:25 Consult Pulmonology Routine 01/26/23 15:39 Consult Oncology Routine Ordered Studies 01/26/23 11:21 CT angio chest PE protocol Stat 01/26/23 16:21 US venous doppler LE BI Urgent 01/26/23 18:30 US point of care ultrasound Urgent Hospital Course (1) Pleural effusion, right: Appears to be a combination of acute diastolic CHF and malignant effusion from non-Hodgkin's lymphoma. Thoracentesis completed January 26 with 2150 cc removed. Pathology reveals lymphoma cells present. This will need further outpatient oncology attention. The patient is aware. No apparent empyema. (2) Acute diastolic CHF (congestive heart failure): Much improved with Lasix diuresis. Cardiac echo completed in September of this year reveals mild LVH with normal ejection fraction. Repeat cardiac echo report is similar. Treated while hospitalized with parenteral Lasix diuresis. Serial chest x-ray. He will take Lasix on a regular basis twice daily at the time of discharge (3) Acute respiratory failure with hypoxia: Oxygen has been weaned off. He is now on room air. (4) UTI (urinary tract infection): Serratia isolated. Rocephin will eventually be switched to oral Cipro. (5) Atrial fibrillation with RVR: Heart rate control. Heparin drip has been switched back to Eliquis. Telemetry. (6) Hyponatremia: Mild. Serial labs. Should improve with diuresis (7) Elevated troponin: No evidence of acute coronary syndrome. This appears to be supply/demand mismatch due to rapid atrial fibrillation. Cardiac echo report reveals ejection fraction lower than previously at 40% with global hypokinesis. This may improve with resolution of CHF however. Repeat cardiac echo in 1 month recommended. (8) Thrombocytopenia: Mild. No active bleeding. Serial labs (9) High grade B-cell lymphoma: Oncology consultation appreciated with Dr. Fuentes. Currently receiving chemotherapy which she had on the day of admission. Right pleural effusion reveals lymphoma cells. This will be addressed by oncology as an outpatient. (10) CAD (coronary artery disease): Stable. Continue current medical management (11) Left leg DVT: Treated initially with heparin drip. This occurred while he was off his Eliquis. He was put back on Eliquis on January 27 Plan The patient has now decided to go home with home health services today, January 30 Total Time Total Time Spent Total Time Spent (In Minutes): 45 minutes Discharge Plan Discharge Items Patient Disposition: Home - Home Health Services Reason For Visit: R PLEURAL EFFUSION, HYPOXIA, HYPONATREM, ELEV TROP Discharge Diagnosis: Acute hypoxic respiratory failure, combined systolic and diastolic CHF, bilateral pleural effusions right greater than left due to CHF and malignancy, Serratia UTI, left lower extremity DVT which occurred while off Eliquis Activity: Resume your previous activity Non-emergency contact: Primary Care Provider, Web Manager and Oncologist Call non-emergency contact if: you have any medication questions and your symptoms worsen Follow-up/Referrals: Aram Rivas DO [Primary Care Provider] - 02/02/23 12:00 pm (Follow up scheduled on : 02/02/23 @ 12pm) Diet: Regular and Heart Healthy Addtl Attending Provider Instructions: Take Cipro antibiotic for 5 more days. Take Lasix 40 mg twice daily on a regular basis. There are lymphoma cells in the fluid taken from the chest. Oncology will treat this as an outpatient Pending Studies at Discharge: No Stand-Alone Forms: My [facility], Smoking Cessation Medications and DC Order Prescriptions: New ciprofloxacin HCl 500 mg Tablet 500 mg PO BID Qty: 10 0RF potassium chloride 20 mEq Tablet,Er Particles/Crystals 20 meq PO DAILY Qty: 30 0RF furosemide [Lasix] 40 mg tablet 40 mg PO BID Qty: 60 0RF Continued tamsulosin 0.4 mg capsule 0.4 mg PO QAM Qty: 90 3RF Patient Comments: pt doesn't have this right now? finasteride 5 mg tablet 5 mg PO DAILY Qty: 90 3RF aspirin 325 mg Tablet 325 mg PO UD PRN (Reason: Pain) Patient Comments: none for quite awhile naproxen sodium [Aleve] 220 mg Tablet 220 mg PO Q12H PRN (Reason: Pain) cholecalciferol (vitamin D3) 1,000 unit capsule 1,000 units PO QAM Eliquis 5 mg tablet 5 mg PO BID Qty: 60 0RF Hold Instructions: Resume on 10/23/22. albuterol sulfate 90 mcg/actuation HFA aerosol inhaler 2 inh inhalation Q6H PRN (Reason: shortness of breath or wheezing) Qty: 8.5 0RF Spiriva Respimat 2.5 mcg/actuation mist 2 inh inhalation DAILY Qty: 4 1RF saw palmetto 500 mg capsule 500 mg PO DAILY Rx Instructions: PT UNSURE OF STRENGTH. give with food (meal/snack) simethicone [Gas Relief (simethicone)] 80 mg tablet,chewable 80 mg PO Q6H PRN (Reason: gas/bloating) prednisone 20 mg tablet See Rx Instructions .ROUTE .COMPLEX Rx Instructions: Take as prescribed. Take 80mg by mouth on days 1-5 of each 21 day cycle prochlorperazine maleate 10 mg tablet 10 mg PO Q6H PRN (Reason: Nausea) ondansetron 8 mg tablet,disintegrating 8 mg PO Q8H allopurinol 300 mg tablet 300 mg PO DAILY Changed furosemide 40 mg tablet 40 mg PO BID Qty: 60 5RF Discharge Orders: Discharge Order (Routine); Ordered 01/30/23 Ordered By: Benito Foote Admission Data Admit Date/Time: 01/26/23 15:24 Attending Provider: Benito Foote Admit Provider: Billy Stephenson Primary Care Provider: Aarm Rivas Other Providers: Billy Stephenson; Lashawn Sainz; Charity Fuentes; [facility] Coding Level of Care Code 44991 INP/OBS DISCH >30 MIN Diagnoses Pleural effusion, right J90 Acute diastolic CHF (congestive heart failure) I50.31 Acute respiratory failure with hypoxia J96.01 UTI (urinary tract infection) N39.0 Atrial fibrillation with RVR I48.91 Hyponatremia E87.1 Elevated troponin R79.89 Thrombocytopenia D69.6 High grade B-cell lymphoma C85.10 CAD (coronary artery disease) I25.10 Left leg DVT I82.402
== END 2023-01-30 17:45 | disposition home or self-care (01) | DRG 840 ==
LOC: ED 10:30 → SUATTDRO 15:24 → EDINP 15:24 → 1E 16:29

== ENCOUNTER 2023-02-16 16:16 | Inpatient (IN) ==
[~2023-02-16 16:16] MED LIST changes: -ASPEC81 PO; +DIGOXIN 250 MCG in SYRINGE 9 ML IV ONE; -PRN10125 PO
--- NOTE | 2023-02-16 16:25 | ED Triage Note ---
Date of Service February 16, 2023 Provider in Triage Author: Francesca Dougherty History of Present Illness This patient was briefly evaluated while in triage. An abbreviated physical exam was performed. This patient is a 87-year-old Male who presents to the ED for evaluation of SOB and chest tightness. He has a history of high grade B-cell lymphoma. 3 weeks ago had bilateral pleural effusions. He states that he can't bend down to do anything. Having trouble speaking in full sentences because of the SOB. Had decreased right breath sounds today at the oncologist. History of CHF. Had a discussion about possible palliative care today with oncologist. Physical Exam GENERAL: Non-toxic and in no acute distress. HEENT: Pupils equal. No obvious scleral icterus. HEART: Irregularly irregular rhythm. LUNGS: Mildly decreased breath sounds on the right side. The patient appears short of breath and is unable to speak in full sentences without getting winded. No retractions, but he does have accessory muscle use. ABDOMEN: Soft, nontender to palpation. NEURO: Alert and oriented. No obvious neurological deficits on quick neuro exam. MUSCULOSKELETAL: Mild bilateral lower extremity edema. Initial orders for labs and / or imaging were placed and patient was placed in the waiting area until a bed is available. Please see further documentation for the full ED course. MDM / Impression Impression Impression: Hypoxia, Pleural effusion on right, Atrial fibrillation with rapid ventricular response
[2023-02-16 17:25] LABS: Basophils # (auto) 0.02 K/uL (0.00-0.20); Basophils % (auto) 0.3 %; Eosinophils # (auto) 0.08 K/uL (0.00-0.50); Eosinophils % (auto) 1.1 %; Hematocrit (blood only) 37.8 % (42.0-52.0); Hemoglobin 12.3 g/dl (14.0-18.0); Immature Granulocytes # (auto) 0.05 K/uL (0.01-0.20); Immature Granulocytes % (auto) 0.7 %; Lymphocytes # (auto) 1.09 K/uL (1.20-3.40); Lymphocytes % (auto) 15.4 %; Mean Corpuscular Hemoglobin 30.5 pg (25.0-34.0); Mean Corpuscular Hgb Conc 32.5 g/dL (32.0-36.0); Mean Corpuscular Volume 93.8 fL (80.0-100.0); Mean Platelet Volume 10.7 fL (9.4-12.4); Monocytes # (auto) 0.64 K/uL (0.11-0.59); Neutrophils % (auto) 73.5 %; Platelet Count 130 K/uL (130-400); RDW Coefficient of Variation 16.8 % (11.5-14.5); RDW Standard Deviation 58.7 fL (36.4-46.3); Red Blood Count 4.03 M/uL (4.70-6.10); White Blood Count 7.08 K/ul (4.8-10.8)
--- NOTE | 2023-02-16 17:27 | Emergency Department Note ---
Impression & Plan Hypoxia, Pleural effusion on right, Atrial fibrillation with rapid ventricular response ED Provider Note Provider: Michael Freeman MD DATE OF SERVICE: 02/16/2023 CHIEF COMPLAINT: Shortness of breath HISTORY OF PRESENT ILLNESS: Patient is a 87-year-old gentleman history of A-fib RVR, CHF, pleural effusion requiring thoracentesis, and high-grade B-cell lymphoma presenting here reporting shortness of breath and that he is having some difficulty getting around and doing things difficulty speaking full sentences due to his breathing. Talked with his oncologist earlier today and have decided against aggressive treatment for B-cell lymphoma. Reports he has difficulty physically bending over and tying his shoes. Denies any chest pain or discomfort on my review with him and his daughter at bedside. Ongoing leg swelling is present but fluctuates according to daughter. Has been taking his medications of his Eliquis earlier today. Denies significant abdominal pain or nausea or vomiting. Denies fever. Not on oxygen normally. PAST MEDICAL HISTORY: As noted above MEDICATIONS: Reviewed medications includes apixaban. SOCIAL HISTORY: Lives at home and transverses the stairs between the first and second floor several times a day normally. PHYSICAL EXAM: GENERAL: alert and oriented in no acute distress on stretcher Head: normocephalic and atraumatic EYES: No injection, discharge or icterus. NECK: Trachea midline. ENT: Mucous membranes pink and moist. LUNGS: Airway patent. No retractions. Breath sounds very diminished on the right HEART: Regular rate and rhythm. No chest wall tenderness with right upper chest wall port in place. ABDOMEN: Soft and non-tender, without guarding or rebound. SKIN: Acyanotic, warm, dry, without rashes EXTREMITIES: 2+ edema of the lower extremities bilaterally with minimal to no tenderness. NEUROLOGICAL: No focal deficits. No aphasia. No facial droop or slurred speech. EK bpm atrial fibrillation with rapid ventricular response. Occasional PVC. No acute ST segment elevation or depression with a QTc of 491. CONTINUOUS CARDIAC MONITORING: was ordered and showed a heart rate of 100s-120s bpm in A-fib Patient's laboratory studies and imaging reviewed. Differential includes Reactive airway disease, pneumonia, pneumothorax, COPD, CHF, infections, cardiac ischemia, pulmonary embolism, musculoskeletal, gastrointestinal, as well as other pathologies. IMPRESSION/MEDICAL DECISION MAKING: Reviewed prior admission from the end of December here requiring a right pleurocentesis with just over 2 L of fluid removed. Did test positive and cytology for B-cell lymphoma. Patient met with oncologist today and is deferring aggressive treatment for this. Is having symptomatic issues with the breathing. No fevers. No leukocytosis. I doubt this is infectious. Doubt PE given his use of anticoagulants and no significant pleural effusion. No believe antibiotics would be helpful. Basic electrolytes and chemistries checked as well and will try to continue IV diuresis given some leg swelling present. Desaturates on room air now requiring slight oxygen supplementation. Discussed with him and his daughter. Will bring in to see a pulmonary tomorrow could consider possible thoracentesis again versus possible Pleurx catheter placement. Not unstable at this time. Patient in agreement. Hospitalist contacted. Given a small dose of IV metoprolol here given his slight tachycardia with A-fib RVR. Mild troponin elevation likely more demand with A-fib RVR and the effusion and mild hypoxia. DIAGNOSIS: Shortness of breath, right pleural effusion, B-cell lymphoma DISPOSITION: Hospitalist will evaluate Patient was agreeable with this plan. 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 Myalgia Generalized weakness Flatulence occasionally Malaise BPH (benign prostatic hyperplasia) Urine incontinence Surgical History Port-A-Cath in place (10/21/22) Port Placement with Fluoroscopy(Right) - Donte Paredes, DO History of back surgery History of hernia surgery Family History Other Cancer Denies family history of Ovarian cancer Prostate cancer Diabetes Coronary heart disease Dyslipidemia Myocardial infarction Breast cancer Colorectal cancer Social History Smoking Status: Never smoker Tobacco Type: Cigarettes Age Started Using Tobacco: 14; Age Quit Using Tobacco: 24; packs per day: 0.25; Second Hand Exposure: No; Do You Dip or Chew Tobacco: No; Hx Alcohol Use: No Hx Substance Use: No Preferred Language: [place] Communication Ability: Effective Visual Impairment: No Limitations Hearing Ability: Hard of Hearing 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 Beliefs That Will Affect Care: None marital status: / Current Living Situation: Family Current Living Situation Comment: Lives with dog current occupational status: retired How many Children do You have: 2 Other Information That Helps Us Care for You: No Feels Safe at Home: Yes Safety Concerns: Feels Safe At This Time Childhood Exposure to Second-Hand Smoke: No Diet: regular caffeine: Yes (coffee) during the past year weight has: remained stable Dental Care, Regularly: Yes Physical Activity Frequency: Daily Seatbelt Use: always Sunscreen Use: No Do you think of yourself as: straight/heterosexual Gender Identity: Male Assistive Devices: Cane and Walker Allergies Allergies Allergy/AdvReac Type Severity Reaction Status Date / Time meperidine Allergy Unknown CAN'T Verified 01/05/23 12:46 REMEMBER Home Meds Home Medications Medication Instructions Recorded Confirmed cholecalciferol (vitamin D3) 25 1,000 units PO QAM 08/20/20 02/16/23 mcg (1,000 unit) capsule naproxen sodium 220 mg tablet 220 mg PO Q12H PRN Pain 08/20/20 02/16/23 (Aleve) saw palmetto 500 mg capsule 500 mg PO DAILY 10/06/22 02/16/23 simethicone 80 mg chewable tablet 80 mg PO Q6H PRN gas/bloating 10/17/22 02/16/23 (Gas Relief (simethicone)) allopurinol 300 mg tablet 300 mg PO DAILY 11/06/22 02/16/23 ondansetron 8 mg disintegrating 8 mg PO Q8H 11/06/22 02/16/23 tablet prednisone 20 mg tablet See Rx Instructions .Route .COMPLEX 11/06/22 02/16/23 prochlorperazine maleate 10 mg 10 mg PO Q6H PRN Nausea 11/06/22 02/16/23 tablet acyclovir 400 mg tablet 400 mg PO BID 02/16/23 02/16/23 sulfamethoxazole 800 1 tab PO UD 02/16/23 02/16/23 mg-trimethoprim 160 mg tablet Previous Rx's Medication Instructions Recorded tamsulosin 0.4 mg capsule 0.4 mg PO QAM #90 caps 08/18/22 albuterol sulfate 90 mcg/actuation 2 inh inhalation Q6H PRN shortness 10/03/22 aerosol inhaler of breath or wheezing #8.5 grams tiotropium bromide 2.5 2 inh inhalation DAILY #4 grams 10/03/22 mcg/actuation mist for inhalation (Spiriva Respimat) finasteride 5 mg tablet 5 mg PO DAILY #90 tabs 11/26/22 furosemide 40 mg tablet (Lasix) 40 mg PO BID #60 tabs 01/29/23 potassium chloride 20 mEq 20 meq PO DAILY #30 tabs 01/29/23 tablet,extended release(part/cryst) apixaban 5 mg tablet (Eliquis) 5 mg PO BID #60 tabs 02/10/23 Results & Data (ED) Vital Signs Vital Signs - 24 hr 02/16/23 16:20 02/16/23 16:44 02/16/23 16:44 Temperature 36.5 C Temperature Source Temporal Artery Scan Pulse Rate 103 H 120 H Pulse Rate from SpO2 Sensor 98 H Pulse Rhythm Respiratory Rate 18 23 Respiratory Effort / Characteristics Non-Labored Respiratory Depth Normal Respiratory Pattern Regular Blood Pressure 107/70 94/75 L Blood Pressure Mean 82 79 Pulse Oximetry 96 94 Oxygen Delivery Method Room Air Oxygen Flow Rate Sepsis Recent Fever Within 48 Hours No Sepsis New/Unexplained Change in Mental Status N/A Sepsis Action Taken by Nursing No Action Required Oxygen Flow Rate - Titration Pulse Oximetry Post Tiitration 02/16/23 16:46 02/16/23 17:11 02/16/23 17:11 Temperature Temperature Source Pulse Rate 114 H 120 H Pulse Rate from SpO2 Sensor Pulse Rhythm Regular Respiratory Rate Respiratory Effort / Characteristics Respiratory Depth Respiratory Pattern Blood Pressure Blood Pressure Mean Pulse Oximetry 88 L 92 Oxygen Delivery Method Room Air Nasal Cannula Oxygen Flow Rate 0 2 Sepsis Recent Fever Within 48 Hours Sepsis New/Unexplained Change in Mental Status Sepsis Action Taken by Nursing Oxygen Flow Rate - Titration 2 Pulse Oximetry Post Tiitration 96 02/16/23 18:00 02/16/23 18:00 02/16/23 18:07 Temperature Temperature Source Pulse Rate 117 H 115 H Pulse Rate from SpO2 Sensor 107 H Pulse Rhythm Respiratory Rate 31 H Respiratory Effort / Characteristics Respiratory Depth Respiratory Pattern Blood Pressure 114/86 114/86 Blood Pressure Mean 93 Pulse Oximetry 97 Oxygen Delivery Method Nasal Cannula Oxygen Flow Rate 2 Sepsis Recent Fever Within 48 Hours Sepsis New/Unexplained Change in Mental Status Sepsis Action Taken by Nursing Oxygen Flow Rate - Titration Pulse Oximetry Post Tiitration 02/16/23 18:33 02/16/23 18:53 02/16/23 18:53 Temperature Temperature Source Pulse Rate 102 H 108 H Pulse Rate from SpO2 Sensor 87 Pulse Rhythm Respiratory Rate 20 Respiratory Effort / Characteristics Respiratory Depth Respiratory Pattern Blood Pressure 90/59 L Blood Pressure Mean 60 Pulse Oximetry 97 Oxygen Delivery Method Nasal Cannula Oxygen Flow Rate 2 Sepsis Recent Fever Within 48 Hours Sepsis New/Unexplained Change in Mental Status Sepsis Action Taken by Nursing Oxygen Flow Rate - Titration Pulse Oximetry Post Tiitration Laboratory Data 02/16/23 17:07 02/16/23 17:07 Lab Results 02/16/23 02/16/23 02/16/23 Range/Units 16:50 17:07 18:50 WBC 7.08 (4.8-10.8) K/ul RBC 4.03 L (4.70-6.10) M/uL Hgb 12.3 L (14.0-18.0) g/dl Hct 37.8 L (42.0-52.0) % MCV 93.8 (80.0-100.0) fL MCH 30.5 (25.0-34.0) pg MCHC 32.5 (32.0-36.0) g/dL RDW Std Deviation 58.7 H (36.4-46.3) fL RDW Coeff of Dolly 16.8 H (11.5-14.5) % Plt Count 130 (130-400) K/uL MPV 10.7 (9.4-12.4) fL Immature Gran % (Auto) 0.7 % Neut % (Auto) 73.5 % Lymph % (Auto) 15.4 % [place] % (Auto) 9.0 % Eos % (Auto) 1.1 % Baso % (Auto) 0.3 % Neut # (Auto) 5.20 (1.40-6.50) K/uL Lymph # (Auto) 1.09 L (1.20-3.40) K/uL [place] # (Auto) 0.64 H (0.11-0.59) K/uL Eos # (Auto) 0.08 (0.00-0.50) K/uL Baso # (Auto) 0.02 (0.00-0.20) K/uL Immature Gran # (Auto) 0.05 (0.01-0.20) K/uL PT 13.7 H (9.0-12.0) Seconds INR 1.3 H (0.9-1.1) APTT 33 H (21-31) Seconds PTT Ratio 1.2 Sodium 132 L (136-145) mmol/L Potassium 3.7 (3.5-5.1) mmol/L Chloride 96 L (98-107) mmol/L Carbon Dioxide 29 (21-32) mmol/L Anion Gap 7 (3-11) BUN 16 (6-23) mg/dl Creatinine 0.72 (0.6-1.4) mg/dl Est Cr Clr Drug Dosing 82.8 ml/min Est GFR ( Amer) 96.5 ml/min Est GFR (Non-Af Amer) 83.3 ml/min BUN/Creatinine Ratio 22.2 H (10-20) Glucose 94 (70-99(Fasting)) mg/dl Calcium 8.1 L (8.6-10.3) mg/dl Total Bilirubin 1.0 (0.2-1.0) mg/dl AST 50 H (13-39) U/L ALT 28 (7-52) U/L Alkaline Phosphatase 77 (34-104) U/L Troponin I High Sens 61.3 H* 61.9 H* (0-20) pg/ml B-Natriuretic Peptide 451 H (0-100) pg/ml Total Protein 5.1 L (6.0-8.3) gm/dl Albumin 3.2 L (3.4-5.0) gm/dl Globulin 1.9 L (2.5-4.0) gm/dl Albumin/Globulin Ratio 1.7 (0.9-2) Lipase 46 (11-82) U/L Adenovirus (PCR) Not Detected (NotDetected) B. pertussis DNA (PCR) Not Detected (NotDetected) B.parapertussis DNA PCR Not Detected (NotDetected) C. pneumoniae DNA (PCR) Not Detected (NotDetected) Coronavirus OC43 (PCR) Not Detected (NotDetected) Coronavirus HKU1 (PCR) Not Detected (NotDetected) Coronavirus 229E (PCR) Not Detected (NotDetected) SARS-CoV-2 (PCR) Not Detected (NotDetected) Coronavirus NL63 (PCR) Not Detected (NotDetected) Human Metapneumovir PCR Not Detected (NotDetected) Influenza Type A (PCR) Not Detected (NotDetected) Influenza Type B (PCR) Not Detected (NotDetected) M. pneumoniae (PCR) Not Detected (NotDetected) Parainfluenza 1 (PCR) Not Detected (NotDetected) Parainfluenza 2 (PCR) Not Detected (NotDetected) Parainfluenza 3 (PCR) Not Detected (NotDetected) Parainfluenza 4 (PCR) Not Detected (NotDetected) RSV (PCR) Not Detected (NotDetected) Entero/Rhino (PCR) Not Detected (NotDetected) Administered Medications Trimethoprim/Sulfamethoxazole (Sulfamethoxazole/Trimethoprim Ds 800/160mg Tab) 1 tab PO MoWeFr NEETU Stop: 03/18/23 20:59 Last Admin: 02/16/23 21:16 Dose: 1 tab Documented By: QGV Discontinued Medications Furosemide (Furosemide 40 Mg/4 Ml Vial) 40 mg IV ONE ONE Stop: 02/16/23 17:48 Last Admin: 02/16/23 18:07 Dose: 40 mg Documented By: QGV Metoprolol Tartrate (Metoprolol Tartrate 1 Mg/Ml Vial) 2.5 mg IV NOW STA Stop: 02/16/23 17:49 Last Admin: 02/16/23 18:07 Dose: 2.5 mg Documented By: QGV Imaging Data Radiologist's Impression: Chest X-Ray 02/16/23 16:26 XR chest 1V portable CLINICAL HISTORY: Chest pain, nonspecific TECHNIQUE: Single frontal radiograph of the chest was obtained. Comparison: Comparison is made to chest radiograph 01/28/2023 FINDINGS: A port catheter is seen. The cardiomediastinal silhouette is stable. Redemonstration of right pleural effusion and implants, increased in conspicuity from the prior exam. No evidence of pleural effusion or pneumothorax. IMPRESSION: Right pleural effusion and metastatic implants are increased in conspicuity from prior exams. ACT 112: Negative or not required by law. Electronically signed by: Smith Hays M.D. 02/16/2023 5:36 PM Discharge Plan Visit Data Chief Complaint: Shortness of Breath/Dyspnea Stated Complaint: WORSENING SOB ED Provider: Michael Freeman Discharge Problem: Hypoxia, Pleural effusion on right, Atrial fibrillation with rapid ventricular response Patient Disposition: Being Evaluated by Hospitalist Discharge Instructions Interventions: ED Discharge Assessment Last Done: 02/16/23 19:44
--- NOTE | 2023-02-16 17:38 | XRay Report ---
XR chest 1V portable CLINICAL HISTORY: Chest pain, nonspecific TECHNIQUE: Single frontal radiograph of the chest was obtained. Comparison: Comparison is made to chest radiograph 01/28/2023 FINDINGS: A port catheter is seen. The cardiomediastinal silhouette is stable. Redemonstration of right pleural effusion and implants, increased in conspicuity from the prior exam. No evidence of pleural effusion or pneumothorax. IMPRESSION: Right pleural effusion and metastatic implants are increased in conspicuity from prior exams. ACT 112: Negative or not required by law. Electronically signed by: Smith Hays M.D. 02/16/2023 5:36 PM
[2023-02-16 17:42] LABS: Albumin Globulin Ratio 1.7 (0.9-2); Albumin Level 3.2 gm/dl (3.4-5.0); BUN Creatinine Ratio 22.2 (10-20); Calcium 8.1 mg/dl (8.6-10.3); Creatinine Clr Calc Pharmacy 82.8 ml/min; Est GFR (African American) 96.5 ml/min; Est GFR (Non-African American) 83.3 ml/min; Globulin 1.9 gm/dl (2.5-4.0); Potassium 3.7 mmol/L (3.5-5.1); Total Protein 5.1 gm/dl (6.0-8.3)
[2023-02-16] MEDS ORDERED: FUROSEMIDE 40 MG/4 ML VIAL IV ONE (17:47)
[2023-02-16] MEDS ORDERED: METOPROLOL TARTRATE 1 MG/ML VIAL IV STA (17:48)
[2023-02-16 17:50] LABS: Troponin I High Sensitivity 61.3 pg/ml (0-20)
[2023-02-16 17:52] LABS: INR 1.3 (0.9-1.1); Partial Thromboplastin Ratio 1.2; Partial Thromboplastin Time 33 Seconds (21-31); Prothrombin Time 13.7 Seconds (9.0-12.0)
[2023-02-16 18:20] LABS: Adenovirus PCR Not Detected (NotDetected); Bordetella parapertussis PCR Not Detected (NotDetected); Bordetella pertussis PCR Not Detected (NotDetected); Chlamydia pneumoniae PCR Not Detected (NotDetected); Coronavirus 229E PCR Not Detected (NotDetected); Coronavirus CoV-2 (COVID19)PCR Not Detected (NotDetected); Coronavirus HKU1 PCR Not Detected (NotDetected); Coronavirus NL63 PCR Not Detected (NotDetected); Coronavirus OC43PCR Not Detected (NotDetected); Human Metapneumovirus PCR Not Detected (NotDetected); Influenza A PCR Not Detected (NotDetected); Influenza B PCR Not Detected (NotDetected); Mycoplasma pneumoniae PCR Not Detected (NotDetected); Parainfluenza Virus 1 PCR Not Detected (NotDetected); Parainfluenza Virus 2 PCR Not Detected (NotDetected); Parainfluenza Virus 3 PCR Not Detected (NotDetected); Parainfluenza Virus 4 PCR Not Detected (NotDetected); Respiratory Syncytial VirusPCR Not Detected (NotDetected); Rhinovirus/Enterovirus PCR Not Detected (NotDetected)
--- NOTE | 2023-02-16 18:47 | History & Physical Report ---
Date of Service February 16, 2023 Assessment & Plan (1) Pleural effusion on right: Plan: Suspect recurrent pleural effusion as the cause of his shortness of breath and acute respiratory failure with hypoxia Discussed with Dr. Quispe and will hold Eliquis at this time to consider possible pleurx catheter (2) Atrial fibrillation with rapid ventricular response: Plan: Previously on metoprolol last admission although was not continued on discharge. He runs a generally low blood pressure and was given IV lasix earlier therefore will load with digoxin to help with his rates which appear to be inappropriately fast. Anticoagulation with Eliquis currently on hold for possible pleurx (3) High grade B-cell lymphoma: Plan: Most recently on R-CHOP therapy. Reportedly presented with options for further chemotherapy at oncology clinic today but declined potentially seeking a more palliative process. Will consult palliative care. Discussed care with Dr. Fuentes and confirms above. If patient is not getting a palliative care consider inpatient consult. (4) Acute respiratory failure with hypoxia: Plan: Secondary to pleural effusion +/- lung masses Aim O2 sats > 90% (5) Chronic congestive heart failure: Plan: Do not suspect increasing Lasix dosing will have much of an effect on the pleural effusion given that it is malignant Continue his usual Lasix 40 mg p.o. BID Aim net neutral fluid balance Strict I's and O's Daily weights (6) Left leg DVT: Plan: Deep vein thrombosis of left calf posterior tibial vein diagnosed January 26 No pulmonary embolism was seen on CT angiogram at the same time. Doubtful pulmonary embolism at this time given he has been on Eliquis. Eliquis currently on hold for Pleurx placement however will need to be restarted as soon as possible given recent DVT, consider heparin drip if this has to be held for multiple days Plan VTE prophylaxis - Eliquis on hold Diet - low-sodium Disposition - admit to med/tele Admission and Anticipated Discharge Date Admission Date: February 16, 2023 History of Present Illness Chief Complaint: Shortness of breath Primary Care Provider: Aram Rivas DO Vivek Carrillo is an 87-year-old male with high grade B cell lymphoma who presents to the ER on advice of the [facility] due to shortness of breath on exertion and hypoxia. The patient feels he isn't significant different than when he was discharged on January 30 although his family do feel he is more short of breath the last few days but much better compared to when he was admitted last time. No fever, chills, cough, sinus pain or ear ache. He last underwent thoracentesis on January 26 with no growth on cultures. 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 He is not currently under palliative care. He is interested in possible having a pleurx catheter to help with his shortness of breath as notes the thoracentesis last admission significant helped him. Allergies Allergy/AdvReac Type Severity Reaction Status Date / Time meperidine Allergy Unknown CAN'T Verified 01/05/23 12:46 REMEMBER Home Medications Medication Instructions Recorded Confirmed Type cholecalciferol (vitamin D3) 25 1,000 units PO QAM 08/20/20 02/16/23 History mcg (1,000 unit) capsule naproxen sodium 220 mg tablet 220 mg PO Q12H PRN Pain 08/20/20 02/16/23 History (Aleve) tamsulosin 0.4 mg capsule 0.4 mg PO QAM #90 caps 08/18/22 02/16/23 Rx albuterol sulfate 90 mcg/actuation 2 inh inhalation Q6H PRN shortness 10/03/22 02/16/23 Rx aerosol inhaler of breath or wheezing #8.5 grams tiotropium bromide 2.5 2 inh inhalation DAILY #4 grams 10/03/22 02/16/23 Rx mcg/actuation mist for inhalation (Spiriva Respimat) saw palmetto 500 mg capsule 500 mg PO DAILY 10/06/22 02/16/23 History simethicone 80 mg chewable tablet 80 mg PO Q6H PRN gas/bloating 10/17/22 02/16/23 History (Gas Relief (simethicone)) allopurinol 300 mg tablet 300 mg PO DAILY 11/06/22 02/16/23 History ondansetron 8 mg disintegrating 8 mg PO Q8H 11/06/22 02/16/23 History tablet prednisone 20 mg tablet See Rx Instructions .Route .COMPLEX 11/06/22 02/16/23 History prochlorperazine maleate 10 mg 10 mg PO Q6H PRN Nausea 11/06/22 02/16/23 History tablet finasteride 5 mg tablet 5 mg PO DAILY #90 tabs 11/26/22 02/16/23 Rx furosemide 40 mg tablet (Lasix) 40 mg PO BID #60 tabs 01/29/23 02/16/23 Rx potassium chloride 20 mEq 20 meq PO DAILY #30 tabs 01/29/23 02/16/23 Rx tablet,extended release(part/cryst) apixaban 5 mg tablet (Eliquis) 5 mg PO BID #60 tabs 02/10/23 02/16/23 Rx acyclovir 400 mg tablet 400 mg PO BID 02/16/23 02/16/23 History sulfamethoxazole 800 1 tab PO UD 02/16/23 02/16/23 History mg-trimethoprim 160 mg tablet Past Med/Surg History Medical History (Updated 02/16/23 @ 23:50 by Finn Bashir MD) High grade B-cell lymphoma Thrombocytopenia CAD (coronary artery disease) Poor historian Non compliance w medication regimen "doesn't use his inhalers" Bilateral pleural effusion 09/2022-per record Mediastinal mass 09/2022-per record Coronary artery disease per record Hyperlipidemia High grade B-cell lymphoma per record-"pt was unsure what type he has"; recent admit to [facility] 10/09/22 for start of chemo Hx of myocardial infarction "many years ago">had stress test but "doesn't know many other details" Dyspnea has inhalers-"but doesn't use them often">mainly early in the morning he has difficulty until he gets up and around Shortness of breath History of [place] (myocardial infarction) New onset a-fib currently on eliquis; f/u [facility] cardio? Myalgia Generalized weakness Flatulence occasionally Malaise BPH (benign prostatic hyperplasia) Urine incontinence Surgical History Port-A-Cath in place (10/21/22) Port Placement with Fluoroscopy(Right) - Donte Paredes DO History of back surgery History of hernia surgery Family History Other Cancer Denies family history of Ovarian cancer Prostate cancer Diabetes Coronary heart disease Dyslipidemia Myocardial infarction Breast cancer Colorectal cancer Social History Smoking Status: Never smoker Tobacco Type: Cigarettes Age Started Using Tobacco: 14; Age Quit Using Tobacco: 24; packs per day: 0.25; Second Hand Exposure: No; Do You Dip or Chew Tobacco: No; Hx Alcohol Use: No Hx Substance Use: No Preferred Language: Armenian Communication Ability: Effective Visual Impairment: No Limitations Hearing Ability: Hard of Hearing Underwater Roboticist Required: No Beliefs That Will Affect Care: None marital status: / Current Living Situation: Family Current Living Situation Comment: Lives with dog current occupational status: retired How many Children do You have: 2 Other Information That Helps Us Care for You: No Feels Safe at Home: Yes Safety Concerns: Feels Safe At This Time Childhood Exposure to Second-Hand Smoke: No Diet: regular caffeine: Yes (coffee) during the past year weight has: remained stable Dental Care, Regularly: Yes Physical Activity Frequency: Daily Seatbelt Use: always Sunscreen Use: No Do you think of yourself as: straight/heterosexual Gender Identity: Male Assistive Devices: Cane and Walker Review of Systems Review of Systems: All systems reviewed & are unremarkable except as noted in HPI & below Physical Exam Constitutional: well developed; + not well nourished and no acute distress Eyes: + anicteric sclerae; normal pupil size ENMT: Mouth: + dry oral mucous membranes Respiratory: + labored breathing and + uses accessory muscles Auscultation: + diminished lung sounds (right to upper zone on back); no crackles and no wheezes Cardiovascular: Rate/Rhythm: + tachycardic and + irregularly irregular Heart Sounds: + murmur Extremities: normal capillary refill, + calf tenderness (bilateral) and + pedal edema (1+ equal b/l) Gastrointestinal (Abdomen): Inspection/Auscultation: + abdomen distended Percussion/Palpation: abdomen soft; abdomen nontender, no guarding and abdomen not rigid Skin: no rashes, warm and dry Neurologic: moves all extremities and awake; not confused Psychiatric: A+Ox3, euthymic affect Genitourinary: no CVA tenderness Results & Data Results & Data Vital Signs (Past 12 Hours) Vital Signs Temp Pulse Resp BP Pulse Ox O2 Del Method O2 Flow Rate 02/16/23 18:33 102 H 02/16/23 18:07 115 H 114/86 02/16/23 17:11 120 H 92 Nasal Cannula 2 02/16/23 17:11 88 L Room Air 0 02/16/23 16:46 114 H 02/16/23 16:20 36.5 C 103 H 18 107/70 96 Room Air Laboratory Results Abnormal lab results 02/16/23 02/16/23 Range/Units 17:07 18:50 RBC 4.03 L (4.70-6.10) M/uL Hgb 12.3 L (14.0-18.0) g/dl Hct 37.8 L (42.0-52.0) % RDW Std Deviation 58.7 H (36.4-46.3) fL RDW Coeff of Dolly 16.8 H (11.5-14.5) % Lymph # (Auto) 1.09 L (1.20-3.40) K/uL [place] # (Auto) 0.64 H (0.11-0.59) K/uL PT 13.7 H (9.0-12.0) Seconds INR 1.3 H (0.9-1.1) APTT 33 H (21-31) Seconds Sodium 132 L (136-145) mmol/L Chloride 96 L (98-107) mmol/L BUN/Creatinine Ratio 22.2 H (10-20) Calcium 8.1 L (8.6-10.3) mg/dl AST 50 H (13-39) U/L Troponin I High Sens 61.3 H* 61.9 H* (0-20) pg/ml B-Natriuretic Peptide 451 H (0-100) pg/ml Total Protein 5.1 L (6.0-8.3) gm/dl Albumin 3.2 L (3.4-5.0) gm/dl Globulin 1.9 L (2.5-4.0) gm/dl Diagnostic Findings XR chest 1V portable CLINICAL HISTORY: Chest pain, nonspecific TECHNIQUE: Single frontal radiograph of the chest was obtained. Comparison: Comparison is made to chest radiograph 01/28/2023 FINDINGS: A port catheter is seen. The cardiomediastinal silhouette is stable. Red emonstration of right pleural effusion and implants, increased in conspicuity from the prior exam. No evidence of pleural effusion or pneumothorax. IMPRESSION: Right pleural effusion and metastatic implants are increased in conspicuity from prior exams. Medications Administered ER medications given: Furosemide 40 mg IV Metoprolol 2.5 mg IV ECG Rate (beats per minute): 112 Rhythm: atrial fibrillation Findings: + PVC Comparison ECG Date: from (January 28, 2023) Change: no significant change Code Status & VTE Plan Code Status DNR/DNI VTE Prophylaxis Plan VTE Prophylaxis will be ordered: No PG Care Time/CCT Total # of Minutes Spent Total Time Spent with Patient: Total time spent is greater than 50% in coordination of care (as documented) at patient's floor/unit and/or counseling patient: Coding Level of Care Code 73491 INT INP/OBS CARE 3/75MIN Diagnoses Pleural effusion on right J90 Atrial fibrillation with rapid ventricular response I48.91 High grade B-cell lymphoma C85.10 Acute respiratory failure with hypoxia J96.01 Chronic congestive heart failure I50.9 Left leg DVT I82.402
[2023-02-16] MEDS ORDERED: SIMETHICONE 80 MG CHEW PO PRN (20:50)
[2023-02-16] MEDS ORDERED: DIGOXIN 250 MCG in SYRINGE 9 ML IV STA (21:13)
[2023-02-16] MEDS: SULFAMETHOXAZOLE/TRIMETHOPRIM DS 800/160MG TAB PO SCH (21:16)
[2023-02-16] MEDS: ACYCLOVIR 400 MG TAB PO SCH (22:31)
[2023-02-16 22:39] LABS: Appearance Urine Clear (Clear); Bilirubin Urine Negative (Negative); Blood Urine Negative (Negative); Color Urine Yellow; Glucose Urine UA Negative (Negative); Ketones Urine Negative (Negative); Leukocyte Esterase Urine Negative (Negative); Nitrite Urine Negative (Negative); Protein Urine Negative (Negative); Specific Gravity Urine 1.005 (1.000-1.030); Urobilinogen Urine Negative (Negative); pH Urine 6.5 (4.5-7.5)
[2023-02-17] MEDS ORDERED: DIGOXIN 250 MCG in SYRINGE 9 ML IV ONE ×2 (03:00→09:00)
[2023-02-17 04:53] LABS: Basophils # (auto) 0.01 K/uL (0.00-0.20); Basophils % (auto) 0.2 %; Eosinophils # (auto) 0.13 K/uL (0.00-0.50); Eosinophils % (auto) 2.6 %; Hematocrit (blood only) 35.4 % (42.0-52.0); Hemoglobin 11.5 g/dl (14.0-18.0); Immature Granulocytes # (auto) 0.03 K/uL (0.01-0.20); Immature Granulocytes % (auto) 0.6 %; Lymphocytes % (auto) 17.9 %; Mean Corpuscular Hemoglobin 30.5 pg (25.0-34.0); Mean Corpuscular Hgb Conc 32.5 g/dL (32.0-36.0); Mean Corpuscular Volume 93.9 fL (80.0-100.0); Mean Platelet Volume 10.5 fL (9.4-12.4); Monocytes # (auto) 0.58 K/uL (0.11-0.59); Monocytes % (auto) 11.6 %; Neutrophils # (auto) 3.37 K/uL (1.40-6.50); Neutrophils % (auto) 67.1 %; Platelet Count 117 K/uL (130-400); RDW Coefficient of Variation 16.8 % (11.5-14.5); RDW Standard Deviation 59.1 fL (36.4-46.3); Red Blood Count 3.77 M/uL (4.70-6.10); White Blood Count 5.02 K/ul (4.8-10.8)
[2023-02-17 05:02] LABS: BUN Creatinine Ratio 22.7 (10-20); Calcium 8.1 mg/dl (8.6-10.3); Creatinine Clr Calc Pharmacy 90.4 ml/min; Est GFR (Non-African American) 86.3 ml/min; Magnesium 1.6 mg/dl (1.7-2.4); Potassium 3.5 mmol/L (3.5-5.1)
[2023-02-17] MEDS: FINASTERIDE 5 MG TAB PO SCH (08:59)
[2023-02-17] MEDS: ACYCLOVIR 400 MG TAB PO SCH ×2 (08:59→20:11)
[2023-02-17] MEDS: FUROSEMIDE 40 MG TAB PO SCH ×2 (08:59→16:20)
[2023-02-17] MEDS: TAMSULOSIN HCL 0.4 MG CAP PO SCH (09:00)
[2023-02-17] MEDS: allopurinoL 300 MG TAB PO SCH (09:00)
[2023-02-17] MEDS: POTASSIUM CHLORIDE CRTAB 20 MEQ TABCR PO SCH (09:01)
[2023-02-17] MEDS: UMECLIDINIUM BROMIDE 62.5MCG/BLISTER 7 PUFFS/INHALER INH SCH (09:01)
--- NOTE | 2023-02-17 10:01 | Communication Note ---
Date of Service: February 17, [address] Sammi Lane DNP Director, Palliative Care
--- NOTE | 2023-02-17 14:05 | Palliative Care Consultation ---
Date of Consultation February 17, 2023 Assessment & Plan (1) Dyspnea and respiratory abnormalities: (2) Weakness generalized: (3) Palliative care by specialist: Met with pt/family. Provided overview of Palliative Medicine, a subspecialty that provides specialized medical care for people living with a serious illness by offering a focus on quality of life. Palliative Medicine is often conflated with hospice: I advised patient/family that Palliative and hospice can be partners but we are not the same. It is important to understand the difference so that we may be informed, and not afraid. Palliative Medicine works to improve QOL through reduction of symptom burden/more control over their illness, for both the patient and family. Palliative medicine clinicians are board certified, specially-trained and another member of the patient's medical care team. We often provide an extra layer of support because our care is based on the needs of the patient, not the prognosis; as such, it's appropriate at any age/advancing stage of a serious illness and can be provided along with curative treatment. Palliative Medicine clinicians are also trained in advanced communication methodologies, to facilitate complex discussions about advanced illness planning, which are needed to help assure that the treatment choices match the patient's goals, aka delivering Goal Concordant care. Finally, we discussed that hospice is a visiting nurse service that focuses on care delivered at the very end of life for patients with terminal illness, with life expectancy less than 6 month. (4) Advanced care planning/counseling discussion: ACP face to face with pt and dtr at bedside x 45min Met with pt and dtr. He understands he is too frail for chemo and he says he would not want to spend the time he has left in medical appointments/looking at other sick people and watching the construction happening! We spoke about hospice and he was receptive. He and dtr agreed to home with hospice. Of note he lives outside [facility] in a very rustic cabin, which he shares was the old [place]. He was in the [employer] then went to [facility] on the [employer]. Had the opportunity to travel extensively for work and is thankful for the opportunity to see the world. Feels grateful to be able to now live in his rustic cabin, see the wildlife and "live off the land as much as I can." Dtr states she has sold her home in [place] and now lives between pt home and her daughter's home in [place], noting dtr has health issues that require her to be helping on a regular basis. She stays with pt in his cabin. He notes there is still an outhouse. He enjoys hunting and being outdoors. He likes the idea of living off the land and being self sufficient though dtr notes this is not as possible these days because of limitations in his abilities but he still enjoys being in the [place] and exploring nature. He wants to be home until his last breath. He is very clear he does not want a senior care. Family, for now, supportive but how much hands on care dtr can provide may be limited as his needs evolve, but hospice can help with this if it happens. (5) Encounter for hospice care discussion: (6) High grade B-cell lymphoma: (7) Chronic congestive heart failure: (8) Pleural effusion on right: (9) Atrial fibrillation with rapid ventricular response: Plan Await pleurX home with hospice when stable - CM to assist no acute symptom needs at this time per pt report I will sign off and remain available for re engagement if needed this admission, please page me Thank you for allowing us to participate in the ongoing care of this patient. Please don't hesitate to call or page with any additional concerns. Dr. Sammi Lane DNP Director, Palliative Care History of Present Illness Reason for Consultation: goals of care Attending Physician: Francesco Castaneda History of Present Illness Vivek is an 87yo male with high grade B cell lymphoma who was recently on R- CHOP and had growing intolerance, weakness and PS decline. He came to ED from [facility] after presenting with worsening dyspnea, hypoxia. Found to have a recurrent pleural effusion. Awaiting pleurX evaluation. Allergies Allergy/AdvReac Type Severity Reaction Status Date / Time meperidine Allergy Unknown CAN'T Verified 01/05/23 12:46 REMEMBER Home Medications Medication Instructions Recorded Confirmed Type cholecalciferol (vitamin D3) 25 1,000 units PO QAM 08/20/20 02/16/23 History mcg (1,000 unit) capsule naproxen sodium 220 mg tablet 220 mg PO Q12H PRN Pain 08/20/20 02/16/23 History (Aleve) tamsulosin 0.4 mg capsule 0.4 mg PO QAM #90 caps 08/18/22 02/16/23 Rx albuterol sulfate 90 mcg/actuation 2 inh inhalation Q6H PRN shortness 10/03/22 02/16/23 Rx aerosol inhaler of breath or wheezing #8.5 grams tiotropium bromide 2.5 2 inh inhalation DAILY #4 grams 10/03/22 02/16/23 Rx mcg/actuation mist for inhalation (Spiriva Respimat) saw palmetto 500 mg capsule 500 mg PO DAILY 10/06/22 02/16/23 History simethicone 80 mg chewable tablet 80 mg PO Q6H PRN gas/bloating 10/17/22 02/16/23 History (Gas Relief (simethicone)) allopurinol 300 mg tablet 300 mg PO DAILY 11/06/22 02/16/23 History ondansetron 8 mg disintegrating 8 mg PO Q8H 11/06/22 02/16/23 History tablet prednisone 20 mg tablet See Rx Instructions .Route .COMPLEX 11/06/22 02/16/23 History prochlorperazine maleate 10 mg 10 mg PO Q6H PRN Nausea 11/06/22 02/16/23 History tablet finasteride 5 mg tablet 5 mg PO DAILY #90 tabs 11/26/22 02/16/23 Rx furosemide 40 mg tablet (Lasix) 40 mg PO BID #60 tabs 01/29/23 02/16/23 Rx potassium chloride 20 mEq 20 meq PO DAILY #30 tabs 01/29/23 02/16/23 Rx tablet,extended release(part/cryst) apixaban 5 mg tablet (Eliquis) 5 mg PO BID #60 tabs 02/10/23 02/16/23 Rx acyclovir 400 mg tablet 400 mg PO BID 02/16/23 02/16/23 History sulfamethoxazole 800 1 tab PO UD 02/16/23 02/16/23 History mg-trimethoprim 160 mg tablet Patient History Medical History (Updated 02/17/23 @ 14:45 by Reinaldo Foreman MD) 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 Thrombocytopenia CAD (coronary artery disease) Poor historian Non compliance w medication regimen "doesn't use his inhalers" Bilateral pleural effusion 09/2022-per record Mediastinal mass 09/2022-per record Coronary artery disease per record Hyperlipidemia High grade B-cell lymphoma per record-"pt was unsure what type he has"; recent admit to [facility] 10/09/22 for start of chemo Hx of myocardial infarction "many years ago">had stress test but "doesn't know many other details" Dyspnea has inhalers-"but doesn't use them often">mainly early in the morning he has difficulty until he gets up and around Shortness of breath History of [place] (myocardial infarction) New onset a-fib currently on eliquis; f/u [facility] cardio? Myalgia Generalized weakness Flatulence occasionally Malaise BPH (benign prostatic hyperplasia) Urine incontinence Surgical History Port-A-Cath in place (10/21/22) Port Placement with Fluoroscopy(Right) - Donte Paredes DO History of back surgery History of hernia surgery Family History Other Cancer Denies family history of Ovarian cancer Prostate cancer Diabetes Coronary heart disease Dyslipidemia Myocardial infarction Breast cancer Colorectal cancer Social History Smoking Status: Never smoker Tobacco Type: Cigarettes Age Started Using Tobacco: 14; Age Quit Using Tobacco: 24; packs per day: 0.25; Second Hand Exposure: No; Do You Dip or Chew Tobacco: No; Hx Alcohol Use: No Hx Substance Use: No Preferred Language: Divehi Communication Ability: Effective Visual Impairment: No Limitations Hearing Ability: Hard of Hearing Gaming Table Operator Required: No Beliefs That Will Affect Care: None marital status: / Current Living Situation: Family Current Living Situation Comment: Lives with dog current occupational status: retired How many Children do You have: 2 Other Information That Helps Us Care for You: No Feels Safe at Home: Yes Safety Concerns: Feels Safe At This Time Childhood Exposure to Second-Hand Smoke: No Diet: regular caffeine: Yes (coffee) during the past year weight has: remained stable Dental Care, Regularly: Yes Physical Activity Frequency: Daily Seatbelt Use: always Sunscreen Use: No Do you think of yourself as: straight/heterosexual Gender Identity: Male Assistive Devices: Cane Review of Systems Review of Systems: All systems reviewed & are unremarkable except as noted in Subjective Physical Exam Constitutional: + ill appearing, + thin, + frail appeari ng and cooperative Eyes: PERRL, conjunctivae normal, anicteric sclerae ENMT: Ears: + hearing impairment Mouth: + dry oral mucous membranes, + poor dentition, + chipped teeth and + loose teeth Neck: trachea midline, no thyromegaly Respiratory: normal respiratory effort, able to speak in complete sentences and symmetric chest movement Auscultation: + diminished lung sounds and + crackles Cardiovascular: Rate/Rhythm: regular rate Gastrointestinal (Abdomen): normal bowel sounds, soft, nontender, no hepatosplenomegaly Musculoskeletal: Head/Neck/Chest: head atraumatic and neck supple Extremities: + muscle atrophy Gait: + antalgic gait Skin: + turgor decreased, + dry skin and + pal ubaldo Neurologic: AAOx3 Psychiatric: Orientation: alert and oriented x 3 Apperance: appropriately dressed Eye Contact: good eye contact Speech: + pressured speech Affect: + anxious affect Mood: + anxious mood Thought Process: clear/coherent thought process and + tangential thought process (at times) Results & Data Vital Signs (Past 12 Hours) Vital Signs Temp Pulse Pulse Resp BP Pulse Ox O2 Del Method 02/17/23 11:37 36.5 C 97 H 20 120/76 96 Nasal Cannula 02/17/23 08:58 100 H 02/17/23 07:52 36.4 C L 88 20 119/79 94 Room Air 02/17/23 07:47 Nasal Cannula 02/17/23 05:55 104 H 02/17/23 03:29 99 H 02/17/23 03:10 36.6 C 94 H 18 106/74 97 Nasal Cannula O2 Flow Rate 02/17/23 11:37 3 02/17/23 08:58 02/17/23 07:52 02/17/23 07:47 3 02/17/23 05:55 02/17/23 03:29 02/17/23 03:10 2 Laboratory Results data reviewed Diagnostic Findings data reviewed PG Care Time/CCT Total # of Minutes Spent Total Time Spent: 120 Total Time Spent with Patient: Total time spent is greater than 50% in coordination of care (as documented) at patient's floor/unit and/or counseling patient: I spent 120 minutes overall addressing this complex case: 20 min in medical data review/discussion with referring provider(s) and/or preparation for the visit 25 min in direct interaction with the patient/exam 45 min in Advance Care Planning/Goals of Care discussions as detailed above in note (must be >16min) 15 min in subsequent review and synthesis of assessment and plan 15 min communicating with other providers regarding the patient's case: primary team, care mgt, oncology, nursing Advanced Care Planning 30428 Advanced Care Planning 30 Min 53946 Advanced Care Planning Additional 30 [place] [address] IN/OBS CONSULT LVL 5,80M Patient Type New History Comprehensive Exam Comprehensive Medical Decision Making High Complexity Diagnoses Dyspnea and respiratory abnormalities R06.00; R06.89 Weakness generalized R53.1 Palliative care by specialist Z51.5 Advanced care planning/counseling discussion Z71.89 Encounter for hospice care discussion Z71.89 High grade B-cell lymphoma C85.10 Chronic congestive heart failure I50.9 Pleural effusion on right J90 Atrial fibrillation with rapid ventricular response I48.91 Additional Codes Advanced Care Planning - 85260 Advanced Care Planning 30 Min: 99996 Advanced Care Planning 30 Min ([id number]) Advanced Care Planning - 38735 Advanced Care Planning Additional 30 Min: 58303 Advanced Care Planning Additional 30 Min ([id number])
--- NOTE | 2023-02-17 14:48 | Pulmonary Consultation ---
Date of Consultation February 17, 2023 Assessment & Plan (1) Malignant pleural effusion: (2) High grade B-cell lymphoma: (3) Dyspnea and respiratory abnormalities: Plan 87-year-old male with recurrent right malignant pleural effusion. Patient is currently being followed by palliative medicine services and oncology. He is favoring a more palliative approach at this time to his symptoms. Chest x-ray reviewed from 02/16/2023 which indeed reveals moderate to large right pleural effusion with metastatic pleural implants. Radiology report reviewed as well and agree with assessment. I discussed thoracentesis versus indwelling pleural catheter with the patient and daughter at bedside at length. Patient understands the risk of both procedures and would prefer indwelling pleural catheter at this time. Will likely perform Pleurx catheter tomorrow once his Eliquis has been held for a total of 4 doses. Thank you for the consult. Will follow with you. History of Present Illness Reason for Consultation: Recurrent right pleural effusion Attending Physician: Francesco Castaneda History of Present Illness 87-year-old male with a past medical history of high-grade B-cell lymphoma who presented to the ER via request of his oncologist. Patient notes increasing shortness of breath and cough for the past 2 to 3 weeks. He is accompanied by his daughter today. He notes that his appetite has been poor and he has been losing weight. He is dyspneic with minimal exertion. He had a thoracentesis 01/27/2023 which revealed high-grade B-cell lymphoma. He notes that his shortness of breath symptoms quickly returned after the thoracentesis. His platelet count is noted to be mildly decreased at 117,000. Patient has been on Eliquis for recent left leg DVT and atrial fibrillation which has now been held for the past 3 doses. His INR was 1.3 on admission and PTT was 33. Allergies Allergy/AdvReac Type Severity Reaction Status Date / Time meperidine Allergy Unknown CAN'T Verified 01/05/23 12:46 REMEMBER Home Medications Medication Instructions Recorded Confirmed Type cholecalciferol (vitamin D3) 25 1,000 units PO QAM 08/20/20 02/16/23 History mcg (1,000 unit) capsule naproxen sodium 220 mg tablet 220 mg PO Q12H PRN Pain 08/20/20 02/16/23 History (Aleve) tamsulosin 0.4 mg capsule 0.4 mg PO QAM #90 caps 08/18/22 02/16/23 Rx albuterol sulfate 90 mcg/actuation 2 inh inhalation Q6H PRN shortness 10/03/22 02/16/23 Rx aerosol inhaler of breath or wheezing #8.5 grams tiotropium bromide 2.5 2 inh inhalation DAILY #4 grams 10/03/22 02/16/23 Rx mcg/actuation mist for inhalation (Spiriva Respimat) saw palmetto 500 mg capsule 500 mg PO DAILY 10/06/22 02/16/23 History simethicone 80 mg chewable tablet 80 mg PO Q6H PRN gas/bloating 10/17/22 02/16/23 History (Gas Relief (simethicone)) allopurinol 300 mg tablet 300 mg PO DAILY 11/06/22 02/16/23 History ondansetron 8 mg disintegrating 8 mg PO Q8H 11/06/22 02/16/23 History tablet prednisone 20 mg tablet See Rx Instructions .Route .COMPLEX 11/06/22 02/16/23 History prochlorperazine maleate 10 mg 10 mg PO Q6H PRN Nausea 11/06/22 02/16/23 History tablet finasteride 5 mg tablet 5 mg PO DAILY #90 tabs 11/26/22 02/16/23 Rx furosemide 40 mg tablet (Lasix) 40 mg PO BID #60 tabs 01/29/23 02/16/23 Rx potassium chloride 20 mEq 20 meq PO DAILY #30 tabs 01/29/23 02/16/23 Rx tablet,extended release(part/cryst) apixaban 5 mg tablet (Eliquis) 5 mg PO BID #60 tabs 02/10/23 02/16/23 Rx acyclovir 400 mg tablet 400 mg PO BID 02/16/23 02/16/23 History sulfamethoxazole 800 1 tab PO UD 02/16/23 02/16/23 History mg-trimethoprim 160 mg tablet Patient History Medical History (Updated 02/17/23 @ 14:45 by Reinaldo Foreman MD) 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 Thrombocytopenia CAD (coronary artery disease) Poor historian Non compliance w medication regimen "doesn't use his inhalers" Bilateral pleural effusion 09/2022-per record Mediastinal mass 09/2022-per record Coronary artery disease per record Hyperlipidemia High grade B-cell lymphoma per record-"pt was unsure what type he has"; recent admit to [facility] 10/09/22 for start of chemo Hx of myocardial infarction "many years ago">had stress test but "doesn't know many other details" Dyspnea has inhalers-"but doesn't use them often">mainly early in the morning he has difficulty until he gets up and around Shortness of breath History of [place] (myocardial infarction) New onset a-fib currently on eliquis; f/u [facility] cardio? Myalgia Generalized weakness Flatulence occasionally Malaise BPH (benign prostatic hyperplasia) Urine incontinence Surgical History Port-A-Cath in place (10/21/22) Port Placement with Fluoroscopy(Right) - Donte Paredes DO History of back surgery History of hernia surgery Family History Other Cancer Denies family history of Ovarian cancer Prostate cancer Diabetes Coronary heart disease Dyslipidemia Myocardial infarction Breast cancer Colorectal cancer Social History Smoking Status: Never smoker Tobacco Type: Cigarettes Age Started Using Tobacco: 14; Age Quit Using Tobacco: 24; packs per day: 0.25; Second Hand Exposure: No; Do You Dip or Chew Tobacco: No; Hx Alcohol Use: No Hx Substance Use: No Preferred Language: Occitan Communication Ability: Effective Visual Impairment: No Limitations Hearing Ability: Hard of Hearing Entry Level Civil Engineer Required: No Beliefs That Will Affect Care: None marital status: / Current Living Situation: Family Current Living Situation Comment: Lives with dog current occupational status: retired How many Children do You have: 2 Other Information That Helps Us Care for You: No Feels Safe at Home: Yes Safety Concerns: Feels Safe At This Time Childhood Exposure to Second-Hand Smoke: No Diet: regular caffeine: Yes (coffee) during the past year weight has: remained stable Dental Care, Regularly: Yes Physical Activity Frequency: Daily Seatbelt Use: always Sunscreen Use: No Do you think of yourself as: straight/heterosexual Gender Identity: Male Assistive Devices: Cane Review of Systems Review of Systems: All systems reviewed & are unremarkable except as noted in HPI & below Physical Exam Physical Exam: General: Thin and frail appearing elderly male in no apparent distress. Coughing frequently during exam. Eyes: Pupils are equal round and reactive to light. Conjunctivae are normal. Anicteric sclera. Ears nose, mouth and throat: Mallampati class 2. Normal posterior oropharynx. Uvula is midline. Neck: Trachea is midline. Visual inspection is normal. Respiratory: Diminished lung sounds on the right with crackles diffusely. No increased work of breathing. Coughing frequently. Cardiovascular: Regular rate and rhythm. No murmurs. No edema. Gastrointestinal: Normal bowel sounds, soft, nontender and nondistended. No hepatosplenomegaly noted. Musculoskeletal: No cyanosis. Patient is able to move all extremities. Strength is 5 out of 5 in the upper and lower extremities. Skin: No rashes, warm dry and intact. Neurologic: No obvious focal neurological deficits seen. Psychiatric: Alert and oriented x3 with a euthymic affect. Results & Data Results & Data Vital Signs (Past 12 Hours) Vital Signs Temp Pulse Pulse Resp BP Pulse Ox O2 Del Method 02/17/23 11:37 36.5 C 97 H 20 120/76 96 Nasal Cannula 02/17/23 08:58 100 H 02/17/23 07:52 36.4 C L 88 20 119/79 94 Room Air 02/17/23 07:47 Nasal Cannula 02/17/23 05:55 104 H 02/17/23 03:29 99 H 02/17/23 03:10 36.6 C 94 H 18 106/74 97 Nasal Cannula O2 Flow Rate 02/17/23 11:37 3 02/17/23 08:58 02/17/23 07:52 02/17/23 07:47 3 02/17/23 05:55 02/17/23 03:29 02/17/23 03:10 2 PG Care Time/CCT Total # of Minutes Spent Total Time Spent with Patient: Total time spent is greater than 50% in coordination of care (as documented) at patient's floor/unit and/or counseling patient: Coding Level of Care Code 15266 INT INP/OBS CARE 3/75MIN Diagnoses Malignant pleural effusion J91.0 High grade B-cell lymphoma C85.10 Dyspnea and respiratory abnormalities R06.00; R06.89
[2023-02-17] MEDS: DIGOXIN 0.25 MG TAB PO SCH (16:19)
--- NOTE | 2023-02-17 22:24 | Hospitalist Progress Note ---
Date of Service February 17, 2023 Assessment & Plan (1) Pleural effusion on right: Plan: Suspect recurrent pleural effusion as the cause of his shortness of breath and acute respiratory failure with hypoxia Discussed with Dr. Quispe and will hold Eliquis at this time to consider possible pleurx catheter Plan for pleurex catheter on 02/18. (2) Atrial fibrillation with rapid ventricular response: Plan: Previously on metoprolol last admission although was not continued on discharge. He runs a generally low blood pressure and was given IV lasix earlier therefore will load with digoxin to help with his rates which appear to be inappropriately fast. Anticoagulation with Eliquis currently on hold for possible pleurx (3) High grade B-cell lymphoma: Plan: Most recently on R-CHOP therapy. Reportedly presented with options for further chemotherapy at oncology clinic today but declined potentially seeking a more palliative process. Will consult palliative care. Discussed care with Dr. Fuentes and confirms above. If patient is not getting a palliative care consider inpatient consult. (4) Acute respiratory failure with hypoxia: Plan: Secondary to pleural effusion +/- lung masses Aim O2 sats > 90% (5) Chronic congestive heart failure: Plan: Do not suspect increasing Lasix dosing will have much of an effect on the pleural effusion given that it is malignant Continue his usual Lasix 40 mg p.o. BID Aim net neutral fluid balance Strict I's and O's Daily weights (6) Left leg DVT: Plan: Deep vein thrombosis of left calf posterior tibial vein diagnosed January 26 No pulmonary embolism was seen on CT angiogram at the same time. Doubtful pulmonary embolism at this time given he has been on Eliquis. Eliquis currently on hold for Pleurx placement however will need to be restarted as soon as possible given recent DVT, consider heparin drip if this has to be held for multiple days Plan VTE prophylaxis - Eliquis on hold Diet - low-sodium Disposition - admit to med/tele Admission and Anticipated Discharge Date Admission Date: February 16, 2023 Subjective 87 yo male reports no new symptoms. Review of Systems Review of Systems: All systems reviewed & are unremarkable except as noted in HPI & below Physical Exam Constitutional: well developed; + not well nourished and no acute distress Eyes: + anicteric sclerae; normal pupil size Respiratory: no labored breathing and does not use accessory muscles Auscultation: + diminished lung sounds (right to upper zone on back); no crackles and no wheezes Cardiovascular: Rate/Rhythm: + tachycardic and + irregularly irregular Heart Sounds: + murmur Extremities: normal capillary refill, + calf tenderness (bilateral) and + pedal edema (1+ equal b/l) Gastrointestinal (Abdomen): Inspection/Auscultation: + abdomen distended Percussion/Palpation: abdomen soft; abdomen nontender, no guarding and abdomen not rigid Skin: no rashes, warm and dry Neurologic: moves all extremities and awake; not confused Psychiatric: A+Ox3, euthymic affect Genitourinary: no CVA tenderness Results & Data Results & Data Vital Signs (Past 12 Hours) Vital Signs Temp Pulse Pulse Resp BP Pulse Ox O2 Del Method 02/17/23 21:42 Nasal Cannula 02/17/23 20:20 36 C L 87 16 95/61 L 95 Nasal Cannula 02/17/23 16:19 91 H 02/17/23 15:20 36.9 C 90 20 124/77 98 Nasal Cannula 02/17/23 14:01 96 H 02/17/23 11:37 36.5 C 97 H 20 120/76 96 Nasal Cannula O2 Flow Rate 02/17/23 21:42 3 02/17/23 20:20 3 02/17/23 16:19 02/17/23 15:20 3 02/17/23 14:01 02/17/23 11:37 3 PG Care Time/CCT Total # of Minutes Spent Total Time Spent with Patient: Total time spent is greater than 50% in coordination of care (as documented) at patient's floor/unit and/or counseling patient: Coding Level of Care Code 70643 SUB INP/OBS CARE 2/35MIN Diagnoses Pleural effusion on right J90 Atrial fibrillation with rapid ventricular response I48.91 High grade B-cell lymphoma C85.10 Acute respiratory failure with hypoxia J96.01 Chronic congestive heart failure I50.9 Left leg DVT I82.402
[2023-02-18 06:26] LABS: Hematocrit (blood only) 37.5 % (42.0-52.0); Hemoglobin 11.7 g/dl (14.0-18.0); Mean Corpuscular Hemoglobin 29.8 pg (25.0-34.0); Mean Corpuscular Hgb Conc 31.2 g/dL (32.0-36.0); Mean Corpuscular Volume 95.7 fL (80.0-100.0); Mean Platelet Volume 10.6 fL (9.4-12.4); Platelet Count 105 K/uL (130-400); RDW Coefficient of Variation 16.8 % (11.5-14.5); RDW Standard Deviation 58.9 fL (36.4-46.3); Red Blood Count 3.92 M/uL (4.70-6.10); White Blood Count 5.04 K/ul (4.8-10.8)
[2023-02-18 06:42] LABS: BUN Creatinine Ratio 20.8 (10-20); Creatinine Clr Calc Pharmacy 75.5 ml/min; Est GFR (African American) 96.5 ml/min; Est GFR (Non-African American) 83.3 ml/min; Potassium 3.7 mmol/L (3.5-5.1)
[2023-02-18] MEDS: FUROSEMIDE 40 MG TAB PO SCH ×2 (08:24→16:48)
[2023-02-18] MEDS: UMECLIDINIUM BROMIDE 62.5MCG/BLISTER 7 PUFFS/INHALER INH SCH (08:24)
[2023-02-18] MEDS: FINASTERIDE 5 MG TAB PO SCH (08:24)
[2023-02-18] MEDS: ACYCLOVIR 400 MG TAB PO SCH ×2 (08:24→20:50)
[2023-02-18] MEDS: TAMSULOSIN HCL 0.4 MG CAP PO SCH (08:25)
[2023-02-18] MEDS: allopurinoL 300 MG TAB PO SCH (08:25)
[2023-02-18] MEDS: POTASSIUM CHLORIDE CRTAB 20 MEQ TABCR PO SCH (08:27)
--- NOTE | 2023-02-18 09:24 | Procedure Note ---
Procedure Note Date of Service February 18, 2023 Note PREOPERATIVE DIAGNOSIS: Recurrent malignant right pleural effusion. POSTOPERATIVE DIAGNOSIS: Recurrent malignant right pleural effusion. PROCEDURE PERFORMED: Right PleurX catheter placement. Indication: Recurrent malignant effusion Consent: Signed by patient and verified with timeout prior to procedure. Anesthesia: 15 mL's 1% lidocaine without epinephrine locally. Casting Molder: Dr. Reinaldo Foreman Estimated blood loss: Less than 5 mL Procedure: Appropriate radiographic films had been reviewed prior to commencement of the procedure. Risks and benefits were again discussed with patient and consent was verified. The patient was placed in the left up lateral decubitus position. Limited thoracic ultrasound was performed which revealed a moderate to large size left effusion with compressive atelectasis. Site appropriate for the pleurotomy was marked. Skin was prepped and draped in normal sterile fashion. Using 1% lidocaine, the skin and soft tissues down to the pleura were anesthetized. A tract extending approximately 8 to 10 cm anteriorly from the pleurotomy site was also infiltrated and a site appropriate for the exit of the Pleurx catheter was marked. A 1 cm skin ord was made at the posterior site. The catheter over the needle apparatus was advanced into the pleural space with pleural fluid easily aspirated. A wire was passed through the catheter after the needle was removed. The Pleurx catheter was then loaded on the tunneling device. A 1cm skin incision was made at the anterior catheter exit site. The tunneling device with the attached Pleurx catheter were passed from the anterior incision back to the posterior incision until the cuff of the Pleurx catheter resided within the subcutaneous tissues. The catheter was palpated along its course and no kinking was identified. Serial dilatation was then performed over the wire with the pull-away catheter being left in place. The Pleurx was removed from the tunneling mechanism and advanced through the peel-away catheter. The catheter sheath was then peeled back as the Pleurx catheter was advanced into the pleural space. The Pleurx catheter course was palpated and no kinks were felt. It was attached to wall suction and a total of 1000 mL's was removed. Using 1-0 silk, 2 stitches were placed at the exit Pleurx site and the catheter secured in place. 2 small Vicryl sutures were used to close the posterior incision. A ster ile dressing was applied. The patient tolerated the procedure well without obvious complication. Post procedure x-ray is pending. Coding CPT Codes Pulmonary/Thoracic - Pulmonary and Thoracic: 93029 Insert pleural cathereter w/cuff ([id number]) Pulmonary/Thoracic - Pulmonary and Thoracic: 02166 US, Chest, real time with imaging documentation ([id number]) [facility] Procedure Codes (Charges) Pulmonary/Thoracic Procedure 1: Pulmonary and Thoracic: 03781 Insert pleural cathereter w/cuff Procedure 2: Pulmonary and Thoracic: 55846 US, Chest, real time with imaging documentation
--- NOTE | 2023-02-18 09:26 | Pulmonology Progress Note ---
Date of Service February 18, 2023 Assessment & Plan (1) Malignant pleural effusion: (2) High grade B-cell lymphoma: (3) Dyspnea and respiratory abnormalities: Plan 87-year-old male with recurrent right malignant pleural effusion. Patient is currently being followed by palliative medicine services and oncology. He is favoring a more palliative approach at this time to his symptoms. Chest x-ray reviewed from 02/16/2023 which indeed reveals moderate to large right pleural effusion with metastatic pleural implants. Radiology report reviewed as well and agree with assessment. Consent obtained from the patient for placement of Pleurx catheter. Right Pleurx catheter placed and approximately 1 L of fluid was withdrawn from the pleural space with improvement of symptoms. Continue daily drainage. Patient stable for discharge home when deemed ready by general medical team. Patient will need sutures removed in 10 to 14 days. Thank you for the consult. Will follow with you. Admission and Anticipated Discharge Date Admission Date: February 16, 2023 Subjective Patient seen and examined. Symptoms unchanged compared to yesterday. Endorses dyspnea with minimal exertion. Occasional cough with productive sputum. Denies hemoptysis. Appetite remains somewhat poor. Denies any chest pain, fevers or chills. Review of Systems Review of Systems: All systems reviewed & are unremarkable except as noted in HPI & below Physical Exam Physical Exam: General: Thin and frail appearing elderly male in no apparent distress. Coughing frequently during exam. Eyes: Pupils are equal round and reactive to light. Conjunctivae are normal. Anicteric sclera. Ears nose, mouth and throat: Mallampati class 2. Normal posterior oropharynx. Uvula is midline. Neck: Trachea is midline. Visual inspection is normal. Respiratory: Diminished lung sounds on the right with crackles diffusely. No increased work of breathing. Coughing frequently. Cardiovascular: Regular rate and rhythm. No murmurs. No edema. Gastrointestinal: Normal bowel sounds, soft, nontender and nondistended. No hepatosplenomegaly noted. Musculoskeletal: No cyanosis. Patient is able to move all extremities. Strength is 5 out of 5 in the upper and lower extremities. Skin: No rashes, warm dry and intact. Neurologic: No obvious focal neurological deficits seen. Psychiatric: Alert and oriented x3 with a euthymic affect. Results & Data Results & Data Vital Signs (Past 12 Hours) Vital Signs Temp Pulse Pulse Resp BP Pulse Ox O2 Del Method 02/18/23 08:36 36.5 C 84 20 94/59 L 97 Nasal Cannula 02/18/23 07:55 Nasal Cannula 02/18/23 06:00 102 H 02/18/23 05:40 84 02/18/23 04:50 36.3 C L 103 H 16 102/66 95 Nasal Cannula 02/17/23 23:53 36.8 C 69 18 111/65 02/17/23 23:00 95 H 02/17/23 22:00 110 H 02/17/23 21:42 Nasal Cannula O2 Flow Rate 02/18/23 08:36 2 02/18/23 07:55 3 02/18/23 06:00 02/18/23 05:40 02/18/23 04:50 3 02/17/23 23:53 02/17/23 23:00 02/17/23 22:00 02/17/23 21:42 3 PG Care Time/CCT Total # of Minutes Spent Total Time Spent with Patient: Total time spent is greater than 50% in coordination of care (as documented) at patient's floor/unit and/or counseling patient: Coding Level of Care Code 57940 SUB INP/OBS CARE 2/35MIN Diagnoses Malignant pleural effusion J91.0 High grade B-cell lymphoma C85.10 Dyspnea and respiratory abnormalities R06.00; R06.89
--- NOTE | 2023-02-18 09:43 | XRay Report ---
XR chest 1V portable CLINICAL HISTORY: s/p right pleurx COMPARISON STUDY: Chest CT January 26, 2023. Chest radiograph February 16, 2023. FINDINGS: Right basilar pleural catheter is in place. Right pleural effusion has decreased in size. A residual right pleural effusion is present. Right lung aeration has improved. Linear density project ing over the right upper hemithorax favors a skinfold. No definite pneumothorax. Cardiomegaly is agai n noted. Mediastinal and right hilar lymphadenopathy is better depicted on prior chest CT per there i s pulmonary vascular congestion. Right internal jugular [id number] is in place. IMPRESSION: 1. Right basilar pleural catheter in place. Interval decrease in size of the right pleural effusion. Residual pleural effusion. Improved right lung aeration. 2. Suspected skinfold projecting over the right upper chest. No definite pneumothorax. ACT 112: Negative or not required by law. Electronically signed by: Dakota Krause M.D. 02/18/2023 9:40 AM
[2023-02-18] MEDS ORDERED: traMADol HCL 50 MG TABLET PO STA (09:46)
[2023-02-18] MEDS: ACETAMINOPHEN 325 MG TAB PO SCH ×3 (13:00→20:50)
[2023-02-18] MEDS: DIGOXIN 0.25 MG TAB PO SCH (16:48)
[2023-02-18] MEDS: SULFAMETHOXAZOLE/TRIMETHOPRIM DS 800/160MG TAB PO SCH (20:50)
--- NOTE | 2023-02-18 22:05 | Hospitalist Progress Note ---
Date of Service February 18, 2023 Assessment & Plan (1) Pleural effusion on right: Plan: Suspect recurrent pleural effusion as the cause of his shortness of breath and acute respiratory failure with hypoxia Discussed with Dr. Quispe and will hold Eliquis at this time to consider possible pleurx catheter S?P pleurex catheter WIll need eliquis retarted on 02/19 (2) Atrial fibrillation with rapid ventricular response: Plan: Previously on metoprolol last admission although was not continued on discharge. He runs a generally low blood pressure and was given IV lasix earlier therefore will load with digoxin to help with his rates which appear to be inappropriately fast. Anticoagulation with Eliquis currently on hold can resume on 02/19 if no bleeding from pleurex cath (3) High grade B-cell lymphoma: Plan: Most recently on R-CHOP therapy. Reportedly presented with options for further chemotherapy at oncology clinic today but declined potentially seeking a more palliative process. Will consult palliative care. will discharge home on hospice (4) Acute respiratory failure with hypoxia: Plan: Secondary to pleural effusion +/- lung masses Aim O2 sats > 90% (5) Chronic congestive heart failure: Plan: Do not suspect increasing Lasix dosing will have much of an effect on the pleural effusion given that it is malignant Continue his usual Lasix 40 mg p.o. BID Aim net neutral fluid balance Strict I's and O's Daily weights (6) Left leg DVT: Plan: Deep vein thrombosis of left calf posterior tibial vein diagnosed January 26 No pulmonary embolism was seen on CT angiogram at the same time. Doubtful pulmonary embolism at this time given he has been on Eliquis. Eliquis currently on hold for Pleurx placement however will need to be restarted as soon as possible given recent DVT, consider heparin drip if this has to be held for multiple days Plan VTE prophylaxis - Eliquis on hold Diet - low-sodium Disposition - admit to med/tele DIscharge on home hospice on 02/19 Admission and Anticipated Discharge Date Admission Date: February 16, 2023 Subjective Patient reports feeling much better today. Review of Systems Review of Systems: All systems reviewed & are unremarkable except as noted in HPI & below Physical Exam Constitutional: well developed; + not well nourished and no acute distress Eyes: + anicteric sclerae; normal pupil size Respiratory: no labored breathing and does not use accessory muscles Auscultation: + diminished lung sounds (right to upper zone on back); no crackles and no wheezes Cardiovascular: Rate/Rhythm: + tachycardic and + irregularly irregular Heart Sounds: + murmur Extremities: normal capillary refill, + calf tenderness (bilateral) and + pedal edema (1+ equal b/l) Gastrointestinal (Abdomen): Inspection/Auscultation: + abdomen distended Percussion/Palpation: abdomen soft; abdomen nontender, no guarding and abdomen not rigid Skin: no rashes, warm and dry Neurologic: moves all extremities and awake; not confused Psychiatric: A+Ox3, euthymic affect Genitourinary: no CVA tenderness Results & Data Results & Data Vital Signs (Past 12 Hours) Vital Signs Temp Pulse Pulse Resp BP Pulse Ox O2 Del Method 02/18/23 19:00 36.3 C L 80 20 97/62 L 91 Room Air 02/18/23 16:48 73 02/18/23 15:26 36.9 C 18 103/58 L 96 Nasal Cannula 02/18/23 14:12 82 02/18/23 12:01 36.3 C L 83 19 101/60 96 Nasal Cannula O2 Flow Rate 02/18/23 19:00 02/18/23 16:48 02/18/23 15:26 2 02/18/23 14:12 02/18/23 12:01 3 PG Care Time/CCT Total # of Minutes Spent Total Time Spent with Patient: Total time spent is greater than 50% in coordination of care (as documented) at patient's floor/unit and/or counseling patient: Coding Level of Care Code 07929 SUB INP/OBS CARE 2/35MIN Diagnoses Pleural effusion on right J90 Atrial fibrillation with rapid ventricular response I48.91 High grade B-cell lymphoma C85.10 Acute respiratory failure with hypoxia J96.01 Chronic congestive heart failure I50.9 Left leg DVT I82.402
--- NOTE | 2023-02-19 05:34 | Electrocardiogram Report ---
Test Reason : Blood Pressure : / mmHG Vent. Rate : 112 BPM Atrial Rate : 000 BPM P-R Int : 000 ms QRS Dur : 092 ms QT Int : 360 ms P-R-T Axes : 000 -21 014 degrees QTc Int : 491 ms Atrial fibrillation with rapid ventricular response with premature ventricular or aberrantly conducte d complexes Possible Anterior infarct , age undetermined Nonspecific T wave abnormality Abnormal ECG When compared with ECG of 28-JAN-2023 04:01, Borderline criteria for Anterior infarct are now Present Confirmed by Jimi Blankenship ([id number]) on 02/19/2023 5:33:43 AM Referred By: REFERRED SELF Confirmed By:Jimi Blankenship
[2023-02-19] MEDS: ACETAMINOPHEN 325 MG TAB PO SCH ×2 (09:03→12:56)
[2023-02-19] MEDS: UMECLIDINIUM BROMIDE 62.5MCG/BLISTER 7 PUFFS/INHALER INH SCH (09:03)
[2023-02-19] MEDS: ACYCLOVIR 400 MG TAB PO SCH (09:04)
[2023-02-19] MEDS: FINASTERIDE 5 MG TAB PO SCH (09:04)
[2023-02-19] MEDS: FUROSEMIDE 40 MG TAB PO SCH (09:04)
[2023-02-19] MEDS: TAMSULOSIN HCL 0.4 MG CAP PO SCH (09:04)
[2023-02-19] MEDS: allopurinoL 300 MG TAB PO SCH (09:04)
[2023-02-19] MEDS: POTASSIUM CHLORIDE CRTAB 20 MEQ TABCR PO SCH (09:06)
--- NOTE | 2023-02-19 10:12 | Hospitalist Progress Note ---
Date of Service February 19, 2023 Assessment & Plan (1) Pleural effusion on right: Plan: Suspect recurrent pleural effusion as the cause of his shortness of breath and acute respiratory failure with hypoxia Discussed with Dr. Foreman and placed Pleurx catheter 02/18 foe palliative symptom improvement eliquis retarted on 02/19 (2) Atrial fibrillation with rapid ventricular response: Plan: Previously on metoprolol last admission although was not continued on discharge. He runs a generally low blood pressure and was given IV lasix earlier therefore will load with digoxin to help with his rates which appear to be inappropriately fast. Anticoagulation with Eliquis can resume on 02/19 if no bleeding from pleurex cath (3) High grade B-cell lymphoma: Plan: Most recently on R-CHOP therapy. Reportedly presented with options for further chemotherapy at oncology clinic on day of admission but declined potentially seeking a more palliative process. consult palliative care. consider discharge home on hospice (4) Chronic congestive heart failure: Plan: This is chronic diastolic Heart failure last echo 10/22 with preserved EF Do not suspect increasing Lasix dosing will have much of an effect on the pleural effusion given that it is malignant Continue his usual Lasix 40 mg p.o. BID (5) Left leg DVT: Plan: Deep vein thrombosis of left calf posterior tibial vein diagnosed January 26 malignancy associated VTE No pulmonary embolism was seen on CT angiogram at the same time. Plan VTE prophylaxis - Eliquis on hold Diet - low-sodium Disposition - admit to med/tele DIscharge on home hospice on 02/19 Admission and Anticipated Discharge Date Admission Date: February 16, 2023 Results & Data Results & Data Vital Signs (Past 12 Hours) Vital Signs Temp Pulse Pulse Resp BP Pulse Ox O2 Del Method 02/19/23 07:52 97.5 F L 91 H 19 111/69 93 Room Air 02/19/23 06:00 106 H 02/19/23 03:30 97.7 F 82 20 104/64 92 Room Air 02/18/23 22:22 102 H 02/18/23 22:22 Room Air PG Care Time/CCT Total # of Minutes Spent Total Time Spent with Patient: Total time spent is greater than 50% in coordination of care (as documented) at patient's floor/unit and/or counseling patient: Coding Diagnoses Pleural effusion on right J90 Atrial fibrillation with rapid ventricular response I48.91 High grade B-cell lymphoma C85.10 Chronic congestive heart failure I50.9 Left leg DVT I82.402
--- NOTE | 2023-02-19 10:46 | Pulmonology Progress Note ---
Date of Service February 19, 2023 Assessment & Plan (1) Malignant pleural effusion: (2) High grade B-cell lymphoma: (3) Dyspnea and respiratory abnormalities: Plan 87-year-old male with recurrent right malignant pleural effusion. Patient is currently being followed by palliative medicine services and oncology. He is favoring a more palliative approach at this time to his symptoms. Status post Pleurx catheter placement 02/18/2023. I removed an additional 1 L of serous appearing fluid today with the Pleurx. Patient feels much less short of breath post drainage. Recommend daily drainage until drainage p.o. below 500 mL and then can go to every 2-day drainage. No further recommendations at this time. Pulmonary to sign off. Thank you for the consult and please call with questions. Will need sutures removed in 10 to 14 days. Admission and Anticipated Discharge Date Admission Date: February 16, 2023 Subjective Patient feeling much less short of breath today. Sitting up in a chair and eating breakfast. Denies any chest pain. No cough. Review of Systems Review of Systems: All systems reviewed & are unremarkable except as noted in HPI & below Physical Exam Physical Exam: General: Thin and frail appearing elderly male in no apparent distress. Coughing frequently during exam. Eyes: Pupils are equal round and reactive to light. Conjunctivae are normal. Anicteric sclera. Ears nose, mouth and throat: Mallampati class 2. Normal posterior oropharynx. Uvula is midline. Neck: Trachea is midline. Visual inspection is normal. Respiratory: Diminished lung sounds on the right with crackles diffusely. No increased work of breathing. Right pleural catheter in place. Cardiovascular: Regular rate and rhythm. No murmurs. No edema. Gastrointestinal: Normal bowel sounds, soft, nontender and nondistended. No hepatosplenomegaly noted. Musculoskeletal: No cyanosis. Patient is able to move all extremities. Strength is 5 out of 5 in the upper and lower extremities. Skin: No rashes, warm dry and intact. Neurologic: No obvious focal neurological deficits seen. Psychiatric: Alert and oriented x3 with a euthymic affect. Results & Data Results & Data Vital Signs (Past 12 Hours) Vital Signs Temp Pulse Pulse Resp BP Pulse Ox O2 Del Method 02/19/23 07:52 36.4 C L 91 H 19 111/69 93 Room Air 02/19/23 06:00 106 H 12/21/23 03:30 36.5 C 82 20 104/64 92 Room Air PG Care Time/CCT Total # of Minutes Spent Total Time Spent with Patient: Total time spent is greater than 50% in coordination of care (as documented) at patient's floor/unit and/or counseling patient: Coding Level of Care Code 93646 SUB INP/OBS CARE 2/35MIN Diagnoses Malignant pleural effusion J91.0 High grade B-cell lymphoma C85.10 Dyspnea and respiratory abnormalities R06.00; R06.89
--- NOTE | 2023-02-19 10:47 | Procedure Note ---
Procedure Note Date of Service February 19, 2023 Note Bandage taken down from Pleurx catheter site. PleurX catheter intact and well- placed. Sutures were intact and well-placed. I attached the Pleurx catheter to drainage bottle using an aseptic technique and was able to remove 1 L of fluid. The patient felt better. Bandaging was placed back over the Pleurx catheter site. Coding CPT Codes Pulmonary/Thoracic - Pulmonary and Thoracic: 48451 Pleural drainage w/o imaging ([id number]) [facility] [place] Procedure Codes (Charges) Pulmonary/Thoracic Procedure 1: Pulmonary and Thoracic: 46792 Pleural drainage w/o imaging
[2023-02-19] MEDS ORDERED: HEPARIN 100 UNIT/ML 5ML FLUSH FLUSH PRN (12:37)
--- NOTE | 2023-02-19 18:15 | Discharge Summary ---
Date of Service February 19, 2023 Admission HPI Per Admitting Provider Vivek Carrillo is an 87-year-old male with high grade B cell lymphoma who presents to the ER on [facility] of the [facility] due to shortness of breath on exertion and hypoxia. The patient feels he isn't significant different than when he was discharged on January 30 although his family do feel he is more short of breath the last few days but much better compared to when he was admitted last time. No fever, chills, cough, sinus pain or ear ache. He last underwent thoracentesis on January 26 with no growth on cultures. Most recently on R-CHOP chemotherapy he had a discussion with his oncology [employer] today and is not keen on pursuing further chemotherapy. He is not currently under palliative care. He is interested in possible having a pleurx catheter to help with his shortness of breath as notes the thoracentesis last admission significant helped him. Principal Diagnosis malignant pleural effusion s/p pleurex catheter decision to go home with hospice care Discharge Exam pt with absent breath sounds to the lower right lung Discharge Data Allergies Allergy/AdvReac Type Severity Reaction Status Date / Time meperidine Allergy Unknown CAN'T Verified 01/05/23 12:46 REMEMBER Consultations 02/16/23 18:11 ED Decision to Admit Stat 02/16/23 20:52 Consult Palliative Care Routine Consult Pulmonology Routine Ordered Studies 02/18/23 07:26 US point of care ultrasound Urgent Hospital Course (1) Pleural effusion on right: Suspect recurrent pleural effusion as the cause of his shortness of breath and acute respiratory failure with hypoxia Discussed with Dr. Foreman and placed Pleurx catheter 02/18 foe palliative symptom improvement eliquis retarted on 02/19 (2) Atrial fibrillation with rapid ventricular response: Previously on metoprolol last admission although was not continued on discharge. He runs a generally low blood pressure and was given IV lasix earlier therefore will load with digoxin to help with his rates which appear to be inappropriately fast. Anticoagulation with Eliquis (3) High grade B-cell lymphoma: Most recently on R-CHOP therapy. Reportedly presented with options for further chemotherapy at oncology clinic on day of admission but declined potentially seeking a more palliative process. discharge home on hospice (4) Chronic congestive heart failure: This is chronic diastolic Heart failure last echo 10/22 with preserved EF Do not suspect increasing Lasix dosing will have much of an effect on the pleural effusion given that it is malignant Continue his usual Lasix 40 mg p.o. BID (5) Left leg DVT: Deep vein thrombosis of left calf posterior tibial vein diagnosed January 26 malignancy associated VTE No pulmonary embolism was seen on CT angiogram at the same time. Plan Discharge on home hospice on 02/19 Total Time Total Time Spent Total Time Spent (In Minutes): It required greater than 30 minutes to prepare this patient for discharge. Discharge Plan Discharge Items Patient Disposition: Hospice - Home Reason For Visit: HYPOXIA, MALIGNANT PLEURAL EFFUSIONS Discharge Diagnosis: malignant pleural effusion pleurex catheter placement Home on home hospice Activity: Per Instructions section Non-emergency contact: Primary Care Provider Call non-emergency contact if: your symptoms worsen Follow-up/Referrals: Aram Rivas DO [Primary Care Provider] - 02/26/23 10:00 am Diet: Regular Addtl Attending Provider Instructions: please follow home nursing instructions for care of pulmonary Pleurx Catheter there is a new medicine for you called Digoxin, this helps you heart not to beat so fast due to your atrial fibrillation Pending Studies at Discharge: No Stand-Alone Forms: My [facility] Medications and DC Order Prescriptions: New digoxin 250 mcg (0.25 mg) Tablet 0.25 mg PO DAILY@1600 Qty: 30 2RF morphine concentrate 100 mg/5 mL (20 mg/mL) solution 20 mg sublingual Q6H PRN (Reason: pain) Qty: 30 0RF Continued tamsulosin 0.4 mg capsule 0.4 mg PO QAM Qty: 90 3RF Patient Comments: pt doesn't have this right now? Eliquis 5 mg tablet 5 mg PO BID Qty: 60 11RF Hold Instructions: Resume on 10/23/22. finasteride 5 mg tablet 5 mg PO DAILY Qty: 90 3RF naproxen sodium [Aleve] 220 mg Tablet 220 mg PO Q12H PRN (Reason: Pain) cholecalciferol (vitamin D3) 1,000 unit capsule 1,000 units PO QAM albuterol sulfate 90 mcg/actuation HFA aerosol inhaler 2 inh inhalation Q6H PRN (Reason: shortness of breath or wheezing) Qty: 8.5 0RF Spiriva Respimat 2.5 mcg/actuation mist 2 inh inhalation DAILY Qty: 4 1RF simethicone [Gas Relief (simethicone)] 80 mg tablet,chewable 80 mg PO Q6H PRN (Reason: gas/bloating) prochlorperazine maleate 10 mg tablet 10 mg PO Q6H PRN (Reason: Nausea) ondansetron 8 mg tablet,disintegrating 8 mg PO Q8H allopurinol 300 mg tablet 300 mg PO DAILY acyclovir 400 mg tablet 400 mg PO BID sulfamethoxazole-trimethoprim 800-160 mg tablet 1 tab PO UD potassium chloride 20 mEq Tablet,Er Particles/Crystals 20 meq PO DAILY Qty: 30 0RF furosemide [Lasix] 40 mg tablet 40 mg PO BID Qty: 60 0RF Discontinued saw palmetto 500 mg capsule 500 mg PO DAILY Rx Instructions: PT UNSURE OF STRENGTH. give with food (meal/snack) prednisone 20 mg tablet See Rx Instructions .ROUTE .COMPLEX Rx Instructions: Take as prescribed. Take 80mg by mouth on days 1-5 of each 21 day cycle Discharge Orders: Discharge Order (Routine); Ordered 02/19/23 Ordered By: Lake Gonzalez/Other Patient Handouts: Digoxin Oral Tablet, Morphine Oral Concentrate 20 mg/mL, Pleural Effusion, Chest Tubes, Starting Hospice, Hospice Managing Pain, Hospice Care Dyspnea, Hospice: As Nears, Using Oxygen Safely, For Caregivers: Coping Tips, Taking Digoxin, Using an Oxygen Tank at Home, Indwelling Pleural Catheter (IPC) Admission Data Admit Date/Time: 02/16/23 19:08 Attending Provider: Lake Grewal Admit Provider: Finn Bashir Primary Care Provider: Aram Rivas Other Providers: Finn Bashir; Sammi Lane; Reinaldo Foreman; [facility] Other Interventions: Discharge Summary Assessment (RN) Last Done: 02/19/23 14:34 Coding Level of Care Code 33306 INP/OBS DISCH >30 MIN Diagnoses Pleural effusion on right J90 Atrial fibrillation with rapid ventricular response I48.91 High grade B-cell lymphoma C85.10 Chronic congestive heart failure I50.9 Left leg DVT I82.402
== END 2023-02-19 15:11 | disposition hospice, home (50) | DRG 840 ==
LOC: ED 16:16 → SUATTDRO 19:08 → EDINP 19:08 → 2W 21:43